=== PATIENT | male | born 1945 | race Caucasian/White ===

== ENCOUNTER 2016-10-07 14:34 | Inpatient (IN) | payer OTHER, MEDICARE ==
[~2016-10-07] VITALS: Ht 167.6 cm; Wt 82.0 kg
[~2016-10-07 14:34] MED LIST: ASPI81 PO; BP MED; DIABETES MEDS; [UNRECOGNIZED DRUG - OTHER]; cholesterol med
[2016-10-07 14:36] VITALS: BP 139/75; PULSE 120; RESP 20; TEMP 99.8; O2SAT 97
[2016-10-07] MEDS ORDERED: SODIUM CHLOR 0.9% 1000 ML INJ 1,000 ML IV ONE ×3 (14:39)
[2016-10-07] MEDS ORDERED: ACETAMINOPHEN 325 MG TAB PO ONE (14:45)
--- NOTE | 2016-10-07 14:50 | PD ---
HPI . Fever Chief Complaint: Fever Time Seen by Provider: 14:39 Travel History International Travel<30 days: No Contact w/Intl Traveler<30days: No Traveled to known affect area: No History of Present Illness HPI This patient was brought to us by [facility] for fever. His story is that he was not seen by neighbors for several days. They called the police to do a well-being check. The police were able to gain entry into the residence and found the patient in his bed decreased level of consciousness. The patient himself was not able to give much history. He states that he "doesn't feel good. He states he has not felt well for a month. And on review of systems, he complained of frequent urination. Further history is unobtainable from the patient. He does not currently have any family here with him. [facility] Past Medical History Medical History: Unable to Obtain Diabetes: Yes Diminished Hearing: Yes GERD: Yes Hypertension: Yes Myocardial Infarction: Yes Tetanus Vaccination: Unknown Past Surgical History Surgical History: Unable to Obtain Other Surgery: Yes (inguinal hernia repair) Social History Alcohol Use: No Tobacco Use: No Substance Use: No Allergies-Medications (Allergen,Severity, Reaction): Coded Allergies: No Known Allergies (Verified , 10/07/16) Reported Meds & Prescriptions Reported Meds & Active Scripts Active Active Prescriptions or Reported Medications Unobtainable Review of Systems ROS Limitations: Poor Historian General / Constitutional: No: Fever, Chills Respiratory: No: Cough, Shortness of Breath Gastrointestinal: No: Nausea, Vomiting, Diarrhea Genitourinary: Positive: Frequency Physical Exam Narrative GENERAL: This is a chronically ill-appearing man who does not appear to be in any acute distress. SKIN: Warm and dry. HEAD: Atraumatic. Normocephalic. EYES: Pupils equal and round. Extraocular movements are intact. ENT: No nasal bleeding or discharge. Mucous membranes pink and moist. NECK: Trachea midline. Neck is supple. No cervical lymphadenopathy. CARDIOVASCULAR: Sinus tachycardia with a rate of around 120-130. Heart sounds are normal. RESPIRATORY: No accessory muscle use. Lungs are clear anteriorly. GASTROINTESTINAL: Abdomen soft, non-tender, nondistended. MUSCULOSKELETAL: No obvious deformities. No edema. NEUROLOGICAL: Awake and alert. No obvious cranial nerve deficits. Motor grossly within normal limits. Normal speech. Patient is disoriented to his current circumstances. He is able to tell me his name. PSYCHIATRIC: Unable to assess. Data Data Last Documented VS Vital Signs Date Time Temp Pulse Resp B/P Pulse Ox O2 Delivery O2 Flow Rate FiO2 10/07/16 15:41 86 17 142/75 96 Nasal Cannula 4 10/07/16 14:36 99.8 Orders Complete Blood Count With Diff (10/07/16 14:39) Comprehensive Metabolic Panel (10/07/16 14:39) Lactic Acid Sepsis Protocol (10/07/16 14:39) Urinalysis - C+S If Indicated (10/07/16 14:39) Blood Culture (10/07/16 14:39) Chest, Single Ap (10/07/16 14:39) Ecg Monitoring (10/07/16 14:39) Iv Access Insert/Monitor (10/07/16 14:39) Cath For Specimen (10/07/16 14:39) Oximetry (10/07/16 14:39) Oxygen Administration (10/07/16 14:39) Acetaminophen (Tylenol) (10/07/16 14:45) Sodium Chlor 0.9% 1000 Ml Inj (Ns 1000 M (10/07/16 14:39) Sodium Chlor 0.9% 1000 Ml Inj (Ns 1000 M (10/07/16 14:39) Sodium Chlor 0.9% 1000 Ml Inj (Ns 1000 M (10/07/16 14:39) Electrocardiogram (10/07/16 14:31) Urine Culture (10/07/16 14:40) Ceftriaxone Inj (Rocephin Inj) (10/07/16 15:30) Potassium Chloride (Kcl) (10/07/16 15:45) Labs Laboratory Tests Test 10/07/16 14:40 White Blood Count 16.2 TH/MM3 Red Blood Count 3.28 MIL/MM3 Hemoglobin 7.8 GM/DL Hematocrit 23.8 % Mean Corpuscular Volume 72.8 FL Mean Corpuscular Hemoglobin 23.7 PG Mean Corpuscular Hemoglobin 32.6 % Concent Red Cell Distribution Width 15.8 % Platelet Count 248 TH/MM3 Mean Platelet Volume 8.1 FL Neutrophils (%) (Auto) 95.0 % Lymphocytes (%) (Auto) 2.7 % Monocytes (%) (Auto) 0.7 % Eosinophils (%) (Auto) 0.0 % Basophils (%) (Auto) 1.6 % Neutrophils # (Auto) 15.4 TH/MM3 Lymphocytes # (Auto) 0.4 TH/MM3 Monocytes # (Auto) 0.1 TH/MM3 Eosinophils # (Auto) 0.0 TH/MM3 Basophils # (Auto) 0.3 TH/MM3 CBC Comment AUTO DIFF Differential Comment AUTO DIFF CONFIRMED Urine Collection Type CATH Urine Color NESTOR Urine Turbidity CLEAR Urine pH 5.5 Urine Specific [place] 1.020 Urine Protein NEG mg/dL Urine Glucose (UA) 1000 OR GREATER mg/dL Urine Ketones NEG mg/dL Urine Occult Blood MOD Urine Nitrite POS Urine Bilirubin NEG Urine Leukocyte Esterase NEG Urine RBC 0-3 /hpf Urine WBC 9-14 /hpf Urine WBC Clumps MOD Urine Bacteria MANY /hpf Microscopic Urinalysis Comment CULTURE INDICATED Sodium Level 149 MEQ/L Potassium Level 2.1 MEQ/L Chloride Level 121 MEQ/L Carbon Dioxide Level 14.6 MEQ/L Anion Gap 13 MEQ/L Blood Urea Nitrogen 27 MG/DL Creatinine 2.00 MG/DL Estimat Glomerular Filtration 33 ML/MIN Rate Random Glucose 119 MG/DL Lactic Acid Level 2.1 mmol/L Calcium Level LESS THAN 5.0 MG/DL Protein Corrected Calcium 6.6 MG/DL Total Bilirubin 0.4 MG/DL Aspartate Amino Transf 8 U/L (AST/SGOT) Alanine Aminotransferase 11 U/L (ALT/SGPT) Alkaline Phosphatase 65 U/L Total Protein 3.4 GM/DL Albumin 1.6 GM/DL [facility] Medical Decision Making Medical Screen Exam Complete: Yes Emergency Medical Condition: Yes Interpretation(s) EKG shows a sinus tachycardia with a rate of 113. No ST segment elevation or depression. Differential Diagnosis Differential diagnosis of fever includes but is not limited to viral illness, strep throat, otitis media, pneumonia, sepsis, UTI Narrative Course The patient was brought to us via [facility] chief complaint of fever. They got an axillary temp of 102.9. The etiology of the fever is as yet unknown. Septic workup was in process. CBC & BMP Diagram 10/07/16 14:40 His renal function studies have worsened. His H&H is also lower than usual. He has leukocytosis. He has hypokalemia. Furthermore, he is hypocalcemic. UA>>mod blood, pos nitrite, 9-14 WBC, mod WBC clumps, many bact. Sepsis Criteria SIRS Criteria (2 or more): Temp > 100.9 or < 96.8, Heart rate over 90, WBC > 88235, < 4000 or > 10% bands Sepsis Criteria (SIRS+source): Infect source susp/known Criteria Outcome: Meets SIRS criteria, Meets sepsis criteria Diagnosis Primary Impression: ARF (acute renal failure) Qualified Code: N17.9 - Acute renal failure, unspecified acute renal failure type Additional Impressions: Anemia Qualified Code: D64.9 - Anemia, unspecified type UTI (urinary tract infection) Qualified Code: N30.00 - Acute cystitis without hematuria Hypokalemia Hypocalcemia Admitting Information Admitting Physician Requests: Admit Scripts Unable to Obtain Active Prescriptions or Reported Meds Condition: Stable Irina Hooper MD Oct 07, 2016 14:50
[2016-10-07 15:03] VITALS: O2SAT 69; O2SAT 96
[2016-10-07 15:07] LABS: KETONE, URINE NEG (NEG); PH, URINE 5.5 (5.0-8.5)
[2016-10-07 15:08] LABS: AUTOMATED NEUTROPHIL # 15.4 TH/MM3 (1.8-7.7); BASOPHIL # 0.3 TH/MM3 (0-0.2); BASOPHIL % 1.6 % (0.0-2.0); BLOOD, URINE MOD (NEG); GLUCOSE,URINE 1000 OR GREATER mg/dL (NEG); HEMATOCRIT 23.8 % (39.0-51.0); LYMPH % 2.7 % (9.0-44.0); LYMPHOCYTE # 0.4 TH/MM3 (1.0-4.8); MEAN CELL VOLUME 72.8 FL (80.0-100.0); MEAN CORPUSCULAR HEMOGLOBIN 23.7 PG (27.0-34.0); MEAN CORPUSCULAR HGB CONC 32.6 % (32.0-36.0); MONO % 0.7 % (0.0-8.0); NITRITE,URINE POS (NEG); PLATELET COUNT 248 TH/MM3 (150-450); RED BLOOD COUNT 3.28 MIL/MM3 (4.50-5.90); RED CELL DISTRIBUTION WIDTH 15.8 % (11.6-17.2); WHITE BLOOD COUNT 16.2 TH/MM3 (4.0-11.0)
[2016-10-07 15:09] LABS: METHOD OF COLLECTION CATH; URINE COLOR AMBER (YELLW/STRAW)
[2016-10-07 15:10] LABS: HEMO FLAGS AUTO DIFF
[2016-10-07 15:12] LABS: BACTERIA, URINE MANY /hpf; COMMENT (UR) CULTURE INDICATED; CULTURE IF INDICATED CULTURE INDICATED; RBC, URINE 0-3 /hpf (0-3)
[2016-10-07 15:25] LABS: ALKALINE PHOSPHATASE 65 U/L (45-117); ALT (GPT) 11 U/L (12-78); ANION GAP 13 MEQ/L (5-15); AST (GOT) 8 U/L (15-37); BICARBONATE 14.6 MEQ/L (21.0-32.0); BLOOD UREA NITROGEN 27 MG/DL (7-18); CHLORIDE 121 MEQ/L (98-107); GLOMERULAR FILTRATION RATE 33 ML/MIN (>89); SODIUM (NA) 149 MEQ/L (136-145); TOTAL BILIRUBIN ADULT 0.4 MG/DL (0.2-1.0)
[2016-10-07 15:27] LABS: POTASSIUM 2.1 MEQ/L (3.5-5.1)
[2016-10-07] MEDS ORDERED: cefTRIAXone INJ 1,000 MG in SODIUM CHLORIDE 0.9% INJ 100 ML IV ONE (15:30)
[2016-10-07 15:35] LABS: CALCIUM-PROTEIN CORRECTED 6.6 MG/DL (8.5-10.1)
[2016-10-07 15:39] LABS: SCAN/DIFF AUTO DIFF CONFIRMED
[2016-10-07 15:41] VITALS: BP 142/75; PULSE 86; RESP 17; O2SAT 96
[2016-10-07] MEDS ORDERED: POTASSIUM CHLORIDE 20 MEQ CONTROLLED RELEASE TAB PO ONE (15:45)
--- NOTE | 2016-10-07 15:52 | RADRPT ---
EXAM DATE/TIME: 10/07/2016 14:56 [facility] COMPARISON: CHEST SINGLE AP, May 14, 2011, 18:35. INDICATIONS : Fever MEDICAL HISTORY : None. SURGICAL HISTORY : None. ENCOUNTER: Initial ACUITY: 1 day PAIN SCORE: 0/10 LOCATION: Bilateral chest FINDINGS: The patient is mildly rotated towards the right. The heart size is enlarged. The lungs are grossly cl ear. There some prominence of the superior mediastinum especially on the right. This may be secondary to the rotation. CONCLUSION: No acute abnormality seen. Bruno Pedraza MD on October 07, 2016 at 15:48 Board Certified Radiologist. This report was verified electronically.
[2016-10-07] MEDS ORDERED: GLIP10TA6 PO (15:54)
[2016-10-07] MEDS ORDERED: AMLO5TAB2 PO (15:54)
[2016-10-07] MEDS ORDERED: PANT20TA2 PO (15:54)
[2016-10-07] MEDS ORDERED: CITA20TA4 PO (15:54)
[2016-10-07] MEDS ORDERED: TRAZ100T6 PO (15:54)
[2016-10-07] MEDS ORDERED: MELO-1 PO (15:54)
[2016-10-07] MEDS ORDERED: SITA1TAB2 PO (15:54)
[2016-10-07] MEDS ORDERED: ATOR20TA15 PO (15:54)
[2016-10-07] MEDS ORDERED: HYDR25TA5 PO (15:54)
[2016-10-07] MEDS: SODIUM CHLOR 0.45% 1000 ML INJ 1,000 ML IV SCH (16:06)
[2016-10-07] MEDS ORDERED: BISACODYL 10 MG SUPP RECTAL PRN (16:15)
[2016-10-07] MEDS ORDERED: NALOXONE HCL 0.4 MG/ML AMP IV PRN (16:15)
[2016-10-07] MEDS ORDERED: MAGNESIUM HYDROXIDE SUSP 30 ML CUP PO PRN (16:15)
[2016-10-07] MEDS ORDERED: ONDANSETRON HCL 4 MG/2 ML VIAL IVP PRN (16:15)
[2016-10-07] MEDS ORDERED: ACETAMINOPHEN 325 MG TAB PO PRN (16:15)
[2016-10-07] MEDS ORDERED: SODIUM CHLORIDE 0.9% FLUSH 10 ML FLUSH IV FLUSH PRN (16:15)
[2016-10-07] MEDS ORDERED: Vancomycin Consult Pharmacy 1 EA OTHER SCH (16:30)
[2016-10-07] MEDS ORDERED: DEXTROSE 50% IN WATER 50 ML VIAL(D50) IV PRN (16:45)
[2016-10-07] MEDS ORDERED: GLUCAGON 1 MG/ML VIAL OTHER PRN (16:45)
[2016-10-07 16:59] LABS: LACTIC ACID GHOST NOT REPORTABLE
[2016-10-07 17:00] LABS: ALKALINE PHOSPHATASE 108 U/L (45-117); ALT (GPT) 24 U/L (12-78); ANION GAP 12 MEQ/L (5-15); AST (GOT) 25 U/L (15-37); BICARBONATE 25.2 MEQ/L (21.0-32.0); BLOOD UREA NITROGEN 38 MG/DL (7-18); CHLORIDE 100 MEQ/L (98-107); GLOMERULAR FILTRATION RATE 19 ML/MIN (>89); POTASSIUM 3.5 MEQ/L (3.5-5.1); SODIUM (NA) 137 MEQ/L (136-145); TOTAL BILIRUBIN ADULT 0.6 MG/DL (0.2-1.0)
[2016-10-07] MEDS ORDERED: cefTRIAXone INJ 1,000 MG in SODIUM CHLORIDE 0.9% INJ 100 ML IV SCH (17:00)
[2016-10-07 17:01] LABS: CREATINE KINASE 54 U/L (39-308)
[2016-10-07 17:43] VITALS: O2SAT 96
[2016-10-07] MEDS: POTASSIUM CHLOR 20 MEQ PREMIX 100 ML IV SCH ×2 (18:02→23:18)
[2016-10-07] MEDS: CALCIUM CARBONATE 1.25 GM (CA 500 MG) TAB PO SCH (18:02)
[2016-10-07] MEDS: HEPARIN SODIUM - SQ 10,000 UNITS/ML VIAL SQ SCH (18:03)
--- NOTE | 2016-10-07 19:41 | PD ---
Data Data Last Documented VS Vital Signs Date Time Temp Pulse Resp B/P Pulse Ox O2 Delivery O2 Flow Rate FiO2 10/07/16 15:41 86 17 142/75 96 Nasal Cannula 4 10/07/16 14:36 99.8 Orders Complete Blood Count With Diff (10/07/16 14:39) Comprehensive Metabolic Panel (10/07/16 14:39) Lactic Acid Sepsis Protocol (10/07/16 14:39) Urinalysis - C+S If Indicated (10/07/16 14:39) Blood Culture (10/07/16 14:39) Chest, Single Ap (10/07/16 14:39) Ecg Monitoring (10/07/16 14:39) Iv Access Insert/Monitor (10/07/16 14:39) Cath For Specimen (10/07/16 14:39) Oximetry (10/07/16 14:39) Oxygen Administration (10/07/16 14:39) Acetaminophen (Tylenol) (10/07/16 14:45) Sodium Chlor 0.9% 1000 Ml Inj (Ns 1000 M (10/07/16 14:39) Sodium Chlor 0.9% 1000 Ml Inj (Ns 1000 M (10/07/16 14:39) Sodium Chlor 0.9% 1000 Ml Inj (Ns 1000 M (10/07/16 14:39) Electrocardiogram (10/07/16 14:31) Urine Culture (10/07/16 14:40) Ceftriaxone Inj (Rocephin Inj) (10/07/16 15:30) Potassium Chloride (Kcl) (10/07/16 15:45) Admit Order (Ed Use Only) (10/07/16 15:56) Labs Laboratory Tests Test 10/07/16 14:40 White Blood Count 16.2 TH/MM3 Red Blood Count 3.28 MIL/MM3 Hemoglobin 7.8 GM/DL Hematocrit 23.8 % Mean Corpuscular Volume 72.8 FL Mean Corpuscular Hemoglobin 23.7 PG Mean Corpuscular Hemoglobin 32.6 % Concent Red Cell Distribution Width 15.8 % Platelet Count 248 TH/MM3 Mean Platelet Volume 8.1 FL Neutrophils (%) (Auto) 95.0 % Lymphocytes (%) (Auto) 2.7 % Monocytes (%) (Auto) 0.7 % Eosinophils (%) (Auto) 0.0 % Basophils (%) (Auto) 1.6 % Neutrophils # (Auto) 15.4 TH/MM3 Lymphocytes # (Auto) 0.4 TH/MM3 Monocytes # (Auto) 0.1 TH/MM3 Eosinophils # (Auto) 0.0 TH/MM3 Basophils # (Auto) 0.3 TH/MM3 CBC Comment AUTO DIFF Differential Comment AUTO DIFF CONFIRMED Urine Collection Type CATH Urine Color NESTOR Urine Turbidity CLEAR Urine pH 5.5 Urine Specific [place] 1.020 Urine Protein NEG mg/dL Urine Glucose (UA) 1000 OR GREATER mg/dL Urine Ketones NEG mg/dL Urine Occult Blood MOD Urine Nitrite POS Urine Bilirubin NEG Urine Leukocyte Esterase NEG Urine RBC 0-3 /hpf Urine WBC 9-14 /hpf Urine WBC Clumps MOD Urine Bacteria MANY /hpf Microscopic Urinalysis Comment CULTURE INDICATED Sodium Level 149 MEQ/L Potassium Level 2.1 MEQ/L Chloride Level 121 MEQ/L Carbon Dioxide Level 14.6 MEQ/L Anion Gap 13 MEQ/L Blood Urea Nitrogen 27 MG/DL Creatinine 2.00 MG/DL Estimat Glomerular Filtration 33 ML/MIN Rate Random Glucose 119 MG/DL Lactic Acid Level 2.1 mmol/L Calcium Level LESS THAN 5.0 MG/DL Protein Corrected Calcium 6.6 MG/DL Total Bilirubin 0.4 MG/DL Aspartate Amino Transf 8 U/L (AST/SGOT) Alanine Aminotransferase 11 U/L (ALT/SGPT) Alkaline Phosphatase 65 U/L Total Protein 3.4 GM/DL Albumin 1.6 GM/DL [facility] Supervised Visit with MONICA: No Narrative Course I took over care of this patient from Dr. Hooper. The patient was found lethargic in his house in bed. He has evidence of urosepsis and has an indwelling Lo catheter. He also has renal insufficiency which appears to be new. Initially his electrolytes all seemed abnormal. In reviewing the picture and it appears that he had saline contamination to his first set a labs. I repeated his labs and they're more normal. I did contact Dr. Harris regarding the new blood work. Pt. will be admitted for antibiotics and rehydration. Diagnosis Primary Impression: ARF (acute renal failure) Qualified Code: N17.9 - Acute renal failure, unspecified acute renal failure type Additional Impressions: Anemia Qualified Code: D64.9 - Anemia, unspecified type UTI (urinary tract infection) Qualified Code: N30.00 - Acute cystitis without hematuria Hypokalemia Hypocalcemia Condition: Stable Chiquita Solomon MD Oct 07, 2016 19:40
[2016-10-07 20:00] VITALS: BP 108/67; PULSE 101; RESP 22; TEMP 98.8; O2SAT 96
[2016-10-07] MEDS: INSULIN NovoLIN REGULAR SUPPLEMENTAL SCALE SQ SCH (21:00)
[2016-10-07] MEDS ORDERED: VANCOMYCIN INJ 1,200 MG in SODIUM CHLOR 0.9% 250 ML INJ 250 ML IV ONE (21:00)
[2016-10-07 21:04] VITALS: O2SAT 94
[2016-10-07] MEDS: ATORVASTATIN 20 MG TAB PO SCH (21:51)
[2016-10-07] MEDS: traZODone HCL 100 MG TAB PO SCH (21:51)
[2016-10-07] MEDS: SENNOSIDES 8.6 MG TAB PO SCH (21:51)
[2016-10-08] VITALS (7 sets, daily range): BP systolic 114–136; BP diastolic 71–84; PULSE 67–81; RESP 16–19; TEMP 96.7–97.8; O2SAT 92–95
[2016-10-08] MEDS: POTASSIUM CHLOR 20 MEQ PREMIX 100 ML IV SCH (01:39)
[2016-10-08] MEDS: HEPARIN SODIUM - SQ 10,000 UNITS/ML VIAL SQ SCH ×2 (03:44→17:06)
[2016-10-08 05:39] LABS: HEMATOCRIT 26.2 % (39.0-51.0); MEAN CELL VOLUME 74.4 FL (80.0-100.0); MEAN CORPUSCULAR HEMOGLOBIN 23.8 PG (27.0-34.0); MEAN CORPUSCULAR HGB CONC 31.9 % (32.0-36.0); PLATELET COUNT 258 TH/MM3 (150-450); RED BLOOD COUNT 3.52 MIL/MM3 (4.50-5.90); WHITE BLOOD COUNT 32.3 TH/MM3 (4.0-11.0)
[2016-10-08 05:47] LABS: REVIEW FLAG FINAL
[2016-10-08] MEDS: INSULIN NovoLIN REGULAR SUPPLEMENTAL SCALE SQ SCH ×4 (06:11→21:00)
[2016-10-08] MEDS: SODIUM CHLOR 0.45% 1000 ML INJ 1,000 ML IV SCH ×2 (06:12→09:21)
[2016-10-08 06:16] LABS: ALKALINE PHOSPHATASE 93 U/L (45-117); ALT (GPT) 29 U/L (12-78); ANION GAP 8 MEQ/L (5-15); AST (GOT) 19 U/L (15-37); BICARBONATE 26.2 MEQ/L (21.0-32.0); BLOOD UREA NITROGEN 31 MG/DL (7-18); CHLORIDE 107 MEQ/L (98-107); GLOMERULAR FILTRATION RATE 37 ML/MIN (>89); POTASSIUM 4.4 MEQ/L (3.5-5.1); SODIUM (NA) 141 MEQ/L (136-145); TOTAL BILIRUBIN ADULT 0.4 MG/DL (0.2-1.0)
[2016-10-08] MEDS ORDERED: glipiZIDE 10 MG TAB PO SCH (07:00)
--- NOTE | 2016-10-08 08:35 | HHI.HP ---
[facility] Unknown Admission Diagnosis sepsis Diagnoses: (1) Severe sepsis Diagnosis: Principal (2) Encephalopathy Diagnosis: Principal (3) Lactic acidosis Diagnosis: Principal (4) Leukocytosis Diagnosis: Principal (5) Acute renal failure Diagnosis: Principal (6) UTI (urinary tract infection) Diagnosis: Principal (7) Hypokalemia Diagnosis: Principal (8) Hypocalcemia Diagnosis: Principal (9) Microcytic anemia Diagnosis: Principal (10) Protein-calorie malnutrition, moderate Diagnosis: Principal (11) Hypertension Diagnosis: Secondary (12) Hyperlipidemia Diagnosis: Secondary (13) Diabetes Diagnosis: Secondary Travel History International Travel<30 Days: No Contact w/Intl Traveler <30 Da: No Traveled to Known Affected Are: No Sepsis Criteria SIRS Criteria (2 or more): Heart rate over 90, WBC > 12827, < 4000 or > 10% bands Sepsis Criteria (SIRS+source): Infect source susp/known Severe Sepsis (+one): Organ Dysfunction, Lactate >2, Acute Oliguria/Renal Failure Criteria Outcome: Meets severe sepsis criteria History of Present Illness Written by Russell Azar, acting as scribe for Dr. Millan on 10/08/16 at 09: 14. 71-year-old male with known history of hypertension, hyperlipidemia, diabetes who was brought to the hospital for evaluation by [facility]. The patient himself cannot give much information regarding why he is here the hospital. He just states that he is messed up. ER documentation doesn't give much other information other than the police were called to do a well-child check. The police obtain entry is homebound and have decreased level consciousness and the patient was brought to the hospital for evaluation. Time of evaluating the patient he is alert and orientated 4, however he cannot give any information regarding his symptoms or if he is been ill recently. Patient had workup done emergency department found to have multiple abnormalities to include severe sepsis, renal failure, lactic acidosis, leukocytosis, urinary tract infection and the patient was recommended admission for further evaluation management. Most all information was taken from medical records and nursing staff. Review of Systems ROS Limitations: Poor Historian (unable to obtain review of systems) Except as stated in HPI: all other systems reviewed are Neg Past Family Social History Past Medical History Hypertension Hyperlipidemia Diabetes History of urinary tract infection Past Surgical History Bilateral hernia repair Cholecystectomy Reported Medications Reported Meds & Active Scripts Active Reported Hydrochlorothiazide 25 Mg Tab 25 Mg PO DAILY Amlodipine (Amlodipine Besylate) 5 Mg Tab 5 Mg PO DAILY Trazodone (Trazodone HCl) 100 Mg Tablet 100 Mg PO HS Januvia (Sitagliptin Phosphate) 100 Mg Tab 100 Mg PO DAILY Citalopram (Citalopram Hydrobromide) 20 Mg Tab 20 Mg PO DAILY Glipizide 10 Mg Tab 10 Mg PO BIDAC Take 30 minutes before a meal Atorvastatin (Atorvastatin Calcium) 20 Mg Tab 20 Mg PO HS Pantoprazole (Pantoprazole Sodium) 20 Mg Tab 20 Mg PO DAILY Meloxicam 15 Mg Tab 15 Mg PO DAILY Allergies: Coded Allergies: No Known Allergies (Verified , 10/07/16) Family History Reviewed with patient and he indicates that both parents are from old age, denies any medical problems include heart disease, diabetes, lung disease, cancer, seizures, stroke Social History Patient denies any tobacco, alcohol or illicit drugs Physical Exam Vital Signs Vital Signs Date Time Temp Pulse Resp B/P Pulse Ox O2 Delivery O2 Flow Rate FiO2 10/08/16 08:00 96.8 67 18 114/75 10/08/16 05:19 10/08/16 00:00 97.0 81 19 125/84 92 10/07/16 21:04 94 Nasal Cannula 2.00 10/07/16 20:00 98.8 101 22 108/67 96 10/07/16 17:43 96 Nasal Cannula 2.00 10/07/16 15:41 86 17 142/75 96 Nasal Cannula 4 10/07/16 15:05 96 Nasal Cannula 4 10/07/16 15:03 96 Nasal Cannula 4 10/07/16 15:03 96 Nasal Cannula 4 10/07/16 14:36 99.8 120 20 139/75 97 Nasal Cannula 4 Physical Exam GENERAL: Well-developed, well-nourished, in no acute distress. alert and orientated HEENT: Head is normocephalic without any lesions or masses noted. Facial features are symmetric. Eyes: Pupils equal round reactive to light. Extraocular muscles are intact. Conjunctivae were clear. Oropharyngeal: Pharynx without any erythema edema. Tongue is midline without deviation. Buccal mucosa is moist without any masses or lesions NECK: Supple without any masses. Trachea midline no deviation. No JVD, no bruits are appreciated CARDIAC: Regular rhythm, regular rate. S1/S2 are heard. No murmurs gallops or rubs. LUNGS: Clear to auscultation bilaterally. No wheeze, rhonchi or rales. No use of accessory muscles on inspiration or expiration. ABDOMEN: Soft, nontender. Nondistended. Bowel sounds heard in all 4 quadrants. No organomegaly or masses. Negative rebound, negative guarding EXTREMITIES: No edema, pulses are equal bilaterally. No cyanosis or clubbing NEUROLOGY: Mood and affect appear appropriate. Cranial nerves II through XII grossly intact. Muscle strength 5/5 in upper and lower extremities bilaterally. Deep tendon reflexes are 2+ in upper and lower extremities bilaterally. Laboratory Laboratory Tests Test 10/07/16 10/07/16 10/07/16 10/08/16 14:40 16:00 18:15 05:25 White Blood Count 16.2 32.3 Red Blood Count 3.28 3.52 Hemoglobin 7.8 8.4 Hematocrit 23.8 26.2 Mean Corpuscular Volume 72.8 74.4 Mean Corpuscular Hemoglobin 23.7 23.8 Mean Corpuscular Hemoglobin 32.6 31.9 Concent Red Cell Distribution Width 15.8 16.0 Platelet Count 248 258 Mean Platelet Volume 8.1 7.7 Neutrophils (%) (Auto) 95.0 Lymphocytes (%) (Auto) 2.7 Monocytes (%) (Auto) 0.7 Eosinophils (%) (Auto) 0.0 Basophils (%) (Auto) 1.6 Neutrophils # (Auto) 15.4 Lymphocytes # (Auto) 0.4 Monocytes # (Auto) 0.1 Eosinophils # (Auto) 0.0 Basophils # (Auto) 0.3 CBC Comment AUTO DIFF Differential Comment AUTO DIFF CONFIRMED Urine Collection Type CATH Urine Color NESTOR Urine Turbidity CLEAR Urine pH 5.5 Urine Specific [place] 1.020 Urine Protein NEG Urine Glucose (UA) 1000 OR GREATER Urine Ketones NEG Urine Occult Blood MOD Urine Nitrite POS Urine Bilirubin NEG Urine Leukocyte Esterase NEG Urine RBC 0-3 Urine WBC 9-14 Urine WBC Clumps MOD Urine Bacteria MANY Microscopic Urinalysis Comment CULTURE INDICATED Sodium Level 149 137 141 Potassium Level 2.1 3.5 4.4 Chloride Level 121 100 107 Carbon Dioxide Level 14.6 25.2 26.2 Anion Gap 13 12 8 Blood Urea Nitrogen 27 38 31 Creatinine 2.00 3.30 1.80 Estimat Glomerular Filtration 33 19 37 Rate Random Glucose 119 161 113 Lactic Acid Level 2.1 1.9 Calcium Level LESS THAN 5.0 7.7 8.1 Protein Corrected Calcium 6.6 Total Bilirubin 0.4 0.6 0.4 Aspartate Amino Transf 8 25 19 (AST/SGOT) Alanine Aminotransferase 11 24 29 (ALT/SGPT) Alkaline Phosphatase 65 108 93 Total Protein 3.4 6.5 5.9 Albumin 1.6 3.0 2.6 Total Creatine Kinase 54 Date/Time Procedure Status Source Growth 10/07/16 14:45 Aerobic Blood Culture Received Blood Peripheral Pending 10/07/16 14:45 Anaerobic Blood Culture Received Blood Peripheral Pending 10/07/16 14:40 Urine Culture Received Urine Catheterized Urine Pending Result Diagram: 10/08/1652410/08/16524 Imaging Last Impressions Chest X-Ray 10/07/16 1439 Signed Impressions: Service Date/Time: Friday, October 07, 2016 14:56 - CONCLUSION: No acute abnormality seen. Bruno Pedraza MD Septic Shock Reassessment Heart: Regular rate and rhythm Lungs: Clear Skin: Warm, Moist Peripheral Pulses: Bounding Right Radial Bounding Left Radial Capillary Refill: Brisk, <2 seconds Assessment and Plan Problem List: (1) Severe sepsis ICD Code: A41.9 Status: Acute Plan: Patient presented with decreased level consciousness, leukocytosis, lactic acidosis, urinary tract infection, tachycardia, Patient started on empirical antibiotics include Rocephin, vancomycin Continue follow blood cultures, urine culture Lactic acid level has returned to normal (2) Encephalopathy ICD Code: G93.40 Status: Acute Plan: Patient was found to have decreased level consciousness at home as well as unable to give any information to emergency room physician as well as myself about his current condition. Could be possible toxic or metabolic encephalopathy Patient is orientated [address] scan of the brain Obtain further laboratory studies to include B12, folate, ammonia level, drug screen, RPR (3) Leukocytosis ICD Code: D72.829 Status: Acute Plan: Patient is with sepsis time, leukocytosis with left shift Monitor CBC (4) UTI (urinary tract infection) ICD Code: N39.0 Status: Acute Plan: Patient indicates he gets recurrent urinary tract infection approximately 2-3 times yearly Empirical antibiotics include vancomycin and Rocephin Follow urine culture for appropriate antibiotics (5) Acute renal failure ICD Code: N17.9 Status: Acute Plan: This appears to be severely acute renal failure superimposed on chronic kidney disease stage II, unknown etiology could be secondary to dehydration, infection, hypoperfusion Continue IV fluids Monitor renal function avoid nephrotoxins (6) Hypocalcemia ICD Code: E83.51 Status: Acute Plan: This has improved with normal saline Calcium carbonate 500 mg daily Monitor calcium level (7) Hypokalemia ICD Code: E87.6 Status: Acute Plan: Improved with replacement in the emergency department Monitor potassium level replete as needed (8) Microcytic anemia ICD Code: D50.9 Status: Acute Plan: Appears to be new since 2011 Obtain iron studies, ferritin level (9) Hypertension ICD Code: I10 Status: Chronic Plan: Blood pressure stable this time Home medications have been continued to include amlodipine Will hold HCTZ at this time due to acute renal failure (10) Hyperlipidemia ICD Code: E78.5 Status: Chronic Plan: Statin has been continued (11) Diabetes ICD Code: E11.9 Status: Chronic Plan: Patient with type 2 diabetes on oral hypoglycemic agent Will discontinue oral hypoglycemic agents at this time Accu-Cheks with sliding scale insulin Assessment and Plan DVT prevention Subcutaneous heparin This note was transcribed by home Azar. I, Dr. Yeison Millan personally performed the history, physical exam, and medical decision making; and confirmed the accuracy of the information in the transcribed note. Authenticated by Dr. Yeison Millan on 10/08/16 at 09:14. Code Status full code Discussed Condition With patient Physician Certification 2 Midnight Certification Type: Admission for Inpatient Services Order for Inpatient Services The services are ordered in accordance with Medicare regulations or non- Medicare payer requirements, as applicable. In the case of services not specified as inpatient-only, they are appropriately provided as inpatient services in accordance with the 2-midnight benchmark. Estimated LOS (days): 3 days is the estimated time the patient will need to remain in the hospital, assuming treatment plan goals are met and no additional complications. Post-Hospital Plan: Not yet determined Problem Qualifiers (1) Leukocytosis: Qualified Code: D72.829 - Leukocytosis, unspecified type (2) Acute renal failure: Qualified Code: N17.9 - Acute renal failure, unspecified acute renal failure type (3) UTI (urinary tract infection): Qualified Code: N30.00 - Acute cystitis without hematuria (4) Hypertension: Qualified Code: I15.9 - Secondary hypertension (5) Hyperlipidemia: Qualified Code: E78.5 - Hyperlipidemia, unspecified hyperlipidemia type (6) Diabetes: Qualified Code: E11.8 - Type 2 diabetes mellitus with complication, without long-term current use of insulin Russell Azar Oct 08, 2016 08:35 Yeison Millan MD Oct 08, 2016 08:37
[2016-10-08] MEDS ORDERED: HYDROCHLOROTHIAZIDE 25 MG TAB PO SCH (09:00)
[2016-10-08] MEDS: PANTOPRAZOLE SOD 20 MG DELAYED RELEASE TAB PO SCH (09:18)
[2016-10-08] MEDS: MELOXICAM 15 MG TAB PO SCH (09:18)
[2016-10-08] MEDS: amLODIPine BESYLATE 5 MG TAB PO SCH (09:18)
[2016-10-08] MEDS: CITALOPRAM HYDROBROMIDE 20 MG TAB PO SCH (09:19)
[2016-10-08] MEDS: CALCIUM CARBONATE 1.25 GM (CA 500 MG) TAB PO SCH (09:19)
[2016-10-08] MEDS: SENNOSIDES 8.6 MG TAB PO SCH ×2 (09:20→20:50)
--- NOTE | 2016-10-08 10:19 | RADRPT ---
EXAM DATE/TIME: 10/08/2016 09:55 [facility] COMPARISON: No previous studies available for comparison. INDICATIONS : Encephalopathy RADIATION DOSE: 63.47 CTDIvol (mGy) MEDICAL HISTORY : Hypertension. Cardiovascular disease Gastroesophageal reflux disease.Diabetes. SURGICAL HISTORY : Hernia repair. ENCOUNTER: Initial ACUITY: 1 day PAIN SCALE: 0/10 LOCATION: cranial TECHNIQUE: Multiple contiguous axial images were obtained of the head. Using automated exposure control and adj ustment of the mA and/or kV according to patient size, radiation dose was kept as low as reasonably a chievable to obtain optimal diagnostic quality images. DICOM format image data is available electro nically for review and comparison. FINDINGS: CEREBRUM: The ventricles are normal for age. No evidence of midline shift, mass lesion, hemorrhage or acute in farction. No extra-axial fluid collections are seen. POSTERIOR FOSSA: The cerebellum and brainstem are intact. The 4th ventricle is midline. The cerebellopontine angle i s unremarkable. EXTRACRANIAL: The visualized portion of the orbits is intact. SKULL: The calvaria is intact. No evidence of skull fracture. CONCLUSION: No acute intracranial findings Bruno Petersen MD on October 08, 2016 at 10:15 Board Certified Radiologist. This report was verified electronically.
[2016-10-08 11:17] LABS: MAGNESIUM 2.2 MG/DL (1.5-2.5)
[2016-10-08 12:35] LABS: TRANSFERRIN IRON PROFILE 196 MG/DL (200-360)
[2016-10-08 13:00] LABS: FERRITIN 98 NG/ML (26-388)
[2016-10-08 14:46] LABS: RAPID PLASMA REAGIN SCREEN NON-REACTIVE (NON-REACTVE)
--- NOTE | 2016-10-08 15:18 | PD.CONS ---
History of Present Illness Service Infectious disease Consult Requested By Dr Millan Reason for Consult Evaluate patient with UTI, and (+) Primary Care Physician Unknown Diagnoses: History of Present Illness Patient seen and examined. Records reviewed. Patient is a 71-year-old male admitted to the hospital after he was found at home with decreased level of consciousness. According to the patient he has not been feeling well probably for the last 2-3 days. He just didn't have any energy, and has poor appetite. His been urinating very frequently and was getting up at night. According to the patient he was in the process of moving to a different apartment but he was quite weak and has not been able to do that. According to the record, his neighbors called the police because they have not seen the patient during the weekend. The police obtain entry and found the patient in his home with decreased level of consciousness. Patient stated that he vomited one time over the weekend. He has some occasional back pain which has not really been giving him a lot of problem. He has been having problem with polyuria, and to area over the last 6 months. He has been told in the past that he has an enlarged prostate, but they couldn't really give me any details as to whether he was put on any medication for this, or whether he was referred to a urologist for his current problem. There is been no complaint of respiratory symptoms. There's been no complaint of abdominal pain, or any diarrhea. Since admission he has not been febrile. His mental status has improved. He had an elevated creatinine, and Lo was inserted in the ED and initial volume obtain was 1.4 L. His urinalysis showed pyuria. Urine culture is negative so far but 2 blood cultures done in the ED is now reported as growing gram- positive cocci in chains. His chest x-rays normal. CT of the head is unremarkable. His initial WBC was 16,000, and it's up to 32,000. Liver function tests are normal. Infectious disease consultation has been requested to evaluate the patient with UTI, and bacteremia. Review of Systems Constitutional: COMPLAINS OF: Dizziness, Change in appetite, DENIES: Fever, Chills Eyes: DENIES: Eye pain Ears, nose, mouth, throat: COMPLAINS OF: Vertigo, DENIES: Nasal discharge, Oral lesions, Throat pain, Ear Pain, Sinus Pain Respiratory: DENIES: Cough, Shortness of breath Cardiovascular: DENIES: Chest pain, Palpitations Gastrointestinal: COMPLAINS OF: Anorexia, DENIES: Abdominal pain, Diarrhea, Nausea, Vomiting, Difficulty Swallowing Genitourinary: COMPLAINS OF: Urinary frequency, Urgency, Dysuria, DENIES: Hematuria, Penile Discharge Musculoskeletal: COMPLAINS OF: Muscle aches, Back pain Integumentary: DENIES: Rash Neurologic: COMPLAINS OF: Paresthesias, DENIES: Headache Psychiatric: COMPLAINS OF: Confusion Past Family Social History Allergies: Coded Allergies: No Known Allergies (Verified , 10/07/16) Past Medical History Hypertension Hyperlipidemia Diabetes History of urinary tract infection Enlarged prostate 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 Past Surgical History Bilateral hernia repair x 2 Cholecystectomy Active Ordered Medications Tylenol Norvasc Lipitor Dulcolax Oscal Rocephin Vancomycin Celexa heparin Insulin Magnesium Mobic Zofran Protonix Senokot Desyrel Family History Unremarkable Social History Lives alone Denies smoking Denies ETOH abuse Denies illicit drugs Physical Exam Vital Signs Vital Signs Date Time Temp Pulse Resp B/P Pulse Ox O2 Delivery O2 Flow Rate FiO2 10/08/16 12:00 97.8 71 18 119/72 95 10/08/16 09:12 92 21 10/08/16 08:00 96.8 67 18 114/75 10/08/16 05:19 10/08/16 00:00 97.0 81 19 125/84 92 10/07/16 21:04 94 Nasal Cannula 2.00 10/07/16 20:00 98.8 101 22 108/67 96 10/07/16 17:43 96 Nasal Cannula 2.00 10/07/16 15:41 86 17 142/75 96 Nasal Cannula 4 10/07/16 15:05 96 Nasal Cannula 4 10/07/16 15:03 96 Nasal Cannula 4 10/07/16 15:03 96 Nasal Cannula 4 Physical Exam GENERAL: Patient is a well-nourished, well-developed CM, awake and alert, not in respiratory distress.He is oriented to time, place and person SKIN: Warm and dry. No generalized rash, no ecchymoses and no evidence of embolic lesions. HEAD: Atraumatic. Normocephalic. No temporal wasting, or tenderness. EYES: [place] conjunctiva. No petechia or hemorrhage. Pupils equal, round and reactive to light. Extraocular movements full and intact. No scleral icterus. No injection or drainage. EARS, NOSE AND THROAT: Nose without bleeding or purulent nasal discharge. No sinus tenderness. Mucous membranes pink and moist. No oral lesions noted. No exudate. No oral thrush. NECK: Trachea midline. Supple and not tender, no meningeal signs CARDIOVASCULAR: Regular rate and rhythm. No murmurs, rubs or gallops heard RESPIRATORY: Clear to auscultation. Breath sounds equal bilaterally. No rales , wheezing or rhonchi ABDOMEN: Soft, non-tender, nondistended. Bowel sounds present and normoactive. No guarding. No rebound. No organomegaly. EXTREMITIES: No clubbing, cyanosis, or edema. No joint effusion, has good ROM. No calf tenderness. Well perfused and warm. NEUROLOGICAL: Awake and alert. Cranial nerves grossly intact. Motor grossly within normal limits. PSYCHIATRIC: Normal affect, calm and cooperative. LINE: No evidence of infection : Lo in place, light yellow urine with some sediment Laboratory Laboratory Tests Test 10/07/16 10/07/16 10/08/16 10/08/16 16:00 18:15 05:25 10:35 Sodium Level 137 141 Potassium Level 3.5 4.4 Chloride Level 100 107 Carbon Dioxide Level 25.2 26.2 Anion Gap 12 8 Blood Urea Nitrogen 38 31 Creatinine 3.30 1.80 Estimat Glomerular Filtration 19 37 Rate Random Glucose 161 113 Calcium Level 7.7 8.1 Total Bilirubin 0.6 0.4 Aspartate Amino Transf 25 19 (AST/SGOT) Alanine Aminotransferase 24 29 (ALT/SGPT) Alkaline Phosphatase 108 93 Total Creatine Kinase 54 Total Protein 6.5 5.9 Albumin 3.0 2.6 Lactic Acid Level 1.9 White Blood Count 32.3 Red Blood Count 3.52 Hemoglobin 8.4 Hematocrit 26.2 Mean Corpuscular Volume 74.4 Mean Corpuscular Hemoglobin 23.8 Mean Corpuscular Hemoglobin 31.9 Concent Red Cell Distribution Width 16.0 Platelet Count 258 Mean Platelet Volume 7.7 Magnesium Level 2.2 Iron Level 9 Total Iron Binding Capacity 274 Percent Iron Saturation 3.3 Ferritin 98 Ammonia 12 Vitamin B12 Level 594 Folate 18.1 Thyroid Stimulating Hormone 1.260 3rd Gen Rapid Plasma Reagin NON-REACTIVE Date/Time Procedure Status Source Growth 10/08/16 12:30 Aerobic Blood Culture Received Blood Peripheral Pending 10/08/16 12:30 Anaerobic Blood Culture Received Blood Peripheral Pending 10/07/16 14:45 Aerobic Blood Culture - Preliminary Resulted Blood Peripheral Gram Positive Cocci 10/07/16 14:45 Anaerobic Blood Culture - Preliminary Resulted Gram Positive Cocci 10/07/16 14:40 Urine Culture - Preliminary Resulted Urine Catheterized Urine NO GROWTH IN 24 HOURS. Result Diagram: 10/08/16 0525 10/08/16 0525 Imaging RADIOLOGY STUDIES/FILMS REVIEWED Head CT 10/08/16 0000 Signed Impressions: Service Date/Time: Saturday, October 08, 2016 09:55 - CONCLUSION: No acute intracranial findings Bruno Petersen MD Chest X-Ray 10/07/16 1439 Signed Impressions: Service Date/Time: Friday, October 07, 2016 14:56 - CONCLUSION: No acute abnormality seen. Bruno Pedraza MD Assessment and Plan Assessment and Plan IMPRESSION Sepsis with GPC in chains, has symptoms and (+) UA - had urinary retention on admission, initial volume obtained 1.4L Acute renal failure, ?obstructive, and possibly sepsis adding to it Leukocytosis Known BPH Recent cholecystectomy RECOMMENDATION CT A/P Echo Repeat BC to document clearing Continue Rocephin Continue Vanco - pharmacy doing dosing; will check level in AM Follow C/S Monitor progress Further recommendation on course of Rx to follow once work-up is completed and C /S finalized Thank you for this consultation Discussed Condition With Explained plan to the patient Michelle Hernandez MD Oct 08, 2016 15:18
--- NOTE | 2016-10-08 16:20 | RADRPT ---
EXAM DATE/TIME: 10/08/2016 15:37 [facility] COMPARISON: No previous studies available for comparison. INDICATIONS : Sepsis, UTI ORAL CONTRAST: No oral contrast ingested. RADIATION DOSE: 14.19 CTDIvol (mGy) MEDICAL HISTORY : Myocardial infarction. Diabetes mellitus type 2. Gastroesophageal reflux disease. SURGICAL HISTORY : Cholecystectomy. Abdominal aortic aneurysm repair.Inguinal hernia repair. ENCOUNTER: Initial ACUITY: 2 days PAIN SCALE: Non-responsive LOCATION: abdomen TECHNIQUE: Volumetric scanning of the abdomen and pelvis was performed. Using automated exposure control and ad justment of the mA and/or kV according to patient size, radiation dose was kept as low as reasonably achievable to obtain optimal diagnostic quality images. DICOM format image data is available electro nically for review and comparison. FINDINGS: The lung base is are clear. Moderate coronary calcifications are noted. There is no significant pericardial effusion. Large heart hernia is evident. There is no intrahepatic biliary duct dilatation. Focal low-density mass measuring 1.5 cm is present in the left lobe of the liver. The pancreas is atrophic. The adrenals are unremarkable. Low-density cystic masses are present in t he right kidney the largest measuring 6 cm. Peripelvic cysts are seen on the left. There is no evid ence for obstruction. There is no retroperitoneal adenopathy. In the pelvis scattered diverticuli are evident. The bladder is decompressed via Lo. No inguinal hernia is present on the right containing only fat. Prostatic calcifications are evident. Review of bone windows reveals degenerative changes in the lumbar spine. CONCLUSION: I do not see as source of patient's sepsis. Lack of intravenous contrast makes exclusion of pyelo ne phritis difficult. Rush Culp MD FACR on October 08, 2016 at 16:15 Board Certified Radiologist. This report was verified electronically.
[2016-10-08] MEDS: cefTRIAXone INJ 2,000 MG in SODIUM CHLORIDE 0.9% INJ 100 ML IV SCH (17:00)
[2016-10-08 17:04] LABS: AMPHETAMINE, URINE NEG (NEG); BARBITURATES, URINE NEG (NEG); COCAINE, URINE NEG (NEG)
[2016-10-08] MEDS: ATORVASTATIN 20 MG TAB PO SCH (20:50)
[2016-10-08] MEDS: traZODone HCL 100 MG TAB PO SCH (20:50)
[2016-10-08] MEDS ORDERED: VANCOMYCIN INJ 1,100 MG in SODIUM CHLOR 0.9% 250 ML INJ 250 ML IV SCH (22:00)
[2016-10-09] VITALS: BP 151/96; PULSE 72; RESP 16; TEMP 98.2; O2SAT 96
[2016-10-09] MEDS: HEPARIN SODIUM - SQ 10,000 UNITS/ML VIAL SQ SCH ×2 (05:30→17:02)
[2016-10-09] MEDS ORDERED: PHARMACY ORDERED LAB ONE (06:00)
[2016-10-09 06:49] LABS: AUTOMATED NEUTROPHIL # 12.4 TH/MM3 (1.8-7.7); BASOPHIL # 0.1 TH/MM3 (0-0.2); BASOPHIL % 0.4 % (0.0-2.0); EOSINOPHIL # 0.6 TH/MM3 (0-0.4); EOSINOPHIL % 3.6 % (0.0-4.0); HEMATOCRIT 29.9 % (39.0-51.0); LYMPH % 12.4 % (9.0-44.0); LYMPHOCYTE # 1.9 TH/MM3 (1.0-4.8); MEAN CELL VOLUME 73.8 FL (80.0-100.0); MEAN CORPUSCULAR HEMOGLOBIN 23.5 PG (27.0-34.0); MEAN CORPUSCULAR HGB CONC 31.8 % (32.0-36.0); MONO % 3.9 % (0.0-8.0); NEUT % 79.7 % (16.0-70.0); PLATELET COUNT 244 TH/MM3 (150-450); RED BLOOD COUNT 4.06 MIL/MM3 (4.50-5.90); RED CELL DISTRIBUTION WIDTH 16.2 % (11.6-17.2); WHITE BLOOD COUNT 15.6 TH/MM3 (4.0-11.0)
[2016-10-09 06:55] LABS: POTASSIUM 4.4 MEQ/L (3.5-5.1)
[2016-10-09] MEDS: INSULIN NovoLIN REGULAR SUPPLEMENTAL SCALE SQ SCH ×4 (07:00→21:00)
[2016-10-09 07:01] LABS: HEMO FLAGS AUTO DIFF
[2016-10-09 07:06] LABS: BICARBONATE 26.6 MEQ/L (21.0-32.0); MAGNESIUM 2.1 MG/DL (1.5-2.5)
[2016-10-09 07:26] LABS: OVALOCYTES 1+ (NORMAL); PLATELET ESTIMATE SMEAR NORMAL (NORMAL); PLATELET MORPHOLOGY NORMAL (NORMAL); SCAN/DIFF AUTO DIFF CONFIRMED
[2016-10-09 08:00] VITALS: BP 146/89; PULSE 77; RESP 20; TEMP 97.7; O2SAT 95
--- NOTE | 2016-10-09 08:38 | EKG ---
Date Performed: 10/07/2016 Time Performed: 14:31:49 PTAGE: 71 years EKG: SINUS TACHYCARDIA BORDERLINE RIGHT AXIS DEVIATION POSSIBLE INFERIOR MYOCARDIAL INFARCTION A BNORMAL RHYTHM ECG INTERPRETATION BASED ON A DEFAULT AGE OF 39 YEARS PREVIOUS TRACING : 05/14/2011 20.55 DOCTOR: Stephania Flores Interpretating Date/Time 10/09/2016 08:35:18
[2016-10-09] MEDS: SENNOSIDES 8.6 MG TAB PO SCH ×2 (09:00→20:36)
[2016-10-09] MEDS: CITALOPRAM HYDROBROMIDE 20 MG TAB PO SCH (09:02)
[2016-10-09] MEDS: CALCIUM CARBONATE 1.25 GM (CA 500 MG) TAB PO SCH (09:03)
[2016-10-09] MEDS: PANTOPRAZOLE SOD 20 MG DELAYED RELEASE TAB PO SCH (09:03)
[2016-10-09] MEDS: amLODIPine BESYLATE 5 MG TAB PO SCH (09:03)
[2016-10-09] MEDS: MELOXICAM 15 MG TAB PO SCH (09:03)
[2016-10-09] MEDS ORDERED: RESP: ALBUTEROL 2.5 MG/IPRATROPIUM 0.5 MG NEB (PRN) NEB (09:15)
--- NOTE | 2016-10-09 09:15 | HHI.PR ---
Subjective Remarks Follow-up sepsis with GPC/bacteremia/UTI/encephalopathy 10/09/16-patient seen and examined, alert and oriented 3, currently afebrile and denies any chest pain or shortness of breath. Vitals stable Objective Vitals Vital Signs Date Time Temp Pulse Resp B/P Pulse Ox O2 Delivery O2 Flow Rate FiO2 10/09/16 08:00 97.7 77 20 146/89 95 10/09/16 00:00 98.2 72 16 151/96 96 10/08/16 20:30 95 21 10/08/16 20:00 96.7 81 16 136/79 95 10/08/16 17:22 97.5 72 19 115/71 95 10/08/16 12:00 97.8 71 18 119/72 95 10/08/16 09:12 92 21 I/O 10/08/16 10/08/16 10/08/16 10/09/16 10/09/16 10/09/16 06:59 14:59 22:59 06:59 14:59 22:59 Intake Total 1200 ml 1520 ml 1590 ml Output Total 1500 ml 1800 ml Balance 1200 ml 20 ml -210 ml Intake Oral 720 ml 500 ml IV Total 1200 ml 800 ml 1090 ml Output Urine Total 1500 ml 1800 ml # Voids 1 # Bowel Movements 1 2 Result Diagram: 10/09/16 0600 10/09/16 0600 Imaging Last Impressions Head CT 10/08/16 0000 Signed Impressions: Service Date/Time: Saturday, October 08, 2016 09:55 - CONCLUSION: No acute intracranial findings Bruno Petersen MD Abdomen/Pelvis CT 10/08/16 0000 Signed Impressions: Service Date/Time: Saturday, October 08, 2016 15:37 - CONCLUSION: I do not see as source of patient's sepsis. Lack of intravenous contrast makes exclusion of pyelo nephritis difficult. Rush Culp MD FACR Chest X-Ray 10/07/16 1439 Signed Impressions: Service Date/Time: Friday, October 07, 2016 14:56 - CONCLUSION: No acute abnormality seen. Bruno Pedraza MD Objective Remarks GENERAL: NAD SKIN: Warm and dry. HEAD: Normocephalic. EYES: No scleral icterus. No injection or drainage. NECK: Supple, trachea midline. No JVD or lymphadenopathy. CARDIOVASCULAR: Regular rate and rhythm without murmurs, gallops, or rubs. RESPIRATORY: Breath sounds equal bilaterally. No accessory muscle use. GASTROINTESTINAL: Abdomen soft, non-tender, nondistended. MUSCULOSKELETAL: No cyanosis, or edema. BACK: Nontender without obvious deformity. No CVA tenderness. A/P Problem List: (1) Bacteremia due to Gram-positive bacteria ICD Code: R78.81 Status: Acute Plan: Currently on Rocephin and vancomycin Repeat blood culture negative to date Appreciate input from infectious disease specialist (2) Severe sepsis ICD Code: A41.9 Status: Acute Plan: Patient presented with decreased level consciousness, leukocytosis, lactic acidosis, urinary tract infection, tachycardia, Continue with Rocephin, vancomycin pending further recommendation from infectious disease specialist (3) Encephalopathy ICD Code: G93.40 Status: Acute Plan: Resolved (4) Leukocytosis ICD Code: D72.829 Status: Acute Plan: Improving, continue to monitor CBC (5) UTI (urinary tract infection) ICD Code: N39.0 Status: Acute Plan: Currently on Rocephin and vancomycin However urine culture no growth [address] abdomen/pelvics noted and reviewed by me without any source of current patient sepsis (6) Acute renal failure ICD Code: N17.9 Status: Acute Plan: This appears to be severely acute renal failure superimposed on chronic kidney disease stage II, unknown etiology could be secondary to dehydration, infection, hypoperfusion Resolved with IV fluid hydration Continue to monitor BUN/creatinine (7) Hypocalcemia ICD Code: E83.51 Status: Acute Plan: This has improved with normal saline Calcium carbonate 500 mg daily Monitor calcium level (8) Hypokalemia ICD Code: E87.6 Status: Acute Plan: Resolved post treatment (9) Microcytic anemia ICD Code: D50.9 Status: Acute Plan: Appears to be new since 2012 Iron studies without any evidence of iron deficiency anemia (10) Hypertension ICD Code: I10 Status: Chronic Plan: Blood pressure stable this time Home medications have been continued to include amlodipine Resume HCTZ accordingly (11) Hyperlipidemia ICD Code: E78.5 Status: Chronic (12) Diabetes ICD Code: E11.9 Status: Chronic Plan: Patient with type 2 diabetes on oral hypoglycemic agent Continue to hold oral hypoglycemic agents at this time 48 hours total from admission Accu-Cheks with sliding scale insulin Problem Qualifiers (1) Leukocytosis: Qualified Code: D72.829 - Leukocytosis, unspecified type (2) UTI (urinary tract infection): Qualified Code: N30.00 - Acute cystitis without hematuria (3) Acute renal failure: Qualified Code: N17.9 - Acute renal failure, unspecified acute renal failure type (4) Hypertension: Qualified Code: I15.9 - Secondary hypertension (5) Hyperlipidemia: Qualified Code: E78.5 - Hyperlipidemia, unspecified hyperlipidemia type (6) Diabetes: Qualified Code: E11.8 - Type 2 diabetes mellitus with complication, without long-term current use of insulin Yeison Millan MD Oct 09, 2016 09:15
[2016-10-09 12:00] VITALS: BP 139/82; PULSE 75; RESP 18; TEMP 97.9; O2SAT 96
[2016-10-09 16:00] VITALS: BP 148/88; PULSE 76; RESP 18; TEMP 97.9; O2SAT 97
[2016-10-09 16:22] VITALS: O2SAT 97
[2016-10-09] MEDS: SODIUM CHLOR 0.45% 1000 ML INJ 1,000 ML IV SCH (17:01)
[2016-10-09] MEDS: cefTRIAXone INJ 2,000 MG in SODIUM CHLORIDE 0.9% INJ 100 ML IV SCH (17:03)
[2016-10-09 20:00] VITALS: BP 157/94; PULSE 77; RESP 18; TEMP 97.2; O2SAT 93
[2016-10-09] MEDS: traZODone HCL 100 MG TAB PO SCH (20:36)
[2016-10-09] MEDS: ATORVASTATIN 20 MG TAB PO SCH (20:36)
[2016-10-09] MEDS ORDERED: GABAPENTIN 100 MG CAP PO ONE (22:00)
[2016-10-10] VITALS: BP 156/81; PULSE 78; RESP 18; TEMP 97.4; O2SAT 94
[2016-10-10] MEDS: HEPARIN SODIUM - SQ 10,000 UNITS/ML VIAL SQ SCH ×2 (05:12→16:46)
[2016-10-10] MEDS: INSULIN NovoLIN REGULAR SUPPLEMENTAL SCALE SQ SCH (06:06)
[2016-10-10 06:43] LABS: AUTOMATED NEUTROPHIL # 5.7 TH/MM3 (1.8-7.7); BASOPHIL % 0.3 % (0.0-2.0); EOSINOPHIL # 0.3 TH/MM3 (0-0.4); EOSINOPHIL % 3.3 % (0.0-4.0); HEMATOCRIT 30.5 % (39.0-51.0); LYMPHOCYTE # 1.7 TH/MM3 (1.0-4.8); MEAN CELL VOLUME 72.7 FL (80.0-100.0); MEAN CORPUSCULAR HGB CONC 31.6 % (32.0-36.0); MONO % 5.6 % (0.0-8.0); NEUT % 69.8 % (16.0-70.0); PLATELET COUNT 279 TH/MM3 (150-450); RED CELL DISTRIBUTION WIDTH 15.7 % (11.6-17.2); WHITE BLOOD COUNT 8.2 TH/MM3 (4.0-11.0)
[2016-10-10 06:50] LABS: HEMO FLAGS AUTO DIFF
[2016-10-10 06:54] LABS: POTASSIUM 4.2 MEQ/L (3.5-5.1)
[2016-10-10 06:56] LABS: BICARBONATE 26.7 MEQ/L (21.0-32.0)
[2016-10-10 07:25] LABS: KERATOCYTES OCC (NORMAL); OVALOCYTES 2+ (NORMAL); SCAN/DIFF AUTO DIFF CONFIRMED
[2016-10-10 08:00] VITALS: BP 125/89; PULSE 89; RESP 17; TEMP 98; O2SAT 95
--- NOTE | 2016-10-10 08:06 | ECHRPT ---
Indication: Evaluate for endocarditis CONCLUSIONS Normal left ventricular size and wall thickness. The left ventricular systolic function is normal wi th an estimated ejection fraction of 60%. Regional wall motion abnormalities cannot be excluded. Trace mitral valve regurgitation. BP: 151 / 96 HR: 96 Rhythm: Sinus MEASUREMENTS (Male / Female) Normal Values Technical Quality:Technically difficult study 2D ECHO LV Diastolic Diameter PLAX 4.6 cm 4.2 - 5.9 / 3.9 - 5.3 cm LV Systolic Diameter PLAX 3.9 cm IVS Diastolic Thickness 1.0 cm 0.6 - 1.0 / 0.6 - 0.9 cm LVPW Diastolic Thickness 1.0 cm 0.6 - 1.0 / 0.6 - 0.9 cm LV Relative Wall Thickness 0.4 LVOT Diameter 1.8 cm M-MODE Aortic Root Diameter MM 3.0 cm LA Systolic Diameter MM 3.8 cm LA Ao Ratio MM 1.3 AV Cusp Separation MM 2.1 cm DOPPLER AV Peak Velocity 110.0 cm/s AV Peak Gradient 4.8 mmHg LVOT Peak Velocity 111.0 cm/s LVOT Peak Gradient 4.9 mmHg AV Area Cont Eq pk 2.6 cm MR Peak Velocity 308.0 cm/s MR Peak Gradient 37.9 mmHg Mitral E Point Velocity 94.3 cm/s Mitral A Point Velocity 122.0 cm/s Mitral E to A Ratio 0.8 PV Peak Velocity 114.0 cm/s PV Peak Gradient 5.2 mmHg FINDINGS LEFT VENTRICLE Normal left ventricular size and wall thickness. The left ventricular systolic function is normal wi th an estimated ejection fraction of 60%. Regional wall motion abnormalities cannot be excluded. RIGHT VENTRICLE Normal right ventricular size and systolic function. LEFT ATRIUM The left atrial size is normal. RIGHT ATRIUM The right atrial size is normal. ATRIAL SEPTUM Normal atrial septal thickness without atrial level shunting by limited color doppler interrogation. AORTA The aortic root and proximal ascending aorta are normal in size on limited imaging. MITRAL VALVE Trace mitral valve regurgitation. AORTIC VALVE Trileaflet aortic valve. No aortic valve stenosis or regurgitation. TRICUSPID VALVE Structurally normal tricuspid valve. No tricuspid valve stenosis or regurgitation. PULMONARY VALVE The pulmonary valve is not well visualized. VESSELS The inferior vena cava is normal in size. PERICARDIUM No pericardial effusion. Cody Haider MD (Electronically Signed) Final Date:10 October 2016 08:04
--- NOTE | 2016-10-10 08:31 | HHI.IDPN ---
Subjective Subjective Remarks Very sleepy. Difficult to arouse Feels ok.' Per pt no pain Antibiotics Vancomycin and Ceftriaxone Lines Peripheral IV line Allergies: Coded Allergies: No Known Allergies (Verified , 10/07/16) Review of Systems Constitutional Constitutional Remarks No more fever chills Objective . Vital Signs Date Time Temp Pulse Resp B/P Pulse Ox O2 Delivery O2 Flow Rate FiO2 10/10/16 00:00 97.4 78 18 156/81 94 10/09/16 20:00 97.2 77 18 157/94 93 10/09/16 16:22 97 21 10/09/16 16:00 97.9 76 18 148/88 97 10/09/16 12:00 97.9 75 18 139/82 96 10/09/16 10/09/16 10/10/16 15:00 23:00 07:00 Intake Total 300 ml 1680 ml 1808 ml Output Total 1700 ml Balance 300 ml -20 ml 1808 ml Intake Oral 300 ml 780 ml IV Total 900 ml 1808 ml Output Urine Total 1700 ml # Bowel Movements 0 . Laboratory Tests Test 10/09/16 10/10/16 06:00 06:15 White Blood Count 15.6 TH/MM3 8.2 TH/MM3 Red Blood Count 4.06 MIL/MM3 4.20 MIL/MM3 Hemoglobin 9.5 GM/DL 9.6 GM/DL Hematocrit 29.9 % 30.5 % Mean Corpuscular Volume 73.8 FL 72.7 FL Mean Corpuscular Hemoglobin 23.5 PG 23.0 PG Mean Corpuscular Hemoglobin 31.8 % 31.6 % Concent Red Cell Distribution Width 16.2 % 15.7 % Platelet Count 244 TH/MM3 279 TH/MM3 Mean Platelet Volume 8.6 FL 7.9 FL Neutrophils (%) (Auto) 79.7 % 69.8 % Lymphocytes (%) (Auto) 12.4 % 21.0 % Monocytes (%) (Auto) 3.9 % 5.6 % Eosinophils (%) (Auto) 3.6 % 3.3 % Basophils (%) (Auto) 0.4 % 0.3 % Neutrophils # (Auto) 12.4 TH/MM3 5.7 TH/MM3 Lymphocytes # (Auto) 1.9 TH/MM3 1.7 TH/MM3 Monocytes # (Auto) 0.6 TH/MM3 0.5 TH/MM3 Eosinophils # (Auto) 0.6 TH/MM3 0.3 TH/MM3 Basophils # (Auto) 0.1 TH/MM3 0.0 TH/MM3 CBC Comment AUTO DIFF AUTO DIFF Differential Comment AUTO DIFF AUTO DIFF CONFIRMED CONFIRMED Platelet Estimate NORMAL Platelet Morphology Comment NORMAL Ovalocytes 1+ 2+ Keratocytes OCC Laboratory Tests Test 10/08/16 10/09/16 10/10/16 10:35 06:00 06:15 Magnesium Level 2.2 MG/DL 2.1 MG/DL Iron Level 9 MCG/DL Total Iron Binding Capacity 274 MCG/DL Percent Iron Saturation 3.3 % Ferritin 98 NG/ML Ammonia 12 MCMOL/L Vitamin B12 Level 594 PG/ML Folate 18.1 NG/ML Thyroid Stimulating Hormone 1.260 uIU/ML 3rd Gen Sodium Level 142 MEQ/L 141 MEQ/L Potassium Level 4.4 MEQ/L 4.2 MEQ/L Chloride Level 105 MEQ/L 105 MEQ/L Carbon Dioxide Level 26.6 MEQ/L 26.7 MEQ/L Anion Gap 10 MEQ/L 9 MEQ/L Blood Urea Nitrogen 21 MG/DL 14 MG/DL Creatinine 1.10 MG/DL 0.98 MG/DL Estimat Glomerular Filtration 66 ML/MIN 75 ML/MIN Rate Random Glucose 132 MG/DL 140 MG/DL Calcium Level 8.6 MG/DL 8.7 MG/DL Microbiology Date/Time Procedure Status Source Growth 10/07/16 14:40 Aerobic Blood Culture - Preliminary Resulted Blood Peripheral Enterococcus Faecalis 10/07/16 14:40 Anaerobic Blood Culture - Preliminary Resulted Group D Enterococcus 10/07/16 14:40 Urine Culture - Final Complete Urine Catheterized Urine NO GROWTH IN 48 HOURS. 10/07/16 14:45 Aerobic Blood Culture - Preliminary Resulted Blood Peripheral Group D Enterococcus 10/07/16 14:45 Anaerobic Blood Culture - Preliminary Resulted Group D Enterococcus 10/08/16 12:15 Aerobic Blood Culture - Preliminary Resulted Blood Peripheral NO GROWTH IN 1 DAY 10/08/16 12:15 Anaerobic Blood Culture - Preliminary Resulted Blood Peripheral NO GROWTH IN 1 DAY 10/08/16 12:30 Aerobic Blood Culture - Preliminary Resulted Blood Peripheral NO GROWTH IN 1 DAY 10/08/16 12:30 Anaerobic Blood Culture - Preliminary Resulted Blood Peripheral NO GROWTH IN 1 DAY 10/09/16 06:00 Aerobic Blood Culture Received Blood Peripheral Pending 10/09/16 06:00 Anaerobic Blood Culture Received Blood Peripheral Pending Physical Exam Patient sleepy No thrush No lymphadenopathy Chest: Clear Heart: S1 S2 normal Abdomen: Soft bowel sounds No edema Assessment & Plan Diagnosis: (1) Enterococcal septicemia Plan: 1. Continue IV Vancomycin- pharmacy to dose 2. Stop Ceftriaxone 3. Start Ampicillin 2 g IV q4hrs 4. Follow repeat blood cultures 5. Check Echocardiogram (2) UTI (urinary tract infection) (3) Encephalopathy Problem Qualifiers (1) UTI (urinary tract infection): Qualified Code: N30.00 - Acute cystitis without hematuria Divine Martinez MD Oct 10, 2016 08:31
--- NOTE | 2016-10-10 08:40 | HHI.PR ---
Subjective Remarks Follow-up for bacteremia. Patient is currently doing well. Ambulating in the room. Denies any chest pain, shortness of breath, fever or chills. Objective Vitals Vital Signs Date Time Temp Pulse Resp B/P Pulse Ox O2 Delivery O2 Flow Rate FiO2 10/10/16 08:00 98.0 89 17 125/89 95 10/10/16 00:00 97.4 78 18 156/81 94 10/09/16 20:00 97.2 77 18 157/94 93 10/09/16 16:22 97 21 10/09/16 16:00 97.9 76 18 148/88 97 10/09/16 12:00 97.9 75 18 139/82 96 I/O 10/09/16 10/09/16 10/09/16 10/10/16 10/10/16 10/10/16 07:00 15:00 23:00 07:00 15:00 23:00 Intake Total 1590 ml 300 ml 1680 ml 1808 ml Output Total 1800 ml 1700 ml Balance -210 ml 300 ml -20 ml 1808 ml Intake Oral 500 ml 300 ml 780 ml IV Total 1090 ml 900 ml 1808 ml Output Urine Total 1800 ml 1700 ml # Bowel Movements 2 0 Result Diagram: 10/10/16 0615 10/10/16 0615 Imaging Last Impressions Head CT 10/08/16 0000 Signed Impressions: Service Date/Time: Saturday, October 08, 2016 09:55 - CONCLUSION: No acute intracranial findings Bruno Petersen MD Abdomen/Pelvis CT 10/08/16 0000 Signed Impressions: Service Date/Time: Saturday, October 08, 2016 15:37 - CONCLUSION: I do not see as source of patient's sepsis. Lack of intravenous contrast makes exclusion of pyelo nephritis difficult. Rush Culp MD FACR Chest X-Ray 10/07/16 1439 Signed Impressions: Service Date/Time: Friday, October 07, 2016 14:56 - CONCLUSION: No acute abnormality seen. Bruno Pedraza MD Objective Remarks GENERAL: Alert, oriented 3, NAD. SKIN: Warm and dry. HEAD: Normocephalic. EYES: No scleral icterus. No injection or drainage. NECK: Supple, trachea midline. No JVD or lymphadenopathy. CARDIOVASCULAR: Regular rate and rhythm without murmurs, gallops, or rubs. RESPIRATORY: Breath sounds equal bilaterally. No accessory muscle use. GASTROINTESTINAL: Abdomen soft, non-tender, nondistended. MUSCULOSKELETAL: No cyanosis, or edema. BACK: Nontender without obvious deformity. No CVA tenderness. Procedures Echocardiogram 10/09/2016 Normal left ventricular size and wall thickness. The left ventricular systolic function is normal with an estimated ejection fraction of 60%. Regional wall motion abnormalities cannot be excluded. Trace mitral valve regurgitation. A/P Problem List: (1) Bacteremia due to Gram-positive bacteria ICD Code: R78.81 Status: Acute (2) Severe sepsis ICD Code: A41.9 Status: Acute (3) Acute renal failure ICD Code: N17.9 Status: Acute (4) Hypocalcemia ICD Code: E83.51 Status: Acute (5) Hypokalemia ICD Code: E87.6 Status: Acute (6) Microcytic anemia ICD Code: D50.9 Status: Acute (7) Hypertension ICD Code: I10 Status: Chronic (8) Hyperlipidemia ICD Code: E78.5 Status: Chronic (9) Diabetes ICD Code: E11.9 Status: Chronic Assessment and Plan Mr. Zhang is a 71-year-old male with known history of hypertension, hyperlipidemia, diabetes who was brought to the hospital for evaluation by [facility]. He was found to have decreased level of consciousness. ED work up indicated severe sepsis, acute kidney injury, lactic acidosis, possible UTI. Blood culture grew GPC. - Enterococcus Faecalis bacteremia - Echo does not show any evidence of vegetation - Continue Amoxicillin and Vancomycin per ID. Ceftriaxone discontinued. - Acute kidney injury - resolved. Creatinine 1.80 --> 0.98. - Iron deficiency anemia - Will start patient on Ferrous sulfate. Iron saturation 3.3 %. - Diabetes mellitus - patient takes Januvia and Glipizide at home. - Will start patient on Levemir 5 units QHS and continue Sliding scale insulin. - Hypertension - Continue Amlodipine 5mg Qday - Hyperlipidemia - continue Atorvastatin 20mg QHS. Full code. Heparin SQ. Problem Qualifiers (1) Acute renal failure: Qualified Code: N17.9 - Acute renal failure, unspecified acute renal failure type (2) Hypertension: Qualified Code: I15.9 - Secondary hypertension (3) Hyperlipidemia: Qualified Code: E78.5 - Hyperlipidemia, unspecified hyperlipidemia type (4) Diabetes: Qualified Code: E11.8 - Type 2 diabetes mellitus with complication, without long-term current use of insulin Afsaneh Ren DO Oct 10, 2016 8:40 am
[2016-10-10] MEDS: AMPICILLIN INJ 2,000 MG in SODIUM CHLORIDE 0.9% INJ 100 ML IV SCH ×4 (08:43→21:05)
[2016-10-10] MEDS: MELOXICAM 15 MG TAB PO SCH (08:43)
[2016-10-10] MEDS: SENNOSIDES 8.6 MG TAB PO SCH ×2 (08:44→21:00)
[2016-10-10] MEDS: amLODIPine BESYLATE 5 MG TAB PO SCH (08:44)
[2016-10-10] MEDS: PANTOPRAZOLE SOD 20 MG DELAYED RELEASE TAB PO SCH (08:44)
[2016-10-10] MEDS: CITALOPRAM HYDROBROMIDE 20 MG TAB PO SCH (08:44)
[2016-10-10] MEDS: CALCIUM CARBONATE 1.25 GM (CA 500 MG) TAB PO SCH (08:44)
[2016-10-10] MEDS: VANCOMYCIN INJ 1,500 MG in SODIUM CHLORID 0.9% 500 ML INJ 500 ML IV SCH (09:38)
[2016-10-10 12:00] VITALS: BP 131/85; PULSE 85; RESP 18; TEMP 97.9; O2SAT 96
[2016-10-10] MEDS: INSULIN ASPART SUPPLEMENTAL SCALE SQ SCH ×3 (12:30→21:00)
[2016-10-10 16:00] VITALS: BP 128/87; PULSE 78; RESP 18; TEMP 98.1; O2SAT 97
[2016-10-10] MEDS ORDERED: GABAPENTIN 100 MG CAP PO ONE (18:15)
[2016-10-10 20:00] VITALS: BP 142/65; PULSE 77; RESP 18; TEMP 97.3; O2SAT 96
[2016-10-10] MEDS ORDERED: INSULIN DETEMIR 100 UNITS/ML VIAL SQ SCH (21:00)
[2016-10-10] MEDS: SODIUM CHLOR 0.45% 1000 ML INJ 1,000 ML IV SCH (21:07)
[2016-10-10] MEDS: traZODone HCL 100 MG TAB PO SCH (21:08)
[2016-10-10] MEDS: ATORVASTATIN 20 MG TAB PO SCH (21:08)
[2016-10-11] VITALS: BP 150/94; PULSE 65; RESP 18; TEMP 97.4; O2SAT 95
[2016-10-11] MEDS: AMPICILLIN INJ 2,000 MG in SODIUM CHLORIDE 0.9% INJ 100 ML IV SCH ×6 (00:36→16:00)
[2016-10-11] MEDS: VANCOMYCIN INJ 1,500 MG in SODIUM CHLORID 0.9% 500 ML INJ 500 ML IV SCH (03:40)
[2016-10-11] MEDS ORDERED: VANCOMYCIN TROUGH ONE (03:45)
[2016-10-11] MEDS: HEPARIN SODIUM - SQ 10,000 UNITS/ML VIAL SQ SCH ×2 (06:19→17:00)
[2016-10-11] MEDS: INSULIN ASPART SUPPLEMENTAL SCALE SQ SCH ×3 (06:23→16:00)
[2016-10-11 08:00] VITALS: BP 141/77; PULSE 62; RESP 18; TEMP 98; O2SAT 94
[2016-10-11] MEDS ORDERED: FERROUS SULFATE 325 MG (65 MG ELEMENTAL IRON) TAB PO SCH (09:00)
[2016-10-11] MEDS: GABAPENTIN 100 MG CAP PO SCH ×2 (09:41→12:53)
[2016-10-11] MEDS: CITALOPRAM HYDROBROMIDE 20 MG TAB PO SCH (09:41)
[2016-10-11] MEDS: CALCIUM CARBONATE 1.25 GM (CA 500 MG) TAB PO SCH (09:41)
[2016-10-11] MEDS: MELOXICAM 15 MG TAB PO SCH (09:41)
[2016-10-11] MEDS: amLODIPine BESYLATE 5 MG TAB PO SCH ×2 (09:41→10:11)
[2016-10-11] MEDS: SENNOSIDES 8.6 MG TAB PO SCH (09:41)
[2016-10-11] MEDS: PANTOPRAZOLE SOD 20 MG DELAYED RELEASE TAB PO SCH (09:41)
[2016-10-11 10:00] VITALS: BP 130/64; PULSE 89
[2016-10-11] MEDS ORDERED: TAMSULOSIN HCL 0.4 MG CAP PO ONE (10:00)
[2016-10-11] MEDS ORDERED: AUGM875T3 PO (10:26)
[2016-10-11] MEDS ORDERED: CIPR500T2 PO (10:26)
[2016-10-11] MEDS ORDERED: TAMS5CAP PO (10:26)
[2016-10-11] MEDS ORDERED: FERR325T20 PO (10:26)
--- NOTE | 2016-10-11 10:27 | HHI.DS ---
Discharge Summary Admission Date Oct 09, 2016 at 09:04 Discharge Date: Oct 11, 2016 Admitting Diagnosis sepsis (1) Bacteremia due to Gram-positive bacteria ICD Code: R78.81 (2) Severe sepsis ICD Code: A41.9 (3) Acute renal failure ICD Code: N17.9 (4) Hypocalcemia ICD Code: E83.51 (5) Hypokalemia ICD Code: E87.6 (6) Microcytic anemia ICD Code: D50.9 (7) Hypertension ICD Code: I10 (8) Hyperlipidemia ICD Code: E78.5 (9) Diabetes ICD Code: E11.9 Procedures Echocardiogram 10/09/2016 Normal left ventricular size and wall thickness. The left ventricular systolic function is normal with an estimated ejection fraction of 60%. Regional wall motion abnormalities cannot be excluded. Trace mitral valve regurgitation. Brief History - From Admission Written by Russell Azar, acting as scribe for Dr. Millan on 10/08/16 at 09: 14. 71-year-old male with known history of hypertension, hyperlipidemia, diabetes who was brought to the hospital for evaluation by [facility]. The patient himself cannot give much information regarding why he is here the hospital. He just states that he is messed up. ER documentation doesn't give much other information other than the police were called to do a well-child check. The police obtain entry is homebound and have decreased level consciousness and the patient was brought to the hospital for evaluation. Time of evaluating the patient he is alert and orientated 4, however he cannot give any information regarding his symptoms or if he is been ill recently. Patient had workup done emergency department found to have multiple abnormalities to include severe sepsis, renal failure, lactic acidosis, leukocytosis, urinary tract infection and the patient was recommended admission for further evaluation management. Most all information was taken from medical records and nursing staff. CBC/BMP: 10/10/16 0615 10/11/16 0553 Significant Findings Laboratory Tests Test 10/08/16 10/09/16 10/10/16 10/11/16 10:35 06:00 06:15 05:25 Iron Level 9 MCG/DL (65-175) Percent Iron Saturation 3.3 % (20-50) Folate 18.1 NG/ML (3.1-17.5) White Blood Count 15.6 TH/MM3 (4.0-11.0) Red Blood Count 4.06 MIL/MM3 4.20 MIL/MM3 (4.50-5.90) (4.50-5.90) Hemoglobin 9.5 GM/DL 9.6 GM/DL (13.0-17.0) (13.0-17.0) Hematocrit 29.9 % 30.5 % (39.0-51.0) (39.0-51.0) Mean Corpuscular Volume 73.8 FL 72.7 FL (80.0-100.0) (80.0-100.0) Mean Corpuscular Hemoglobin 23.5 PG 23.0 PG (27.0-34.0) (27.0-34.0) Mean Corpuscular Hemoglobin 31.8 % 31.6 % Concent (32.0-36.0) (32.0-36.0) Neutrophils (%) (Auto) 79.7 % (16.0-70.0) Neutrophils # (Auto) 12.4 TH/MM3 (1.8-7.7) Eosinophils # (Auto) 0.6 TH/MM3 (0-0.4) Ovalocytes 1+ (NORMAL) 2+ (NORMAL) Blood Urea Nitrogen 21 MG/DL (7-18) Estimat Glomerular Filtration 66 ML/MIN (>89) 75 ML/MIN (>89) 77 ML/MIN (>89) Rate Random Glucose 132 MG/DL 140 MG/DL (74-106) (74-106) Imaging Last Impressions Head CT 10/08/16 0000 Signed Impressions: Service Date/Time: Saturday, October 08, 2016 09:55 - CONCLUSION: No acute intracranial findings Bruno Petersen MD Abdomen/Pelvis CT 10/08/16 0000 Signed Impressions: Service Date/Time: Saturday, October 08, 2016 15:37 - CONCLUSION: I do not see as source of patient's sepsis. Lack of intravenous contrast makes exclusion of pyelo nephritis difficult. Rush Culp MD FACR Chest X-Ray 10/07/16 6608 Signed Impressions: Service Date/Time: Friday, October 07, 2016 14:56 - CONCLUSION: No acute abnormality seen. Bruno Pedraza MD PE at Discharge GENERAL: Alert, oriented 3, NAD. SKIN: Warm and dry. HEAD: Normocephalic. EYES: No scleral icterus. No injection or drainage. NECK: Supple, trachea midline. No JVD or lymphadenopathy. CARDIOVASCULAR: Regular rate and rhythm without murmurs, gallops, or rubs. RESPIRATORY: Breath sounds equal bilaterally. No accessory muscle use. GASTROINTESTINAL: Abdomen soft, non-tender, nondistended. MUSCULOSKELETAL: No cyanosis, or edema. BACK: Nontender without obvious deformity. No CVA tenderness. Pt update on day of discharge Patient is doing well. No acute concerns. Hospital Course Mr. Zhang is a 71-year-old male with known history of hypertension, hyperlipidemia, diabetes who was brought to the hospital for evaluation by [facility]. He was found to have decreased level of consciousness. ED work up indicated severe sepsis, acute kidney injury, lactic acidosis, possible UTI. Blood culture grew GPC. - Enterococcus Faecalis bacteremia - Echo does not show any evidence of vegetation - Continued Amoxicillin and Vancomycin per ID. Ceftriaxone discontinued. - After discussing with ID and reviewing culture results, we discharged patient on Augmentin and Cipro. - Acute kidney injury - resolved. Creatinine 1.80 --> 0.98. - Iron deficiency anemia - Continue Ferrous sulfate. Iron saturation 3.3 %. - Diabetes mellitus - patient takes Januvia and Glipizide at home. - Received Levemir 5 units QHS and continue Sliding scale insulin. - Hypertension - Continue Amlodipine 5mg Qday - Hyperlipidemia - continue Atorvastatin 20mg QHS. Pt Condition on Discharge: Stable Discharge Disposition: Disch w/ Home Health Serv Discharge Time: > 30 minutes Discharge Instructions DIET: Follow Instructions for: Heart Healthy Diet Activities you can perform: Regular-No Restrictions Follow up Referrals: PCP Follow-up - 1 Week SNF/[facility] with [facility] - 1 Week New Medications: Amoxicillin-Clavulanate (Augmentin) 875-125 Mg Tab 1 TAB PO BID Infection #28 Ref 0 TAB Ciprofloxacin (Ciprofloxacin) 500 Mg Tab 500 MG PO BID Infection #28 Ref 0 TAB Tamsulosin (Flomax) 0.4 Mg Cap 0.4 MG PO HS Manage Prostate Problems #30 Ref 0 CAP Ferrous Sulfate (Ferosul) 325 Mg Tablet 325 MG PO DAILY take with orange juice if possible iron deficiency #30 BOTTLE Continued Medications: Amlodipine (Amlodipine) 5 Mg Tab 5 MG PO DAILY Blood Pressure Management #30 Ref 0 TAB Atorvastatin (Atorvastatin) 20 Mg Tab 20 MG PO HS Cholesterol Management #30 Ref 0 TAB Citalopram (Citalopram) 20 Mg Tab 20 MG PO DAILY Control Depression #30 Ref 0 TAB Glipizide (Glipizide) 10 Mg Tab 10 MG PO BIDAC Take 30 minutes before a meal Blood Sugar Management #60 Ref 0 TAB Hydrochlorothiazide (Hydrochlorothiazide) 25 Mg Tab 25 MG PO DAILY #30 Ref 0 TAB Meloxicam (Meloxicam) 15 Mg Tab 15 MG PO DAILY Arthritis Pain #30 Ref 0 TAB Pantoprazole (Pantoprazole) 20 Mg Tab 20 MG PO DAILY Reflux #30 Ref 0 TAB Sitagliptin (Januvia) 100 Mg Tab 100 MG PO DAILY Blood Sugar Management #30 Ref 0 TAB Trazodone (Trazodone) 100 Mg Tablet 100 MG PO HS Control Depression #30 Ref 0 TAB Afsaneh Ren DO Oct 11, 2016 10:27 am
--- NOTE | 2016-10-11 11:29 | HHI.FF ---
Face to Face Verification Diagnosis: (1) Severe sepsis (2) Bacteremia due to Gram-positive bacteria (3) Diabetes Physical Therapy Order: Evaluate and Treat, Improve ambulation, Strength and gait training I have seen patient Juan Daniel Zhang on 10/11/16. My clinical findings support the need for the requested home health care services because: Deconditioned w/ increased weakness Med compliance is questionable Limited ability to care for self Need for psychosocial assistance High risk of falls Infection w/ risk of complications I certify that my clinical findings support that this patient is homebound because: Impaired cognitive ability/safety Unsteady gait/balance Unsafe to leave home unassisted Unable to use public transportation Afsaneh Ren DO Oct 11, 2016 11:29 am
[2016-10-11 11:30] LABS: BLOOD, URINE NEG (NEG); GLUCOSE,URINE NEG (NEG); KETONE, URINE NEG (NEG); NITRITE,URINE NEG (NEG); PH, URINE 5.5 (5.0-8.5)
[2016-10-11 11:37] LABS: BACTERIA, URINE MOD /hpf; METHOD OF COLLECTION CLEAN CATCH; RBC, URINE 0-3 /hpf (0-3); SQUAMOUS EPITHELIAL CELL URINE > 8 /hpf (0-5); URINE COLOR YELLOW (YELLW/STRAW); WBC, URINE 0-2 /hpf (0-5)
[2016-10-11 11:38] LABS: COMMENT (UR) CULTURE INDICATED; CULTURE IF INDICATED CULTURE INDICATED
[2016-10-11 12:00] VITALS: BP 141/83; PULSE 79; RESP 18; TEMP 97.6; O2SAT 98
--- NOTE | 2016-10-11 13:23 | HHI.FF ---
Face to Face Verification Diagnosis: (1) Diabetes (2) Bacteremia due to Gram-positive bacteria (3) Enterococcal septicemia Physical Therapy Order: Evaluate and Treat, Improve ambulation, Strength and gait training Home Health Nursing Order: Medical education Signs/symptoms of disease process Diabetic education Medication education-adverse effect Wound care and dressing changes Nursing assessment with vital signs I have seen patient Juan Daniel Zhang on 10/11/16. My clinical findings support the need for the requested home health care services because: Ltd mobility - disease progression Deconditioned w/ increased weakness Limited ability to care for self Need for psychosocial assistance Impaired cognition/judgement High risk of falls Infection w/ risk of complications I certify that my clinical findings support that this patient is homebound because: Impaired cognitive ability/safety Unsteady gait/balance Unsafe to leave home unassisted Need for psychosocial assistance Unable to use public transportation Afsaneh Ren DO Oct 11, 2016 1:23 pm
[2016-10-11 16:00] VITALS: BP 158/80; PULSE 87; RESP 18; TEMP 98.4; O2SAT 96
[2016-10-11] MEDS ORDERED: PHARMACY ORDERED LAB ONE (20:45)
== END 2016-10-11 17:28 | disposition home health service (06) | DRG 871 ==
LOC: PHED 14:34 → PHEDA 15:57 → INTOOBSV 15:57 → PH3B 17:12 → OBSVTOIN 10-09 09:04
PROVIDERS: ADMIT Hospitalist; ATTEND Hospitalist
DX: A41.81 Sepsis due to Enterococcus (principal); R65.21 Severe sepsis with septic shock; G93.40 Encephalopathy, unspecified; N17.9 Acute kidney failure, unspecified; E87.2 Acidosis; N39.0 Urinary tract infection, site not specified; E44.0 Moderate protein-calorie malnutrition; E83.51 Hypocalcemia; E87.6 Hypokalemia; D50.9 Iron deficiency anemia, unspecified; E78.5 Hyperlipidemia, unspecified; Z68.29 Body mass index [BMI] 29.0-29.9, adult; Z87.440 Personal history of urinary (tract) infections; I12.9 Hypertensive chronic kidney disease with stage 1 through stage 4 chronic kidney disease, or unspecified chronic kidney disease; N18.2 Chronic kidney disease, stage 2 (mild); E11.40 Type 2 diabetes mellitus with diabetic neuropathy, unspecified; Z79.84 Long term (current) use of oral hypoglycemic drugs; H91.90 Unspecified hearing loss, unspecified ear; K21.9 Gastro-esophageal reflux disease without esophagitis; N40.0 Benign prostatic hyperplasia without lower urinary tract symptoms; R33.9 Retention of urine, unspecified
CPT/HCPCS: 70450; 71010; 74176; 80048; 80053; 80202; 80307; 81001; 82140; 82550; 82565; 82607; 82728; 82746; 82948; 83540; 83550; 83605; 83735; 84443; 85025; 85027; 86592; 87040; 87077; 87086; 87149; 87186; 87205; 93005; 93306; 94664; 96374; G8987-GP; G8988-GP; J0290; J0696; J1644; J1815; J3370; J3480; J7030; J7040; J7050; P9612

== ENCOUNTER 2017-03-06 18:33 | Emergency (ER) | payer MEDICARE, OTHER ==
[~2017-03-06] VITALS: Ht 167.6 cm; Wt 79.3 kg
[~2017-03-06 18:33] MED LIST changes: +AMLO5TAB2 PO; -ASPI81 PO; +ATOR20TA15 PO; +AUGM875T3 PO; -BP MED; +CIPR500T2 PO; +CITA20TA4 PO; -DIABETES MEDS; +FERR325T20 PO; +GLIP10TA6 PO; +HYDR25TA5 PO; +MELO15TA20 PO; +PANT20TA2 PO; +SITA1TAB2 PO; +TAMS5CAP PO; +TRAZ100T10 PO; -[UNRECOGNIZED DRUG - OTHER]; -cholesterol med
[2017-03-06 18:37] VITALS: BP 124/61; PULSE 92; RESP 16; TEMP 99.9; O2SAT 95
--- NOTE | 2017-03-06 19:02 | PD ---
HPI Chief Complaint: Abnormal Results Time Seen by Provider: 18:46 Travel History International Travel<30 days: No Contact w/Intl Traveler<30days: No Traveled to known affect area: No History of Present Illness HPI This patient had a lab draw done 2 days ago that showed a hemoglobin of 6.6 so he was sent here on advice of his doctor's office. Patient has some fatigability but no other real symptoms. On review of systems he does admit to melanotic the last 3-4 months. He has occasional heartburn. He was taking a daily aspirin that he stopped when the lab results came back. He denies alcohol abuse or blood thinner. No red rectal bleeding. No history of GI bleeding. Symptoms severity is mild. Duration 3 months. No alleviating factors. No exacerbating factors. PFSH Past Medical History Diabetes: Yes Diminished Hearing: Yes GERD: Yes Hypertension: Yes Neurologic: Yes (unable to acess, pt "doesnt know") Myocardial Infarction: Yes Past Surgical History Other Surgery: Yes (inguinal hernia repair) Social History Alcohol Use: No Tobacco Use: No Substance Use: No Allergies-Medications (Allergen,Severity, Reaction): Coded Allergies: No Known Allergies (Verified Adverse Reaction, Unknown, 03/06/17) Reported Meds & Prescriptions Reported Meds & Active Scripts Active Ciprofloxacin (Ciprofloxacin HCl) 500 Mg Tab 500 Mg PO BID Augmentin (Amoxicillin-Clavulanate) 875-125 Mg Tab 1 Tab PO BID Flomax (Tamsulosin HCl) 0.4 Mg Cap 0.4 Mg PO HS Ferosul (Ferrous Sulfate) 325 Mg Tablet 325 Mg PO DAILY take with orange juice if possible Reported Hydrochlorothiazide 25 Mg Tab 25 Mg PO DAILY Amlodipine (Amlodipine Besylate) 5 Mg Tab 5 Mg PO DAILY Trazodone (Trazodone HCl) 100 Mg Tablet 100 Mg PO HS Januvia (Sitagliptin Phosphate) 100 Mg Tab 100 Mg PO DAILY Citalopram (Citalopram Hydrobromide) 20 Mg Tab 20 Mg PO DAILY Glipizide 10 Mg Tab 10 Mg PO BIDAC Take 30 minutes before a meal Atorvastatin (Atorvastatin Calcium) 20 Mg Tab 20 Mg PO HS Pantoprazole (Pantoprazole Sodium) 20 Mg Tab 20 Mg PO DAILY Meloxicam 15 Mg Tab 15 Mg PO DAILY Review of Systems General / Constitutional: No: Fever Eyes: No: Visual changes HENT: No: Headaches Cardiovascular: No: Chest Pain or Discomfort Respiratory: No: Shortness of Breath Gastrointestinal: No: Abdominal Pain Genitourinary: No: Dysuria Musculoskeletal: No: Pain Skin: No Rash Neurologic: No: Weakness Psychiatric: No: Depression Endocrine: No: Polydipsia Hematologic/Lymphatic: No: Easy Bruising Physical Exam Narrative GENERAL: Well-nourished, well-developed patient in no apparent distress. SKIN: Focused skin assessment reveals no rash and nodules. Skin is Warm and dry. HEAD: Atraumatic. Normocephalic. EYES: Pupils equal and round. No scleral icterus. No injection or drainage. ENT: No nasal bleeding or discharge. Mucous membranes pink and moist. NECK: Trachea midline. No JVD. CARDIOVASCULAR: Regular rate and rhythm. No murmur appreciated. RESPIRATORY: No accessory muscle use. Clear to auscultation. Breath sounds equal bilaterally. GASTROINTESTINAL: Abdomen soft, non-tender, nondistended. Hepatic and splenic margins not palpable. MUSCULOSKELETAL: No obvious deformities. No clubbing. No cyanosis. No edema. NEUROLOGICAL: Awake and alert. No obvious cranial nerve deficits. Motor grossly within normal limits. Normal speech. PSYCHIATRIC: Appropriate mood and affect; insight and judgment seems a bit weak . Data Data Last Documented VS Vital Signs Date Time Temp Pulse Resp B/P (MAP) Pulse Ox O2 Delivery O2 Flow Rate FiO2 03/06/17 18:37 99.9 92 16 124/61 (82) 95 MDM Medical Decision Making Medical Screen Exam Complete: Yes Emergency Medical Condition: Yes Medical Record Reviewed: Yes Differential Diagnosis Upper GI bleed, symptomatic anemia, melena, GERD, gastric cancer Narrative Course I have reviewed the patient's electronic medical record. Reviewed his lab studies from 2 days ago. His last hemoglobin here was from the summer and it was 9.6 I recommended lab studies now and would confirm suspicion of GI bleed with rectal exam and Hemoccult. Would admit to get blood transfusion and GI consultation for upper endoscopy. Would like to rule out things like gastric cancer. Explain all this to the patient at length. Patient does not want to stay. He thought he was just going to get a blood transfusion and go home. He says he needs to get to the car show because that's his major hobby. He is going to sign out AGAINST MEDICAL ADVICE. I asked him to return if he worsens or changes his mind Is capable of making such a decision but it is a poor 1 Diagnosis Primary Impression: Symptomatic anemia Additional Impression: Melena Med/Other Pt SpecificInfo: Other Disposition: 07 AGAINST MEDICAL ADVICE Russell Mac MD Mar 06, 2017 19:02
== END 2017-03-06 19:23 | disposition left against medical advice (07) ==
LOC: PHED 18:33
DX: D64.9 Anemia, unspecified (principal); K92.1 Melena; I10 Essential (primary) hypertension; E11.9 Type 2 diabetes mellitus without complications; I25.2 Old myocardial infarction; Z79.899 Other long term (current) drug therapy
CPT/HCPCS: 99281

== ENCOUNTER 2017-03-10 00:58 | Inpatient (IN) | payer OTHER, MEDICAID, MEDICARE ==
[2017-03-10] VITALS (8 sets, daily range): BP systolic 117–179; BP diastolic 56–82; PULSE 67–88; RESP 16–20; TEMP 97.5–98.4; O2SAT 94–98
[~2017-03-10] VITALS: Ht 167.6 cm; Wt 80.1 kg
[2017-03-10] MEDS ORDERED: SODIUM CHLORIDE 0.9% FLUSH 10 ML FLUSH IVF PRN (01:30)
[2017-03-10] MEDS ORDERED: PANTOPRAZOLE SODIUM 40 MG VIAL IVP ONE (01:30)
[2017-03-10 01:54] LABS: AUTOMATED NEUTROPHIL # 4.2 TH/MM3 (1.8-7.7); BASOPHIL % 0.7 % (0.0-2.0); EOSINOPHIL # 0.3 TH/MM3 (0-0.4); EOSINOPHIL % 4.3 % (0.0-4.0); LYMPH % 30.7 % (9.0-44.0); LYMPHOCYTE # 2.1 TH/MM3 (1.0-4.8); MEAN CELL VOLUME 61.2 FL (80.0-100.0); MEAN CORPUSCULAR HEMOGLOBIN 18.2 PG (27.0-34.0); MONO % 5.8 % (0.0-8.0); NEUT % 58.5 % (16.0-70.0); PLATELET COUNT 351 TH/MM3 (150-450); RED BLOOD COUNT 3.61 MIL/MM3 (4.50-5.90); RED CELL DISTRIBUTION WIDTH 19.1 % (11.6-17.2)
[2017-03-10 01:57] LABS: HEMO FLAGS AUTO DIFF; MEAN CORPUSCULAR HGB CONC 29.8 % (32.0-36.0)
--- NOTE | 2017-03-10 01:58 | PD ---
HPI Chief Complaint: Abnormal Results Time Seen by Provider: 01:19 Travel History International Travel<30 days: No Contact w/Intl Traveler<30days: No Traveled to known affect area: No History of Present Illness HPI 71-year-old male presents to the emergency department for evaluation of low blood count. Patient was seen in the emergency department 03/06/17 at the recommendation of his primary care provider after blood work done as an outpatient 03/05/17 identified a low hemoglobin of 6.6. Patient has had fatigue and dyspnea on exertion. Patient denies dizziness, near syncope, syncope, chest pain, abdominal pain, vomiting, diarrhea, black tarry stools, red blood per rectum, easy bruising, weight loss, alcohol use, NSAID use, or aspirin use. The patient rates his pain 0/10 in intensity. No colonoscopy or endoscopy. PFSH Past Medical History Narrative Medical Diabetes GERD sepsis diminished hearing hypertension [place] inguinal herniorrhaphy no tobacco use no alcohol use; nursing notes reviewed Diabetes: Yes Patient Takes Glucophage: Yes Diminished Hearing: Yes GERD: Yes Hypertension: Yes Neurologic: Yes (unable to acess, pt "doesnt know") Myocardial Infarction: Yes Tetanus Vaccination: Unknown Influenza Vaccination: No Past Surgical History Other Surgery: Yes (inguinal hernia repair) Social History Alcohol Use: No Tobacco Use: No Substance Use: No Allergies-Medications (Allergen,Severity, Reaction): Coded Allergies: No Known Allergies (Verified Adverse Reaction, Unknown, 03/10/17) Reported Meds & Prescriptions Reported Meds & Active Scripts Active Flomax (Tamsulosin HCl) 0.4 Mg Cap 0.4 Mg PO HS Ferosul (Ferrous Sulfate) 325 Mg Tablet 325 Mg PO DAILY take with orange juice if possible Reported Hydrochlorothiazide 25 Mg Tab 25 Mg PO DAILY Amlodipine (Amlodipine Besylate) 5 Mg Tab 5 Mg PO DAILY Trazodone (Trazodone HCl) 100 Mg Tablet 100 Mg PO HS Januvia (Sitagliptin Phosphate) 100 Mg Tab 100 Mg PO DAILY Citalopram (Citalopram Hydrobromide) 20 Mg Tab 20 Mg PO DAILY Glipizide 10 Mg Tab 10 Mg PO BIDAC Take 30 minutes before a meal Atorvastatin (Atorvastatin Calcium) 20 Mg Tab 20 Mg PO HS Pantoprazole (Pantoprazole Sodium) 20 Mg Tab 20 Mg PO DAILY Meloxicam 15 Mg Tab 15 Mg PO DAILY Review of Systems Except as stated in HPI: all other systems reviewed are Neg General / Constitutional: No: Fever, Chills, Weight Loss Eyes: No: Visual changes HENT: Positive: Lightheadedness, No: Headaches, Nosebleed Cardiovascular: Positive: Diaphoresis, No: Chest Pain or Discomfort, Syncope Respiratory: Positive: Shortness of Breath, No: Orthopnea, Hemoptysis, Pleuritic Pain Gastrointestinal: No: Nausea, Vomiting, Diarrhea, Abdominal Pain, Hematemesis, Hematochezia Genitourinary: No: Dysuria, Decreased Urinary Output Musculoskeletal: No: Myalgias, Arthralgias Skin: No Rash Neurologic: Positive: Dizziness, No: Weakness, Syncope, Focal Abnormalities, Coordination Problem Psychiatric: No: Anxiety Endocrine: No: Heat Intolerance Hematologic/Lymphatic: No: Easy Bruising Physical Exam Narrative GENERAL: Well-developed well-nourished male in no acute distress no respiratory distress resting supine SKIN: Warm and dry. HEAD: Normocephalic. EYES: No scleral icterus. No injection or drainage. NECK: Supple, trachea midline. No JVD or lymphadenopathy. CARDIOVASCULAR: Regular rate and rhythm without murmurs, gallops, or rubs. RESPIRATORY: Breath sounds equal bilaterally. No accessory muscle use. GASTROINTESTINAL: Abdomen soft, non-tender, nondistended. Rectal exam: Normal sphincter tone normal prostate to palpation stool in the rectal vault is brown; Hemoccult negative. MUSCULOSKELETAL: No cyanosis, or edema. BACK: Nontender without obvious deformity. No CVA tenderness. Data Data Last Documented VS Vital Signs Date Time Temp Pulse Resp B/P (MAP) Pulse Ox O2 Delivery O2 Flow Rate FiO2 03/10/17 01:25 96 Room Air 03/10/17 01:25 90 80 03/10/17 01:02 98.4 18 Orders Orders Complete Blood Count With Diff (03/10/17 01:19) Comprehensive Metabolic Panel (03/10/17 01:19) Lipase (03/10/17:19) Ammonia (03/10/17:19) Prothrombin Time / Inr (Pt) (03/10/17:19) Act Partial Throm Time (Ptt) (03/10/17:19) Type And Screen (03/10/17:19) Ecg Monitoring (03/10/17:19) Iv Access Insert/Monitor (03/10/17 01:19) Orthostatic Vital Signs (03/10/17 01:19) Oximetry (03/10/17 01:19) Pantoprazole Inj (Protonix Inj) (03/10/17 01:30) Sodium Chloride 0.9% Flush (Ns Flush) (03/10/17 01:30) Red Blood Cells (Rbc) (03/10/17 01:59) Blood Product Administration (03/10/17 01:59) Sodium Chlor 0.9% 250 Ml Inj (Ns 250 Ml (03/10/17 02:00) Admit Order (Ed Use Only) (03/10/17 ) Patent Clerk / Telemetry [id number] (03/10/17 02:19) Activity Oob With Assistance (03/10/17 02:19) Notify Dr: Other (03/10/17 02:19) Labs Laboratory Tests Test 03/10/17 01:45 White Blood Count 7.0 TH/MM3 Red Blood Count 3.61 MIL/MM3 Hemoglobin 6.6 GM/DL Hematocrit 22.0 % Mean Corpuscular Volume 61.2 FL Mean Corpuscular Hemoglobin 18.2 PG Mean Corpuscular Hemoglobin Concent 29.8 % Red Cell Distribution Width 19.1 % Platelet Count 351 TH/MM3 Mean Platelet Volume 7.5 FL Neutrophils (%) (Auto) 58.5 % Lymphocytes (%) (Auto) 30.7 % Monocytes (%) (Auto) 5.8 % Eosinophils (%) (Auto) 4.3 % Basophils (%) (Auto) 0.7 % Neutrophils # (Auto) 4.2 TH/MM3 Lymphocytes # (Auto) 2.1 TH/MM3 Monocytes # (Auto) 0.4 TH/MM3 Eosinophils # (Auto) 0.3 TH/MM3 Basophils # (Auto) 0.0 TH/MM3 CBC Comment AUTO DIFF Differential Comment AUTO DIFF CONFIRMED Platelet Estimate NORMAL Platelet Morphology Comment NORMAL Ovalocytes 2+ Keratocytes OCC Prothrombin Time 11.0 SEC Prothromb Time International Ratio 1.0 RATIO Activated Partial Thromboplast Time 22.9 SEC Blood Urea Nitrogen 20 MG/DL Creatinine 1.20 MG/DL Random Glucose 271 MG/DL Total Protein 6.9 GM/DL Albumin 3.6 GM/DL Calcium Level 8.5 MG/DL Alkaline Phosphatase 57 U/L Aspartate Amino Transf (AST/SGOT) 9 U/L Alanine Aminotransferase (ALT/SGPT) 18 U/L Total Bilirubin 0.2 MG/DL Sodium Level 137 MEQ/L Potassium Level 3.9 MEQ/L Chloride Level 102 MEQ/L Carbon Dioxide Level 27.6 MEQ/L Anion Gap 7 MEQ/L Estimat Glomerular Filtration Rate 60 ML/MIN Ammonia 28 MCMOL/L Lipase 74 U/L MDM Medical Decision Making Medical Screen Exam Complete: Yes Emergency Medical Condition: Yes Medical Record Reviewed: Yes Interpretation(s) @ 1:15 AM hgb: 6.6 CBC & BMP Diagram 03/10/17 01:45 Total Protein 6.9, Albumin 3.6, Calcium Level 8.5, Alkaline Phosphatase 57, Aspartate Amino Transf (AST/SGOT) 9 L, Alanine Aminotransferase (ALT/SGPT) 18, Total Bilirubin 0.2 Vital Signs Date Time Temp Pulse Resp B/P (MAP) Pulse Ox O2 Delivery O2 Flow Rate FiO2 03/10/17 01:25 96 Room Air 03/10/17 01:25 90 136/69 (91) 80 134/67 (89) 03/10/17 01:02 98.4 88 18 139/69 (92) 96 Differential Diagnosis Anemia, GI bleed, gastric cancer, diverticulosis, aplastic anemia, renal failure Narrative Course IV access obtained specimens collected and sent for resulting orthostatic measurements with minimal change supine to standing At 2:10 AM hemoglobin is 6.6 this is unchanged from 03/05/17 rectal exam is negative. 2 units packed cells ordered we'll transfuse times one. Last hemoglobin for comparison was during hospitalization for severe sepsis at that time hemoglobin was 7.8-9.6, prior to that blood work was in normal range in 2011. Patient is supposed to take iron supplementation but may not be compliant. Patient discussed with [facility] for OBS admit and transfusion. HemaPrompt Point of Care Internal Pos. & Neg. Controls: Passed Fecal Specimen Occult Blood: Negative Physician Communication Physician Communication discussed with Dr Jin Diagnosis Primary Impression: Symptomatic anemia Additional Impression: Diabetes Admitting Information Admitting Physician Requests: Observation Debbie Petersen MD Mar 10, 2017 01:58
[2017-03-10 02:00] LABS: CHLORIDE 102 MEQ/L (98-107); POTASSIUM 3.9 MEQ/L (3.5-5.1); SODIUM (NA) 137 MEQ/L (136-145)
[2017-03-10] MEDS ORDERED: SODIUM CHLOR 0.9% 250 ML INJ 250 ML IV ONE (02:00)
[2017-03-10 02:04] LABS: ANION GAP 7 MEQ/L (5-15); APTT (PATIENT) 22.9 SEC (24.3-30.1); BICARBONATE 27.6 MEQ/L (21.0-32.0); BLOOD UREA NITROGEN 20 MG/DL (7-18)
[2017-03-10 02:07] LABS: ALT (GPT) 18 U/L (12-78); AST (GOT) 9 U/L (15-37); GLOMERULAR FILTRATION RATE 60 ML/MIN (>89); OVALOCYTES 2+ (NORMAL)
[2017-03-10 02:08] LABS: KERATOCYTES OCC (NORMAL); PLATELET ESTIMATE SMEAR NORMAL (NORMAL); PLATELET MORPHOLOGY NORMAL (NORMAL); SCAN/DIFF AUTO DIFF CONFIRMED
[2017-03-10 02:09] LABS: TOTAL BILIRUBIN ADULT 0.2 MG/DL (0.2-1.0)
[2017-03-10 02:10] LABS: ALKALINE PHOSPHATASE 57 U/L (45-117)
[2017-03-10] MEDS ORDERED: DEXTROSE 50% IN WATER 50 ML VIAL(D50) IV PUSH PRN ×2 (02:30→07:45)
[2017-03-10] MEDS ORDERED: ACETAMINOPHEN 325 MG TAB PO PRN (02:30)
[2017-03-10] MEDS ORDERED: SENNOSIDES 8.6 MG TAB PO PRN (02:30)
[2017-03-10] MEDS ORDERED: SODIUM CHLORIDE 0.9% FLUSH 10 ML FLUSH IV FLUSH PRN (02:30)
[2017-03-10] MEDS ORDERED: ACETAMINOPHEN/HYDROcodone 325 MG/5 MG TAB PO PRN (02:30)
[2017-03-10] MEDS ORDERED: ONDANSETRON HCL 4 MG/2 ML VIAL IVP PRN (02:30)
[2017-03-10] MEDS ORDERED: MAGNESIUM HYDROXIDE SUSP 30 ML CUP PO PRN (02:30)
[2017-03-10] MEDS ORDERED: BISACODYL 10 MG SUPP RECTAL PRN (02:30)
[2017-03-10] MEDS ORDERED: ACETAMINOPHEN/HYDROcodone 325 MG/10 MG TAB PO PRN (02:30)
[2017-03-10] MEDS ORDERED: LACTULOSE SYRUP 20 GM/30 ML CUP PO PRN (02:30)
[2017-03-10] MEDS ORDERED: GLUCAGON 1 MG/ML VIAL OTHER PRN ×2 (02:30→07:45)
[2017-03-10] MEDS ORDERED: INSULIN ASPART SUPPLEMENTAL SCALE SQ SCH ×2 (08:00)
[2017-03-10] MEDS ORDERED: SODIUM CHLORIDE 0.9% FLUSH 10 ML FLUSH IV FLUSH SCH (09:00)
[2017-03-10] MEDS ORDERED: amLODIPine BESYLATE 5 MG TAB PO SCH (09:00)
[2017-03-10] MEDS ORDERED: DOCUSATE SODIUM 50 MG/SENNA 8.6 MG TAB PO SCH (09:00)
[2017-03-10] MEDS ORDERED: FERROUS SULFATE 325 MG (65 MG ELEMENTAL IRON) TAB PO SCH (09:00)
[2017-03-10] MEDS ORDERED: CITALOPRAM HYDROBROMIDE 20 MG TAB PO SCH (09:00)
[2017-03-10] MEDS ORDERED: PANTOPRAZOLE SOD 20 MG DELAYED RELEASE TAB PO SCH (09:00)
--- NOTE | 2017-03-10 09:11 | HHI.HP ---
[facility] Maykel Lockwood M.D. Admission Diagnosis symptomatic anemia Diagnoses: (1) Symptomatic anemia Diagnosis: Principal Chief Complaint: Fatigue Travel History International Travel<30 Days: No Contact w/Intl Traveler <30 Da: No Traveled to Known Affected Are: No History of Present Illness Written by Russell Azar, acting as scribe for Dr. Millan on 03/10/17 at 09 :11. 71 year-old male with known history of hypertension, hyperlipidemia, diabetes, chronic iron deficient anemia who presented to hospital because of increased fatigue. Patient did have outside laboratory studies done by his primary medical doctor and was found to have worsened hemoglobin and was sent to the emergency department for evaluation. Patient went to emergency department on March 06, 2017 and it was recommended by the ER physician that time that the patient be admitted for transfusion. However, the patient left AGAINST MEDICAL ADVICE at that time. The patient has had worsening fatigue where he is having difficulty in exerting himself for any period of time because he gets very weak. He denies any paresthesia, unilateral weakness, shortness of breath, dyspnea, melena, hematochezia, nausea, vomiting, hematemesis. The patient came back to the emergency department for a second evaluation and it was recommended that he be observed in the hospital and received transfusion. Patient was willing at this time. Patient underwent transfusion and does feel much better. Patient is very eager to go home. Review of Systems Constitutional: COMPLAINS OF: Fatigue Except as stated in HPI: all other systems reviewed are Neg Past Family Social History Past Medical History Hypertension Hyperlipidemia Diabetes History of urinary tract infection Chronic iron deficient anemia History of Enterococcus faecalis bacteremia Past Surgical History Bilateral hernia repair Cholecystectomy Reported Medications Reported Meds & Active Scripts Active Flomax (Tamsulosin HCl) 0.4 Mg Cap 0.4 Mg PO HS Ferosul (Ferrous Sulfate) 325 Mg Tablet 325 Mg PO DAILY take with orange juice if possible Reported Hydrochlorothiazide 25 Mg Tab 25 Mg PO DAILY Amlodipine (Amlodipine Besylate) 5 Mg Tab 5 Mg PO DAILY Trazodone (Trazodone HCl) 100 Mg Tablet 100 Mg PO HS Januvia (Sitagliptin Phosphate) 100 Mg Tab 100 Mg PO DAILY Citalopram (Citalopram Hydrobromide) 20 Mg Tab 20 Mg PO DAILY Glipizide 10 Mg Tab 10 Mg PO BIDAC Take 30 minutes before a meal Atorvastatin (Atorvastatin Calcium) 20 Mg Tab 20 Mg PO HS Pantoprazole (Pantoprazole Sodium) 20 Mg Tab 20 Mg PO DAILY Meloxicam 15 Mg Tab 15 Mg PO DAILY Allergies: Coded Allergies: No Known Allergies (Verified Adverse Reaction, Unknown, 03/10/17) Family History Reviewed with patient and he indicates that both parents are from old age, denies any medical problems include heart disease, diabetes, lung disease, cancer, seizures, stroke Social History Patient denies any tobacco, alcohol or illicit drugs Physical Exam Vital Signs Vital Signs Date Time Temp Pulse Resp B/P (MAP) Pulse Ox O2 Delivery O2 Flow Rate FiO2 03/10/17 08:00 98.0 80 20 179/82 (114) 94 03/10/17 04:58 97.9 70 20 117/56 98 03/10/17 04:26 97.5 67 18 147/75 97 03/10/17 03:38 74 03/10/17 03:30 98.1 67 16 147/75 (99) 97 03/10/17 03:10 88 18 134/66 (88) 96 03/10/17 01:25 96 Room Air 03/10/17 01:25 90 136/69 (91) 80 134/67 (89) 03/10/17 01:02 98.4 88 18 139/69 (92) 96 Physical Exam GENERAL: Well-developed, well-nourished, in no acute distress. alert and orientated HEENT: Head is normocephalic without any lesions or masses noted. Facial features are symmetric. Eyes: Pupils equal round reactive to light. Extraocular muscles are intact. Conjunctivae were clear. Oropharyngeal: Pharynx without any erythema edema. Tongue is midline without deviation. Buccal mucosa is moist without any masses or lesions NECK: Supple without any masses. Trachea midline no deviation. No JVD, no bruits are appreciated CARDIAC: Regular rhythm, regular rate. S1/S2 are heard. No murmurs gallops or rubs. LUNGS: Clear to auscultation bilaterally. No wheeze, rhonchi or rales. No use of accessory muscles on inspiration or expiration. ABDOMEN: Soft, nontender. Nondistended. Bowel sounds heard in all 4 quadrants. No organomegaly or masses. Negative rebound, negative guarding EXTREMITIES: No edema, pulses are equal bilaterally. No cyanosis or clubbing NEUROLOGY: Mood and affect appear appropriate. Cranial nerves II through XII grossly intact. Muscle strength 5/5 in upper and lower extremities bilaterally. Deep tendon reflexes are 2+ in upper and lower extremities bilaterally. Laboratory Laboratory Tests Test 03/10/17 01:45 White Blood Count 7.0 Red Blood Count 3.61 Hemoglobin 6.6 Hematocrit 22.0 Mean Corpuscular Volume 61.2 Mean Corpuscular Hemoglobin 18.2 Mean Corpuscular Hemoglobin Concent 29.8 Red Cell Distribution Width 19.1 Platelet Count 351 Mean Platelet Volume 7.5 Neutrophils (%) (Auto) 58.5 Lymphocytes (%) (Auto) 30.7 Monocytes (%) (Auto) 5.8 Eosinophils (%) (Auto) 4.3 Basophils (%) (Auto) 0.7 Neutrophils # (Auto) 4.2 Lymphocytes # (Auto) 2.1 Monocytes # (Auto) 0.4 Eosinophils # (Auto) 0.3 Basophils # (Auto) 0.0 CBC Comment AUTO DIFF Differential Comment AUTO DIFF CONFIRMED Platelet Estimate NORMAL Platelet Morphology Comment NORMAL Ovalocytes 2+ Keratocytes OCC Prothrombin Time 11.0 Prothromb Time International Ratio 1.0 Activated Partial Thromboplast Time 22.9 Blood Urea Nitrogen 20 Creatinine 1.20 Random Glucose 271 Total Protein 6.9 Albumin 3.6 Calcium Level 8.5 Alkaline Phosphatase 57 Aspartate Amino Transf (AST/SGOT) 9 Alanine Aminotransferase (ALT/SGPT) 18 Total Bilirubin 0.2 Sodium Level 137 Potassium Level 3.9 Chloride Level 102 Carbon Dioxide Level 27.6 Anion Gap 7 Estimat Glomerular Filtration Rate 60 Ammonia 28 Lipase 74 Result Diagram: 03/10/1714403/10/17144 Caprini VTE Risk Assessment Caprini VTE Risk Assessment: Mod/High Risk (score >= 2) Caprini Risk Assessment Model Point Value = 1 Point Value = 2 Point Value = 3 Point Value = 5 Age 41-60 Minor surgery BMI > 25 kg/m2 Swollen legs Varicose veins or History of unexplained or recurrent spontaneous Oral contraceptives or hormone replacement Sepsis (< 1 month) Serious lung disease, including pneumonia (< 1 month) Abnormal pulmonary function Acute myocardial infarction Congestive heart failure (< 1 month) History of inflammatory bowel disease Medical patient at bed rest Age 61-74 Arthroscopic surgery Major open surgery (> 45 min) Laparoscopic surgery (> 45 min) Malignancy Confined to bed (> 72 hours) Immobilizing plaster cast Central venous access Age >= 75 History of VTE Family history of VTE Factor V Leiden Prothrombin [id number] Lupus anticoagulant Anticardiolipin antibodies Elevated serum homocysteine Heparin-induced thrombocytopenia Other congenital or acquired thrombophilia Stroke (< 1 month) Elective arthroplasty Hip, pelvis, or leg fracture Acute spinal cord injury (< 1 month) Prophylaxis Regimen Total Risk Factor Score Risk Level Prophylaxis Regimen 0-1 Low Early ambulation 2 Moderate Order ONE of the following: *Sequential Compression Device (SCD) *Heparin 5000 units SQ BID 3-4 Higher Order ONE of the following medications: *Heparin 5000 units SQ TID *Enoxaparin/Lovenox 40 mg SQ daily (WT < 150 kg, CrCl > 30 mL/min) *Enoxaparin/Lovenox 30 mg SQ daily (WT < 150 kg, CrCl > 10-29 mL/min) *Enoxaparin/Lovenox 30 mg SQ BID (WT < 150 kg, CrCl > 30 mL/min) AND/OR *Sequential Compression Device (SCD) 5 or more Highest Order ONE of the following medications: *Heparin 5000 units SQ TID (Preferred with Epidurals) *Enoxaparin/Lovenox 40 mg SQ daily (WT < 150 kg, CrCl > 30 mL/min) *Enoxaparin/Lovenox 30 mg SQ daily (WT < 150 kg, CrCl > 10-29 mL/min) *Enoxaparin/Lovenox 30 mg SQ BID (WT < 150 kg, CrCl > 30 mL/min) AND *Sequential Compression Device (SCD) Assessment and Plan Problem List: (1) Symptomatic anemia ICD Code: D64.9 - Anemia, unspecified Status: Acute Assessment and Plan Symptomatic chronic iron deficient anemia It is questionable if the patient is compliant with his medications Rectal exam occult blood was negative Status post transfusion of 2 units packed red blood cells Follow-up H&H, if stable plan discharge home with outpatient follow-up Hypertension, hyperlipidemia continue home medications Diabetes Home medications continued Accu-Cheks with sliding scale insulin DVT prevention sequential compression devices, Discharge disposition Discharge home in stable condition after transfusion Activity: Ad fatimah. Diet: Healthy heart/diabetic diet Medications per medication reconciliation Follow-up with primary medical doctor in one week This note was transcribed by home Azar. I, Dr. Yeison Millan personally performed the history, physical exam, and medical decision making; and confirmed the accuracy of the information in the transcribed note. Authenticated by Dr. Yeison Millan on 03/10/17 at 09:11. Code Status Full code Discussed Condition With Patient Russell Azar Mar 10, 2017 09:11 Yeison Millan MD Mar 10, 2017 09:11
--- NOTE | 2017-03-10 09:30 | HHI.DCPOC ---
Discharge Care Plan Diagnosis: (1) Symptomatic anemia Goals to Promote Your Health * To prevent worsening of your condition and complications * To maintain your health at the optimal level Directions to Meet Your Goals Take your medications as prescribed Follow your dietary instruction Follow activity as directed Keep your appointments as scheduled Take your immunizations and boosters as scheduled If your symptoms worsen call your PCP, if no PCP go to Urgent Care Center or Emergency Room Smoking is Dangerous to Your Health. Avoid second hand smoke Call the 24-hour hour crisis hotline for domestic abuse at Russell Azar Mar 10, 2017 09:30
[2017-03-10 10:43] LABS: HEMATOCRIT 26.2 % (39.0-51.0); REVIEW FLAG FINAL
[2017-03-10] MEDS ORDERED: glipiZIDE 10 MG TAB PO SCH (16:00)
[2017-03-10] MEDS ORDERED: traZODone HCL 100 MG TAB PO SCH (21:00)
[2017-03-10] MEDS ORDERED: ATORVASTATIN 20 MG TAB PO SCH (21:00)
[2017-03-10] MEDS ORDERED: TAMSULOSIN HCL 0.4 MG CAP PO SCH (21:00)
== END 2017-03-10 10:58 | disposition home or self-care (01) | DRG 812 ==
LOC: PHED 00:58 → PHEDA 02:22 → OBSVTOIN 02:28 → PH3B 03:11
PROVIDERS: ADMIT Hospitalist; ATTEND Hospitalist
PROC: 30233N1 Transfusion of Nonautologous Red Blood Cells into Peripheral Vein, Percutaneous Approach (ICD-10-PCS; principal; 2017-03-10)
DX: D50.9 Iron deficiency anemia, unspecified (principal); E11.9 Type 2 diabetes mellitus without complications; Z79.84 Long term (current) use of oral hypoglycemic drugs; I10 Essential (primary) hypertension; E78.5 Hyperlipidemia, unspecified; K21.9 Gastro-esophageal reflux disease without esophagitis; H91.90 Unspecified hearing loss, unspecified ear; I25.2 Old myocardial infarction
CPT/HCPCS: 36430; 80053; 82140; 82948; 83690; 85014; 85018; 85025; 85610; 85730; 86850; 86900; 86901; 86920; 96374; C9113; J7050; P9016

== ENCOUNTER 2017-04-29 10:52 | Inpatient (IN) | payer OTHER, MEDICARE ==
[~2017-04-29 10:52] MED LIST changes: -AUGM875T3 PO; -CIPR500T2 PO
[2017-04-29 11:18] VITALS: BP 138/79; PULSE 75; RESP 18; TEMP 97.8; O2SAT 96
[2017-04-29] MEDS ORDERED: SODIUM CHLOR 0.9% 1000 ML INJ 1,000 ML IV SCH (11:33)
[2017-04-29 11:40] VITALS: RESP 18; O2SAT 96
[2017-04-29] MEDS ORDERED: SODIUM CHLORIDE 0.9% FLUSH 10 ML FLUSH IV FLUSH PRN ×2 (11:45→13:30)
--- NOTE | 2017-04-29 11:53 | RADRPT ---
EXAM DATE/TIME: 04/29/2017 11:40 [facility] COMPARISON: CHEST SINGLE AP, October 07, 2016, 14:56. INDICATIONS : Syncope. MEDICAL HISTORY : None. SURGICAL HISTORY : None. ENCOUNTER: Initial ACUITY: 1 day PAIN SCORE: 0/10 LOCATION: Bilateral chest FINDINGS: The heart is normal in size. There moderate chronic appearing interstitial changes within the pulmona ry parenchyma. No focal or segmental pneumonias and 5. No pneumothorax is present. CONCLUSION: 1. Chronic appearing interstitial changes. No acute abnormality. Schuyler Culp MD on April 29, 2017 at 11:49 Board Certified Radiologist. This report was verified electronically.
[2017-04-29 12:04] LABS: AUTOMATED NEUTROPHIL # 4.8 TH/MM3 (1.8-7.7); BASOPHIL % 0.4 % (0.0-2.0); HEMATOCRIT 32.1 % (39.0-51.0); LYMPH % 12.4 % (9.0-44.0); LYMPHOCYTE # 0.7 TH/MM3 (1.0-4.8); MEAN CELL VOLUME 74.4 FL (80.0-100.0); MEAN CORPUSCULAR HEMOGLOBIN 23.2 PG (27.0-34.0); MEAN CORPUSCULAR HGB CONC 31.1 % (32.0-36.0); MEAN PLATELET VOLUME 8.4 FL (7.0-11.0); MONO % 6.2 % (0.0-8.0); MONOCYTE # 0.4 TH/MM3 (0-0.9); PLATELET COUNT 247 TH/MM3 (150-450); RED BLOOD COUNT 4.31 MIL/MM3 (4.50-5.90); RED CELL DISTRIBUTION WIDTH 28.5 % (11.6-17.2); WHITE BLOOD COUNT 5.9 TH/MM3 (4.0-11.0)
[2017-04-29 12:12] LABS: CHLORIDE 96 MEQ/L (98-107); SODIUM (NA) 134 MEQ/L (136-145)
[2017-04-29 12:15] LABS: CALCIUM 8.6 MG/DL (8.5-10.1)
[2017-04-29 12:16] LABS: ALBUMIN 3.6 GM/DL (3.4-5.0); BICARBONATE 27.3 MEQ/L (21.0-32.0); BLOOD UREA NITROGEN 18 MG/DL (7-18); GLUCOSE,RANDOM 155 MG/DL (74-106)
[2017-04-29 12:18] LABS: INTERNATIONAL NORMALIZED RATIO 1.2 RATIO; PROTHROMBIN TIME - PATIENT 11.7 SEC (9.8-11.6)
[2017-04-29 12:19] LABS: ALT (GPT) 25 U/L (12-78); AST (GOT) 58 U/L (15-37); GLOMERULAR FILTRATION RATE 60 ML/MIN (>89)
[2017-04-29 12:21] LABS: TOTAL BILIRUBIN ADULT 0.6 MG/DL (0.2-1.0); TOTAL PROTEIN 7.1 GM/DL (6.4-8.2)
[2017-04-29 12:22] LABS: ALKALINE PHOSPHATASE 62 U/L (45-117)
[2017-04-29 12:24] LABS: OVALOCYTES 2+ (NORMAL); TEARDROP RBCS 1+ (NORMAL); TROPONIN I LESS THAN 0.02 NG/ML (0.02-0.05)
--- NOTE | 2017-04-29 12:29 | RADRPT ---
EXAM DATE/TIME: 04/29/2017 12:09 [facility] COMPARISON: CT BRAIN W/O CONTRAST, October 08, 2016, 9:55. INDICATIONS : Fall. Altered mental status. Found on shower floor, where he stated he had been for three days. RADIATION DOSE: 57.67 CTDIvol (mGy) MEDICAL HISTORY : Hypertension. Renal insufficiency. SURGICAL HISTORY : None. ENCOUNTER: Initial ACUITY: 3 days PAIN SCALE: 0/10 LOCATION: cranial TECHNIQUE: Multiple contiguous axial images were obtained of the head. Using automated exposure control and adj ustment of the mA and/or kV according to patient size, radiation dose was kept as low as reasonably a chievable to obtain optimal diagnostic quality images. DICOM format image data is available electro nically for review and comparison. FINDINGS: CEREBRUM: The ventricles are normal for age. No evidence of midline shift, mass lesion, hemorrhage or acute in farction. No extra-axial fluid collections are seen. POSTERIOR FOSSA: The cerebellum and brainstem are intact. The 4th ventricle is midline. The cerebellopontine angle i s unremarkable. EXTRACRANIAL: The visualized portion of the orbits is intact. SKULL: The calvaria is intact. No evidence of skull fracture. CONCLUSION: Negative trauma CT Justin Mckenzie MD on April 29, 2017 at 12:27 Board Certified Radiologist. This report was verified electronically.
--- NOTE | 2017-04-29 12:46 | PD ---
HPI Chief Complaint: Altered Mental Status Time Seen by Provider: 11:15 Travel History International Travel<30 days: No Contact w/Intl Traveler<30days: No Traveled to known affect area: No History of Present Illness HPI Patient is a 71-year-old male, brought in by EMS after he was found in his shower. He says that he fell 2 or 3 days ago and has been feeling so weak that he was unable to get up. He denies any pains at this time. He denies headache , denies chest pain, denies shortness of breath. He denies nausea or vomiting. He denies fever or chills. He says he has had some cold symptoms, but seems to be improving. His only complaint is weakness. He does not know why he feels weak. Nothing seems to make his symptoms better. He does not seem concerned that he was unable to get off the floor for 2 or 3 days. PFSH Past Medical History Arthritis: Yes Heart Rhythm Problems: No Cancer: No Cardiovascular Problems: Yes (HTN) High Cholesterol: No Chest Pain: No Congestive Heart Failure: No Cerebrovascular Accident: No Diabetes: Yes Patient Takes Glucophage: No Diminished Hearing: Yes Endocrine: Yes Gastrointestinal Disorders: Yes GERD: Yes Genitourinary: Yes Hiatal Hernia: No Hypertension: Yes Immune Disorder: No Kidney Stones: No Musculoskeletal: Yes (unable to acess, pt "doesnt know") Neurologic: Yes (unable to acess, pt "doesnt know") Psychiatric: No Reproductive: No Respiratory: No Migraines: No Myocardial Infarction: Yes Renal Failure: Yes (renal insuffisiency) Seizures: No Thyroid Disease: No Ulcer: No Tetanus Vaccination: > 5 Years Influenza Vaccination: No Past Surgical History Abdominal Surgery: Yes (gallblader) Cardiac Surgery: No Cholecystectomy: Yes Ear Surgery: No Endocrine Surgery: No Eye Surgery: No Genitourinary Surgery: No Gynecologic Surgery: No Oral Surgery: No Thoracic Surgery: No Other Surgery: Yes (inguinal hernia repair) Social History Alcohol Use: No Tobacco Use: No Substance Use: No Allergies-Medications (Allergen,Severity, Reaction): Coded Allergies: No Known Allergies (Verified Adverse Reaction, Unknown, 04/29/17) Reported Meds & Prescriptions Reported Meds & Active Scripts Active Flomax (Tamsulosin HCl) 0.4 Mg Cap 0.4 Mg PO HS Ferosul (Ferrous Sulfate) 325 Mg Tablet 325 Mg PO DAILY take with orange juice if possible Reported Hydrochlorothiazide 25 Mg Tab 25 Mg PO DAILY Amlodipine (Amlodipine Besylate) 5 Mg Tab 5 Mg PO DAILY Trazodone (Trazodone HCl) 100 Mg Tablet 100 Mg PO HS Januvia (Sitagliptin Phosphate) 100 Mg Tab 100 Mg PO DAILY Citalopram (Citalopram Hydrobromide) 20 Mg Tab 20 Mg PO DAILY Glipizide 10 Mg Tab 10 Mg PO BIDAC Take 30 minutes before a meal Atorvastatin (Atorvastatin Calcium) 20 Mg Tab 20 Mg PO HS Pantoprazole (Pantoprazole Sodium) 20 Mg Tab 20 Mg PO DAILY Meloxicam 15 Mg Tab 15 Mg PO DAILY Review of Systems Except as stated in HPI: all other systems reviewed are Neg General / Constitutional: No: Fever, Chills Eyes: No: Blurred Vision HENT: No: Headaches, Lightheadedness Cardiovascular: No: Chest Pain or Discomfort Respiratory: No: Shortness of Breath Gastrointestinal: No: Nausea, Vomiting, Abdominal Pain Genitourinary: No: Flank Pain Musculoskeletal: No: Myalgias, Weakness Skin: No Rash, No Change in Pigmentation Neurologic: Positive: Weakness, No: Dizziness, Syncope Physical Exam Narrative GENERAL: Awake and alert, in no acute distress. SKIN: Focused skin assessment warm/dry. No wounds or signs of infection. HEAD: Atraumatic. Normocephalic. EYES: Pupils equal and round. No scleral icterus. ENT: Mucous membranes pink and moist. NECK: Trachea midline. No JVD. CARDIOVASCULAR: Regular rate and rhythm. No murmur appreciated. RESPIRATORY: No accessory muscle use. Clear to auscultation. Breath sounds equal bilaterally. GASTROINTESTINAL: Abdomen soft, non-tender, nondistended. MUSCULOSKELETAL: No obvious deformities. No clubbing. No cyanosis. No edema. NEUROLOGICAL: Awake and alert. No obvious cranial nerve deficits. Motor grossly within normal limits. Normal speech. PSYCHIATRIC: Appropriate mood and affect; insight and judgment normal. Data Data Last Documented VS Vital Signs Date Time Temp Pulse Resp B/P (MAP) Pulse Ox O2 Delivery O2 Flow Rate FiO2 04/29/17 11:40 18 96 Room Air 04/29/17 11:18 97.8 75 138/79 (98) Orders Orders Electrocardiogram (04/29/17 11:33) Complete Blood Count With Diff (04/29/17 11:33) Comprehensive Metabolic Panel (04/29/17 11:33) Creatine Kinase (Cpk) (04/29/17 11:33) Prothrombin Time / Inr (Pt) (04/29/17 11:33) Act Partial Throm Time (Ptt) (04/29/17 11:33) Troponin I (04/29/17 11:33) Urinalysis - C+S If Indicated (04/29/17 11:33) Lactic Acid Sepsis Protocol (04/29/17 11:33) Chest, Single Ap (04/29/17 11:33) Ct Brain W/O Iv Contrast(Rout) (04/29/17 11:33) Blood Glucose (04/29/17 11:33) Ecg Monitoring (04/29/17 11:33) Iv Access Insert/Monitor (04/29/17 11:33) Oximetry (04/29/17 11:33) Sodium Chloride 0.9% Flush (Ns Flush) (04/29/17 11:45) Sodium Chlor 0.9% 1000 Ml Inj (Ns 1000 M (04/29/17 11:33) CKMB (04/29/17 11:55) CKMB% (04/29/17 11:55) Sodium Chlor 0.9% 1000 Ml Inj (Ns 1000 M (04/29/17 13:00) Labs Laboratory Tests Test 04/29/17 11:55 White Blood Count 5.9 TH/MM3 Red Blood Count 4.31 MIL/MM3 Hemoglobin 10.0 GM/DL Hematocrit 32.1 % Mean Corpuscular Volume 74.4 FL Mean Corpuscular Hemoglobin 23.2 PG Mean Corpuscular Hemoglobin Concent 31.1 % Red Cell Distribution Width 28.5 % Platelet Count 247 TH/MM3 Mean Platelet Volume 8.4 FL Neutrophils (%) (Auto) 81.0 % Lymphocytes (%) (Auto) 12.4 % Monocytes (%) (Auto) 6.2 % Eosinophils (%) (Auto) 0.0 % Basophils (%) (Auto) 0.4 % Neutrophils # (Auto) 4.8 TH/MM3 Lymphocytes # (Auto) 0.7 TH/MM3 Monocytes # (Auto) 0.4 TH/MM3 Eosinophils # (Auto) 0.0 TH/MM3 Basophils # (Auto) 0.0 TH/MM3 CBC Comment AUTO DIFF Differential Comment AUTO DIFF CONFIRMED Platelet Estimate NORMAL Platelet Morphology Comment NORMAL Tear Drop Cells 1+ Ovalocytes 2+ Prothrombin Time 11.7 SEC Prothromb Time International Ratio 1.2 RATIO Activated Partial Thromboplast Time 24.7 SEC Blood Urea Nitrogen 18 MG/DL Creatinine 1.20 MG/DL Random Glucose 155 MG/DL Total Protein 7.1 GM/DL Albumin 3.6 GM/DL Calcium Level 8.6 MG/DL Alkaline Phosphatase 62 U/L Aspartate Amino Transf (AST/SGOT) 58 U/L Alanine Aminotransferase (ALT/SGPT) 25 U/L Total Bilirubin 0.6 MG/DL Sodium Level 134 MEQ/L Potassium Level 3.6 MEQ/L Chloride Level 96 MEQ/L Carbon Dioxide Level 27.3 MEQ/L Anion Gap 11 MEQ/L Estimat Glomerular Filtration Rate 60 ML/MIN Lactic Acid Level 1.8 mmol/L Total Creatine Kinase 1889 U/L Creatine Kinase MB 14.5 NG/ML Creatine Kinase MB % 0.8 % Troponin I LESS THAN 0.02 NG/ML MDM Medical Decision Making Medical Screen Exam Complete: Yes Emergency Medical Condition: Yes Medical Record Reviewed: Yes Interpretation(s) ECG shows normal sinus rhythm at 80, no ST elevation or depression Differential Diagnosis Rhabdomyolysis versus infection versus anemia versus electrolyte abnormality versus dehydration Narrative Course Patient is a 71-year-old male who comes in after he was found on the ground. He says he has been weak and was unable to get himself up for about 2 or 3 days. Exam shows no acute abnormalities. He is moving all his extremities. IV established, labs sent. Labs concerning for an elevated CK to 1889. CT head performed shows no acute abnormalities. Chest x-ray shows no acute abnormalities. Patient given IV fluids. He'll be admitted for rhabdomyolysis and weakness. Last [address] 04/29/17 1133 Signed Impressions: Service Date/Time: Saturday, April 29, 2017 12:09 - CONCLUSION: Negative trauma CT Justin Mckenzie MD Chest X-Ray 04/29/17 1133 Signed Impressions: Service Date/Time: Saturday, April 29, 2017 11:40 - CONCLUSION: 1. Chronic appearing interstitial changes. No acute abnormality. Schuyler Culp MD Diagnosis Primary Impression: Rhabdomyolysis Qualified Codes: M62.82 - Rhabdomyolysis Additional Impression: Weakness Admitting Information Admitting Physician Requests: Admit Georgette Mckee MD Apr 29, 2017 12:46
[2017-04-29] MEDS ORDERED: SODIUM CHLOR 0.9% 1000 ML INJ 1,000 ML IV ONE (13:00)
[2017-04-29] MEDS ORDERED: GLUCAGON 1 MG/ML VIAL OTHER PRN (13:30)
[2017-04-29] MEDS ORDERED: DEXTROSE 50% IN WATER 50 ML VIAL(D50) IV PUSH PRN (13:30)
[2017-04-29] MEDS ORDERED: NALOXONE HCL 0.4 MG/ML AMP IV PUSH PRN (13:30)
[2017-04-29] MEDS ORDERED: ACETAMINOPHEN 325 MG TAB PO PRN (13:30)
[2017-04-29 13:39] VITALS: BP 152/79; PULSE 76; RESP 18; O2SAT 95
[2017-04-29 14:53] VITALS: BP 154/58
[2017-04-29] MEDS: LACTATED RINGER'S 1000 ML INJ 1,000 ML IV SCH (15:00)
--- NOTE | 2017-04-29 15:30 | HHI.HP ---
[facility] Service [facility] Primary Care Physician Maykel Lockwood M.D. Admission Diagnosis Rhabdomyolysis, weakness Diagnoses: (1) Rhabdomyolysis Diagnosis: Principal Travel History International Travel<30 Days: No Contact w/Intl Traveler <30 Da: No Traveled to Known Affected Are: No History of Present Illness Written by Georgette Mcbride, acting as scribe for Dr. Dalton on 04/29/17 at 15:10. This is a 71-year-old male patient with a known medical history of hypertension , diabetes, GERD who presented to the ED after being found down in the shower for three days and was found by the senior maintenance mechanic in his apartment. Patient states he did not lose consciousness or hit his head, he just said he was feeling weak and unable to get up. He denies any history of any seizures or traumas in the past. Denies any his injury. Denies any pain. He does live alone and at baseline able to perform all ADLs independently. Denies any recent fevers, chill, cough, shortness of breath, abdominal pain, nausea, vomiting, diarrhea, dysuria or rash, eye problems. PCP is Dr. Lockwood. Review of Systems Constitutional: DENIES: Fever, Chills Eyes: DENIES: Blurred vision Ears, nose, mouth, throat: DENIES: Vertigo Respiratory: DENIES: Apneas, Cough, Wheezing, Shortness of breath Cardiovascular: DENIES: Chest pain, Syncope Gastrointestinal: DENIES: Abdominal pain, Bloody stools, Constipation, Diarrhea , Nausea, Vomiting Musculoskeletal: COMPLAINS OF: Muscle aches Except as stated in HPI: all other systems reviewed are Neg Past Family Social History Past Medical History Arthritis Hypertension Diabetes Severely hard of hearing GERD Renal insufficiency Past Surgical History Cholecystectomy Inguinal hernia repair Reported Medications Active Flomax (Tamsulosin HCl) 0.4 Mg Cap 0.4 Mg PO HS Ferosul (Ferrous Sulfate) 325 Mg Tablet 325 Mg PO DAILY take with orange juice if possible Reported Hydrochlorothiazide 25 Mg Tab 25 Mg PO DAILY Amlodipine (Amlodipine Besylate) 5 Mg Tab 5 Mg PO DAILY Trazodone (Trazodone HCl) 100 Mg Tablet 100 Mg PO HS Januvia (Sitagliptin Phosphate) 100 Mg Tab 100 Mg PO DAILY Citalopram (Citalopram Hydrobromide) 20 Mg Tab 20 Mg PO DAILY Glipizide 10 Mg Tab 10 Mg PO BIDAC Take 30 minutes before a meal Atorvastatin (Atorvastatin Calcium) 20 Mg Tab 20 Mg PO HS Pantoprazole (Pantoprazole Sodium) 20 Mg Tab 20 Mg PO DAILY Meloxicam 15 Mg Tab 15 Mg PO DAILY Allergies: Coded Allergies: No Known Allergies (Verified Adverse Reaction, Unknown, 04/29/17) Active Ordered Medications Current Medications Medications (Trade) Dose Ordered Sig/Tracy Route Start Time Stop Time Status Last Admin Lactated Ringer's 1,000 ml @ 100 mls/hr Q10H IV 04/29/17 13:25 04/29/17 15:00 (NS Flush) 2 ml UNSCH PRN IV FLUSH 04/29/17 13:30 (NS Flush) 2 ml BID IV FLUSH 04/29/17 21:00 (Tylenol) 650 mg Q4H PRN PO 04/29/17 13:30 (Narcan Inj) 0.4 mg UNSCH PRN IV PUSH 04/29/17 13:30 (D50w (Vial) Inj) 50 ml UNSCH PRN IV PUSH 04/29/17 13:30 (Glucagon Inj) 1 mg UNSCH PRN OTHER 04/29/17 13:30 (NovoLOG SUPPLEMENTAL SCALE) 1 ACHS SLIDING SCALE SQ 04/29/17 17:00 Family History Paternal medical history significant for diabetes. Maternal medical history significant for [place] x 2 and CVA x2. Social History Denies any alcohol or tobacco or illicit drug use. Physical Exam Vital Signs Vital Signs Date Time Temp Pulse Resp B/P (MAP) Pulse Ox O2 Delivery O2 Flow Rate FiO2 04/29/17 14:53 78 18 154/58 (90) 100 04/29/17 13:39 76 18 152/79 (103) 95 Room Air 04/29/17 11:40 18 96 Room Air 04/29/17 11:33 96 Room Air 04/29/17 11:18 97.8 75 18 138/79 (98) 96 Physical Exam GENERAL: This is a well-nourished, well-developed patient, in no apparent distress. SKIN: No rashes, ecchymoses or lesions. Cool and dry. HEAD: Atraumatic. Normocephalic. No temporal or scalp tenderness. EYES: Pupils equal round and reactive. Extraocular motions intact. No scleral icterus. No injection or drainage. ENT: Nose without bleeding, purulent drainage or septal hematoma. Throat without erythema, tonsillar hypertrophy or exudate. Uvula midline. Airway patent. NECK: Trachea midline. No JVD or lymphadenopathy. Supple, nontender, no meningeal signs. CARDIOVASCULAR: Regular rate and rhythm without murmurs, gallops, or rubs. RESPIRATORY: Clear to auscultation. Breath sounds equal bilaterally. No wheezes , rales, or rhonchi. GASTROINTESTINAL: Abdomen soft, non-tender, nondistended. No hepato-splenomegaly , or palpable masses. No guarding. MUSCULOSKELETAL: Extremities without clubbing, cyanosis, or edema. No joint tenderness, effusion, or edema noted. No calf tenderness. Negative Homans sign bilaterally. NEUROLOGICAL: Awake and alert. Cranial nerves II through XII intact. Motor and sensory grossly within normal limits. Five out of 5 muscle strength in all muscle groups. Normal speech. Laboratory Laboratory Tests Test 04/29/17 11:55 White Blood Count 5.9 Red Blood Count 4.31 Hemoglobin 10.0 Hematocrit 32.1 Mean Corpuscular Volume 74.4 Mean Corpuscular Hemoglobin 23.2 Mean Corpuscular Hemoglobin Concent 31.1 Red Cell Distribution Width 28.5 Platelet Count 247 Mean Platelet Volume 8.4 Neutrophils (%) (Auto) 81.0 Lymphocytes (%) (Auto) 12.4 Monocytes (%) (Auto) 6.2 Eosinophils (%) (Auto) 0.0 Basophils (%) (Auto) 0.4 Neutrophils # (Auto) 4.8 Lymphocytes # (Auto) 0.7 Monocytes # (Auto) 0.4 Eosinophils # (Auto) 0.0 Basophils # (Auto) 0.0 CBC Comment AUTO DIFF Differential Comment AUTO DIFF CONFIRMED Platelet Estimate NORMAL Platelet Morphology Comment NORMAL Tear Drop Cells 1+ Ovalocytes 2+ Prothrombin Time 11.7 Prothromb Time International Ratio 1.2 Activated Partial Thromboplast Time 24.7 Blood Urea Nitrogen 18 Creatinine 1.20 Random Glucose 155 Total Protein 7.1 Albumin 3.6 Calcium Level 8.6 Alkaline Phosphatase 62 Aspartate Amino Transf (AST/SGOT) 58 Alanine Aminotransferase (ALT/SGPT) 25 Total Bilirubin 0.6 Sodium Level 134 Potassium Level 3.6 Chloride Level 96 Carbon Dioxide Level 27.3 Anion Gap 11 Estimat Glomerular Filtration Rate 60 Lactic Acid Level 1.8 Total Creatine Kinase 1889 Creatine Kinase MB 14.5 Creatine Kinase MB % 0.8 Troponin I LESS THAN 0.02 Result Diagram: 04/29/17 1155 04/29/17 1155 Imaging Last Impressions Head CT 04/29/17 1133 Signed Impressions: Service Date/Time: Saturday, April 29, 2017 12:09 - CONCLUSION: Negative trauma CT Justin Mckenzie MD Chest X-Ray 04/29/17 1133 Signed Impressions: Service Date/Time: Saturday, April 29, 2017 11:40 - CONCLUSION: 1. Chronic appearing interstitial changes. No acute abnormality. Schuyler Culp MD Septic Shock Reassessment Septic shock perfusion: reassessment completed Caprini VTE Risk Assessment Caprini VTE Risk Assessment: Mod/High Risk (score >= 2) Caprini Risk Assessment Model Point Value = 1 Point Value = 2 Point Value = 3 Point Value = 5 Age 41-60 Minor surgery BMI > 25 kg/m2 Swollen legs Varicose veins or History of unexplained or recurrent spontaneous Oral contraceptives or hormone replacement Sepsis (< 1 month) Serious lung disease, including pneumonia (< 1 month) Abnormal pulmonary function Acute myocardial infarction Congestive heart failure (< 1 month) History of inflammatory bowel disease Medical patient at bed rest Age 61-74 Arthroscopic surgery Major open surgery (> 45 min) Laparoscopic surgery (> 45 min) Malignancy Confined to bed (> 72 hours) Immobilizing plaster cast Central venous access Age >= 75 History of VTE Family history of VTE Factor V Leiden Prothrombin [id number] Lupus anticoagulant Anticardiolipin antibodies Elevated serum homocysteine Heparin-induced thrombocytopenia Other congenital or acquired thrombophilia Stroke (< 1 month) Elective arthroplasty Hip, pelvis, or leg fracture Acute spinal cord injury (< 1 month) Prophylaxis Regimen Total Risk Factor Score Risk Level Prophylaxis Regimen 0-1 Low Early ambulation 2 Moderate Order ONE of the following: *Sequential Compression Device (SCD) *Heparin 5000 units SQ BID 3-4 Higher Order ONE of the following medications: *Heparin 5000 units SQ TID *Enoxaparin/Lovenox 40 mg SQ daily (WT < 150 kg, CrCl > 30 mL/min) *Enoxaparin/Lovenox 30 mg SQ daily (WT < 150 kg, CrCl > 10-29 mL/min) *Enoxaparin/Lovenox 30 mg SQ BID (WT < 150 kg, CrCl > 30 mL/min) AND/OR *Sequential Compression Device (SCD) 5 or more Highest Order ONE of the following medications: *Heparin 5000 units SQ TID (Preferred with Epidurals) *Enoxaparin/Lovenox 40 mg SQ daily (WT < 150 kg, CrCl > 30 mL/min) *Enoxaparin/Lovenox 30 mg SQ daily (WT < 150 kg, CrCl > 10-29 mL/min) *Enoxaparin/Lovenox 30 mg SQ BID (WT < 150 kg, CrCl > 30 mL/min) AND *Sequential Compression Device (SCD) Assessment and Plan Problem List: (1) Rhabdomyolysis ICD Code: M62.82 - Rhabdomyolysis Status: Acute Plan: Status post being found in shower [address] reviewed negative. Chest x-ray reviewed showing chronic. Interstitial changes no acute abnormality. EKG reviewed NSR, controlled HR, no ST changes. Continue cardiac telemetry, monitor for any arrhythmias. CPK 1889. CK-MB 14.5, recheck in a.m. Status post 2 L IV fluid in NAD. Continue IV hydration. Supplemental O2 as needed. PT and OT to evaluate and treat, appreciate further improvement recommendations. Obtain UA, follow. Lactic acid pending. Supportive care (2) Hypertension ICD Code: I10 - Essential (primary) hypertension Status: Chronic Plan: Continue home medications. Monitor BP trends, controlled at this time. (3) Hyperlipidemia ICD Code: E78.5 - Hyperlipidemia, unspecified Status: Chronic Plan: Continue home statin. (4) Diabetes ICD Code: E11.9 - Type 2 diabetes mellitus without complications Status: Chronic Plan: Accu checks ACHS, sliding scale, color as needed. Monitor blood sugar. GI prophylaxis: Protonix. DVT prophylaxis: SCDs. Physician Certification 2 Midnight Certification Type: Admission for Inpatient Services Order for Inpatient Services The services are ordered in accordance with Medicare regulations or non- Medicare payer requirements, as applicable. In the case of services not specified as inpatient-only, they are appropriately provided as inpatient services in accordance with the 2-midnight benchmark. Estimated LOS (days): 3 3 days is the estimated time the patient will need to remain in the hospital, assuming treatment plan goals are met and no additional complications. Post-Hospital Plan: Not yet determined Medical Decision Making Impression and Plan This note was transcribed by home [[email or web address]]. I, Dr. Naya Dalton personally performed the history, physical exam, and medical decision making; and confirmed the accuracy of the information in the transcribed note. i did perform a h and p with exam at the time of this note but the note is only mark dnow Authenticated by Dr. Naya Dalton on 04/29/17 at 16:55. Problem Qualifiers (1) Rhabdomyolysis: Qualified Codes: M62.82 - Rhabdomyolysis Georgette Mcbride Apr 29, 2017 15:30 Naya Dalton MD Apr 29, 2017 16:58
[2017-04-29 16:23] VITALS: BP 161/90; PULSE 70; RESP 20; TEMP 96; O2SAT 94
[2017-04-29] MEDS: INSULIN ASPART SUPPLEMENTAL SCALE SQ SCH ×2 (17:00→20:28)
[2017-04-29 20:00] VITALS: BP 161/94; PULSE 75; RESP 20; TEMP 98.2; O2SAT 95
[2017-04-29] MEDS: TAMSULOSIN HCL 0.4 MG CAP PO SCH (20:27)
[2017-04-29] MEDS: traZODone HCL 100 MG TAB PO SCH (20:27)
[2017-04-29] MEDS: SODIUM CHLORIDE 0.9% FLUSH 10 ML FLUSH IV FLUSH SCH (20:28)
[2017-04-29] MEDS ORDERED: ATORVASTATIN 20 MG TAB PO SCH (21:00)
[2017-04-29 21:25] LABS: BILIRUBIN, URINE NEG (NEG); BLOOD, URINE LARGE (NEG); GLUCOSE,URINE NEG (NEG); KETONE, URINE NEG (NEG); NITRITE,URINE NEG (NEG); PH, URINE 5.5 (5.0-8.5); URINE LEUKOCYTE ESTERASE NEG (NEG)
[2017-04-29 21:30] LABS: HYALINE CAST, URINE 0-2 /lpf (RARE); RBC, URINE 0-3 /hpf (0-3); SQUAMOUS EPITHELIAL CELL URINE 0-5 /hpf (0-5); URINE COLOR YELLOW (YELLW/STRAW); WHITE BLOOD CELL CLUMPS FEW
[2017-04-29 21:31] LABS: AMORPHOUS SEDIMENT, URINE FEW
[2017-04-30] VITALS: BP 154/84; PULSE 72; RESP 20; TEMP 97.3; O2SAT 98
[2017-04-30] MEDS: LACTATED RINGER'S 1000 ML INJ 1,000 ML IV SCH ×3 (00:24→19:39)
[2017-04-30 06:28] LABS: AUTOMATED NEUTROPHIL # 4.1 TH/MM3 (1.8-7.7); BASOPHIL % 0.3 % (0.0-2.0); EOSINOPHIL % 0.6 % (0.0-4.0); HEMATOCRIT 30.9 % (39.0-51.0); HEMOGLOBIN 9.6 GM/DL (13.0-17.0); LYMPH % 21.6 % (9.0-44.0); LYMPHOCYTE # 1.3 TH/MM3 (1.0-4.8); MEAN CELL VOLUME 74.9 FL (80.0-100.0); MEAN CORPUSCULAR HEMOGLOBIN 23.2 PG (27.0-34.0); MEAN PLATELET VOLUME 9.6 FL (7.0-11.0); MONO % 8.9 % (0.0-8.0); MONOCYTE # 0.5 TH/MM3 (0-0.9); NEUT % 68.6 % (16.0-70.0); PLATELET COUNT 213 TH/MM3 (150-450); RED BLOOD COUNT 4.13 MIL/MM3 (4.50-5.90); RED CELL DISTRIBUTION WIDTH 28.1 % (11.6-17.2); WHITE BLOOD COUNT 5.9 TH/MM3 (4.0-11.0)
[2017-04-30 06:42] LABS: CALCIUM 8.1 MG/DL (8.5-10.1)
[2017-04-30 06:43] LABS: BICARBONATE 27.2 MEQ/L (21.0-32.0)
[2017-04-30 06:46] LABS: CREATININE 0.88 MG/DL (0.60-1.30)
[2017-04-30 08:00] VITALS: BP 153/86; PULSE 61; RESP 18; TEMP 98; O2SAT 95
[2017-04-30] MEDS: INSULIN ASPART SUPPLEMENTAL SCALE SQ SCH ×4 (08:47→21:18)
[2017-04-30] MEDS: PANTOPRAZOLE SOD 20 MG DELAYED RELEASE TAB PO SCH (08:48)
[2017-04-30] MEDS: CITALOPRAM HYDROBROMIDE 20 MG TAB PO SCH (08:48)
[2017-04-30] MEDS: FERROUS SULFATE 325 MG (65 MG ELEMENTAL IRON) TAB PO SCH (08:48)
[2017-04-30] MEDS: SODIUM CHLORIDE 0.9% FLUSH 10 ML FLUSH IV FLUSH SCH ×2 (08:48→21:00)
[2017-04-30] MEDS ORDERED: HYDROCHLOROTHIAZIDE 25 MG TAB PO SCH (09:00)
[2017-04-30] MEDS ORDERED: amLODIPine BESYLATE 5 MG TAB PO SCH (09:00)
[2017-04-30] MEDS: MELOXICAM 15 MG TAB PO SCH (09:01)
[2017-04-30] MEDS ORDERED: PNEUMOCOCCAL POLYVALENT INJ 25 MCG/0.5 ML SYR IM ONE (10:00)
[2017-04-30] MEDS ORDERED: INFLUENZA VIRUS VACCINE (QUADRIVALENT) 0.5 ML SYR IM ONE (10:00)
[2017-04-30 12:00] VITALS: BP 159/93; PULSE 69; RESP 18; TEMP 98; O2SAT 95
--- NOTE | 2017-04-30 12:56 | HHI.PR ---
Subjective Remarks Recent seen today in follow-up for weakness and acute rhabdomyolysis CPK is elevated today. Patient week and may require rehabilitation placement He feels better today Objective Vitals Vital Signs Date Time Temp Pulse Resp B/P (MAP) Pulse Ox O2 Delivery O2 Flow Rate FiO2 04/30/17 12:00 98.0 69 18 159/93 (115) 95 04/30/17 08:00 98.0 61 18 153/86 (108) 95 04/30/17 00:00 97.3 72 20 154/84 (107) 98 04/29/17 20:00 98.2 75 20 161/94 (116) 95 04/29/17 16:23 96.0 70 20 161/90 (113) 94 04/29/17 14:53 78 18 154/58 (90) 100 04/29/17 13:39 76 18 152/79 (103) 95 Room Air I/O 04/29/17 04/29/17 04/29/17 04/30/17 04/30/17 04/30/17 07:00 15:00 23:00 07:00 15:00 23:00 Intake Total 2000 ml 92 ml 240 ml Output Total 100 ml Balance 2000 ml -8 ml 240 ml Intake Oral 90 ml 240 ml IV Total 2000 ml 2 ml Output Urine Total 100 ml # Voids 2 1 Result Diagram: 04/30/1728 04/30/17 05 Imaging Last Impressions Head CT 04/29/17 113 Signed Impressions: Service Date/Time: Saturday, April 29, 2017 12:09 - CONCLUSION: Negative trauma CT Justin Mckenzie MD Chest X-Ray 04/29/171132 Signed Impressions: Service Date/Time: Saturday, April 29, 2017 11:40 - CONCLUSION: 1. Chronic appearing interstitial changes. No acute abnormality. Schuyler Culp MD Objective Remarks GENERAL: This is a well-nourished, well-developed patient, in no apparent distress. CARDIOVASCULAR: Regular rate and rhythm without murmurs, gallops, or rubs. RESPIRATORY: Clear to auscultation. Breath sounds equal bilaterally. No wheezes , rales, or rhonchi. GASTROINTESTINAL: Abdomen soft, non-tender, nondistended. Normal active bowel sounds MUSCULOSKELETAL: Extremities without clubbing, cyanosis, or edema. NEURO: Very hard of hearing Alert & Oriented x4 to person, place, time, situation. Moves all ext x4 but is very weak A/P Problem List: (1) Rhabdomyolysis ICD Code: M62.82 - Rhabdomyolysis Status: Acute Plan: CPK is rising today We'll follow trending continue IV hydration and follow renal function (2) Hypertension ICD Code: I10 - Essential (primary) hypertension Status: Chronic Plan: Will increase amlodipine and DC hydrochlorothiazide due to dehydration We'll add medications as appropriate (3) Hyperlipidemia ICD Code: E78.5 - Hyperlipidemia, unspecified Status: Chronic Plan: Hold statin secondary to rhabdo (4) Diabetes ICD Code: E11.9 - Type 2 diabetes mellitus without complications Status: Chronic Plan: Accu checks ACHS, sliding scale, color as needed. Monitor blood sugar. Assessment and Plan GI prophylaxis: Protonix. DVT prophylaxis: SCDs. Discharge Planning snf eval Problem Qualifiers (1) Rhabdomyolysis: Qualified Codes: M62.82 - Rhabdomyolysis Naya Dalton MD Apr 30, 2017 12:56
[2017-04-30] MEDS ORDERED: amLODIPine BESYLATE 5 MG TAB PO ONE (13:00)
--- NOTE | 2017-04-30 15:59 | EKG ---
Date Performed: 04/29/2017 Time Performed: 11:53:04 PTAGE: 71 years EKG: Sinus rhythm POSSIBLE LEFT ATRIAL ENLARGEMENT POSSIBLE INFERIOR MYOCARDIAL INFARCTION Since previous tracing, no significant change noted BORDERLINE ECG PREVIOUS TRACING : 10/07/2016 14.31 DOCTOR: Mary Espinoza Interpretating Date/Time 04/30/2017 15:58:23
[2017-04-30 16:00] VITALS: BP 169/89; PULSE 63; RESP 20; TEMP 99.5; O2SAT 93
[2017-04-30 20:00] VITALS: BP 118/77; PULSE 63; RESP 18; TEMP 98.4; O2SAT 91
[2017-04-30] MEDS: traZODone HCL 100 MG TAB PO SCH (21:17)
[2017-04-30] MEDS: TAMSULOSIN HCL 0.4 MG CAP PO SCH (21:18)
[2017-05-01] VITALS: BP 148/80; PULSE 60; RESP 18; TEMP 97.8; O2SAT 92
[2017-05-01] MEDS: LACTATED RINGER'S 1000 ML INJ 1,000 ML IV SCH (05:08)
[2017-05-01 06:20] LABS: AUTOMATED NEUTROPHIL # 3.6 TH/MM3 (1.8-7.7); BASOPHIL % 0.5 % (0.0-2.0); EOSINOPHIL # 0.1 TH/MM3 (0-0.4); EOSINOPHIL % 2.5 % (0.0-4.0); HEMATOCRIT 31.2 % (39.0-51.0); HEMOGLOBIN 9.7 GM/DL (13.0-17.0); LYMPH % 24.2 % (9.0-44.0); LYMPHOCYTE # 1.4 TH/MM3 (1.0-4.8); MEAN CELL VOLUME 76.2 FL (80.0-100.0); MEAN CORPUSCULAR HEMOGLOBIN 23.8 PG (27.0-34.0); MEAN CORPUSCULAR HGB CONC 31.2 % (32.0-36.0); MONO % 8.5 % (0.0-8.0); MONOCYTE # 0.5 TH/MM3 (0-0.9); NEUT % 64.3 % (16.0-70.0); PLATELET COUNT 204 TH/MM3 (150-450); RED BLOOD COUNT 4.09 MIL/MM3 (4.50-5.90); WHITE BLOOD COUNT 5.6 TH/MM3 (4.0-11.0)
[2017-05-01 06:33] LABS: BICARBONATE 31.6 MEQ/L (21.0-32.0); CALCIUM 8.4 MG/DL (8.5-10.1)
[2017-05-01 06:37] LABS: CREATININE 0.96 MG/DL (0.60-1.30)
[2017-05-01 07:44] LABS: KERATOCYTES OCC (NORMAL); OVALOCYTES 1+ (NORMAL); TEARDROP RBCS 1+ (NORMAL)
[2017-05-01 08:00] VITALS: BP 152/86; PULSE 67; RESP 18; TEMP 98.4; O2SAT 95
[2017-05-01] MEDS: INSULIN ASPART SUPPLEMENTAL SCALE SQ SCH ×4 (08:50→21:08)
[2017-05-01] MEDS: CITALOPRAM HYDROBROMIDE 20 MG TAB PO SCH (09:08)
[2017-05-01] MEDS: MELOXICAM 15 MG TAB PO SCH (09:08)
[2017-05-01] MEDS: FERROUS SULFATE 325 MG (65 MG ELEMENTAL IRON) TAB PO SCH (09:08)
[2017-05-01] MEDS: SODIUM CHLORIDE 0.9% FLUSH 10 ML FLUSH IV FLUSH SCH ×2 (09:09→20:59)
[2017-05-01] MEDS: PANTOPRAZOLE SOD 20 MG DELAYED RELEASE TAB PO SCH (09:18)
--- NOTE | 2017-05-01 10:11 | HHI.PR ---
Subjective Remarks Seen today in follow up, discussed with PTCESARIO on my exam patient is Off balance and weak, unable to ambulate independently Will need SNF rhabdo improved Objective Vitals Vital Signs Date Time Temp Pulse Resp B/P (MAP) Pulse Ox O2 Delivery O2 Flow Rate FiO2 05/01/17 00:00 97.8 60 18 148/80 (102) 92 04/30/17 20:00 98.4 63 18 118/77 (91) 91 04/30/17 16:00 99.5 63 20 169/89 (115) 93 04/30/17 12:00 98.0 69 18 159/93 (115) 95 I/O 04/30/17 04/30/17 04/30/17 05/01/17 05/01/17 05/01/17 07:00 15:00 23:00 07:00 15:00 23:00 Intake Total 480 ml 1140 ml Balance 480 ml 1140 ml Intake Oral 480 ml 240 ml IV Total 900 ml # Voids 1 2 Result Diagram: 05/01/17 0520 05/01/17 0520 Objective Remarks GENERAL: This is a well-nourished, well-developed patient, in no apparent distress. CARDIOVASCULAR: Regular rate and rhythm without murmurs, gallops, or rubs. RESPIRATORY: Clear to auscultation. Breath sounds equal bilaterally. No wheezes , rales, or rhonchi. GASTROINTESTINAL: Abdomen soft, non-tender, nondistended. Normal active bowel sounds MUSCULOSKELETAL: Extremities without clubbing, cyanosis, or edema. NEURO: Very hard of hearing Alert & Oriented x4 to person, place, time, situation. Moves all ext x4 but is very weak A/P Problem List: (1) Rhabdomyolysis ICD Code: M62.82 - Rhabdomyolysis Status: Acute Plan: CPK is improved today We'll follow trending continue IV hydration and follow renal function (2) Hypertension ICD Code: I10 - Essential (primary) hypertension Status: Chronic Plan: Will continue amlodipine and DC hydrochlorothiazide due to dehydration We'll add medications as appropriate (3) Hyperlipidemia ICD Code: E78.5 - Hyperlipidemia, unspecified Status: Chronic Plan: resume statin (4) Diabetes ICD Code: E11.9 - Type 2 diabetes mellitus without complications Status: Chronic Plan: Accu checks ACHS, sliding scale, adjust as needed. Monitor blood sugar. Assessment and Plan GI prophylaxis: Protonix. DVT prophylaxis: SCDs. Discharge Planning snf eval pending human authorization Problem Qualifiers (1) Rhabdomyolysis: Qualified Codes: M62.82 - Rhabdomyolysis Naya Dalton MD May 01, 2017 10:11
[2017-05-01 12:00] VITALS: BP 142/82; PULSE 69; RESP 18; TEMP 97; O2SAT 98
[2017-05-01 16:00] VITALS: BP 138/82; PULSE 70; RESP 18; TEMP 97; O2SAT 98
[2017-05-01 20:00] VITALS: BP 167/95; PULSE 77; RESP 17; TEMP 98.9; O2SAT 93
[2017-05-01] MEDS: TAMSULOSIN HCL 0.4 MG CAP PO SCH (21:00)
[2017-05-01] MEDS: traZODone HCL 100 MG TAB PO SCH (21:00)
[2017-05-02] VITALS: BP 151/89; PULSE 79; RESP 18; TEMP 98.5; O2SAT 95
[2017-05-02 08:00] VITALS: BP_SYST 157; BP_SYST 158; BP_DIAS 79; BP_DIAS 89; PULSE 70; RESP 20; TEMP 97.1; O2SAT 98
[2017-05-02] MEDS: INSULIN ASPART SUPPLEMENTAL SCALE SQ SCH ×2 (08:00→12:00)
[2017-05-02] MEDS ORDERED: ATORVASTATIN 20 MG TAB PO SCH (09:00)
[2017-05-02] MEDS: MELOXICAM 15 MG TAB PO SCH (10:17)
[2017-05-02] MEDS: FERROUS SULFATE 325 MG (65 MG ELEMENTAL IRON) TAB PO SCH (10:17)
[2017-05-02] MEDS: PANTOPRAZOLE SOD 20 MG DELAYED RELEASE TAB PO SCH (10:17)
[2017-05-02] MEDS: CITALOPRAM HYDROBROMIDE 20 MG TAB PO SCH (10:18)
[2017-05-02] MEDS: SODIUM CHLORIDE 0.9% FLUSH 10 ML FLUSH IV FLUSH SCH (10:18)
[2017-05-02 12:00] VITALS: BP 147/83; PULSE 69; RESP 20; TEMP 97.7; O2SAT 95
--- NOTE | 2017-05-02 12:01 | RADRPT ---
EXAM DATE/TIME: 05/02/2017 11:36 [facility] COMPARISON: CHEST SINGLE AP, April 29, 2017, 11:40. INDICATIONS : Cough and short of breath. MEDICAL HISTORY : Hypertension. Renal insufficiency. SURGICAL HISTORY : None. ENCOUNTER: Subsequent ACUITY: 3 days PAIN SCORE: 0/10 LOCATION: Bilateral chest FINDINGS: A single view of the chest demonstrates the lungs to be symmetrically aerated without evidence of mas s, infiltrate or effusion. The cardiomediastinal contours are unremarkable. Osseous structures are intact. CONCLUSION: Normal examination. Pramod Frazier MD on May 02, 2017 at 11:59 Board Certified Radiologist. This report was verified electronically.
--- NOTE | 2017-05-02 12:54 | HHI.DCPOC ---
Discharge Care Plan Diagnosis: (1) Rhabdomyolysis (2) Weakness (3) Diabetes Goals to Promote Your Health * To prevent worsening of your condition and complications * To maintain your health at the optimal level Directions to Meet Your Goals Take your medications as prescribed Follow your dietary instruction Follow activity as directed Keep your appointments as scheduled Take your immunizations and boosters as scheduled If your symptoms worsen call your PCP, if no PCP go to Urgent Care Center or Emergency Room Smoking is Dangerous to Your Health. Avoid second hand smoke Call the 24-hour hour crisis hotline for domestic abuse at Naya Dalton MD May 02, 2017 12:54
--- NOTE | 2017-05-02 12:57 | HHI.DS ---
Discharge Summary Admission Date Apr 29, 2017 at 13:26 Discharge Date: May 02, 2017 Admitting Diagnosis Rhabdomyolysis, weakness (1) Rhabdomyolysis ICD Code: M62.82 - Rhabdomyolysis Status: Acute (2) Hypertension ICD Code: I10 - Essential (primary) hypertension Status: Chronic (3) Hyperlipidemia ICD Code: E78.5 - Hyperlipidemia, unspecified Status: Chronic (4) Diabetes ICD Code: E11.9 - Type 2 diabetes mellitus without complications Status: Chronic Procedures none Brief History - From Admission Written by Georgette Mcbride, acting as scribe for Dr. Dalton on 04/29/17 at 15:10. This is a 71-year-old male patient with a known medical history of hypertension , diabetes, GERD who presented to the ED after being found down in the shower for three days and was found by the maintenance scheduler in his apartment. Patient states he did not lose consciousness or hit his head, he just said he was feeling weak and unable to get up. He denies any history of any seizures or traumas in the past. Denies any his injury. Denies any pain. He does live alone and at baseline able to perform all ADLs independently. Denies any recent fevers, chill, cough, shortness of breath, abdominal pain, nausea, vomiting, diarrhea, dysuria or rash, eye problems. PCP is Dr. Lockwood. CBC/BMP: 05/01/17 0520 05/01/17 0520 Significant Findings Laboratory Tests Test 04/29/17 19:50 04/30/17 05:28 05/01/17 05:20 Urine Protein 30 mg/dL (NEG-TRACE) Urine Occult Blood LARGE (NEG) Urine WBC 9-14 /hpf (0-5) Urine WBC Clumps FEW (NONE) Red Blood Count 4.13 MIL/MM3 (4.50-5.90) 4.09 MIL/MM3 (4.50-5.90) Hemoglobin 9.6 GM/DL (13.0-17.0) 9.7 GM/DL (13.0-17.0) Hematocrit 30.9 % (39.0-51.0) 31.2 % (39.0-51.0) Mean Corpuscular Volume 74.9 FL (80.0-100.0) 76.2 FL (80.0-100.0) Mean Corpuscular Hemoglobin 23.2 PG (27.0-34.0) 23.8 PG (27.0-34.0) Mean Corpuscular Hemoglobin Concent 31.0 % (32.0-36.0) 31.2 % (32.0-36.0) Red Cell Distribution Width 28.1 % (11.6-17.2) 28.0 % (11.6-17.2) Monocytes (%) (Auto) 8.9 % (0.0-8.0) 8.5 % (0.0-8.0) Random Glucose 110 MG/DL (74-106) 143 MG/DL (74-106) Calcium Level 8.1 MG/DL (8.5-10.1) 8.4 MG/DL (8.5-10.1) Estimat Glomerular Filtration Rate 85 ML/MIN (>89) 77 ML/MIN (>89) Total Creatine Kinase 1945 U/L (39-308) 851 U/L (39-308) Creatine Kinase MB 13.6 NG/ML (0.5-3.6) Tear Drop Cells 1+ (NORMAL) Ovalocytes 1+ (NORMAL) Potassium Level 3.3 MEQ/L (3.5-5.1) Imaging Last Impressions Chest X-Ray 05/02/17 0000 Signed Impressions: Service Date/Time: April 11:36 - CONCLUSION: Normal examination. Pramod Frazier MD Head CT 04/29/17 1133 Signed Impressions: Service Date/Time: Saturday, April 29, 2017 12:09 - CONCLUSION: Negative trauma CT Justin Mckenzie MD PE at Discharge GENERAL: This is a well-nourished, well-developed patient, in no apparent distress. CARDIOVASCULAR: Regular rate and rhythm without murmurs, gallops, or rubs. RESPIRATORY: Clear to auscultation. Breath sounds equal bilaterally. No wheezes , rales, or rhonchi. GASTROINTESTINAL: Abdomen soft, non-tender, nondistended. Normal active bowel sounds MUSCULOSKELETAL: Extremities without clubbing, cyanosis, or edema. NEURO: Very hard of hearing Alert & Oriented x4 to person, place, time, situation. Moves all ext x4 but is very weak Pt update on day of discharge patient seen today in follow-up for weakness. He is coughing a bit more repeat x-ray today unremarkable. Patient status post placement potassium without difficulty. Discharge plans discussed with him and he is agreeable Hospital Course This patient is a 71-year-old gentleman who lives alone and had some difficulty cannulating. Initially fell at home and was unable to give himself up. Patient did come to the hospital with rapid CA lysis and required IV hydration. Patient did not have any signs of infection. No new complaints were made. His blood pressure and diabetes were well controlled Pt Condition on Discharge: Good Discharge Disposition: Discharge to SNF Discharge Time: <= 30 minutes Discharge Instructions DIET: Follow Instructions for: As Tolerated, No Restrictions Activities you can perform: Regular-No Restrictions Follow up Referrals: PCP Follow-up - 1 Week Continued Medications: Amlodipine (Amlodipine) 5 Mg Tab 5 MG PO DAILY for Blood Pressure Management, #30 TAB 0 Refills Atorvastatin (Atorvastatin) 20 Mg Tab 20 MG PO HS for Cholesterol Management, #30 TAB 0 Refills Citalopram (Citalopram) 20 Mg Tab 20 MG PO DAILY for Control Depression, #30 TAB 0 Refills Ferrous Sulfate (Ferosul) 325 Mg Tablet 325 MG PO DAILY for iron deficiency , #30 BOTTLE take with orange juice if possible Glipizide (Glipizide) 10 Mg Tab 10 MG PO BIDAC for Blood Sugar Management, #60 TAB 0 Refills Take 30 minutes before a meal Hydrochlorothiazide (Hydrochlorothiazide) 25 Mg Tab 25 MG PO DAILY, #30 TAB 0 Refills Meloxicam (Meloxicam) 15 Mg Tab 15 MG PO DAILY for Arthritis Pain, #30 TAB 0 Refills Pantoprazole (Pantoprazole) 20 Mg Tab 20 MG PO DAILY for Reflux, #30 TAB 0 Refills Sitagliptin (Januvia) 100 Mg Tab 100 MG PO DAILY for Blood Sugar Management, #30 TAB 0 Refills Tamsulosin (Flomax) 0.4 Mg Cap 0.4 MG PO HS for Manage Prostate Problems, #30 CAP 0 Refills Trazodone (Trazodone) 100 Mg Tablet 100 MG PO HS for Control Depression, #30 TAB 0 Refills Naya Dalton MD May 02, 2017 12:57
== END 2017-05-02 16:25 | DRG 558 ==
LOC: PHED 10:52 → PHEDA 13:26 → PH3B 15:50
PROVIDERS: ADMIT Hospitalist; ATTEND Hospitalist
DX: M62.82 Rhabdomyolysis (principal); E11.9 Type 2 diabetes mellitus without complications; E86.0 Dehydration; I10 Essential (primary) hypertension; K21.9 Gastro-esophageal reflux disease without esophagitis; M19.90 Unspecified osteoarthritis, unspecified site; H91.90 Unspecified hearing loss, unspecified ear; E78.5 Hyperlipidemia, unspecified; R53.1 Weakness; W18.2XXA Fall in (into) shower or empty bathtub, initial encounter; Y93.E1 Activity, personal bathing and showering; Z79.84 Long term (current) use of oral hypoglycemic drugs; Y92.012 Bathroom of single-family (private) house as the place of occurrence of the external cause; I25.2 Old myocardial infarction
CPT/HCPCS: 70450; 71045; 80048; 80053; 81001; 82550; 82552; 82948; 83605; 84484; 85025; 85610; 85730; 86403; 87077; 87086; 87186; 93005; 96360; J1815; J7030; J7120

== ENCOUNTER 2017-06-16 20:57 | Observation (INO) | payer OTHER, MEDICAID ==
[~2017-06-16] VITALS: Ht 177.8 cm; Wt 80.0 kg
[2017-06-16] MEDS ORDERED: SODIUM CHLOR 0.9% 1000 ML INJ 1,000 ML IV SCH (21:23)
[2017-06-16 21:26] VITALS: BP 173/85; PULSE 82; RESP 16; TEMP 98.7; O2SAT 96
[2017-06-16] MEDS ORDERED: SODIUM CHLORIDE 0.9% FLUSH 10 ML FLUSH IV FLUSH PRN (21:30)
[2017-06-16] MEDS ORDERED: FAMOTIDINE 20 MG/2 ML VIAL IV PUSH ONE (21:30)
--- NOTE | 2017-06-16 21:30 | PD ---
HPI Chief Complaint: Abdominal pain Time Seen by Provider: 21:17 Travel History International Travel<30 days: No Contact w/Intl Traveler<30days: No Traveled to known affect area: No History of Present Illness HPI 72-year-old male complains of abdominal pain. Patient able to tell me how long the abdominal pain has been there. Patient states the pain and cramping pain localized the right upper quadrant of the abdomen. Patient denies any pain radiation. Patient denies any nausea vomiting diarrhea. Patient denies any dysuria frequency. Patient denies any fever chills. Patient has history hypertension, diabetes, hyperlipidemia. Patient resides at local long term. PFSH Past Medical History Arthritis: Yes Anxiety: No Depression: No Heart Rhythm Problems: No Cancer: No Cardiovascular Problems: Yes High Cholesterol: No Chemotherapy: No Chest Pain: No Congestive Heart Failure: No Cerebrovascular Accident: No Diabetes: Yes Diminished Hearing: Yes Endocrine: Yes Gastrointestinal Disorders: Yes GERD: Yes Genitourinary: No Hiatal Hernia: No Hypertension: Yes Immune Disorder: No Kidney Stones: No Musculoskeletal: Yes Neurologic: Yes Psychiatric: No Reproductive: No Respiratory: No Migraines: No Myocardial Infarction: Yes Radiation Therapy: No Renal Failure: Yes (renal insuffisiency) Seizures: No Thyroid Disease: No Ulcer: No Past Surgical History Abdominal Surgery: Yes (sabrina) Cardiac Surgery: No Cholecystectomy: Yes Ear Surgery: No Endocrine Surgery: No Eye Surgery: No Genitourinary Surgery: No Gynecologic Surgery: No Oral Surgery: No Thoracic Surgery: No Other Surgery: Yes (inguinal hernia repair) Social History Alcohol Use: No Tobacco Use: No Substance Use: No Allergies-Medications (Allergen,Severity, Reaction): Coded Allergies: No Known Allergies (Verified Adverse Reaction, Unknown, 06/16/17) Reported Meds & Prescriptions Reported Meds & Active Scripts Active Flomax (Tamsulosin HCl) 0.4 Mg Cap 0.4 Mg PO HS Ferosul (Ferrous Sulfate) 325 Mg Tablet 325 Mg PO DAILY take with orange juice if possible Reported Meclizine (Meclizine HCl) 25 Mg Tab 25 Mg PO TID PRN Aspirin 81 Mg Chew 81 Mg CHEW DAILY Metformin (Metformin HCl) 850 Mg Tab 850 Mg PO BIDPC Gabapentin 600 Mg Tab 600 Mg PO TID Hydrochlorothiazide 25 Mg Tab 25 Mg PO DAILY Amlodipine (Amlodipine Besylate) 5 Mg Tab 5 Mg PO DAILY Trazodone (Trazodone HCl) 100 Mg Tablet 100 Mg PO HS Januvia (Sitagliptin Phosphate) 100 Mg Tab 100 Mg PO DAILY Citalopram (Citalopram Hydrobromide) 20 Mg Tab 20 Mg PO DAILY Glipizide 10 Mg Tab 10 Mg PO BIDAC Take 30 minutes before a meal Atorvastatin (Atorvastatin Calcium) 20 Mg Tab 20 Mg PO HS Pantoprazole (Pantoprazole Sodium) 20 Mg Tab 20 Mg PO DAILY Meloxicam 15 Mg Tab 15 Mg PO DAILY Review of Systems General / Constitutional: No: Fever Eyes: No: Visual changes HENT: No: Headaches Cardiovascular: No: Chest Pain or Discomfort Respiratory: No: Shortness of Breath Gastrointestinal: Positive: Abdominal Pain Genitourinary: No: Dysuria Musculoskeletal: No: Pain Skin: No Rash Neurologic: No: Weakness Psychiatric: No: Depression Endocrine: No: Polydipsia Hematologic/Lymphatic: No: Easy Bruising Physical Exam Narrative GENERAL: Well-nourished, well-developed patient. SKIN: Focused skin assessment warm/dry. HEAD: Normocephalic. EYES: No scleral icterus. No injection or drainage. NECK: Supple, trachea midline. No JVD or lymphadenopathy. CARDIOVASCULAR: Regular rate and rhythm without murmurs, gallops, or rubs. RESPIRATORY: Breath sounds equal bilaterally. No accessory muscle use. GASTROINTESTINAL: Abdomen soft, nondistended. Patient has mild to moderate tenderness on palpation right upper quadrant of the abdomen. No rebound tenderness. No mass. MUSCULOSKELETAL: No cyanosis, or edema. BACK: Nontender without obvious deformity. No CVA tenderness. Neurologic exam: Patient is awake and alert oriented to place and person. Patient moves all extremity well. No obvious focal neurological deficit. Data Data Last Documented VS Vital Signs Date Time Temp Pulse Resp B/P (MAP) Pulse Ox O2 Delivery O2 Flow Rate FiO2 06/17/17 00:30 81 16 152/81 (104) 97 Room Air 06/16/17 21:26 98.7 Orders Orders Complete Blood Count With Diff (06/16/17 21:23) Comprehensive Metabolic Panel (06/16/17 21:23) Lipase (06/16/17 21:23) Prothrombin Time / Inr (Pt) (06/16/17 21:23) Act Partial Throm Time (Ptt) (06/16/17 21:23) Urinalysis - C+S If Indicated (06/16/17 21:23) Ct Abd/Pel W Iv Contrast(Rout) (06/16/17 21:23) Iv Access Insert/Monitor (06/16/17 21:23) Ecg Monitoring (06/16/17 21:23) Oximetry (06/16/17 21:23) Sodium Chlor 0.9% 1000 Ml Inj (Ns 1000 M (06/16/17 21:23) Sodium Chloride 0.9% Flush (Ns Flush) (06/16/17 21:30) Famotidine Inj (Pepcid Inj) (06/16/17 21:30) Iohexol 350 Inj (Omnipaque 350 Inj) (06/17/17 00:25) Labs Laboratory Tests Test 06/16/17 21:35 White Blood Count 11.5 TH/MM3 Red Blood Count 5.09 MIL/MM3 Hemoglobin 13.7 GM/DL Hematocrit 41.0 % Mean Corpuscular Volume 80.6 FL Mean Corpuscular Hemoglobin 27.0 PG Mean Corpuscular Hemoglobin Concent 33.5 % Red Cell Distribution Width 17.1 % Platelet Count 261 TH/MM3 Mean Platelet Volume 8.7 FL Neutrophils (%) (Auto) 76.1 % Lymphocytes (%) (Auto) 15.5 % Monocytes (%) (Auto) 7.6 % Eosinophils (%) (Auto) 0.5 % Basophils (%) (Auto) 0.3 % Neutrophils # (Auto) 8.8 TH/MM3 Lymphocytes # (Auto) 1.8 TH/MM3 Monocytes # (Auto) 0.9 TH/MM3 Eosinophils # (Auto) 0.1 TH/MM3 Basophils # (Auto) 0.0 TH/MM3 CBC Comment AUTO DIFF Differential Comment AUTO DIFF CONFIRMED Platelet Estimate NORMAL Platelet Morphology Comment NORMAL Ovalocytes 1+ Prothrombin Time 10.8 SEC Prothromb Time International Ratio 1.1 RATIO Activated Partial Thromboplast Time 21.8 SEC Blood Urea Nitrogen 22 MG/DL Creatinine 1.18 MG/DL Random Glucose 181 MG/DL Total Protein 7.5 GM/DL Albumin 4.1 GM/DL Calcium Level 8.8 MG/DL Alkaline Phosphatase 81 U/L Aspartate Amino Transf (AST/SGOT) 63 U/L Alanine Aminotransferase (ALT/SGPT) 33 U/L Total Bilirubin 0.6 MG/DL Sodium Level 139 MEQ/L Potassium Level 3.9 MEQ/L Chloride Level 101 MEQ/L Carbon Dioxide Level 28.1 MEQ/L Anion Gap 10 MEQ/L Estimat Glomerular Filtration Rate 61 ML/MIN Lipase 55 U/L MDM Medical Decision Making Medical Screen Exam Complete: Yes Emergency Medical Condition: Yes Interpretation(s) Last Impressions Abdomen/Pelvis CT 06/16/172122 Signed Impressions: Service Date/Time: Saturday, June 17, 2017 00:22 - CONCLUSION: 1. No acute finding is identified to explain the right upper quadrant pain. 2. There are multiple low-density lesions in the right kidney measuring up to 6.2 cm. These do not meet criteria for simple cysts on this examination but prior noncontrast CT favored simple cysts. Therefore, suggest elective followup with ultrasound or renal protocol MRI to evaluate for any concerning renal lesion. 3. Nonacute findings include coronary artery calcification, moderate size hiatal hernia, pericardial cyst, and trace right pleural fluid. Bruno Alaniz MD 1:23 AM. CBC WBC 11.5. 76 neutrophil. CMP with BUN of 22. GFR 61. Random glucose 181. AST 63. Differential Diagnosis Differential diagnosis including acute cholecystitis, pyelonephritis, nephrolithiasis, colitis, gastritis, pancreatitis. Narrative Course 72-year-old male with right upper quadrant abdominal pain. Diagnosis Primary Impression: Abdominal pain Qualified Codes: R10.11 - Right upper quadrant pain Patient Instructions: General Instructions Additional Instructions: Bentyl as needed for pain. Follow-up with personal physician. Return if persistent problem or worse. Med/Other Pt SpecificInfo: Prescription(s) given Scripts Dicyclomine (Bentyl) 10 Mg Cap 10 MG PO TID Y for Bowel Management, #15 CAP 0 Refills Prov: Amrik Winters MD 06/17/17 Disposition: 01 DISCHARGE HOME Condition: Stable Amrik Winters MD Jun 16, 2017 21:30
[2017-06-16 21:57] LABS: AUTOMATED NEUTROPHIL # 8.8 TH/MM3 (1.8-7.7); BASOPHIL % 0.3 % (0.0-2.0); EOSINOPHIL # 0.1 TH/MM3 (0-0.4); EOSINOPHIL % 0.5 % (0.0-4.0); HEMOGLOBIN 13.7 GM/DL (13.0-17.0); LYMPH % 15.5 % (9.0-44.0); LYMPHOCYTE # 1.8 TH/MM3 (1.0-4.8); MEAN CELL VOLUME 80.6 FL (80.0-100.0); MEAN CORPUSCULAR HGB CONC 33.5 % (32.0-36.0); MEAN PLATELET VOLUME 8.7 FL (7.0-11.0); MONO % 7.6 % (0.0-8.0); MONOCYTE # 0.9 TH/MM3 (0-0.9); NEUT % 76.1 % (16.0-70.0); PLATELET COUNT 261 TH/MM3 (150-450); RED BLOOD COUNT 5.09 MIL/MM3 (4.50-5.90); RED CELL DISTRIBUTION WIDTH 17.1 % (11.6-17.2); WHITE BLOOD COUNT 11.5 TH/MM3 (4.0-11.0)
[2017-06-16 22:10] LABS: INTERNATIONAL NORMALIZED RATIO 1.1 RATIO; PROTHROMBIN TIME - PATIENT 10.8 SEC (9.8-11.6)
[2017-06-16 22:14] LABS: ALBUMIN 4.1 GM/DL (3.4-5.0); AST (GOT) 63 U/L (15-37); BICARBONATE 28.1 MEQ/L (21.0-32.0); BLOOD UREA NITROGEN 22 MG/DL (7-18); CALCIUM 8.8 MG/DL (8.5-10.1); CHLORIDE 101 MEQ/L (98-107); CREATININE 1.18 MG/DL (0.60-1.30); GLOMERULAR FILTRATION RATE 61 ML/MIN (>89); GLUCOSE,RANDOM 181 MG/DL (74-106); SODIUM (NA) 139 MEQ/L (136-145)
[2017-06-16 22:17] LABS: OVALOCYTES 1+ (NORMAL)
[2017-06-16 22:23] LABS: ALKALINE PHOSPHATASE 81 U/L (45-117); ALT (GPT) 33 U/L (12-78); TOTAL BILIRUBIN ADULT 0.6 MG/DL (0.2-1.0); TOTAL PROTEIN 7.5 GM/DL (6.4-8.2)
[2017-06-17] VITALS (7 sets, daily range): BP systolic 142–186; BP diastolic 81–106; PULSE 67–92; RESP 16–21; TEMP 98.1–98.8; O2SAT 93–100
[2017-06-17] MEDS ORDERED: IOHEXOL 350 MG/ML 10 ML VIAL (for RAD DIAG) IVCONTRAST ONE (00:25)
--- NOTE | 2017-06-17 00:41 | RADRPT ---
EXAM DATE/TIME: 06/17/2017 00:22 [facility] COMPARISON: CT ABDOMEN & PELVIS W/O CONTRAST, October 08, 2016, 15:37. INDICATIONS : Right upper quadrant pain. IV CONTRAST: 96 cc Omnipaque 350 (iohexol) IV ORAL CONTRAST: No oral contrast ingested. RADIATION DOSE: 15.53 CTDIvol (mGy) MEDICAL HISTORY : Hypertension. Myocardial infarction. Renal insufficiency.Diabetes, GERD SURGICAL HISTORY : Cholecystectomy. Inguinal hernia repair. ENCOUNTER: Initial ACUITY: 1 day PAIN SCALE: 6/10 LOCATION: abdomen TECHNIQUE: Volumetric scanning of the abdomen and pelvis was performed. Using automated exposure control and ad justment of the mA and/or kV according to patient size, radiation dose was kept as low as reasonably achievable to obtain optimal diagnostic quality images. DICOM format image data is available electro nically for review and comparison. FINDINGS: LOWER LUNGS: There is respiratory motion artifact with atelectasis. A pericardial cyst is present on the right tere suring 3.9 x 2.4 cm. There is coronary artery calcification. Trace right pleural fluid is present. LIVER: There is a cyst in the left lobe measuring 1.9 cm. Patient is post cholecystectomy clips in the gallb ladder fossa. There is no dilation of the biliary tree. SPLEEN: Normal size without lesion. PANCREAS: No acute abnormality. KIDNEYS: There is no hydronephrosis or stone. There are multiple low density lesions on the right kidney, chrissy uring up to 6.2 cm. Several of these are hyperdense and appear complex. ADRENAL GLANDS: Within normal limits. VASCULAR: No aneurysm is present. There is mild atherosclerotic disease. BOWEL/MESENTERY: There is a moderate size hiatal hernia. Small bowel demonstrates no acute finding. Terminal ileum is normal. There is sigmoid diverticulosis. Large amount of stool is present within the rectum. There is no free air or free fluid. ABDOMINAL WALL: Within normal limits. RETROPERITONEUM: There is no lymphadenopathy. BLADDER: No wall thickening or mass. REPRODUCTIVE: Prostate gland is enlarged and contains calcification. INGUINAL: There is no lymphadenopathy or hernia. MUSCULOSKELETAL: There are degenerative changes of the lumbar spine. CONCLUSION: 1. No acute finding is identified to explain the right upper quadrant pain. 2. There are multiple low-density lesions in the right kidney measuring up to 6.2 cm. These do not me et criteria for simple cysts on this examination but prior noncontrast CT favored simple cysts. There fore, suggest elective followup with ultrasound or renal protocol MRI to evaluate for any concerning renal lesion. 3. Nonacute findings include coronary artery calcification, moderate size hiatal hernia, pericardial cyst, and trace right pleural fluid. Bruno Alaniz MD on June 17, 2017 at 0:31 Board Certified Radiologist. This report was verified electronically.
[2017-06-17] MEDS ORDERED: ASPI-516 PO (01:04)
[2017-06-17] MEDS ORDERED: METF850T PO (01:04)
[2017-06-17] MEDS ORDERED: MECL-62 PO (01:04)
[2017-06-17] MEDS ORDERED: GABA600T PO (01:04)
[2017-06-17] MEDS ORDERED: DICY10 PO (01:27)
--- NOTE | 2017-06-17 09:22 | RADRPT ---
EXAM DATE/TIME: 06/17/2017 09:02 [facility] COMPARISON: CT BRAIN W/O CONTRAST, April 29, 2017, 12:09. INDICATIONS : Altered mental status RADIATION DOSE: 56.35 CTDIvol (mGy) MEDICAL HISTORY : Cardiovascular disease. Hypertension. Diabetes, Renal failure SURGICAL HISTORY : None. ENCOUNTER: Initial ACUITY: 1 day PAIN SCALE: 0/10 LOCATION: Bilateral cranial TECHNIQUE: Multiple contiguous axial images were obtained of the head. Using automated exposure control and adj ustment of the mA and/or kV according to patient size, radiation dose was kept as low as reasonably a chievable to obtain optimal diagnostic quality images. DICOM format image data is available electro nically for review and comparison. FINDINGS: CEREBRUM: The ventricles are normal for age. No evidence of midline shift, mass lesion, hemorrhage or acute in farction. No extra-axial fluid collections are seen. POSTERIOR FOSSA: The cerebellum and brainstem are intact. The 4th ventricle is midline. The cerebellopontine angle i s unremarkable. EXTRACRANIAL: The visualized portion of the orbits is intact. SKULL: The calvaria is intact. No evidence of skull fracture. CONCLUSION: Negative for acute process. Rush Culp MD FACR on June 17, 2017 at 9:19 Board Certified Radiologist. This report was verified electronically.
[2017-06-17 09:36] LABS: BACTERIA, URINE MOD /hpf; BILIRUBIN, URINE NEG (NEG); BLOOD, URINE MOD (NEG); GLUCOSE,URINE 70 mg/dL (NEG); KETONE, URINE 10 mg/dL (NEG); MUCUS URINE FEW /lpf (OCC); NITRITE,URINE POS (NEG); URINE COLOR YELLOW (YELLW/STRAW); URINE LEUKOCYTE ESTERASE NEG (NEG)
--- NOTE | 2017-06-17 09:52 | PD ---
Physical Exam Date Seen by Provider: Jun 17, 2017 Time Seen by Provider: 09:00 Narrative Patient was initially seen by Dr. Amrik Winters and slated for discharge. This is 72-year-old gentleman who presented with abdominal pain. The patient had a nonspecific CT scan that showed no obvious findings. Electrolytes and white count was within normal limits. His blood sugar was 190. The patient reportedly has a normal mental status however he was A&O 1 here. The patient does appear to be confused and the urinalysis was sent off as well as a head CT ordered. Head CT shows no evidence of acute process. Urinalysis shows evidence of a UTI. Given the fact that the patient is still altered, he will be admitted to the hospital for IV fluids. Data Data Last Documented VS Vital Signs Date Time Temp Pulse Resp B/P (MAP) Pulse Ox O2 Delivery O2 Flow Rate FiO2 06/17/17 08:59 67 18 147/98 (114) 96 Room Air 06/16/17 21:26 98.7 Orders Orders Complete Blood Count With Diff (06/16/17 21:23) Comprehensive Metabolic Panel (06/16/17 21:23) Lipase (06/16/17 21:23) Prothrombin Time / Inr (Pt) (06/16/17 21:23) Act Partial Throm Time (Ptt) (06/16/17 21:23) Urinalysis - C+S If Indicated (06/16/17 21:23) Ct Abd/Pel W Iv Contrast(Rout) (06/16/17 21:23) Iv Access Insert/Monitor (06/16/17 21:23) Ecg Monitoring (06/16/17 21:23) Oximetry (06/16/17 21:23) Sodium Chlor 0.9% 1000 Ml Inj (Ns 1000 M (06/16/17 21:23) Sodium Chloride 0.9% Flush (Ns Flush) (06/16/17 21:30) Famotidine Inj (Pepcid Inj) (06/16/17 21:30) Iohexol 350 Inj (Omnipaque 350 Inj) (06/17/17 00:25) Ed Discharge Order (06/17/17 01:27) Ct Brain W/O Iv Contrast(Rout) (06/17/17 08:49) Urine Culture (06/17/17 08:40) Blood Culture (06/17/17 09:49) Ceftriaxone Inj (Rocephin Inj) (06/17/17 10:00) Amlodipine (Norvasc) (06/17/17 11:00) Aspirin Chew (Aspirin Chew) (06/18/17 09:00) Atorvastatin (Lipitor) (06/17/17 21:00) Ferrous Sulfate (Ferrous Sulfate) (06/18/17 09:00) Hydrochlorothiazide (Hydrodiuril) (06/17/17 11:00) Tamsulosin (Flomax) (06/17/17 21:00) Place In Observation (06/17/17 ) Code Status (06/17/17 10:02) Vital Signs (Adult) Q4H (06/17/17 10:02) Activity Oob Ad Mia (06/17/17 10:02) Diet 1800 Ada Cons Carb (06/17/17 Lunch) Sodium Chloride 0.9% Flush (Ns Flush) (06/17/17 10:15) Sodium Chloride 0.9% Flush (Ns Flush) (06/17/17 21:00) Acetaminophen (Tylenol) (06/17/17 10:15) Ondansetron Inj (Zofran Inj) (06/17/17 10:15) Comprehensive Metabolic Panel (06/18/17 06:00) Complete Blood Count With Diff (06/18/17 06:00) Pt Request For Service (06/17/17 10:02) Case Management Consult (06/17/17 10:02) Scd Bilateral/Knee High TIMOTHY.BID (06/17/17 10:02) Acetaminophen (Tylenol) (06/17/17 10:15) Naloxone Inj (Narcan Inj) (06/17/17 10:15) Magnesium Hydroxide Liq (Milk Of Magnesi (06/17/17 10:15) Bedside Glucose TIMOTHY.CSUGAR (06/17/17 10:02) Blood Glucose Goal (Criteria) (06/17/17 10:02) Hypoglycemia 70 Mg/Dl Or < (06/17/17 10:02) Notify Dr: Other (06/17/17 10:02) Dextrose 50% In Devi (Vial) Inj (D50w (Vi (06/17/17 10:15) Glucagon Inj (Glucagon Inj) (06/17/17 10:15) Insulin Aspart Supplemtl Scale (Novolog (06/17/17 12:00) Ammonia (06/17/17 10:02) Admit Order (Ed Use Only) (06/17/17 10:40) Labs Laboratory Tests Test 06/16/17 21:35 06/17/17 08:40 White Blood Count 11.5 TH/MM3 Red Blood Count 5.09 MIL/MM3 Hemoglobin 13.7 GM/DL Hematocrit 41.0 % Mean Corpuscular Volume 80.6 FL Mean Corpuscular Hemoglobin 27.0 PG Mean Corpuscular Hemoglobin Concent 33.5 % Red Cell Distribution Width 17.1 % Platelet Count 261 TH/MM3 Mean Platelet Volume 8.7 FL Neutrophils (%) (Auto) 76.1 % Lymphocytes (%) (Auto) 15.5 % Monocytes (%) (Auto) 7.6 % Eosinophils (%) (Auto) 0.5 % Basophils (%) (Auto) 0.3 % Neutrophils # (Auto) 8.8 TH/MM3 Lymphocytes # (Auto) 1.8 TH/MM3 Monocytes # (Auto) 0.9 TH/MM3 Eosinophils # (Auto) 0.1 TH/MM3 Basophils # (Auto) 0.0 TH/MM3 CBC Comment AUTO DIFF Differential Comment AUTO DIFF CONFIRMED Platelet Estimate NORMAL Platelet Morphology Comment NORMAL Ovalocytes 1+ Prothrombin Time 10.8 SEC Prothromb Time International Ratio 1.1 RATIO Activated Partial Thromboplast Time 21.8 SEC Blood Urea Nitrogen 22 MG/DL Creatinine 1.18 MG/DL Random Glucose 181 MG/DL Total Protein 7.5 GM/DL Albumin 4.1 GM/DL Calcium Level 8.8 MG/DL Alkaline Phosphatase 81 U/L Aspartate Amino Transf (AST/SGOT) 63 U/L Alanine Aminotransferase (ALT/SGPT) 33 U/L Total Bilirubin 0.6 MG/DL Sodium Level 139 MEQ/L Potassium Level 3.9 MEQ/L Chloride Level 101 MEQ/L Carbon Dioxide Level 28.1 MEQ/L Anion Gap 10 MEQ/L Estimat Glomerular Filtration Rate 61 ML/MIN Lipase 55 U/L Urine Color YELLOW Urine Turbidity CLEAR Urine pH 6.0 Urine Specific [place] 1.035 Urine Protein 30 mg/dL Urine Glucose (UA) 70 mg/dL Urine Ketones 10 mg/dL Urine Occult Blood MOD Urine Nitrite POS Urine Bilirubin NEG Urine Urobilinogen LESS THAN 2.0 MG/DL Urine Leukocyte Esterase NEG Urine RBC LESS THAN 1 /hpf Urine WBC 1 /hpf Urine Bacteria MOD /hpf Urine Mucus FEW /lpf Microscopic Urinalysis Comment CULTURE INDICATED MDM Medical Record Reviewed: Yes Supervised Visit with MONICA: No Narrative Course 72-year-old male presented with abdominal pain. The patient is in a independent living facility. The patient's friend called the nurse and stated that he talk to him a couple days ago and he seemed a little confused and not acting himself. The patient is alert and oriented only to 1. He does appear to be confused. Urinalysis shows evidence of UTI. Cultures have been sent off and is been started on Rocephin 1 g IV 1 dose. There is a call out to the [facility] hospitalist for admission. Diagnosis Primary Impression: Abdominal pain Qualified Codes: R10.11 - Right upper quadrant pain Additional Impressions: Altered sensorium Cystitis Hyperglycemia Admitting Information Admitting Physician Requests: Observation Patient Instructions: General Instructions Departure Forms: Tests/Procedures Additional Instruction: Bentyl as needed for pain. Follow-up with personal physician. Return if persistent problem or worse. Scripts Dicyclomine (Bentyl) 10 Mg Cap 10 MG PO TID Y for Bowel Management, #15 CAP 0 Refills Prov: Amrik Winters MD 06/17/17 Condition: Serious Claudy Wong MD Jun 17, 2017 09:52
[2017-06-17] MEDS ORDERED: cefTRIAXone INJ 1,000 MG in SODIUM CHLORIDE 0.9% INJ 100 ML IV ONE (10:00)
[2017-06-17] MEDS ORDERED: GLUCAGON 1 MG/ML VIAL OTHER PRN (10:15)
[2017-06-17] MEDS ORDERED: ACETAMINOPHEN 325 MG TAB PO PRN ×2 (10:15)
[2017-06-17] MEDS ORDERED: SODIUM CHLORIDE 0.9% FLUSH 10 ML FLUSH IV FLUSH PRN (10:15)
[2017-06-17] MEDS ORDERED: MAGNESIUM HYDROXIDE SUSP 30 ML CUP PO PRN (10:15)
[2017-06-17] MEDS ORDERED: NALOXONE HCL 0.4 MG/ML AMP IV PUSH PRN (10:15)
[2017-06-17] MEDS ORDERED: ONDANSETRON HCL 4 MG/2 ML VIAL IVP PRN (10:15)
[2017-06-17] MEDS ORDERED: DEXTROSE 50% IN WATER 50 ML VIAL(D50) IV PUSH PRN (10:15)
[2017-06-17] MEDS: amLODIPine BESYLATE 5 MG TAB PO SCH (11:09)
[2017-06-17] MEDS: HYDROCHLOROTHIAZIDE 25 MG TAB PO SCH (11:10)
--- NOTE | 2017-06-17 11:42 | HHI.HP ---
HPI Service [facility] Primary Care Physician Unknown Admission Diagnosis altered sensorium, uti, abdominal pain, Diagnoses: (1) Acute metabolic encephalopathy (2) UTI (urinary tract infection) (3) Abdominal pain Chief Complaint: Abdominal pain, altered mental status change Travel History International Travel<30 Days: No Contact w/Intl Traveler <30 Da: No Traveled to Known Affected Are: No History of Present Illness 72-year-old male patient with a known medical history of hypertension, diabetes , GERD who presented to the ED initially for evaluation of abdominal pain and had a nonspecific abdominal CT. However as the patient was getting ready for discharge, he was noted to be confused although he was alert and oriented 1. Head CT was ordered and nonspecific however UA was abnormal for which patient was given Rocephin IV 1. During my exam, patient remained confused even though he was oriented to self. Denies any chest pain or shortness of breath. Review of Systems ROS Limitations: Altered Mental Status Except as stated in HPI: all other systems reviewed are Neg Past Family Social History Past Medical History Arthritis Hypertension Diabetes Severely hard of hearing GERD Renal insufficiency Past Surgical History Cholecystectomy Inguinal hernia repair Reported Medications Flomax (Tamsulosin HCl) 0.4 Mg Cap 0.4 Mg PO HS Ferosul (Ferrous Sulfate) 325 Mg Tablet 325 Mg PO DAILY take with orange juice if possible Reported Meclizine (Meclizine HCl) 25 Mg Tab 25 Mg PO TID PRN Aspirin 81 Mg Chew 81 Mg CHEW DAILY Metformin (Metformin HCl) 850 Mg Tab 850 Mg PO BIDPC Gabapentin 600 Mg Tab 600 Mg PO TID Hydrochlorothiazide 25 Mg Tab 25 Mg PO DAILY Amlodipine (Amlodipine Besylate) 5 Mg Tab 5 Mg PO DAILY Trazodone (Trazodone HCl) 100 Mg Tablet 100 Mg PO HS Januvia (Sitagliptin Phosphate) 100 Mg Tab 100 Mg PO DAILY Citalopram (Citalopram Hydrobromide) 20 Mg Tab 20 Mg PO DAILY Glipizide 10 Mg Tab 10 Mg PO BIDAC Take 30 minutes before a meal Atorvastatin (Atorvastatin Calcium) 20 Mg Tab 20 Mg PO HS Pantoprazole (Pantoprazole Sodium) 20 Mg Tab 20 Mg PO DAILY Meloxicam 15 Mg Tab 15 Mg PO DAILY Allergies: Coded Allergies: No Known Allergies (Verified Adverse Reaction, Unknown, 06/16/17) Family History Paternal medical history significant for diabetes. Maternal medical history significant for DC x 2 and CVA x2. Social History Denies any alcohol or tobacco or illicit drug use. Physical Exam Vital Signs Vital Signs Date Time Temp Pulse Resp B/P (MAP) Pulse Ox O2 Delivery O2 Flow Rate FiO2 06/17/17 08:59 67 18 147/98 (114) 96 Room Air 06/17/17 07:20 67 17 170/82 (111) 96 Room Air 06/17/17 00:30 81 16 152/81 (104) 97 Room Air 06/16/17 21:26 98.7 82 16 173/85 (114) 96 Physical Exam GENERAL: This is a well-nourished, well-developed patient, in no apparent distress. SKIN: No rashes, ecchymoses or lesions. Cool and dry. HEAD: Atraumatic. Normocephalic. No temporal or scalp tenderness. EYES: Pupils equal round and reactive. Extraocular motions intact. No scleral icterus. No injection or drainage. ENT: Nose without bleeding, purulent drainage or septal hematoma. Throat without erythema, tonsillar hypertrophy or exudate. Uvula midline. Airway patent. NECK: Trachea midline. No JVD or lymphadenopathy. Supple, nontender, no meningeal signs. CARDIOVASCULAR: Regular rate and rhythm without murmurs, gallops, or rubs. RESPIRATORY: Clear to auscultation. Breath sounds equal bilaterally. No wheezes , rales, or rhonchi. GASTROINTESTINAL: Abdomen soft, non-tender, nondistended. No hepato-splenomegaly , or palpable masses. No guarding. MUSCULOSKELETAL: Extremities without clubbing, cyanosis, or edema. No joint tenderness, effusion, or edema noted. No calf tenderness. Negative Homans sign bilaterally. NEUROLOGICAL: Awake and alert. Cranial nerves II through XII intact. Motor and sensory grossly within normal limits. Five out of 5 muscle strength in all muscle groups. Normal speech. Laboratory Laboratory Tests Test 06/16/17 21:35 06/17/17 08:40 White Blood Count 11.5 Red Blood Count 5.09 Hemoglobin 13.7 Hematocrit 41.0 Mean Corpuscular Volume 80.6 Mean Corpuscular Hemoglobin 27.0 Mean Corpuscular Hemoglobin Concent 33.5 Red Cell Distribution Width 17.1 Platelet Count 261 Mean Platelet Volume 8.7 Neutrophils (%) (Auto) 76.1 Lymphocytes (%) (Auto) 15.5 Monocytes (%) (Auto) 7.6 Eosinophils (%) (Auto) 0.5 Basophils (%) (Auto) 0.3 Neutrophils # (Auto) 8.8 Lymphocytes # (Auto) 1.8 Monocytes # (Auto) 0.9 Eosinophils # (Auto) 0.1 Basophils # (Auto) 0.0 CBC Comment AUTO DIFF Differential Comment AUTO DIFF CONFIRMED Platelet Estimate NORMAL Platelet Morphology Comment NORMAL Ovalocytes 1+ Prothrombin Time 10.8 Prothromb Time International Ratio 1.1 Activated Partial Thromboplast Time 21.8 Blood Urea Nitrogen 22 Creatinine 1.18 Random Glucose 181 Total Protein 7.5 Albumin 4.1 Calcium Level 8.8 Alkaline Phosphatase 81 Aspartate Amino Transf (AST/SGOT) 63 Alanine Aminotransferase (ALT/SGPT) 33 Total Bilirubin 0.6 Sodium Level 139 Potassium Level 3.9 Chloride Level 101 Carbon Dioxide Level 28.1 Anion Gap 10 Estimat Glomerular Filtration Rate 61 Lipase 55 Urine Color YELLOW Urine Turbidity CLEAR Urine pH 6.0 Urine Specific [place] 1.035 Urine Protein 30 Urine Glucose (UA) 70 Urine Ketones 10 Urine Occult Blood MOD Urine Nitrite POS Urine Bilirubin NEG Urine Urobilinogen LESS THAN 2.0 Urine Leukocyte Esterase NEG Urine RBC LESS THAN 1 Urine WBC 1 Urine Bacteria MOD Urine Mucus FEW Microscopic Urinalysis Comment CULTURE INDICATED Date/Time Source Procedure Growth Status 06/17/17 10:00 Blood Peripheral Aerobic Blood Culture Pending Received 06/17/17 10:00 Blood Peripheral Anaerobic Blood Culture Pending Received 06/17/17 08:40 Urine Random Urine Urine Culture Pending Received Result Diagram: 06/16/[id number] Imaging Last Impressions Head CT 06/17/17 0849 Signed Impressions: Service Date/Time: Saturday, June 17, 2017 09:02 - CONCLUSION: Negative for acute process. Rush Culp MD FACR Abdomen/Pelvis CT 06/16/172122 Signed Impressions: Service Date/Time: Saturday, June 17, 2017 00:22 - CONCLUSION: 1. No acute finding is identified to explain the right upper quadrant pain. 2. There are multiple low-density lesions in the right kidney measuring up to 6.2 cm. These do not meet criteria for simple cysts on this examination but prior noncontrast CT favored simple cysts. Therefore, suggest elective followup with ultrasound or renal protocol MRI to evaluate for any concerning renal lesion. 3. Nonacute findings include coronary artery calcification, moderate size hiatal hernia, pericardial cyst, and trace right pleural fluid. Bruno Alaniz MD Septic Shock Reassessment Septic shock perfusion: reassessment completed Caprini VTE Risk Assessment Caprini VTE Risk Assessment: Mod/High Risk (score >= 2) Caprini Risk Assessment Model Point Value = 1 Point Value = 2 Point Value = 3 Point Value = 5 Age 41-60 Minor surgery BMI > 25 kg/m2 Swollen legs Varicose veins or History of unexplained or recurrent spontaneous Oral contraceptives or hormone replacement Sepsis (< 1 month) Serious lung disease, including pneumonia (< 1 month) Abnormal pulmonary function Acute myocardial infarction Congestive heart failure (< 1 month) History of inflammatory bowel disease Medical patient at bed rest Age 61-74 Arthroscopic surgery Major open surgery (> 45 min) Laparoscopic surgery (> 45 min) Malignancy Confined to bed (> 72 hours) Immobilizing plaster cast Central venous access Age >= 75 History of VTE Family history of VTE Factor V Leiden Prothrombin [id number] Lupus anticoagulant Anticardiolipin antibodies Elevated serum homocysteine Heparin-induced thrombocytopenia Other congenital or acquired thrombophilia Stroke (< 1 month) Elective arthroplasty Hip, pelvis, or leg fracture Acute spinal cord injury (< 1 month) Prophylaxis Regimen Total Risk Factor Score Risk Level Prophylaxis Regimen 0-1 Low Early ambulation 2 Moderate Order ONE of the following: *Sequential Compression Device (SCD) *Heparin 5000 units SQ BID 3-4 Higher Order ONE of the following medications: *Heparin 5000 units SQ TID *Enoxaparin/Lovenox 40 mg SQ daily (WT < 150 kg, CrCl > 30 mL/min) *Enoxaparin/Lovenox 30 mg SQ daily (WT < 150 kg, CrCl > 10-29 mL/min) *Enoxaparin/Lovenox 30 mg SQ BID (WT < 150 kg, CrCl > 30 mL/min) AND/OR *Sequential Compression Device (SCD) 5 or more Highest Order ONE of the following medications: *Heparin 5000 units SQ TID (Preferred with Epidurals) *Enoxaparin/Lovenox 40 mg SQ daily (WT < 150 kg, CrCl > 30 mL/min) *Enoxaparin/Lovenox 30 mg SQ daily (WT < 150 kg, CrCl > 10-29 mL/min) *Enoxaparin/Lovenox 30 mg SQ BID (WT < 150 kg, CrCl > 30 mL/min) AND *Sequential Compression Device (SCD) Assessment and Plan Problem List: (1) Acute metabolic encephalopathy ICD Code: G93.41 - Metabolic encephalopathy (2) UTI (urinary tract infection) ICD Code: N39.0 - Urinary tract infection, site not specified Status: Acute Assessment and Plan 71-year-old man with Acute metabolic encephalopathy Likely secondary to UTI Head CT noted and review by me without any intracranial abnormality Abnormal UA, check ammonia level UTI Status post Rocephin IV 1, and continue with antibiotics pending urine culture Abdominal pain Abdominal CT noted and reviewed by me with nonspecific findings Diabetes type 2 Hold all oral hypoglycemic agents, start insulin sliding scale Other chronic medical conditions Resume patient medications DVT prophylaxis: Bilateral SCDs Code Status Full code Discussed Condition With Patient, ED physician Problem Qualifiers (1) Abdominal pain: Qualified Codes: R10.11 - Right upper quadrant pain Yeison Millan MD Jun 17, 2017 11:42
[2017-06-17] MEDS: INSULIN ASPART SUPPLEMENTAL SCALE SQ SCH ×3 (14:14→21:39)
[2017-06-17] MEDS: SODIUM CHLORIDE 0.9% FLUSH 10 ML FLUSH IV FLUSH SCH (21:38)
[2017-06-17] MEDS: TAMSULOSIN HCL 0.4 MG CAP PO SCH (21:38)
[2017-06-17] MEDS: ATORVASTATIN 20 MG TAB PO SCH (21:38)
[2017-06-18] VITALS (7 sets, daily range): BP systolic 135–182; BP diastolic 84–94; PULSE 81–101; RESP 16–20; TEMP 97.3–98.8; O2SAT 92–96
[2017-06-18 04:16] LABS: AUTOMATED NEUTROPHIL # 6.8 TH/MM3 (1.8-7.7); BASOPHIL # 0.1 TH/MM3 (0-0.2); BASOPHIL % 0.7 % (0.0-2.0); EOSINOPHIL # 0.3 TH/MM3 (0-0.4); EOSINOPHIL % 2.5 % (0.0-4.0); HEMATOCRIT 39.1 % (39.0-51.0); HEMOGLOBIN 13.1 GM/DL (13.0-17.0); LYMPH % 24.3 % (9.0-44.0); LYMPHOCYTE # 2.6 TH/MM3 (1.0-4.8); MEAN CELL VOLUME 80.7 FL (80.0-100.0); MEAN CORPUSCULAR HGB CONC 33.5 % (32.0-36.0); MEAN PLATELET VOLUME 8.6 FL (7.0-11.0); MONO % 8.1 % (0.0-8.0); MONOCYTE # 0.8 TH/MM3 (0-0.9); NEUT % 64.4 % (16.0-70.0); PLATELET COUNT 259 TH/MM3 (150-450); RED BLOOD COUNT 4.84 MIL/MM3 (4.50-5.90); RED CELL DISTRIBUTION WIDTH 17.1 % (11.6-17.2); WHITE BLOOD COUNT 10.5 TH/MM3 (4.0-11.0)
[2017-06-18 04:38] LABS: ALBUMIN 3.4 GM/DL (3.4-5.0); ALKALINE PHOSPHATASE 74 U/L (45-117); ALT (GPT) 31 U/L (12-78); AST (GOT) 62 U/L (15-37); BICARBONATE 29.8 MEQ/L (21.0-32.0); BLOOD UREA NITROGEN 19 MG/DL (7-18); CALCIUM 8.8 MG/DL (8.5-10.1); CHLORIDE 97 MEQ/L (98-107); CREATININE 1.04 MG/DL (0.60-1.30); GLOMERULAR FILTRATION RATE 70 ML/MIN (>89); GLUCOSE,RANDOM 178 MG/DL (74-106); SODIUM (NA) 134 MEQ/L (136-145); TOTAL BILIRUBIN ADULT 0.5 MG/DL (0.2-1.0)
[2017-06-18 06:58] LABS: OVALOCYTES 1+ (NORMAL)
[2017-06-18] MEDS ORDERED: POTASSIUM CHLORIDE 20 MEQ CONTROLLED RELEASE TAB PO ONE (08:00)
[2017-06-18] MEDS: ASPIRIN 81 MG CHEW TAB CHEW SCH (09:58)
[2017-06-18] MEDS: amLODIPine BESYLATE 5 MG TAB PO SCH (09:58)
[2017-06-18] MEDS: HYDROCHLOROTHIAZIDE 25 MG TAB PO SCH (09:58)
[2017-06-18] MEDS: FERROUS SULFATE 325 MG (65 MG ELEMENTAL IRON) TAB PO SCH (09:58)
[2017-06-18] MEDS: SODIUM CHLORIDE 0.9% FLUSH 10 ML FLUSH IV FLUSH SCH ×2 (09:58→21:21)
[2017-06-18] MEDS: INSULIN ASPART SUPPLEMENTAL SCALE SQ SCH ×4 (09:59→21:26)
[2017-06-18] MEDS ORDERED: cefTRIAXone INJ 1,000 MG in SODIUM CHLORIDE 0.9% INJ 100 ML IV SCH (11:00)
--- NOTE | 2017-06-18 13:48 | HHI.PR ---
Subjective Remarks Follow-up encephalopathy and UTI. He is a alert and oriented 2. States he is good denies headache, dizziness, abdominal pain and UTI symptoms. States he does not have immediate family and lives alone. Gave permission to talk to his neighbor discussed with nursing Objective Vitals Vital Signs Date Time Temp Pulse Resp B/P (MAP) Pulse Ox O2 Delivery O2 Flow Rate FiO2 06/18/17 12:36 182/94 (123) 06/18/17 12:23 98.7 85 20 96 06/18/17 08:10 Room Air 06/18/17 08:04 98.8 82 19 168/93 (118) 94 06/18/17 03:38 97.9 81 18 175/84 (114) 92 06/17/17 19:38 98.8 92 18 176/86 (116) 93 06/17/17 19:00 96 Nasal Cannula 2.00 06/17/17 16:32 98.8 89 18 173/86 (115) 94 I/O 06/17/17 06/17/17 06/17/17 06/18/17 06/18/17 06/18/17 07:00 15:00 23:00 07:00 15:00 23:00 Intake Total 100 ml 120 ml Balance 100 ml 120 ml Intake Oral 120 ml IV Total 100 ml # Voids 2 1 4 # Bowel Movements 2 1 2 Result Diagram: 06/18/17 0400 06/18/17 0400 Imaging Last Impressions Head CT 06/17/17 0849 Signed Impressions: Service Date/Time: Saturday, June 17, 2017 09:02 - CONCLUSION: Negative for acute process. Rush Culp MD FACR Abdomen/Pelvis CT 06/16/172122 Signed Impressions: Service Date/Time: Saturday, June 17, 2017 00:22 - CONCLUSION: 1. No acute finding is identified to explain the right upper quadrant pain. 2. There are multiple low-density lesions in the right kidney measuring up to 6.2 cm. These do not meet criteria for simple cysts on this examination but prior noncontrast CT favored simple cysts. Therefore, suggest elective followup with ultrasound or renal protocol MRI to evaluate for any concerning renal lesion. 3. Nonacute findings include coronary artery calcification, moderate size hiatal hernia, pericardial cyst, and trace right pleural fluid. Bruno Alaniz MD Objective Remarks GENERAL: This is a well-nourished, well-developed patient, in no apparent distress. SKIN: No rashes, ecchymoses or lesions. Cool and dry. CARDIOVASCULAR: Regular rate and rhythm without murmurs, gallops, or rubs. RESPIRATORY: Clear to auscultation. Breath sounds equal bilaterally. No wheezes , rales, or rhonchi. GASTROINTESTINAL: Abdomen soft, non-tender, nondistended. No guarding. MUSCULOSKELETAL: Extremities without clubbing, cyanosis, or edema. No joint tenderness, effusion, or edema noted. No calf tenderness. Negative Homans sign bilaterally. NEUROLOGICAL: Awake and alert. Cranial nerves II through XII intact. Motor and sensory grossly within normal limits. Five out of 5 muscle strength in all muscle groups. Normal speech. Two-point restraints left wrist and the right ankle. Discussed with nursing, in the process of removing restraints Procedures none A/P Problem List: (1) Acute metabolic encephalopathy ICD Code: G93.41 - Metabolic encephalopathy (2) UTI (urinary tract infection) ICD Code: N39.0 - Urinary tract infection, site not specified Status: Acute (3) Abdominal pain ICD Code: R10.9 - Unspecified abdominal pain Status: Acute Assessment and Plan 71-year-old man with Acute metabolic encephalopathy. Likely secondary to UTI. Based on previous hematology consultation, patient has had episodes of confusion. Will contact next of kin or neighbor to confirm baseline mental status Sepsis with UTI. Continue IV Rocephin and monitor cultures Diabetes type 2. Uncontrolled restart hypoglycemic agents except metformin continue sliding-scale Medical conditions of hypertension and GERD. BP uncontrolled increase Norvasc. DVT prophylaxis: Bilateral SCDs and early ambulation PT has recommended rehab. [facility] accepted patient Discharge Planning Discharge to rehab tomorrow needs to be off restraints for 24 hour Problem Qualifiers (1) Abdominal pain: Qualified Codes: R10.11 - Right upper quadrant pain Narciso Hilliard MD Jun 18, 2017 13:48
[2017-06-18] MEDS ORDERED: AMLO10TA2 PO (16:21)
--- NOTE | 2017-06-18 16:22 | HHI.DCPOC ---
Discharge Care Plan Diagnosis: (1) UTI (urinary tract infection) (2) Acute metabolic encephalopathy (3) Hypertension (4) Hyperlipidemia (5) Diabetes Goals to Promote Your Health * To prevent worsening of your condition and complications * To maintain your health at the optimal level Directions to Meet Your Goals Take your medications as prescribed Follow your dietary instruction Follow activity as directed Keep your appointments as scheduled Take your immunizations and boosters as scheduled If your symptoms worsen call your PCP, if no PCP go to Urgent Care Center or Emergency Room Smoking is Dangerous to Your Health. Avoid second hand smoke Call the 24-hour hour crisis hotline for domestic abuse at Kenya Kunz PA-C Jun 18, 2017 16:22
[2017-06-18] MEDS: glipiZIDE 10 MG TAB PO SCH (18:15)
[2017-06-18] MEDS: ATORVASTATIN 20 MG TAB PO SCH (21:21)
[2017-06-18] MEDS: TAMSULOSIN HCL 0.4 MG CAP PO SCH (21:21)
[2017-06-19 04:12] VITALS: BP 142/90; PULSE 108; RESP 16; TEMP 98; O2SAT 94
[2017-06-19 06:19] LABS: BICARBONATE 27.5 MEQ/L (21.0-32.0); CALCIUM 8.9 MG/DL (8.5-10.1); CREATININE 1.02 MG/DL (0.60-1.30); MAGNESIUM 1.9 MG/DL (1.5-2.5)
[2017-06-19] MEDS: glipiZIDE 10 MG TAB PO SCH (07:00)
[2017-06-19 08:08] VITALS: BP 139/95; PULSE 106; RESP 18; TEMP 97.3; O2SAT 91
[2017-06-19] MEDS ORDERED: POTASSIUM CHLORIDE 10 MEQ CONTROLLED RELEASE TAB PO ONE (08:15)
--- NOTE | 2017-06-19 08:23 | HHI.PR ---
Subjective Remarks Follow-up encephalopathy and UTI. Patient is awake and oriented. Answering questions appropriately and following commands. Agrees with rehabilitation. Discussed with nursing Objective Vitals Vital Signs Date Time Temp Pulse Resp B/P (MAP) Pulse Ox O2 Delivery O2 Flow Rate FiO2 06/19/17 08:08 97.3 106 18 139/95 (110) 91 06/19/17 04:12 98.0 108 16 142/90 (107) 94 06/18/17 23:26 98.0 101 16 138/90 (106) 93 06/18/17 20:45 Room Air 06/18/17 19:12 97.5 94 16 145/90 (108) 92 06/18/17 16:19 97.3 95 16 135/84 (101) 94 06/18/17 15:00 94 Room Air 06/18/17 12:36 182/94 (123) 06/18/17 12:23 98.7 85 20 96 I/O 06/18/17 06/18/17 06/18/17 06/19/17 06/19/17 06/19/17 07:00 15:00 23:00 07:00 15:00 23:00 Intake Total 120 ml Output Total 500 ml Balance 120 ml -500 ml Intake Oral 120 ml Output Urine Total 500 ml # Voids 4 # Bowel Movements 2 1 Result Diagram: 06/18/17 0400 06/19/17 0541 Imaging Last Impressions Head CT 06/17/17 0849 Signed Impressions: Service Date/Time: Saturday, June 17, 2017 09:02 - CONCLUSION: Negative for acute process. Rush Culp MD FACR Abdomen/Pelvis CT 06/16/172122 Signed Impressions: Service Date/Time: Saturday, June 17, 2017 00:22 - CONCLUSION: 1. No acute finding is identified to explain the right upper quadrant pain. 2. There are multiple low-density lesions in the right kidney measuring up to 6.2 cm. These do not meet criteria for simple cysts on this examination but prior noncontrast CT favored simple cysts. Therefore, suggest elective followup with ultrasound or renal protocol MRI to evaluate for any concerning renal lesion. 3. Nonacute findings include coronary artery calcification, moderate size hiatal hernia, pericardial cyst, and trace right pleural fluid. Bruno Alaniz MD Objective Remarks GENERAL: This is a well-nourished, well-developed patient, in no apparent distress. SKIN: No rashes, ecchymoses or lesions. Cool and dry. CARDIOVASCULAR: Regular rate and rhythm without murmurs, gallops, or rubs. RESPIRATORY: Clear to auscultation. Breath sounds equal bilaterally. No wheezes , rales, or rhonchi. GASTROINTESTINAL: Abdomen soft, non-tender, nondistended. No guarding. MUSCULOSKELETAL: Extremities without clubbing, cyanosis, or edema. No joint tenderness, effusion, or edema noted. No calf tenderness. Negative Homans sign bilaterally. NEUROLOGICAL: Awake and alert. Cranial nerves II through XII intact. Motor and sensory grossly within normal limits. Five out of 5 muscle strength in all muscle groups. Normal speech. Procedures none A/P Problem List: (1) Acute metabolic encephalopathy ICD Code: G93.41 - Metabolic encephalopathy (2) UTI (urinary tract infection) ICD Code: N39.0 - Urinary tract infection, site not specified Status: Acute (3) Abdominal pain ICD Code: R10.9 - Unspecified abdominal pain Status: Acute Assessment and Plan 71-year-old man with Acute metabolic encephalopathy. Likely secondary to UTI. Based on previous hematology consultation, patient has had episodes of confusion. Next of kin or neighbor has not returned call to confirm baseline mental status. At this time , improve mental status Sepsis with UTI. Cx staph epidermidis resistant to Rocephin which will be discontinued start ciprofloxacin for 1 week Diabetes type 2. Uncontrolled restarted hypoglycemic agents except metformin continue sliding-scale. Improving Medical conditions of hypertension and GERD. BP uncontrolled increased Norvasc. DVT prophylaxis: Bilateral SCDs and early ambulation PT has recommended rehab. [facility] patient Discharge Planning Discharge patient to home Condition on discharge: Improved Regular Diet as tolerated Ad Mia activity Rx written: Norvasc and Cipro Follow-up with primary care physician Problem Qualifiers (1) Abdominal pain: Qualified Codes: R10.11 - Right upper quadrant pain Narciso Hilliard MD Jun 19, 2017 08:23
[2017-06-19] MEDS ORDERED: amLODIPine BESYLATE 5 MG TAB PO SCH (09:00)
[2017-06-19] MEDS ORDERED: CIPR250T52 PO (09:19)
[2017-06-19] MEDS: ASPIRIN 81 MG CHEW TAB CHEW SCH (10:00)
[2017-06-19] MEDS: FERROUS SULFATE 325 MG (65 MG ELEMENTAL IRON) TAB PO SCH (10:00)
[2017-06-19] MEDS: HYDROCHLOROTHIAZIDE 25 MG TAB PO SCH (10:00)
[2017-06-19] MEDS: INSULIN ASPART SUPPLEMENTAL SCALE SQ SCH ×2 (10:05→14:18)
[2017-06-19] MEDS: SODIUM CHLORIDE 0.9% FLUSH 10 ML FLUSH IV FLUSH SCH (10:06)
[2017-06-19] MEDS ORDERED: CIPROFLOXACIN 400 MG PREMIX 200 ML IV ONE (11:00)
[2017-06-19 13:04] VITALS: BP 133/79; PULSE 99; RESP 18; TEMP 98.4; O2SAT 95
== END 2017-06-19 16:54 | disposition home or self-care (01) ==
LOC: NEPE 20:57 → NEDA 06-17 10:42 → NEPFCDU 06-17 11:51
PROVIDERS: ADMIT Internal Medicine; ATTEND Internal Medicine
DX: G93.41 Metabolic encephalopathy (principal); A41.9 Sepsis, unspecified organism; N30.90 Cystitis, unspecified without hematuria; R10.11 Right upper quadrant pain; E11.65 Type 2 diabetes mellitus with hyperglycemia; I10 Essential (primary) hypertension; K21.9 Gastro-esophageal reflux disease without esophagitis; I25.10 Atherosclerotic heart disease of native coronary artery without angina pectoris; I25.2 Old myocardial infarction; E78.5 Hyperlipidemia, unspecified; K44.9 Diaphragmatic hernia without obstruction or gangrene; H91.90 Unspecified hearing loss, unspecified ear; M19.90 Unspecified osteoarthritis, unspecified site; Z79.899 Other long term (current) drug therapy; Z79.82 Long term (current) use of aspirin; Z16.19 Resistance to other specified beta lactam antibiotics; Z78.1 Physical restraint status
CPT/HCPCS: 70450; 74177; 80048; 80053; 81001; 82140; 82948; 83690; 83735; 85025; 85610; 85730; 86403; 87040; 87077; 87086; 87186; 96125; 96365; 96366; 96372; 96375; 97162; 99285; G0378; G8987; G8988; G9168; G9169; J0696; J0744; J1815; J7030; Q9967

== ENCOUNTER 2017-06-24 13:46 | Observation (INO) | payer OTHER, MEDICAID ==
[~2017-06-24] VITALS: Ht 167.6 cm; Wt 73.8 kg
[~2017-06-24 13:46] MED LIST changes: +AMLO10TA2 PO; -AMLO5TAB2 PO; +ASPI-516 PO; +CIPR250T52 PO; +GABA600T PO; +MECL-62 PO; -MELO15TA20 PO; +METF850T PO
[2017-06-24 14:50] VITALS: BP 216/98; PULSE 89; RESP 16; O2SAT 96
--- NOTE | 2017-06-24 14:55 | PD ---
HPI Chief Complaint: AMS Time Seen by Provider: 14:39 Travel History International Travel<30 days: No Contact w/Intl Traveler<30days: No History of Present Illness HPI 72-year-old male presents emergency department via [facility] from his assisted living facility with altered mental status for 2 days. History is limited as I do not have the report from [facility] and patient is a poor historian. Patient does not know why he is here at the hospital today and believes that he is at a hospital at [place]. Patient is unable to tell me any history at this point. PFSH Past Medical History Arthritis: Yes Anxiety: No Depression: No Heart Rhythm Problems: No Cancer: No Cardiovascular Problems: Yes High Cholesterol: No Chemotherapy: No Chest Pain: No Congestive Heart Failure: No Cerebrovascular Accident: No Diabetes: Yes Diminished Hearing: Yes Endocrine: Yes Gastrointestinal Disorders: Yes GERD: Yes Genitourinary: No Hiatal Hernia: No Hypertension: Yes Immune Disorder: No Implanted Vascular Access Dvce: Yes Kidney Stones: No Musculoskeletal: Yes Neurologic: Yes Psychiatric: No Reproductive: No Respiratory: No Immunizations Current: Yes Migraines: No Myocardial Infarction: Yes Radiation Therapy: No Renal Failure: Yes (renal insuffisiency) Seizures: No Thyroid Disease: No Ulcer: No Past Surgical History Abdominal Surgery: Yes (sabrina) Cardiac Surgery: No Cholecystectomy: Yes Ear Surgery: No Endocrine Surgery: No Eye Surgery: No Genitourinary Surgery: No Gynecologic Surgery: No Oral Surgery: No Thoracic Surgery: No Other Surgery: Yes (inguinal hernia repair) Social History Alcohol Use: No Tobacco Use: No Substance Use: No Allergies-Medications (Allergen,Severity, Reaction): Coded Allergies: No Known Allergies (Unverified , 06/24/17) Reported Meds & Prescriptions Reported Meds & Active Scripts Active Cipro (Ciprofloxacin HCl) 250 Mg Tab 250 Mg PO BID 7 Days Amlodipine (Amlodipine Besylate) 10 Mg Tab 10 Mg PO DAILY Flomax (Tamsulosin HCl) 0.4 Mg Cap 0.4 Mg PO HS Ferosul (Ferrous Sulfate) 325 Mg Tablet 325 Mg PO DAILY take with orange juice if possible Reported Meclizine (Meclizine HCl) 25 Mg Tab 25 Mg PO TID PRN Aspirin 81 Mg Chew 81 Mg PO DAILY Metformin (Metformin HCl) 850 Mg Tab 850 Mg PO BIDPC Gabapentin 600 Mg Tab 600 Mg PO TID Hydrochlorothiazide 25 Mg Tab 25 Mg PO DAILY Trazodone (Trazodone HCl) 100 Mg Tablet 100 Mg PO HS Januvia (Sitagliptin Phosphate) 100 Mg Tab 100 Mg PO DAILY Citalopram (Citalopram Hydrobromide) 20 Mg Tab 20 Mg PO DAILY Glipizide 10 Mg Tab 10 Mg PO BIDAC Take 30 minutes before a meal Atorvastatin (Atorvastatin Calcium) 20 Mg Tab 20 Mg PO HS Pantoprazole (Pantoprazole Sodium) 20 Mg Tab 20 Mg PO DAILY Review of Systems Except as stated in HPI: all other systems reviewed are Neg Physical Exam Narrative GENERAL: Well-developed, well-nourished, covered in feces and urine, alert to self, knows he is in a hospital, does not know why he is here. SKIN: Focused skin assessment warm/dry. No rashes or skin breakdown noted HEAD: Atraumatic. Normocephalic. EYES: Pupils equal and round. No scleral icterus. No injection or drainage. ENT: No nasal bleeding or discharge. Mucous membranes pink and moist. NECK: Trachea midline. No JVD. No lymphadenopathy CARDIOVASCULAR: Regular rate and rhythm. No murmur appreciated. RESPIRATORY: No accessory muscle use. Clear to auscultation. Breath sounds equal bilaterally. GASTROINTESTINAL: Abdomen soft, non-tender, nondistended. MUSCULOSKELETAL: No obvious deformities. No clubbing. No cyanosis. No edema. NEUROLOGICAL: Awake and lethargic vs. obtunded. No obvious cranial nerve deficits. Motor grossly within normal limits. speech non slurred. no pronator drift. PSYCHIATRIC: Appropriate mood and affect; insight and judgment normal. Data Data Last Documented VS Vital Signs Date Time Temp Pulse Resp B/P (MAP) Pulse Ox O2 Delivery O2 Flow Rate FiO2 06/24/17 15:30 16 96 Room Air 06/24/17 15:15 82 224/86 (132) Orders Orders Electrocardiogram (06/24/17 14:39) Ammonia (06/24/17 14:39) Complete Blood Count With Diff (06/24/17 14:39) Comprehensive Metabolic Panel (06/24/17 14:39) Creatine Kinase (Cpk) (06/24/17 14:39) Prothrombin Time / Inr (Pt) (06/24/17 14:39) Act Partial Throm Time (Ptt) (06/24/17 14:39) Troponin I (06/24/17 14:39) Thyroid Stimulating Hormone (06/24/17 14:39) Urinalysis - C+S If Indicated (06/24/17 14:39) Lactic Acid Sepsis Protocol (06/24/17 14:39) Blood Culture (06/24/17 14:39) Chest, Single Ap (06/24/17 14:39) Ct Brain W/O Iv Contrast(Rout) (06/24/17 14:39) Blood Glucose (06/24/17 14:39) Drug Screen, Random Urine (06/24/17 14:39) Sepsis Workup Initiated (06/24/17 ) Sodium Chlorid 0.9% 500 Ml Inj (Ns 500 M (06/24/17 15:30) Shoulder, Limited(2vws) (06/24/17 ) Hip, Uni(Ap&Lat) W Ap Pelvis (06/24/17 ) Iv Access Insert/Monitor (06/24/17 15:37) Cath For Specimen (06/24/17 16:22) Hydralazine Inj (Apresoline Inj) (06/24/17 17:45) Diet Heart Healthy (06/24/17 Dinner) Admit Order (Ed Use Only) (06/24/17 18:21) Labs Laboratory Tests Test 06/24/17 14:50 06/24/17 16:15 White Blood Count 8.9 TH/MM3 Red Blood Count 4.91 MIL/MM3 Hemoglobin 13.4 GM/DL Hematocrit 39.5 % Mean Corpuscular Volume 80.4 FL Mean Corpuscular Hemoglobin 27.2 PG Mean Corpuscular Hemoglobin Concent 33.9 % Red Cell Distribution Width 15.8 % Platelet Count 328 TH/MM3 Mean Platelet Volume 8.5 FL Neutrophils (%) (Auto) 68.8 % Lymphocytes (%) (Auto) 22.7 % Monocytes (%) (Auto) 6.1 % Eosinophils (%) (Auto) 1.8 % Basophils (%) (Auto) 0.6 % Neutrophils # (Auto) 6.1 TH/MM3 Lymphocytes # (Auto) 2.0 TH/MM3 Monocytes # (Auto) 0.5 TH/MM3 Eosinophils # (Auto) 0.2 TH/MM3 Basophils # (Auto) 0.1 TH/MM3 CBC Comment AUTO DIFF Differential Comment AUTO DIFF CONFIRMED Toxic Granulation 1+ Platelet Estimate NORMAL Platelet Morphology Comment NORMAL Ovalocytes 1+ Prothrombin Time 10.6 SEC Prothromb Time International Ratio 1.0 RATIO Activated Partial Thromboplast Time 23.8 SEC Blood Urea Nitrogen 15 MG/DL Creatinine 1.02 MG/DL Random Glucose 158 MG/DL Total Protein 7.0 GM/DL Albumin 3.4 GM/DL Calcium Level 9.4 MG/DL Alkaline Phosphatase 91 U/L Aspartate Amino Transf (AST/SGOT) 21 U/L Alanine Aminotransferase (ALT/SGPT) 30 U/L Total Bilirubin 0.5 MG/DL Sodium Level 135 MEQ/L Potassium Level 4.6 MEQ/L Chloride Level 100 MEQ/L Carbon Dioxide Level 24.4 MEQ/L Anion Gap 11 MEQ/L Estimat Glomerular Filtration Rate 72 ML/MIN Lactic Acid Level 1.6 mmol/L Ammonia 18 MCMOL/L Total Creatine Kinase 222 U/L Troponin I LESS THAN 0.02 NG/ML Thyroid Stimulating Hormone 3rd Gen 3.460 uIU/ML Urine Color YELLOW Urine Turbidity CLEAR Urine pH 6.0 Urine Specific [place] 1.020 Urine Protein TRACE mg/dL Urine Glucose (UA) NEG mg/dL Urine Ketones 10 mg/dL Urine Occult Blood NEG Urine Nitrite NEG Urine Bilirubin NEG Urine Urobilinogen LESS THAN 2.0 MG/DL Urine Leukocyte Esterase NEG Urine WBC 1 /hpf Urine Hyaline Casts 4 /lpf Urine Mucus FEW /lpf Microscopic Urinalysis Comment CATH-CULT NOT IND MDM Medical Decision Making Medical Screen Exam Complete: Yes Emergency Medical Condition: Yes Differential Diagnosis Urosepsis, CVA, altered mental status, dementia, delirium Narrative Course 72-year-old male with a history of diabetes, HLD, HTN presents to the emergency department from his independent living facility, [facility], after a well check today. According to notes, pt's phone had multiple missed calls over the last few days and assumed that he has been down for at least 2 days. After speaking with the patient, it appears that patient does not know why he is in the hospital today. He has no complaints other than his shoulder and left hip. Denies alcohol, tobacco, or other drug use. Vital signs show BP at 216/98 initially, however, unsure of the properly fitted BP cuff at that time. Physical exam findings demonstrate a 72-year-old diaphoretic male in no acute distress. Pupils 2mm and equal, round. GCS 12. Patient covered with apparent feces and the smell of urine. Patient does not follow my commands readily but no obvious neuro deficits. [id number] blood sugar 187 upon arrival in the room. Labs and imaging studies ordered. Last Impressions Head CT 06/24/17 1439 Signed Impressions: Service Date/Time: Saturday, June 24, 2017 15:44 - CONCLUSION: No acute disease. Fercho Drake MD Chest X-Ray 06/24/17 1439 Signed Impressions: Service Date/Time: Saturday, June 24, 2017 14:54 - CONCLUSION: 1. No acute abnormality or significant interval change. Joey Bush MD Shoulder X-Ray 06/24/17 0000 Signed Impressions: Service Date/Time: Saturday, June 24, 2017 15:32 - CONCLUSION: No acute disease. Fercho Drake MD Hip and Pelvis X-Ray 06/24/17 0000 Signed Impressions: Service Date/Time: Saturday, June 24, 2017 15:16 - CONCLUSION: No acute disease. Fercho Drake MD CBC & BMP Diagram 06/24/17 14:50 Total Protein 7.0, Albumin 3.4, Calcium Level 9.4, Alkaline Phosphatase 91, Aspartate Amino Transf (AST/SGOT) 21, Alanine Aminotransferase (ALT/SGPT) 30, Total Bilirubin 0.5 Urinalysis noncontributory. SHERWIN Loredo and I attempted to walk patient but he was rather unsteady during transitions of sitting and standing. I was uncomfortable with walking him around the nurse station. Pt says he ambulated with a cane normally but I question this based off of findings today. SHERWIN Loredo called [facility] and spoke with a facility nurse. Says it patient actually lives in [employer] housing alone and they noticed that he has been falling more frequently is "not as sharp" as he has previously been. We consulted with case management and they recommended observation with evaluation for possible placement at a rehab facility tomorrow. I do not feel that patient would be safe being discharged home without assistance and observation. I spoke to Tamiko with case management and she stated that patient was admitted to [facility] June 18 but discharged June 19 because patient says he was going home and did not want to be in [facility]. Patient has a power of finance attorney however, they are not local. There are no local relatives either. She also spoke with [facility] and found that he actually slipped and fell in the shower today which is why he was brought to the ED. Original plan to admit for observation in hopes of obtaining placement tomorrow. Pt will be admitted to obs for AMS, shoulder contusion, hip contusion Diagnosis Primary Impression: Shoulder contusion Qualified Codes: S40.012A - Contusion of left shoulder, initial encounter Additional Impressions: Contusion, hip Qualified Codes: S70.02XA - Contusion of left hip, initial encounter Altered mental status Qualified Codes: R41.82 - Altered mental status, unspecified Admitting Information Admitting Physician Requests: Observation Condition: Stable Sherri Mirza Jun 24, 2017 14:55
[2017-06-24 15:15] VITALS: BP 224/86; PULSE 82; RESP 16; O2SAT 95
[2017-06-24] MEDS ORDERED: SODIUM CHLORID 0.9% 500 ML INJ 500 ML IV ONE (15:30)
--- NOTE | 2017-06-24 15:37 | RADRPT ---
EXAM DATE/TIME: 06/24/2017 14:54 [facility] COMPARISON: CHEST SINGLE AP, May 02, 2017, 11:36. INDICATIONS : Syncope. MEDICAL HISTORY : Renal insufficiency. Hypertension SURGICAL HISTORY : None. ENCOUNTER: Initial ACUITY: 1 day PAIN SCORE: Non-responsive. LOCATION: Bilateral chest FINDINGS: No new focal pleural or parenchymal opacities. Cardiomediastinal contours are stable. Remainder of th e exam is unchanged. CONCLUSION: 1. No acute abnormality or significant interval change. Joey Bush MD on June 24, 2017 at 15:35 Board Certified Radiologist. This report was verified electronically.
[2017-06-24 15:45] LABS: AUTOMATED NEUTROPHIL # 6.1 TH/MM3 (1.8-7.7); BASOPHIL # 0.1 TH/MM3 (0-0.2); BASOPHIL % 0.6 % (0.0-2.0); EOSINOPHIL # 0.2 TH/MM3 (0-0.4); EOSINOPHIL % 1.8 % (0.0-4.0); HEMATOCRIT 39.5 % (39.0-51.0); HEMOGLOBIN 13.4 GM/DL (13.0-17.0); LYMPH % 22.7 % (9.0-44.0); MEAN CELL VOLUME 80.4 FL (80.0-100.0); MEAN CORPUSCULAR HEMOGLOBIN 27.2 PG (27.0-34.0); MEAN CORPUSCULAR HGB CONC 33.9 % (32.0-36.0); MEAN PLATELET VOLUME 8.5 FL (7.0-11.0); MONO % 6.1 % (0.0-8.0); MONOCYTE # 0.5 TH/MM3 (0-0.9); NEUT % 68.8 % (16.0-70.0); PLATELET COUNT 328 TH/MM3 (150-450); RED BLOOD COUNT 4.91 MIL/MM3 (4.50-5.90); RED CELL DISTRIBUTION WIDTH 15.8 % (11.6-17.2); WHITE BLOOD COUNT 8.9 TH/MM3 (4.0-11.0)
[2017-06-24 15:54] LABS: PROTHROMBIN TIME - PATIENT 10.6 SEC (9.8-11.6)
--- NOTE | 2017-06-24 16:04 | RADRPT ---
EXAM DATE/TIME: 06/24/2017 15:44 [facility] COMPARISON: CT BRAIN W/O CONTRAST, June 17, 2017, 9:02. INDICATIONS : Altered mental status, RADIATION DOSE: 56.35 CTDIvol (mGy) MEDICAL HISTORY : Cardiovascular disease. Hypertension. renal failure, diabetes SURGICAL HISTORY : Cholecystectomy. Inguinal hernia repair. ENCOUNTER: Initial ACUITY: 2 days PAIN SCALE: 0/10 LOCATION: cranial TECHNIQUE: Multiple contiguous axial images were obtained of the head. Using automated exposure control and adj ustment of the mA and/or kV according to patient size, radiation dose was kept as low as reasonably a chievable to obtain optimal diagnostic quality images. DICOM format image data is available electro nically for review and comparison. FINDINGS: There is atrophy and mild periventricular white matter disease without evidence for acute infarct, he morrhage or mass. No fractures. CONCLUSION: No acute disease. Fercho Drake MD on June 24, 2017 at 16:02 Board Certified Radiologist. This report was verified electronically.
[2017-06-24 16:08] LABS: ALT (GPT) 30 U/L (12-78)
--- NOTE | 2017-06-24 16:09 | RADRPT ---
EXAM DATE/TIME: 06/24/2017 15:32 [facility] COMPARISON: No previous studies available for comparison. INDICATIONS : Left shoulder pain from unknown injury, altered mental status. MEDICAL HISTORY : None. SURGICAL HISTORY : None. ENCOUNTER: Initial ACUITY: 1 day PAIN SCORE: Non-responsive. LOCATION: Left shoulder. FINDINGS: Two view examination of the left shoulder demonstrates no evidence of fracture or dislocation. The g lenohumeral and acromioclavicular joints are maintained. Bony mineralization is normal. CONCLUSION: No acute disease. Fercho Drake MD on June 24, 2017 at 16:07 Board Certified Radiologist. This report was verified electronically.
--- NOTE | 2017-06-24 16:09 | RADRPT ---
EXAM DATE/TIME: 06/24/2017 15:16 [facility] COMPARISON: No previous studies available for comparison. INDICATIONS : Left hip pain from unknown injury, altered mental status. MEDICAL HISTORY : None. SURGICAL HISTORY : None. ENCOUNTER: Initial ACUITY: 1 day PAIN SCORE: Non-responsive. LOCATION: Left hip. FINDINGS: Examination of the left hip was performed with AP Pelvis. The primary and secondary trabecular patte rn of the femoral neck is intact. The hip joint is of normal width without significant sclerosis or bony hypertrophy. The acetabulum is grossly intact. CONCLUSION: No acute disease. Fercho Drake MD on June 24, 2017 at 16:07 Board Certified Radiologist. This report was verified electronically.
[2017-06-24 16:17] LABS: ALKALINE PHOSPHATASE 91 U/L (45-117); TOTAL BILIRUBIN ADULT 0.5 MG/DL (0.2-1.0); TROPONIN I LESS THAN 0.02 NG/ML (0.02-0.05)
[2017-06-24 16:18] LABS: ALBUMIN 3.4 GM/DL (3.4-5.0); AST (GOT) 21 U/L (15-37); BICARBONATE 24.4 MEQ/L (21.0-32.0); BLOOD UREA NITROGEN 15 MG/DL (7-18); CALCIUM 9.4 MG/DL (8.5-10.1); CHLORIDE 100 MEQ/L (98-107); CREATININE 1.02 MG/DL (0.60-1.30); GLOMERULAR FILTRATION RATE 72 ML/MIN (>89); GLUCOSE,RANDOM 158 MG/DL (74-106); SODIUM (NA) 135 MEQ/L (136-145)
[2017-06-24 17:15] LABS: BILIRUBIN, URINE NEG (NEG); BLOOD, URINE NEG (NEG); GLUCOSE,URINE NEG (NEG); HYALINE CAST, URINE 4 /lpf (RARE); KETONE, URINE 10 mg/dL (NEG); MUCUS URINE FEW /lpf (OCC); NITRITE,URINE NEG (NEG); URINE COLOR YELLOW (YELLW/STRAW); URINE LEUKOCYTE ESTERASE NEG (NEG)
[2017-06-24] MEDS ORDERED: hydrALAZINE HCL 20 MG/ML VIAL IV PUSH ONE (17:45)
[2017-06-24 18:43] VITALS: BP 166/83; PULSE 92; RESP 16; O2SAT 96
[2017-06-24 19:11] LABS: OVALOCYTES 1+ (NORMAL)
[2017-06-24 19:13] LABS: TOXIC GRANULATION 1+ (NORMAL)
[2017-06-24] MEDS ORDERED: NALOXONE HCL 0.4 MG/ML AMP IV PUSH PRN (20:00)
[2017-06-24] MEDS ORDERED: SODIUM CHLORIDE 0.9% FLUSH 10 ML FLUSH IV FLUSH PRN (20:00)
[2017-06-24 20:04] VITALS: BP 133/67; PULSE 113; RESP 16; O2SAT 97
[2017-06-24] MEDS: SODIUM CHLORIDE 0.9% FLUSH 10 ML FLUSH IV FLUSH SCH (21:34)
--- NOTE | 2017-06-24 23:54 | HHI.HP ---
[facility] Primary Care Physician Maykel Lockwood M.D. Admission Diagnosis AMS, generalized weakness Diagnoses: Travel History International Travel<30 Days: No Contact w/Intl Traveler <30 Da: No History of Present Illness History from patient, ER communication, interview of medical records. Patient is extremely hard of hearing. He states that he lives by himself. He was discharged from our hospital on June 19, 2017. Medical records reviewed. Per ER notes, patient was initially discharged to [facility] and he actually left the nursing facility within 1 day because he wanted to live by himself. Today though, patient states he is not sure why the EMS was called. However he reports that he has been falling down a lot. He reports that just the other night, he was in the shower for 12 hours because he just was not able to get up. When asked why he was falling, he states he is not sure. He just does not have strength. Apart from these falls, patient denies any other symptoms. He states he is too proud to use a walker. He reports that he is not getting he uses a walker even if we prescribe him one. Reports he usually goes out for meals by himself once a day. For the rest of the meals, he would need cold food or snacks at home. He is independent of daily activities according to him. Per ER notes, patient's neighbors/staff at independent living facility at [facility] called EMS after a well check. They noted patient has missed phone calls over the past few days and assumed that he may have been down for at least 2 days. Patient was also covered with feces and smell of urine upon arrival to ER. Neighbors are also noted the patient is not as sharp as his baseline is and has been falling a lot. Review of Systems Except as stated in HPI: all other systems reviewed are Neg Past Family Social History Past Medical History htn dm hard of hearing Past Surgical History hernia sx cholecystectomy Allergies: Coded Allergies: No Known Allergies (Unverified , 06/24/17) Family History father -dm Social History never smoked never drank etoh heavily no drugs lives by himself Physical Exam Vital Signs Vital Signs Date Time Temp Pulse Resp B/P (MAP) Pulse Ox O2 Delivery O2 Flow Rate FiO2 06/24/17 20:04 113 16 133/67 (89) 97 06/24/17 18:43 92 16 166/83 (110) 96 06/24/17 15:30 16 96 Room Air 06/24/17 15:15 82 16 224/86 (132) 95 Room Air 06/24/17 14:50 89 16 216/98 (137) 96 Room Air Physical Exam GENERAL: This is a well-nourished, well-developed patient, in no apparent distress. SKIN: Dry scaly skin HEAD: Atraumatic. Normocephalic. No temporal or scalp tenderness. EYES: No scleral icterus. No injection or drainage. ENT: Nose without bleeding, purulent drainage or septal hematoma. Airway patent. NECK: Trachea midline. No JVD Supple, nontender, no meningeal signs. CARDIOVASCULAR: Regular rate and rhythm without murmurs, gallops, or rubs. RESPIRATORY: Clear to auscultation. Breath sounds equal bilaterally. No wheezes , rales, or rhonchi. GASTROINTESTINAL: Abdomen soft, non-tender, nondistended.No guarding. MUSCULOSKELETAL: Extremities without clubbing, cyanosis, or edema. No calf tenderness. NEUROLOGICAL: Awake and alert.. Motor and sensory grossly within normal limits. Normal speech. Laboratory Laboratory Tests Test 06/24/17 14:50 06/24/17 16:15 White Blood Count 8.9 Red Blood Count 4.91 Hemoglobin 13.4 Hematocrit 39.5 Mean Corpuscular Volume 80.4 Mean Corpuscular Hemoglobin 27.2 Mean Corpuscular Hemoglobin Concent 33.9 Red Cell Distribution Width 15.8 Platelet Count 328 Mean Platelet Volume 8.5 Neutrophils (%) (Auto) 68.8 Lymphocytes (%) (Auto) 22.7 Monocytes (%) (Auto) 6.1 Eosinophils (%) (Auto) 1.8 Basophils (%) (Auto) 0.6 Neutrophils # (Auto) 6.1 Lymphocytes # (Auto) 2.0 Monocytes # (Auto) 0.5 Eosinophils # (Auto) 0.2 Basophils # (Auto) 0.1 CBC Comment AUTO DIFF Differential Comment AUTO DIFF CONFIRMED Toxic Granulation 1+ Platelet Estimate NORMAL Platelet Morphology Comment NORMAL Ovalocytes 1+ Prothrombin Time 10.6 Prothromb Time International Ratio 1.0 Activated Partial Thromboplast Time 23.8 Blood Urea Nitrogen 15 Creatinine 1.02 Random Glucose 158 Total Protein 7.0 Albumin 3.4 Calcium Level 9.4 Alkaline Phosphatase 91 Aspartate Amino Transf (AST/SGOT) 21 Alanine Aminotransferase (ALT/SGPT) 30 Total Bilirubin 0.5 Sodium Level 135 Potassium Level 4.6 Chloride Level 100 Carbon Dioxide Level 24.4 Anion Gap 11 Estimat Glomerular Filtration Rate 72 Lactic Acid Level 1.6 Ammonia 18 Total Creatine Kinase 222 Troponin I LESS THAN 0.02 Thyroid Stimulating Hormone 3rd Gen 3.460 Urine Color YELLOW Urine Turbidity CLEAR Urine pH 6.0 Urine Specific [place] 1.020 Urine Protein TRACE Urine Glucose (UA) NEG Urine Ketones 10 Urine Occult Blood NEG Urine Nitrite NEG Urine Bilirubin NEG Urine Urobilinogen LESS THAN 2.0 Urine Leukocyte Esterase NEG Urine WBC 1 Urine Hyaline Casts 4 Urine Mucus FEW Microscopic Urinalysis Comment CATH-CULT NOT IND Urine Opiates Screen NEG Urine Barbiturates Screen NEG Urine Amphetamines Screen NEG Urine Benzodiazepines Screen NEG Urine Cocaine Screen NEG Urine Cannabinoids Screen NEG Date/Time Source Procedure Growth Status 06/24/17 15:00 Blood Peripheral Aerobic Blood Culture Pending Received 06/24/17 15:00 Blood Peripheral Anaerobic Blood Culture Pending Received Result Diagram: 06/24/17 1450 06/24/17 1450 Imaging Last [address] 06/24/17 1439 Signed Impressions: Service Date/Time: Saturday, June 24, 2017 15:44 - CONCLUSION: No acute disease. Fercho Drake MD Chest X-Ray 06/24/17 1439 Signed Impressions: Service Date/Time: Saturday, June 24, 2017 14:54 - CONCLUSION: 1. No acute abnormality or significant interval change. Joey Bush MD Shoulder X-Ray 06/24/17 0000 Signed Impressions: Service Date/Time: Saturday, June 24, 2017 15:32 - CONCLUSION: No acute disease. Fercho Drake MD Hip and Pelvis X-Ray 06/24/17 0000 Signed Impressions: Service Date/Time: Saturday, June 24, 2017 15:16 - CONCLUSION: No acute disease. Fercho Drake MD Caprini VTE Risk Assessment Vick VTE Risk Assessment: Mod/High Risk (score >= 2) Caprini Risk Assessment Model Point Value = 1 Point Value = 2 Point Value = 3 Point Value = 5 Age 41-60 Minor surgery BMI > 25 kg/m2 Swollen legs Varicose veins or History of unexplained or recurrent spontaneous Oral contraceptives or hormone replacement Sepsis (< 1 month) Serious lung disease, including pneumonia (< 1 month) Abnormal pulmonary function Acute myocardial infarction Congestive heart failure (< 1 month) History of inflammatory bowel disease Medical patient at bed rest Age 61-74 Arthroscopic surgery Major open surgery (> 45 min) Laparoscopic surgery (> 45 min) Malignancy Confined to bed (> 72 hours) Immobilizing plaster cast Central venous access Age >= 75 History of VTE Family history of VTE Factor V Leiden Prothrombin [id number] Lupus anticoagulant Anticardiolipin antibodies Elevated serum homocysteine Heparin-induced thrombocytopenia Other congenital or acquired thrombophilia Stroke (< 1 month) Elective arthroplasty Hip, pelvis, or leg fracture Acute spinal cord injury (< 1 month) Prophylaxis Regimen Total Risk Factor Score Risk Level Prophylaxis Regimen 0-1 Low Early ambulation 2 Moderate Order ONE of the following: *Sequential Compression Device (SCD) *Heparin 5000 units SQ BID 3-4 Higher Order ONE of the following medications: *Heparin 5000 units SQ TID *Enoxaparin/Lovenox 40 mg SQ daily (WT < 150 kg, CrCl > 30 mL/min) *Enoxaparin/Lovenox 30 mg SQ daily (WT < 150 kg, CrCl > 10-29 mL/min) *Enoxaparin/Lovenox 30 mg SQ BID (WT < 150 kg, CrCl > 30 mL/min) AND/OR *Sequential Compression Device (SCD) 5 or more Highest Order ONE of the following medications: *Heparin 5000 units SQ TID (Preferred with Epidurals) *Enoxaparin/Lovenox 40 mg SQ daily (WT < 150 kg, CrCl > 30 mL/min) *Enoxaparin/Lovenox 30 mg SQ daily (WT < 150 kg, CrCl > 10-29 mL/min) *Enoxaparin/Lovenox 30 mg SQ BID (WT < 150 kg, CrCl > 30 mL/min) AND *Sequential Compression Device (SCD) Assessment and Plan Assessment and Plan Impression: Status post fall. History of multiple frequent falls. Recent UTI. Discharged on June 19, 2017 Hypertension Diabetes Hard of hearing Plan: Physical therapy consult. At this point, there is no evidence of acute hypoglycemia. However patient does take quite a bit of oral hypoglycemic medications. For now and I would continue this and watch for hypoglycemia episodes. Doubt that this is his cause of unsteady gait. Most recent echo in September 2016 reviewed. Carotid sono. Monitor fingersticks. We'll monitor for orthostatics. Monitor for hypoglycemic episodes. Rehabilitation evaluation. DVT prophylaxis with Lovenox. Discussed Condition With Patient, nursing staff Jess Garcia MD Jun 24, 2017 23:54
[2017-06-25] VITALS (7 sets, daily range): BP systolic 107–154; BP diastolic 58–88; PULSE 78–91; RESP 16–22; TEMP 97.3–99; O2SAT 92–96
[2017-06-25] MEDS ORDERED: GLUCAGON 1 MG/ML VIAL OTHER PRN (01:45)
[2017-06-25] MEDS ORDERED: DEXTROSE 50% IN WATER 50 ML VIAL(D50) IV PUSH PRN (01:45)
[2017-06-25] MEDS ORDERED: MECLIZINE HCL 25 MG TAB PO PRN (01:45)
[2017-06-25 06:22] LABS: AUTOMATED NEUTROPHIL # 3.4 TH/MM3 (1.8-7.7); BASOPHIL # 0.1 TH/MM3 (0-0.2); BASOPHIL % 0.8 % (0.0-2.0); EOSINOPHIL # 0.3 TH/MM3 (0-0.4); EOSINOPHIL % 4.2 % (0.0-4.0); HEMATOCRIT 37.4 % (39.0-51.0); HEMOGLOBIN 12.8 GM/DL (13.0-17.0); LYMPH % 38.9 % (9.0-44.0); LYMPHOCYTE # 2.7 TH/MM3 (1.0-4.8); MEAN CELL VOLUME 80.6 FL (80.0-100.0); MEAN CORPUSCULAR HEMOGLOBIN 27.5 PG (27.0-34.0); MEAN CORPUSCULAR HGB CONC 34.1 % (32.0-36.0); MEAN PLATELET VOLUME 8.2 FL (7.0-11.0); MONO % 7.4 % (0.0-8.0); MONOCYTE # 0.5 TH/MM3 (0-0.9); NEUT % 48.7 % (16.0-70.0); PLATELET COUNT 295 TH/MM3 (150-450); RED BLOOD COUNT 4.64 MIL/MM3 (4.50-5.90); RED CELL DISTRIBUTION WIDTH 16.3 % (11.6-17.2); WHITE BLOOD COUNT 6.9 TH/MM3 (4.0-11.0)
[2017-06-25] MEDS: glipiZIDE 10 MG TAB PO SCH ×2 (06:49→18:28)
[2017-06-25 07:03] LABS: BICARBONATE 23.3 MEQ/L (21.0-32.0); CALCIUM 9.2 MG/DL (8.5-10.1); CREATININE 0.92 MG/DL (0.60-1.30)
[2017-06-25] MEDS: ASPIRIN 81 MG CHEW TAB PO SCH (08:14)
[2017-06-25] MEDS: FERROUS SULFATE 325 MG (65 MG ELEMENTAL IRON) TAB PO SCH (08:14)
[2017-06-25] MEDS: PANTOPRAZOLE SOD 20 MG DELAYED RELEASE TAB PO SCH (08:14)
[2017-06-25] MEDS: GABAPENTIN 300 MG CAP PO SCH ×3 (08:14→18:28)
[2017-06-25] MEDS: HYDROCHLOROTHIAZIDE 25 MG TAB PO SCH (08:14)
[2017-06-25] MEDS: INSULIN ASPART SUPPLEMENTAL SCALE SQ SCH ×4 (08:16→23:22)
[2017-06-25 08:43] LABS: OVALOCYTES 1+ (NORMAL)
[2017-06-25] MEDS: metFORMIN HCL 850 MG TAB PO SCH ×2 (10:31→20:19)
[2017-06-25] MEDS: CITALOPRAM HYDROBROMIDE 20 MG TAB PO SCH (10:31)
--- NOTE | 2017-06-25 11:02 | RADRPT ---
EXAM DATE/TIME: 06/25/2017 09:32 [place] COMPARISON: None. EXTERNAL COMPARISON : [facility], <<US CAROTIDS>>, July 25, 2015[facility], US CAROTIDS, August 29, 2012. INDICATIONS : <<Unsteady gait. >> MEDICAL HISTORY : Myocardial infarction. Hypertension. <<Renal disease. Arthritis. Diabetes. >> SURGICAL HISTORY : Cholecystectomy. <<Cataract surgery. Inguinal hernia repair. >> ENCOUNTER: Subsequent ACUITY: 1 day PAIN SCORE: 0/10 LOCATION: Bilateral neck PEAK SYSTOLIC VELOCITIES (cm/sec): ICA/CCA RATIO: Right:<<1.2>> Left:<<1.1>> ICA: Right:<<90>> Left:<<92>> CCA: Right:<<78>> Left:<<86>> ECA: Right:<<61>> Left:<<55>> VERTEBRAL: Right:<<46>> antegrade Left:<<56>> antegrade Elevated flow velocities and ICA/CCA ratios have been found to correlate with increased degrees of vessel stenosis, calculated as percentage of diameter relative to a normal segment of distal ICA/CCA FINDINGS: RIGHT CAROTID: No significant stenosis is visualized. The waveforms are within normal limits.Normal examination for a patient of this age. LEFT CAROTID: No significant stenosis is visualized. The waveforms are within normal limits. VERTEBRAL ARTERIES: Antegrade flow is seen in both vertebral arteries. MISCELLANEOUS: None. CONCLUSION: Normal examination for a patient of this age. Sebastian Milian MD on June 25, 2017 at 10:59 Board Certified Radiologist. This report was verified electronically.
--- NOTE | 2017-06-25 12:21 | HHI.PR ---
Subjective Remarks The patient is in bed sleeping. Says he has no pain at this time. No nausea or vomiting no diarrhea or constipation. He is pleasantly confused. Objective Vitals Vital Signs Date Time Temp Pulse Resp B/P (MAP) Pulse Ox O2 Delivery O2 Flow Rate FiO2 06/25/17 08:00 98.5 83 20 137/74 (95) 95 06/25/17 04:00 98.0 78 20 154/88 (110) 95 06/25/17 00:00 98.6 82 22 152/71 (98) 95 06/24/17 20:04 113 16 133/67 (89) 97 06/24/17 18:43 92 16 166/83 (110) 96 06/24/17 15:30 16 96 Room Air 06/24/17 15:15 82 16 224/86 (132) 95 Room Air 06/24/17 14:50 89 16 216/98 (137) 96 Room Air I/O 06/24/17 06/24/17 06/24/17 06/25/17 06/25/17 06/25/17 07:00 15:00 23:00 07:00 15:00 23:00 Intake Total 500 ml 120 ml Output Total 800 ml Balance 500 ml -680 ml Intake Oral 120 ml IV Total 500 ml Output Urine Total 800 ml # Voids 1 # Bowel Movements 1 Result Diagram: 06/25/17 0521 06/25/17 0521 Imaging Last Impressions Carotid Artery Ultrasound 06/25/17 0000 Signed Impressions: Service Date/Time: Sunday, June 25, 2017 09:32 - CONCLUSION: Normal examination for a patient of this age. Sebastian Milian MD Head CT 06/24/17 1439 Signed Impressions: Service Date/Time: Saturday, June 24, 2017 15:44 - CONCLUSION: No acute disease. Fercho Drake MD Chest X-Ray 06/24/17 1439 Signed Impressions: Service Date/Time: Saturday, June 24, 2017 14:54 - CONCLUSION: 1. No acute abnormality or significant interval change. Joey Bush MD Shoulder X-Ray 06/24/17 0000 Signed Impressions: Service Date/Time: Saturday, June 24, 2017 15:32 - CONCLUSION: No acute disease. Fercho Drake MD Hip and Pelvis X-Ray 06/24/17 0000 Signed Impressions: Service Date/Time: Saturday, June 24, 2017 15:16 - CONCLUSION: No acute disease. Fercho Drake MD Objective Remarks GENERAL: This is a well-nourished, well-developed patient, in no apparent distress. SKIN: Dry scaly skin CARDIOVASCULAR: Regular rate and rhythm without murmurs, gallops, or rubs. RESPIRATORY: Clear to auscultation. Breath sounds equal bilaterally. No wheezes , rales, or rhonchi. GASTROINTESTINAL: Abdomen soft, non-tender, nondistended.No guarding. MUSCULOSKELETAL: Extremities without clubbing, cyanosis, or edema. No calf tenderness. NEUROLOGICAL: Awake and alert. Pleasantly confused. Motor and sensory grossly within normal limits. Normal speech. A/P Assessment and Plan Status post fall. History of multiple frequent falls. Recent UTI. Discharged on June 19, 2017 Hypertension Diabetes Hard of hearing Plan: Physical therapy consult. At this point, there is no evidence of acute hypoglycemia. However patient does take quite a bit of oral hypoglycemic medications. Watch for hypoglycemia episodes. Doubt that this is his cause of unsteady gait. Most recent echo in September 2016 reviewed. Carotid US normal Monitor fingersticks. We'll monitor for orthostatics. Monitor for hypoglycemic episodes. Rehabilitation evaluation. DVT prophylaxis with Lovenox. Discussed Condition With Patient, nurse Milly Davey MD Jun 25, 2017 12:21
--- NOTE | 2017-06-25 20:20 | EKG ---
Date Performed: 06/24/2017 Time Performed: 14:50:03 PTAGE: 72 years EKG: Sinus rhythm POSSIBLE LEFT ATRIAL ENLARGEMENT ABNORMAL ECG Since the PREVIOUS TRACING , no significant change noted DOCTOR: Indu Emmanuel Interpretating Date/Time 06/25/2017 20:18:08
[2017-06-25] MEDS: SODIUM CHLORIDE 0.9% FLUSH 10 ML FLUSH IV FLUSH SCH ×2 (21:00→23:12)
[2017-06-25] MEDS ORDERED: NON-FORMULARY DRUG (Trazodone 100 MG) PO SCH (21:00)
[2017-06-25] MEDS: traZODone HCL 100 MG TAB PO SCH (23:11)
[2017-06-25] MEDS: ATORVASTATIN 20 MG TAB PO SCH (23:11)
[2017-06-25] MEDS: TAMSULOSIN HCL 0.4 MG CAP PO SCH (23:11)
[2017-06-26] VITALS (8 sets, daily range): BP systolic 96–141; BP diastolic 56–76; PULSE 83–94; RESP 16–20; TEMP 97.6–98.7; O2SAT 94–96
[2017-06-26] MEDS ORDERED: PNEUMOCOCCAL POLYVALENT INJ 25 MCG/0.5 ML SYR IM ONE (10:00)
[2017-06-26] MEDS ORDERED: INFLUENZA VIRUS VACCINE (QUADRIVALENT) 0.5 ML SYR IM ONE (10:00)
[2017-06-26] MEDS: FERROUS SULFATE 325 MG (65 MG ELEMENTAL IRON) TAB PO SCH (10:07)
[2017-06-26] MEDS: metFORMIN HCL 850 MG TAB PO SCH ×2 (10:07→18:44)
[2017-06-26] MEDS: HYDROCHLOROTHIAZIDE 25 MG TAB PO SCH (10:08)
[2017-06-26] MEDS: PANTOPRAZOLE SOD 20 MG DELAYED RELEASE TAB PO SCH (10:08)
[2017-06-26] MEDS: ASPIRIN 81 MG CHEW TAB PO SCH (10:08)
[2017-06-26] MEDS: CITALOPRAM HYDROBROMIDE 20 MG TAB PO SCH (10:08)
[2017-06-26] MEDS: glipiZIDE 10 MG TAB PO SCH ×2 (10:08→17:34)
[2017-06-26] MEDS: INSULIN ASPART SUPPLEMENTAL SCALE SQ SCH ×4 (10:09→20:58)
[2017-06-26] MEDS: GABAPENTIN 300 MG CAP PO SCH ×3 (10:09→18:44)
--- NOTE | 2017-06-26 10:11 | HHI.PR ---
Subjective Remarks Pleasantly confused in bed appears sleepy. Denies having any pain at this time. Since he was not eating because he does not like the food. No nausea or vomiting or diarrhea or constipation Objective Vitals Vital Signs Date Time Temp Pulse Resp B/P (MAP) Pulse Ox O2 Delivery O2 Flow Rate FiO2 06/26/17 07:36 98.0 84 18 139/71 (93) 95 06/26/17 03:30 97.6 88 20 141/68 (92) 95 06/26/17 03:26 94 06/26/17 02:11 93 06/26/17 00:07 97.6 83 16 120/76 (91) 94 106/63 (77) 96/57 (70) 06/25/17 21:10 99.0 81 16 129/72 (91) 96 127/63 (84) 107/79 (88) 06/25/17 16:00 97.3 84 18 127/67 (87) 92 06/25/17 14:00 98.1 91 18 145/86 (105) 95 06/25/17 12:00 98.6 85 20 113/58 (76) 92 I/O 06/25/17 06/25/17 06/25/17 06/26/17 06/26/17 06/26/17 07:00 15:00 23:00 07:00 15:00 23:00 Intake Total 120 ml Output Total 800 ml Balance -680 ml Intake Oral 120 ml Output Urine Total 800 ml # Voids 1 # Bowel Movements 1 Result Diagram: 06/25/17 0521 06/25/17 0521 Imaging Last Impressions Carotid Artery Ultrasound 06/25/17 0000 Signed Impressions: Service Date/Time: Sunday, June 25, 2017 09:32 - CONCLUSION: Normal examination for a patient of this age. Sebastian Milian MD Head CT [id number] Signed Impressions: Service Date/Time: Saturday, June 24, 2017 15:44 - CONCLUSION: No acute disease. Fercho Drake MD Chest X-Ray [id number] Signed Impressions: Service Date/Time: Saturday, June 24, 2017 14:54 - CONCLUSION: 1. No acute abnormality or significant interval change. Joey Bush MD Shoulder X-Ray 06/24/17 0000 Signed Impressions: Service Date/Time: Saturday, June 24, 2017 15:32 - CONCLUSION: No acute disease. Fercho Drake MD Hip and Pelvis X-Ray 06/24/17 0000 Signed Impressions: Service Date/Time: Saturday, June 24, 2017 15:16 - CONCLUSION: No acute disease. Fercho Drake MD Objective Remarks GENERAL: This is a well-nourished, well-developed patient, in no apparent distress. SKIN: Dry scaly skin CARDIOVASCULAR: Regular rate and rhythm without murmurs, gallops, or rubs. RESPIRATORY: Clear to auscultation. Breath sounds equal bilaterally. No wheezes , rales, or rhonchi. GASTROINTESTINAL: Abdomen soft, non-tender, nondistended.No guarding. MUSCULOSKELETAL: Extremities without clubbing, cyanosis, or edema. No calf tenderness. NEUROLOGICAL: Awake and alert. Pleasantly confused. Motor and sensory grossly within normal limits. Normal speech. A/P Assessment and Plan Status post fall. History of multiple frequent falls. Recent UTI. Discharged on June 19, 2017 Hypertension Diabetes Hard of hearing Plan: Physical therapy consult. At this point, there is no evidence of acute hypoglycemia. However patient does take quite a bit of oral hypoglycemic medications. Watch for hypoglycemia episodes. Doubt that this is his cause of unsteady gait. Most recent echo in September 2016 reviewed. Carotid US normal Vitamin B12 seen to low normal side, start B12 supplement Monitor fingersticks. We'll monitor for orthostatics. Monitor for hypoglycemic episodes. Rehabilitation evaluation. Consult psychiatry for evaluation Add multivitamins patient with low appetite DVT prophylaxis with Lovenox. Discussed Condition With Patient, nurse Milly Davey MD Jun 26, 2017 10:11
--- NOTE | 2017-06-26 12:50 | PD.PSY.CON ---
Provisional Diagnosis Admission Date Jun 24, 2017 at 18:23 [place]. Dementia without behavioral disturbances History of Present Illness Service Psychiatry Consult Requested By ER Reason for Consult Decision making capacity Primary Care Physician Maykel Lockwood M.D. HPI The patient is 72-year-old man, domiciled in a residential facility, single, retired, he denies previous psychiatric history, no previous psychiatric hospitalizations, no previous suicide attempts, medical history hypertension, diabetes, who presents emergency department via [facility] from his assisted living facility with altered mental status for 2 days. History is limited as I do not have the report from [facility] and patient is a poor historian and very hard of hearing. Patient does not know why he is here at the hospital today and believes that he is at a hospital at [facility]. Patient is unable to tell me any history at this point. Status post fall.History of multiple frequent falls. Recent UTI. Discharged on June 19, 2017. Psychiatric evaluation the patient is calm, superficially cooperative, pleasantly confused, he knows that he is in a hospital, but he does not remember the reason is here. The patient is completely disoriented in time, unable to provide information about his medical conditions, unable to provide evening logical choice regarding his medical care at this moment. He denies suicidal or homicidal ideation, he denies visual and auditory hallucinations. Review of Systems Constitutional: DENIES: Diaphoretic episodes, Fatigue, Fever, Weight gain, Weight loss, Chills, Dizziness, Change in appetite, Night Sweats Endocrine: DENIES: Heat/cold intolerance, Polydipsia, Polyuria, Polyphagia Eyes: DENIES: Blurred vision, Diplopia, Eye inflammation, Eye pain, Vision loss , Photosensitivity, Double Vision Ears, nose, mouth, throat: DENIES: Tinnitus, Hearing loss, Vertigo, Nasal discharge, Oral lesions, Throat pain, Hoarseness, Ear Pain, Running Nose, Epistaxis, Sinus Pain, Toothache, Odynophagia Respiratory: DENIES: Apneas, Cough, Snoring, Wheezing, Hemoptysis, Sputum production, Shortness of breath Cardiovascular: DENIES: Chest pain, Palpitations, Syncope, Dyspnea on Exertion , PND, Lower Extremity Edema, Orthopnea, Claudication Gastrointestinal: DENIES: Abdominal pain, Black stools, Bloody stools, Constipation, Diarrhea, Nausea, Vomiting, Difficulty Swallowing, Anorexia Genitourinary: DENIES: Sexual dysfunction, Urinary frequency, Urinary incontinence, Urgency, Hematuria, Dysuria, Nocturia, Penile Discharge, Testicular Pain, Testicular Swelling Musculoskeletal: DENIES: Joint pain, Muscle aches, Stiffness, Joint Swelling, Back pain, Neck pain Integumentary: DENIES: Abnormal pigmentation, Nail changes, Pruritus, Rash Hematologic/lymphatic: DENIES: Bruising, Lymphadenopathy Immunologic/allergic: DENIES: Eczema, Urticaria Neurologic: DENIES: Abnormal gait, Headache, Localized weakness, Paresthesias, Seizures, Speech Problems, Tremor, Poor Balance Psychiatric: DENIES: Anxiety, Confusion, Mood changes, Depression, Hallucinations, Agitation, Suicidal Ideation, Homicidal Ideation, Delusions Past Family Social History Coded Allergies: No Known Allergies (Unverified , 06/24/17) Active Scripts Ciprofloxacin (Cipro) 250 Mg Tab, 250 MG PO BID for Infection for 7 Days, #14 TAB 0 Refills Prov:Kenya Kunz PA-C 06/19/17 Amlodipine (Amlodipine) 10 Mg Tab, 10 MG PO DAILY for Blood Pressure Management , #30 TAB 0 Refills Prov:Kenya Kunz PA-C 06/18/17 Tamsulosin (Flomax) 0.4 Mg Cap, 0.4 MG PO HS for Manage Prostate Problems, #30 CAP 0 Refills Prov:Afsaneh Ren DO 10/11/16 Ferrous Sulfate (Ferosul) 325 Mg Tablet, 325 MG PO DAILY for iron deficiency , # 30 BOTTLE take with orange juice if possible Prov:Afsaneh Ren DO 10/11/16 Reported Medications Meclizine (Meclizine) 25 Mg Tab, 25 MG PO TID Y for VERTIGO, TAB 0 Refills 06/17/17 Aspirin (Aspirin) 81 Mg Chew, 81 MG PO DAILY, TAB 0 Refills 06/17/17 Metformin (Metformin) 850 Mg Tab, 850 MG PO BIDPC for Blood Sugar Management, TAB 0 Refills 06/17/17 Gabapentin (Gabapentin) 600 Mg Tab, 600 MG PO TID, #90 TAB 0 Refills 06/17/17 Hydrochlorothiazide (Hydrochlorothiazide) 25 Mg Tab, 25 MG PO DAILY, #30 TAB 0 Refills 10/07/16 Trazodone (Trazodone) 100 Mg Tablet, 100 MG PO HS for Control Depression, #30 TAB 0 Refills 10/07/16 Sitagliptin (Januvia) 100 Mg Tab, 100 MG PO DAILY for Blood Sugar Management, # 30 TAB 0 Refills 10/07/16 Citalopram (Citalopram) 20 Mg Tab, 20 MG PO DAILY for Control Depression, #30 TAB 0 Refills 10/07/16 Glipizide (Glipizide) 10 Mg Tab, 10 MG PO BIDAC for Blood Sugar Management, #60 TAB 0 Refills Take 30 minutes before a meal 10/07/16 Atorvastatin (Atorvastatin) 20 Mg Tab, 20 MG PO HS for Cholesterol Management, # 30 TAB 0 Refills 10/07/16 Pantoprazole (Pantoprazole) 20 Mg Tab, 20 MG PO DAILY for Reflux, #30 TAB 0 Refills 10/07/16 Current Medications Medications (Trade) Dose Ordered Sig/Tracy Route Start Time Stop Time Status Last Admin (NS Flush) 2 ml UNSCH PRN IV FLUSH 06/24/17 20:00 (NS Flush) 2 ml BID IV FLUSH 06/24/17 21:00 06/25/17 23:12 (Narcan Inj) 0.4 mg UNSCH PRN IV PUSH 06/24/17 20:00 (Norvasc) 10 mg DAILY PO 06/25/17 09:00 06/26/17 10:08 (Aspirin Chew) 81 mg DAILY PO 06/25/17 09:00 06/26/17 10:08 (Lipitor) 20 mg HS PO 06/25/17 21:00 06/25/17 23:11 (CeleXA) 20 mg DAILY PO 06/25/17 09:00 06/26/17 10:08 (Ferrous Sulfate) 325 mg DAILY PO 06/25/17 09:00 06/26/17 10:07 (Neurontin) 600 mg TID PO 06/25/17 09:00 06/26/17 10:09 (Glucotrol) 10 mg BIDAC PO 06/25/17 07:00 06/26/17 10:08 (Hydrodiuril) 25 mg DAILY PO 06/25/17 09:00 06/26/17 10:08 (Antivert) 25 mg TID PRN PO 06/25/17 01:45 06/25/17 08:15 (Glucophage) 850 mg BIDPC PO 06/25/17 09:00 06/26/17 10:07 (Protonix) 20 mg DAILY PO 06/25/17 09:00 06/26/17 10:08 (Januvia) 100 mg DAILY PO 06/25/17 09:00 06/26/17 10:07 (Flomax) 0.4 mg HS PO 06/25/17 21:00 06/25/17 23:11 (D50w (Vial) Inj) 50 ml UNSCH PRN IV PUSH 06/25/17 01:45 (Glucagon Inj) 1 mg UNSCH PRN OTHER 06/25/17 01:45 (NovoLOG SUPPLEMENTAL SCALE) 1 ACHS SLIDING SCALE SQ 06/25/17 08:00 06/25/17 23:22 (Desyrel) 100 mg HS PO 06/25/17 21:30 06/25/17 23:11 Physical Exam Vital Signs Vital Signs Date Time Temp Pulse Resp B/P (MAP) Pulse Ox O2 Delivery O2 Flow Rate FiO2 06/26/17 07:36 98.0 84 18 139/71 (93) 95 06/24/17 15:30 Room Air Lab Results Date/Time Source Procedure Growth Status 06/24/17 15:00 Blood Peripheral Aerobic Blood Culture - Preliminary NO GROWTH IN 2 DAYS Resulted 06/24/17 15:00 Blood Peripheral Anaerobic Blood Culture - Preliminary NO GROWTH IN 2 DAYS Resulted Mental Status Examination Appearance: Appropriate Consciousness: Alert Orientation: Person Motor Activity: Normal gait Speech: Unremarkable Language: Adequate Fund of Knowledge: Adequate Attention and Concentration: Adequate Memory: Impaired Mood: Appropriate Affect: Appropriate Thought Process & Associations: Loose associations Thought Content: Appropriate Hallucination Type: None Delusion Type: None Suicidal Ideation: No Suicidal Plan: No Suicidal Intention: No Homicidal Ideation: No Homicidal Plan: No Homicidal Intention: No Insight: Fair Judgment: Impulsive Assessment & Plan Problem List: (1) Dementia without behavioral disturbance ICD Codes: F03.90 - Unspecified dementia without behavioral disturbance Assessment & Plan: At the moment of the psychiatric evaluation the patient does not present any neuropsychiatric symptoms require an immediate psychiatric intervention. Patient is disoriented in time and place, he shows impairment in immediate and recent recall, reality construction, abstract thinking and executive function which is most probably part of an ongoing dementia. The patient is unable to verbalize a reason for his hospitalization, he does not seem to be aware of his current medical situation, as a consequence the patient does not have decision-making capacity to participate in discharge planning at this moment. Assessment & Plan Estimated LOS: days Harlan Quiles MD Jun 26, 2017 12:50
--- NOTE | 2017-06-26 13:42 | HHI.DS ---
Discharge Summary Admission Date Jun 24, 2017 at 18:23 Discharge Date: Jul 03, 2017 Admitting Diagnosis AMS, generalized weakness (1) Dementia without behavioral disturbance ICD Code: F03.90 - Unspecified dementia without behavioral disturbance (2) Hypertension ICD Code: I10 - Essential (primary) hypertension Status: Chronic (3) Hyperlipidemia ICD Code: E78.5 - Hyperlipidemia, unspecified Status: Chronic (4) Diabetes ICD Code: E11.9 - Type 2 diabetes mellitus without complications Status: Chronic (5) Acute metabolic encephalopathy ICD Code: G93.41 - Metabolic encephalopathy (6) Slurred speech ICD Code: R47.81 - Slurred speech (7) Hyperglycemia ICD Code: R73.9 - Hyperglycemia, unspecified Status: Acute (8) Anemia ICD Code: D64.9 - Anemia, unspecified Status: Acute Procedures none Brief History - From Admission History from patient, ER communication, interview of medical records. Patient is extremely hard of hearing. He states that he lives by himself. He was discharged from our hospital on June 19, 2017. Medical records reviewed. Per ER notes, patient was initially discharged to [facility] and he actually left the nursing facility within 1 day because he wanted to live by himself. Today though, patient states he is not sure why the EMS was called. However he reports that he has been falling down a lot. He reports that just the other night, he was in the shower for 12 hours because he just was not able to get up. When asked why he was falling, he states he is not sure. He just does not have strength. Apart from these falls, patient denies any other symptoms. He states he is too proud to use a walker. He reports that he is not getting he uses a walker even if we prescribe him one. Reports he usually goes out for meals by himself once a day. For the rest of the meals, he would need cold food or snacks at home. He is independent of daily activities according to him. Per ER notes, patient's neighbors/staff at independent living facility at [facility] called EMS after a well check. They noted patient has missed phone calls over the past few days and assumed that he may have been down for at least 2 days. Patient was also covered with feces and smell of urine upon arrival to ER. Neighbors are also noted the patient is not as sharp as his baseline is and has been falling a lot. CBC/BMP: 06/25/17 0521 06/25/17 0521 Significant Findings Laboratory Tests Test 06/24/17 14:50 06/24/17 16:15 06/25/17 05:21 Toxic Granulation 1+ (NORMAL) Ovalocytes 1+ (NORMAL) 1+ (NORMAL) Activated Partial Thromboplast Time 23.8 SEC (24.3-30.1) Random Glucose 158 MG/DL (74-106) 157 MG/DL (74-106) Sodium Level 135 MEQ/L (136-145) 135 MEQ/L (136-145) Estimat Glomerular Filtration Rate 72 ML/MIN (>89) 81 ML/MIN (>89) Troponin I LESS THAN 0.02 NG/ML Urine Ketones 10 mg/dL (NEG) Urine Mucus FEW /lpf (OCC) Hemoglobin 12.8 GM/DL (13.0-17.0) Hematocrit 37.4 % (39.0-51.0) Eosinophils (%) (Auto) 4.2 % (0.0-4.0) Imaging Last Impressions Carotid Artery Ultrasound 06/25/17 0000 Signed Impressions: Service Date/Time: Sunday, June 25, 2017 09:32 - CONCLUSION: Normal examination for a patient of this age. Sebastian Milian MD Head CT 06/24/17 1439 Signed Impressions: Service Date/Time: Saturday, June 24, 2017 15:44 - CONCLUSION: No acute disease. Fercho Drake MD Chest X-Ray 06/24/17 1439 Signed Impressions: Service Date/Time: Saturday, June 24, 2017 14:54 - CONCLUSION: 1. No acute abnormality or significant interval change. Joey Bush MD Shoulder X-Ray 06/24/17 0000 Signed Impressions: Service Date/Time: Saturday, June 24, 2017 15:32 - CONCLUSION: No acute disease. Fercho Drake MD Hip and Pelvis X-Ray 06/24/17 0000 Signed Impressions: Service Date/Time: Saturday, June 24, 2017 15:16 - CONCLUSION: No acute disease. Fercho Drake MD PE at Discharge GENERAL: This is a well-nourished, well-developed patient, in no apparent distress. SKIN: Dry scaly skin CARDIOVASCULAR: Regular rate and rhythm without murmurs, gallops, or rubs. RESPIRATORY: Clear to auscultation. Breath sounds equal bilaterally. No wheezes , rales, or rhonchi. GASTROINTESTINAL: Abdomen soft, non-tender, nondistended.No guarding. MUSCULOSKELETAL: Extremities without clubbing, cyanosis, or edema. No calf tenderness. NEUROLOGICAL: Awake and alert. Pleasantly confused. Motor and sensory grossly within normal limits. Normal speech. Hospital Course Status post fall. History of multiple frequent falls. Recent UTI. Discharged on June 19, 2017 Hypertension Diabetes Hard of hearing Plan: Physical therapy consult. At this point, there is no evidence of acute hypoglycemia. However patient does take quite a bit of oral hypoglycemic medications. Watch for hypoglycemia episodes. Doubt that this is his cause of unsteady gait. Most recent echo in September 2016 reviewed. Carotid US normal Vitamin B12 seen to low normal side, start B12 supplement Monitor fingersticks. We'll monitor for orthostatics. Add multivitamins patient with low appetite Monitor for hypoglycemic episodes. Rehabilitation evaluation. Consult psychiatry patient without capacity and can't make decisions. PT recommends rehab DC to rehab to follow up as OP with PCP and consultants. Pt Condition on Discharge: Stable Discharge Disposition: Discharge to SNF Discharge Time: > 30 minutes Discharge Instructions DIET: Follow Instructions for: Heart Healthy Diet, Diabetic Diet Activities you can perform: Regular-No Restrictions Follow up Referrals: PCP Follow-up - 1 Week Continued Medications: Amlodipine (Amlodipine) 10 Mg Tab 10 MG PO DAILY for Blood Pressure Management, #30 TAB 0 Refills Aspirin (Aspirin) 81 Mg Chew 81 MG PO DAILY, TAB 0 Refills Atorvastatin (Atorvastatin) 20 Mg Tab 20 MG PO HS for Cholesterol Management, #30 TAB 0 Refills Citalopram (Citalopram) 20 Mg Tab 20 MG PO DAILY for Control Depression, #30 TAB 0 Refills Ferrous Sulfate (Ferosul) 325 Mg Tablet 325 MG PO DAILY for iron deficiency , #30 BOTTLE take with orange juice if possible Gabapentin (Gabapentin) 600 Mg Tab 600 MG PO TID, #90 TAB 0 Refills Glipizide (Glipizide) 10 Mg Tab 10 MG PO BIDAC for Blood Sugar Management, #60 TAB 0 Refills Take 30 minutes before a meal Hydrochlorothiazide (Hydrochlorothiazide) 25 Mg Tab 25 MG PO DAILY, #30 TAB 0 Refills Meclizine (Meclizine) 25 Mg Tab 25 MG PO TID PRN for VERTIGO, TAB 0 Refills Metformin (Metformin) 850 Mg Tab 850 MG PO BIDPC for Blood Sugar Management, TAB 0 Refills Pantoprazole (Pantoprazole) 20 Mg Tab 20 MG PO DAILY for Reflux, #30 TAB 0 Refills Sitagliptin (Januvia) 100 Mg Tab 100 MG PO DAILY for Blood Sugar Management, #30 TAB 0 Refills Tamsulosin (Flomax) 0.4 Mg Cap 0.4 MG PO HS for Manage Prostate Problems, #30 CAP 0 Refills Trazodone (Trazodone) 100 Mg Tablet 100 MG PO HS for Control Depression, #30 TAB 0 Refills Discontinued Medications: Ciprofloxacin (Cipro) 250 Mg Tab 250 MG PO BID for Infection for 7 Days, #14 TAB 0 Refills Milly Davey MD Jun 26, 2017 13:42
[2017-06-26] MEDS: CYANOCOBALAMIN 100 MCG TAB PO SCH (15:08)
[2017-06-26] MEDS: SODIUM CHLORIDE 0.9% FLUSH 10 ML FLUSH IV FLUSH SCH ×2 (18:44→20:57)
[2017-06-26] MEDS: ATORVASTATIN 20 MG TAB PO SCH (20:57)
[2017-06-26] MEDS: TAMSULOSIN HCL 0.4 MG CAP PO SCH (20:57)
[2017-06-26] MEDS: traZODone HCL 100 MG TAB PO SCH (20:57)
[2017-06-27] VITALS (8 sets, daily range): BP systolic 92–150; BP diastolic 57–77; PULSE 83–94; RESP 16–24; TEMP 97.6–98.7; O2SAT 93–98
--- NOTE | 2017-06-27 07:33 | HHI.PR ---
Subjective Remarks Pleasantly confused. Not eating well. Complaints of headaches No fever or chills No motor deficit or sensory deficit. Feels weak. Not able to ambulate much. Objective Vitals Vital Signs Date Time Temp Pulse Resp B/P (MAP) Pulse Ox O2 Delivery O2 Flow Rate FiO2 06/27/17 04:28 97.6 90 20 150/75 (100) 95 06/27/17 00:52 97.6 94 20 112/73 (86) 95 06/26/17 20:20 98.0 86 20 115/73 (87) 94 06/26/17 16:07 98.2 92 18 122/56 (78) 94 06/26/17 13:14 98.7 84 18 114/59 (77) 96 06/26/17 07:36 98.0 84 18 139/71 (93) 95 Result Diagram: 06/25/17 0521 06/25/17 0521 Imaging Last Impressions Carotid Artery Ultrasound 06/25/17 0000 Signed Impressions: Service Date/Time: Sunday, June 25, 2017 09:32 - CONCLUSION: Normal examination for a patient of this age. Sebastian Milian MD Head CT 06/24/17 1439 Signed Impressions: Service Date/Time: Saturday, June 24, 2017 15:44 - CONCLUSION: No acute disease. Fercho Drake MD Chest X-Ray 06/24/17 1439 Signed Impressions: Service Date/Time: Saturday, June 24, 2017 14:54 - CONCLUSION: 1. No acute abnormality or significant interval change. Joey Bush MD Shoulder X-Ray 06/24/17 0000 Signed Impressions: Service Date/Time: Saturday, June 24, 2017 15:32 - CONCLUSION: No acute disease. Fercho Drake MD Hip and Pelvis X-Ray 06/24/17 0000 Signed Impressions: Service Date/Time: Saturday, June 24, 2017 15:16 - CONCLUSION: No acute disease. Fercho Drake MD Objective Remarks GENERAL: This is a well-nourished, well-developed patient, in no apparent distress. SKIN: Dry scaly skin CARDIOVASCULAR: Regular rate and rhythm without murmurs, gallops, or rubs. RESPIRATORY: Clear to auscultation. Breath sounds equal bilaterally. No wheezes , rales, or rhonchi. GASTROINTESTINAL: Abdomen soft, non-tender, nondistended.No guarding. MUSCULOSKELETAL: Extremities without clubbing, cyanosis, or edema. No calf tenderness. NEUROLOGICAL: Awake and alert. Pleasantly confused. Motor and sensory grossly within normal limits. Normal speech. Procedures none A/P Assessment and Plan Status post fall. History of multiple frequent falls. Recent UTI. Discharged on June 19, 2017 Hypertension Diabetes Hard of hearing Plan: Physical therapy consult. At this point, there is no evidence of acute hypoglycemia. However patient does take quite a bit of oral hypoglycemic medications. Watch for hypoglycemia episodes. Doubt that this is his cause of unsteady gait. Most recent echo in September 2016 reviewed. Carotid US normal Vitamin B12 seen to low normal side, start B12 supplement Monitor fingersticks. We'll monitor for orthostatics. Monitor for hypoglycemic episodes. Rehabilitation evaluation. Consult psychiatry for evaluation, patient was seen by psychiatry he is not able to take decisions on his own. Add multivitamins patient with low appetite Add Tylenol as needed for headaches DVT prophylaxis with Lovenox. Discussed Condition With Patient, nurse PT recommends detention facility. Patient however with poor insight and judgment and not able to take decisions for himself. Case management consulted for discharge planning as needed. Discharged to detention facility when arrangements are done Difficult discharge Milly Davey MD Jun 27, 2017 07:32
[2017-06-27] MEDS: INSULIN ASPART SUPPLEMENTAL SCALE SQ SCH ×4 (07:51→21:01)
[2017-06-27] MEDS: glipiZIDE 10 MG TAB PO SCH ×2 (08:48→17:32)
[2017-06-27] MEDS: CYANOCOBALAMIN 100 MCG TAB PO SCH (08:48)
[2017-06-27] MEDS: CITALOPRAM HYDROBROMIDE 20 MG TAB PO SCH (08:49)
[2017-06-27] MEDS: GABAPENTIN 300 MG CAP PO SCH ×3 (08:49→17:33)
[2017-06-27] MEDS: HYDROCHLOROTHIAZIDE 25 MG TAB PO SCH (08:51)
[2017-06-27] MEDS: ASPIRIN 81 MG CHEW TAB PO SCH (08:51)
[2017-06-27] MEDS: FERROUS SULFATE 325 MG (65 MG ELEMENTAL IRON) TAB PO SCH (08:51)
[2017-06-27] MEDS: metFORMIN HCL 850 MG TAB PO SCH ×2 (08:51→17:33)
[2017-06-27] MEDS: PANTOPRAZOLE SOD 20 MG DELAYED RELEASE TAB PO SCH (08:51)
[2017-06-27] MEDS: SODIUM CHLORIDE 0.9% FLUSH 10 ML FLUSH IV FLUSH SCH ×2 (08:52→20:50)
[2017-06-27] MEDS ORDERED: ACETAMINOPHEN 325 MG TAB PO PRN (10:15)
[2017-06-27] MEDS: traZODone HCL 100 MG TAB PO SCH (20:50)
[2017-06-27] MEDS: TAMSULOSIN HCL 0.4 MG CAP PO SCH (20:50)
[2017-06-27] MEDS: ATORVASTATIN 20 MG TAB PO SCH (20:50)
[2017-06-28] VITALS (10 sets, daily range): BP systolic 105–151; BP diastolic 64–90; PULSE 73–90; RESP 16–20; TEMP 98–98.7; O2SAT 93–99
[2017-06-28] MEDS: INSULIN ASPART SUPPLEMENTAL SCALE SQ SCH ×4 (08:00→20:39)
[2017-06-28] MEDS: SODIUM CHLORIDE 0.9% FLUSH 10 ML FLUSH IV FLUSH SCH ×2 (08:24→20:39)
[2017-06-28] MEDS: CITALOPRAM HYDROBROMIDE 20 MG TAB PO SCH (08:25)
[2017-06-28] MEDS: CYANOCOBALAMIN 100 MCG TAB PO SCH (08:25)
[2017-06-28] MEDS: FERROUS SULFATE 325 MG (65 MG ELEMENTAL IRON) TAB PO SCH (08:25)
[2017-06-28] MEDS: metFORMIN HCL 850 MG TAB PO SCH ×2 (08:25→17:51)
[2017-06-28] MEDS: ASPIRIN 81 MG CHEW TAB PO SCH (08:25)
[2017-06-28] MEDS: HYDROCHLOROTHIAZIDE 25 MG TAB PO SCH (08:25)
[2017-06-28] MEDS: glipiZIDE 10 MG TAB PO SCH ×2 (08:25→16:50)
[2017-06-28] MEDS: PANTOPRAZOLE SOD 20 MG DELAYED RELEASE TAB PO SCH (08:25)
[2017-06-28] MEDS: GABAPENTIN 300 MG CAP PO SCH ×3 (08:25→17:51)
--- NOTE | 2017-06-28 13:31 | HHI.PR ---
Subjective Remarks Follow-up visit generalized weakness, status post fall. Patient seen and examined today laying in bed. Appears comfortable. Denies any complaints. As per nursing, continues to be generally weak with assistance in getting out of bed. Objective Vitals Vital Signs Date Time Temp Pulse Resp B/P (MAP) Pulse Ox O2 Delivery O2 Flow Rate FiO2 06/28/17 12:02 98.7 84 20 111/73 (86) 94 105/68 (80) 151/70 (97) 06/28/17 08:00 80 06/28/17 07:29 98.7 73 18 128/72 (90) 94 06/28/17 05:43 89 06/28/17 04:30 98.0 89 16 131/90 (104) 99 130/70 (90) 107/64 (78) 06/28/17 02:26 98.2 81 16 130/78 (95) 98 06/28/17 00:31 89 06/27/17 21:28 98.7 85 16 116/66 (83) 98 06/27/17 21:20 83 06/27/17 17:14 97.8 84 24 100/65 (77) 95 98/57 (71) 92/59 (70) I/O 06/27/17 06/27/17 06/27/17 06/28/17 06/28/17 06/28/17 07:00 15:00 23:00 07:00 15:00 23:00 Output Total 400 ml Balance -400 ml Output Urine Total 400 ml Result Diagram: 06/25/17 0521 06/25/17 0521 Imaging Last Impressions Carotid Artery Ultrasound 06/25/17 0000 Signed Impressions: Service Date/Time: Sunday, June 25, 2017 09:32 - CONCLUSION: Normal examination for a patient of this age. Sebastian Milian MD Head CT 06/24/17 143 Signed Impressions: Service Date/Time: Saturday, June 24, 2017 15:44 - CONCLUSION: No acute disease. Fercho Drake MD Chest X-Ray 06/24/17 143 Signed Impressions: Service Date/Time: Saturday, June 24, 2017 14:54 - CONCLUSION: 1. No acute abnormality or significant interval change. Joey Bush MD Shoulder X-Ray 06/24/17 0000 Signed Impressions: Service Date/Time: Saturday, June 24, 2017 15:32 - CONCLUSION: No acute disease. Fercho Drake MD Hip and Pelvis X-Ray 06/24/17 0000 Signed Impressions: Service Date/Time: Saturday, June 24, 2017 15:16 - CONCLUSION: No acute disease. Fercho Drake MD Objective Remarks GENERAL: This is a well-nourished, well-developed patient, in no apparent distress. SKIN: Warm and dry. HEENT: Normocephalic. Pupils equal round and reactive. Nose without bleeding. Airway patent. NECK: Trachea midline. CARDIOVASCULAR: Regular rate and rhythm without murmurs, gallops, or rubs. RESPIRATORY: Clear to auscultation. Breath sounds equal bilaterally. No wheezes , rales, or rhonchi. GASTROINTESTINAL: Abdomen soft, non-tender, nondistended. Bowel Sounds normoactive x4. MUSCULOSKELETAL: Extremities without clubbing, cyanosis, or edema. NEUROLOGICAL: Awake and alert. Oriented to person. Very hard of hearing. Normal speech. Procedures none A/P Problem List: (1) Dementia without behavioral disturbance ICD Code: F03.90 - Unspecified dementia without behavioral disturbance (2) Shoulder contusion ICD Code: S40.019A - Contusion of unspecified shoulder, initial encounter Status: Acute (3) Altered mental status ICD Code: R41.82 - Altered mental status, unspecified Status: Acute Assessment and Plan Patient is a 72-year-old male who came into the hospital status post fall, generalized weakness. Status post fall Generalized weakness -This is possibly due to recent urinary tract infection and patient was discharged 06/19/17 -Continue physical therapy treatment -Plan to discharge to rehab facility. Patient has been in [facility] and left AMA after 1 day. Psychiatry consult deemed patient incapacitated. HTN -Continue home medications amlodipine 10 mg daily, aspirin 81 daily, hydrochlorothiazide 25 mg daily -Monitor BP trend DM 2 -Continue metformin -Continue insulin sliding scale -Monitor Accu-Cheks BPH -Continue Flomax DVT prop Lovenox Discharge Planning Plan to discharge to [facility] when placement is ready Problem Qualifiers (1) Shoulder contusion: Qualified Codes: S40.012A - Contusion of left shoulder, initial encounter (2) Altered mental status: Qualified Codes: R41.82 - Altered mental status, unspecified Sofia Mckee Jun 28, 2017 13:31
[2017-06-28] MEDS: ENOXAPARIN SODIUM 40 MG/0.4 ML SYRINGE SQ SCH (16:50)
[2017-06-28] MEDS: ATORVASTATIN 20 MG TAB PO SCH (20:39)
[2017-06-28] MEDS: TAMSULOSIN HCL 0.4 MG CAP PO SCH (20:39)
[2017-06-28] MEDS: traZODone HCL 100 MG TAB PO SCH (20:39)
[2017-06-29] VITALS (7 sets, daily range): BP systolic 96–120; BP diastolic 60–83; PULSE 68–96; RESP 17–20; TEMP 97.9–98.5; O2SAT 94–98
[2017-06-29] MEDS: glipiZIDE 10 MG TAB PO SCH ×2 (05:56→18:04)
[2017-06-29] MEDS: INSULIN ASPART SUPPLEMENTAL SCALE SQ SCH ×4 (08:15→21:00)
[2017-06-29] MEDS: SODIUM CHLORIDE 0.9% FLUSH 10 ML FLUSH IV FLUSH SCH ×2 (09:09→21:14)
[2017-06-29] MEDS: ASPIRIN 81 MG CHEW TAB PO SCH (09:10)
[2017-06-29] MEDS: CYANOCOBALAMIN 100 MCG TAB PO SCH (09:10)
[2017-06-29] MEDS: FERROUS SULFATE 325 MG (65 MG ELEMENTAL IRON) TAB PO SCH (09:10)
[2017-06-29] MEDS: GABAPENTIN 300 MG CAP PO SCH ×3 (09:10→18:02)
[2017-06-29] MEDS: metFORMIN HCL 850 MG TAB PO SCH ×2 (09:10→18:02)
[2017-06-29] MEDS: CITALOPRAM HYDROBROMIDE 20 MG TAB PO SCH (09:10)
[2017-06-29] MEDS: PANTOPRAZOLE SOD 20 MG DELAYED RELEASE TAB PO SCH (09:10)
[2017-06-29] MEDS: HYDROCHLOROTHIAZIDE 25 MG TAB PO SCH (09:11)
--- NOTE | 2017-06-29 10:03 | HHI.PR ---
Subjective Remarks Follow-up visit generalized weakness, status post fall. Patient seen and examined today sitting in bed. States I am bothering him. States he still is weak. Denies chest pain, palpitations, headache. Denies any fevers, chills, nausea, vomiting, diarrhea. Reports constipation. Objective Vitals Vital Signs Date Time Temp Pulse Resp B/P (MAP) Pulse Ox O2 Delivery O2 Flow Rate FiO2 06/29/17 08:06 97.9 06/29/17 08:06 98.2 68 20 120/60 (80) 96 06/29/17 04:00 98.4 96 18 112/83 (93) 94 06/28/17 23:49 98.0 90 18 112/70 (84) 94 06/28/17 20:15 98.0 81 18 120/75 (90) 94 06/28/17 16:24 98.7 78 20 107/66 (80) 93 06/28/17 12:02 98.7 84 20 111/73 (86) 94 105/68 (80) 151/70 (97) I/O 06/28/17 06/28/17 06/28/17 06/29/17 06/29/17 06/29/17 06:59 14:59 22:59 06:59 14:59 22:59 Output Total 400 ml Balance -400 ml Output Urine Total 400 ml Result Diagram: 06/25/17 0521 06/25/17 0521 Imaging Last Impressions Carotid Artery Ultrasound 06/25/17 0000 Signed Impressions: Service Date/Time: Sunday, June 25, 2017 09:32 - CONCLUSION: Normal examination for a patient of this age. Sebastian Milian MD Head CT 06/24/17 1439 Signed Impressions: Service Date/Time: Saturday, June 24, 2017 15:44 - CONCLUSION: No acute disease. Fercho Drake MD Chest X-Ray 06/24/17 1439 Signed Impressions: Service Date/Time: Saturday, June 24, 2017 14:54 - CONCLUSION: 1. No acute abnormality or significant interval change. Joey Bush MD Shoulder X-Ray 06/24/17 0000 Signed Impressions: Service Date/Time: Saturday, June 24, 2017 15:32 - CONCLUSION: No acute disease. Fercho Drake MD Hip and Pelvis X-Ray 06/24/17 0000 Signed Impressions: Service Date/Time: Saturday, June 24, 2017 15:16 - CONCLUSION: No acute disease. Fercho Drake MD Objective Remarks GENERAL: This is a well-nourished, well-developed patient, in no apparent distress. SKIN: Warm and dry. HEENT: Normocephalic. Pupils equal round and reactive. Nose without bleeding. Airway patent. NECK: Trachea midline. CARDIOVASCULAR: Regular rate and rhythm without murmurs, gallops, or rubs. RESPIRATORY: Clear to auscultation. Breath sounds equal bilaterally. No wheezes , rales, or rhonchi. GASTROINTESTINAL: Abdomen soft, non-tender, nondistended. Bowel Sounds normoactive x4. MUSCULOSKELETAL: Extremities without clubbing, cyanosis, or edema. NEUROLOGICAL: Awake and alert. Oriented to person. Very hard of hearing. Normal speech. Procedures none A/P Problem List: (1) Dementia without behavioral disturbance ICD Code: F03.90 - Unspecified dementia without behavioral disturbance (2) Shoulder contusion ICD Code: S40.019A - Contusion of unspecified shoulder, initial encounter Status: Acute (3) Altered mental status ICD Code: R41.82 - Altered mental status, unspecified Status: Acute Assessment and Plan Patient is a 72-year-old male who came into the hospital status post fall, generalized weakness. Status post fall Generalized weakness -This is possibly due to recent urinary tract infection and patient was discharged 06/19/17 -Continue physical therapy treatment -Plan to discharge to rehab facility. Patient has been in [facility] and left AMA after 1 day. Psychiatry consult deemed patient incapacitated. -Physical therapy daily HTN -Continue home medications amlodipine 10 mg daily, aspirin 81 daily, hydrochlorothiazide 25 mg daily -Monitor BP trend DM 2 -Continue metformin -Continue insulin sliding scale -Monitor Accu-Cheks BPH -Continue Flomax DVT prop Lovenox Discharge Planning Plan to discharge to the [facility] when placement is ready Problem Qualifiers (1) Shoulder contusion: Qualified Codes: S40.012A - Contusion of left shoulder, initial encounter (2) Altered mental status: Qualified Codes: R41.82 - Altered mental status, unspecified Sofia Mckee Jun 29, 2017 10:03
[2017-06-29 10:46] LABS: HEMATOCRIT 34.9 % (39.0-51.0); HEMOGLOBIN 11.7 GM/DL (13.0-17.0); MEAN CORPUSCULAR HEMOGLOBIN 26.8 PG (27.0-34.0); MEAN CORPUSCULAR HGB CONC 33.5 % (32.0-36.0); MEAN PLATELET VOLUME 8.3 FL (7.0-11.0); PLATELET COUNT 290 TH/MM3 (150-450); RED BLOOD COUNT 4.37 MIL/MM3 (4.50-5.90); RED CELL DISTRIBUTION WIDTH 15.6 % (11.6-17.2); WHITE BLOOD COUNT 6.4 TH/MM3 (4.0-11.0)
[2017-06-29 11:19] LABS: BICARBONATE 31.1 MEQ/L (21.0-32.0); CALCIUM 8.6 MG/DL (8.5-10.1); CREATININE 1.14 MG/DL (0.60-1.30)
[2017-06-29] MEDS: ENOXAPARIN SODIUM 40 MG/0.4 ML SYRINGE SQ SCH (13:53)
[2017-06-29] MEDS: traZODone HCL 100 MG TAB PO SCH (21:14)
[2017-06-29] MEDS: ATORVASTATIN 20 MG TAB PO SCH (21:14)
[2017-06-29] MEDS: TAMSULOSIN HCL 0.4 MG CAP PO SCH (21:14)
[2017-06-30] VITALS (8 sets, daily range): BP systolic 110–128; BP diastolic 57–78; PULSE 71–85; RESP 16–18; TEMP 97.5–98.3; O2SAT 91–95
[2017-06-30] MEDS: glipiZIDE 10 MG TAB PO SCH ×2 (06:32→18:38)
[2017-06-30] MEDS: INSULIN ASPART SUPPLEMENTAL SCALE SQ SCH ×4 (08:57→20:45)
--- NOTE | 2017-06-30 09:23 | HHI.PR ---
Subjective Remarks Follow-up visit generalized weakness, status post fall. Patient seen and examined today sitting in bed. States he had a horrible day. Patient states " I have been here since 8:00 this morning and having had breakfast." Severely hard of hearing. Confused and forgetful. Denies pain and discomfort. Denies SOB/ dyspnea. Denies chest pain, palpitations, headaches, dizziness. Denies fevers, chills, n/v/d. Denies dysuria. Objective Vitals Vital Signs Date Time Temp Pulse Resp B/P (MAP) Pulse Ox O2 Delivery O2 Flow Rate FiO2 06/30/17 04:09 71 06/30/17 03:03 98.3 71 18 123/73 (90) 93 06/30/17 00:48 83 06/29/17 23:49 98.5 84 17 116/61 (79) 94 109/66 (80) 96/61 (73) 06/29/17 20:41 98.4 83 19 113/62 (79) 98 06/29/17 20:31 72 06/29/17 15:33 98.2 80 20 110/60 (77) 98 06/29/17 11:59 98.2 82 20 106/64 (78) 98 Result Diagram: 06/29/17 0938 06/29/17 0938 Imaging Last Impressions Carotid Artery Ultrasound 06/25/17 0000 Signed Impressions: Service Date/Time: Sunday, June 25, 2017 09:32 - CONCLUSION: Normal examination for a patient of this age. Sebastian Milian MD Head CT 06/24/17 1439 Signed Impressions: Service Date/Time: Saturday, June 24, 2017 15:44 - CONCLUSION: No acute disease. Fercho Drake MD Chest X-Ray 06/24/17 1439 Signed Impressions: Service Date/Time: Saturday, June 24, 2017 14:54 - CONCLUSION: 1. No acute abnormality or significant interval change. Joey Bush MD Shoulder X-Ray 06/24/17 0000 Signed Impressions: Service Date/Time: Saturday, June 24, 2017 15:32 - CONCLUSION: No acute disease. Fercho Drake MD Hip and Pelvis X-Ray 06/24/17 0000 Signed Impressions: Service Date/Time: Saturday, June 24, 2017 15:16 - CONCLUSION: No acute disease. Fercho Drake MD Objective Remarks GENERAL: This is a well-nourished, well-developed patient, in no apparent distress. SKIN: Warm and dry. HEENT: Normocephalic. Pupils equal round and reactive. Nose without bleeding. Airway patent. NECK: Trachea midline. CARDIOVASCULAR: Regular rate and rhythm without murmurs, gallops, or rubs. RESPIRATORY: Clear to auscultation. Breath sounds equal bilaterally. No wheezes , rales, or rhonchi. GASTROINTESTINAL: Abdomen soft, non-tender, nondistended. Bowel Sounds normoactive x4. MUSCULOSKELETAL: Extremities without clubbing, cyanosis, or edema. NEUROLOGICAL: Awake and alert. Oriented to person. Very hard of hearing. Moves all extremities weakly. normal speech. Procedures none A/P Problem List: (1) Dementia without behavioral disturbance ICD Code: F03.90 - Unspecified dementia without behavioral disturbance (2) Shoulder contusion ICD Code: S40.019A - Contusion of unspecified shoulder, initial encounter Status: Acute (3) Altered mental status ICD Code: R41.82 - Altered mental status, unspecified Status: Acute Assessment and Plan Patient is a 72-year-old male who came into the hospital status post fall, generalized weakness. Status post fall Generalized weakness -This is possibly due to recent urinary tract infection and patient was discharged 06/19/17 -Continue physical therapy treatment -Plan to discharge to rehab facility. Patient has been in [facility] and left AMA after 1 day. Psychiatry consult deemed patient incapacitated. -Physical therapy daily -Encourage out of bed to chair HTN -Continue home medications amlodipine 10 mg daily, aspirin 81 daily, hydrochlorothiazide 25 mg daily -Monitor BP trend DM 2 -Continue metformin -Continue insulin sliding scale -Monitor Accu-Cheks BPH -Continue Flomax DVT prop Lovenox Discharge Planning Plan to discharge to the [facility] when placement is ready Problem Qualifiers (1) Shoulder contusion: Qualified Codes: S40.012A - Contusion of left shoulder, initial encounter (2) Altered mental status: Qualified Codes: R41.82 - Altered mental status, unspecified Sofia Mckee Jun 30, 2017 09:22
[2017-06-30] MEDS: FERROUS SULFATE 325 MG (65 MG ELEMENTAL IRON) TAB PO SCH (10:15)
[2017-06-30] MEDS: metFORMIN HCL 850 MG TAB PO SCH ×2 (10:15→18:38)
[2017-06-30] MEDS: HYDROCHLOROTHIAZIDE 25 MG TAB PO SCH (10:16)
[2017-06-30] MEDS: CYANOCOBALAMIN 100 MCG TAB PO SCH (10:16)
[2017-06-30] MEDS: ASPIRIN 81 MG CHEW TAB PO SCH (10:16)
[2017-06-30] MEDS: CITALOPRAM HYDROBROMIDE 20 MG TAB PO SCH (10:16)
[2017-06-30] MEDS: PANTOPRAZOLE SOD 20 MG DELAYED RELEASE TAB PO SCH (10:17)
[2017-06-30] MEDS: GABAPENTIN 300 MG CAP PO SCH ×3 (10:17→18:38)
[2017-06-30] MEDS: SODIUM CHLORIDE 0.9% FLUSH 10 ML FLUSH IV FLUSH SCH ×2 (10:17→20:44)
[2017-06-30] MEDS: ENOXAPARIN SODIUM 40 MG/0.4 ML SYRINGE SQ SCH (14:03)
[2017-06-30] MEDS: TAMSULOSIN HCL 0.4 MG CAP PO SCH (20:44)
[2017-06-30] MEDS: traZODone HCL 100 MG TAB PO SCH (20:44)
[2017-06-30] MEDS: ATORVASTATIN 20 MG TAB PO SCH (20:44)
[2017-07-01 03:42] VITALS: BP 117/61; PULSE 76; RESP 18; TEMP 97.9; O2SAT 95
[2017-07-01 08:00] VITALS: PULSE 87
[2017-07-01] MEDS: INSULIN ASPART SUPPLEMENTAL SCALE SQ SCH ×4 (08:00→21:00)
[2017-07-01 09:18] VITALS: BP 150/80; PULSE 87; RESP 18; TEMP 98.4; O2SAT 97
--- NOTE | 2017-07-01 09:32 | HHI.PR ---
Subjective Remarks Follow-up visit generalized weakness, status post fall. Patient seen and examined today laying in bed. Staff at the, states that she found the patient found on the floor. Patient got irritated and states that " I did not fall, I bend over my knees so that I do not hit other parts of my body, I just got weak when I stood up." Patient states that bilateral knees have some discomfort but it is not really painful. States he is able to move it, "it is just sore." Denies SOB/ dyspnea. Denies chest pain, palpitations, headaches, dizziness. Denies fevers, chills, n/v/d. Denies dysuria. 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 Objective Vitals Vital Signs Date Time Temp Pulse Resp B/P (MAP) Pulse Ox O2 Delivery O2 Flow Rate FiO2 07/01/17 09:18 98.4 87 18 150/80 (103) 97 07/01/17 03:42 97.9 76 18 117/61 (79) 95 06/30/17 19:28 85 18 110/57 (74) 93 06/30/17 18:43 97.8 75 16 119/72 (88) 91 06/30/17 13:52 98.3 83 17 122/78 (93) 95 06/30/17 10:15 77 06/30/17 09:46 97.5 82 16 128/76 (93) 91 Result Diagram: 06/29/17 0938 06/29/17 0938 Imaging Last Impressions Carotid Artery Ultrasound 06/25/17 0000 Signed Impressions: Service Date/Time: Sunday, June 25, 2017 09:32 - CONCLUSION: Normal examination for a patient of this age. Sebastian Milian MD Head CT 06/24/17 1439 Signed Impressions: Service Date/Time: Saturday, June 24, 2017 15:44 - CONCLUSION: No acute disease. Fercho Drake MD Chest X-Ray 06/24/17 1439 Signed Impressions: Service Date/Time: Saturday, June 24, 2017 14:54 - CONCLUSION: 1. No acute abnormality or significant interval change. Joey Bush MD Shoulder X-Ray 3/12/18 0000 Signed Impressions: Service Date/Time: Saturday, June 24, 2017 15:32 - CONCLUSION: No acute disease. Fercho Drake MD Hip and Pelvis X-Ray 06/24/17 0000 Signed Impressions: Service Date/Time: Saturday, June 24, 2017 15:16 - CONCLUSION: No acute disease. Fercho Drake MD Objective Remarks GENERAL: This is a well-nourished, well-developed patient, in no apparent distress. SKIN: Warm and dry. HEENT: Normocephalic. Pupils equal round and reactive. Nose without bleeding. Airway patent. NECK: Trachea midline. CARDIOVASCULAR: Regular rate and rhythm without murmurs, gallops, or rubs. RESPIRATORY: Clear to auscultation. Breath sounds equal bilaterally. No wheezes , rales, or rhonchi. GASTROINTESTINAL: Abdomen soft, non-tender, nondistended. Bowel Sounds normoactive x4. MUSCULOSKELETAL: Extremities without clubbing, cyanosis, or edema. Bilateral knee erythema noted, R OM at baseline, no swelling noted. NEUROLOGICAL: Awake and alert. Oriented to person. Very hard of hearing. Moves all extremities weakly. normal speech. Procedures none A/P Problem List: (1) Dementia without behavioral disturbance ICD Code: F03.90 - Unspecified dementia without behavioral disturbance (2) Shoulder contusion ICD Code: S40.019A - Contusion of unspecified shoulder, initial encounter Status: Acute (3) Altered mental status ICD Code: R41.82 - Altered mental status, unspecified Status: Acute Assessment and Plan Patient is a 72-year-old male who came into the hospital status post fall, generalized weakness. Status post fall Generalized weakness -This is possibly due to recent urinary tract infection and patient was discharged 06/19/17 -Continue physical therapy treatment -Plan to discharge to rehab facility. Patient has been in [facility] and left AMA after 1 day. Psychiatry consult deemed patient incapacitated. -Physical therapy daily -Encourage out of bed to chair. Recliner to be placed in the room. HTN -Continue home medications amlodipine 10 mg daily, aspirin 81 daily, hydrochlorothiazide 25 mg daily -Monitor BP trend DM 2 -Continue metformin -Continue insulin sliding scale -Monitor Accu-Cheks BPH -Continue Flomax Status post fall -If continues to be in pain with soreness in bilateral knees may do imaging studies. Follow-up results. -Encouraged ask assistance when getting out of bed. DVT prop Lovenox Discharge Planning [facility] Problem Qualifiers (1) Shoulder contusion: Qualified Codes: S40.012A - Contusion of left shoulder, initial encounter (2) Altered mental status: Qualified Codes: R41.82 - Altered mental status, unspecified Sofia Mckee Jul 01, 2017 09:31
[2017-07-01] MEDS: FERROUS SULFATE 325 MG (65 MG ELEMENTAL IRON) TAB PO SCH (09:52)
[2017-07-01] MEDS: CITALOPRAM HYDROBROMIDE 20 MG TAB PO SCH (09:52)
[2017-07-01] MEDS: GABAPENTIN 300 MG CAP PO SCH ×3 (09:52→17:17)
[2017-07-01] MEDS: PANTOPRAZOLE SOD 20 MG DELAYED RELEASE TAB PO SCH (09:52)
[2017-07-01] MEDS: ASPIRIN 81 MG CHEW TAB PO SCH (09:52)
[2017-07-01] MEDS: HYDROCHLOROTHIAZIDE 25 MG TAB PO SCH (09:52)
[2017-07-01] MEDS: metFORMIN HCL 850 MG TAB PO SCH ×2 (09:53→17:17)
[2017-07-01] MEDS: CYANOCOBALAMIN 100 MCG TAB PO SCH (09:53)
[2017-07-01] MEDS: glipiZIDE 10 MG TAB PO SCH ×2 (09:54→17:17)
[2017-07-01] MEDS: SODIUM CHLORIDE 0.9% FLUSH 10 ML FLUSH IV FLUSH SCH ×2 (09:54→22:46)
[2017-07-01 11:54] VITALS: BP 109/69; PULSE 85; RESP 18; TEMP 97.6; O2SAT 95
[2017-07-01] MEDS: ENOXAPARIN SODIUM 40 MG/0.4 ML SYRINGE SQ SCH (14:09)
[2017-07-01 15:56] VITALS: BP 99/71; PULSE 89; RESP 18; TEMP 98.7; O2SAT 96
[2017-07-01] MEDS: TAMSULOSIN HCL 0.4 MG CAP PO SCH (22:46)
[2017-07-01] MEDS: ATORVASTATIN 20 MG TAB PO SCH (22:46)
[2017-07-01] MEDS: traZODone HCL 100 MG TAB PO SCH (22:46)
[2017-07-02] MEDS: glipiZIDE 10 MG TAB PO SCH ×2 (07:00→16:08)
[2017-07-02 07:19] VITALS: BP 126/69; PULSE 76; RESP 18; TEMP 97.6; O2SAT 95
--- NOTE | 2017-07-02 08:54 | HHI.PR ---
Subjective Remarks Follow up for generalized weakness, fall, placement pending. The patient is seen with speech therapist and EMPLOYEE [employer]NAGER at bedside. He is awake, alert, oriented to person, [facility], year 2018, but cannot recall the month or events leading up to this admission. He does not recall falling yesterday. Denies any knee pain as he reported yesterday. Denies any headache, lightheadedness, chest pain, shortness of breath, or abdominal complaints. No other acute issues reported. Objective Vitals Vital Signs Date Time Temp Pulse Resp B/P (MAP) Pulse Ox O2 Delivery O2 Flow Rate FiO2 07/02/17 07:19 97.6 76 18 126/69 (88) 95 07/01/17 15:56 98.7 89 18 99/71 (80) 96 07/01/17 11:54 97.6 85 18 109/69 (82) 95 07/01/17 09:18 98.4 87 18 150/80 (103) 97 Result Diagram: 06/29/17 0938 06/29/17 0938 Imaging Last Impressions Carotid Artery Ultrasound 06/25/17 0000 Signed Impressions: Service Date/Time: Sunday, June 25, 2017 09:32 - CONCLUSION: Normal examination for a patient of this age. Sebastian Milian MD Head CT 06/24/17 1439 Signed Impressions: Service Date/Time: Saturday, June 24, 2017 15:44 - CONCLUSION: No acute disease. Fercho Drake MD Chest X-Ray 06/24/17 1439 Signed Impressions: Service Date/Time: Saturday, June 24, 2017 14:54 - CONCLUSION: 1. No acute abnormality or significant interval change. Joey Bush MD Shoulder X-Ray 06/24/17 0000 Signed Impressions: Service Date/Time: Saturday, June 24, 2017 15:32 - CONCLUSION: No acute disease. Fercho Drake MD Hip and Pelvis X-Ray 06/24/17 0000 Signed Impressions: Service Date/Time: Saturday, June 24, 2017 15:16 - CONCLUSION: No acute disease. Fercho Drake MD Objective Remarks GENERAL: Well-nourished, well-developed pleasant elderly male patient in [facility]. SKIN: Warm and dry. No rash. HEENT: Normocephalic. Atraumatic.Pupils equal and round. Mucous membranes pink and moist. CARDIOVASCULAR: Regular rate and rhythm. No murmur appreciated. RESPIRATORY: No accessory muscle use. Clear to auscultation. Breath sounds equal bilaterally. GASTROINTESTINAL: Abdomen soft, non-tender, nondistended. Normoactive bowel sounds x4. MUSCULOSKELETAL: No obvious deformities. Extremities without clubbing, cyanosis , or edema. NEUROLOGICAL: Awake and alert. No obvious cranial nerve deficits. Motor grossly within normal limits. 5/5 muscle strength in bilateral upper and lower extremities. Normal speech. PSYCHIATRIC: Appropriate mood and affect; insight and judgment limited. Procedures none Medications and IVs Current Medications Medications (Trade) Dose Ordered Sig/Tracy Route Start Time Stop Time Status Last Admin (NS Flush) 2 ml UNSCH PRN IV FLUSH 06/24/17 20:00 (NS Flush) 2 ml BID IV FLUSH 06/24/17 21:00 07/01/17 22:46 (Narcan Inj) 0.4 mg UNSCH PRN IV PUSH 06/24/17 20:00 (Norvasc) 10 mg DAILY PO 06/25/17 09:00 07/01/17 09:52 (Aspirin Chew) 81 mg DAILY PO 06/25/17 09:00 07/01/17 09:52 (Lipitor) 20 mg HS PO 06/25/17 21:00 07/01/17 22:46 (CeleXA) 20 mg DAILY PO 06/25/17 09:00 07/01/17 09:52 (Ferrous Sulfate) 325 mg DAILY PO 06/25/17 09:00 07/01/17 09:52 (Neurontin) 600 mg TID PO 06/25/17 09:00 07/01/17 17:17 (Glucotrol) 10 mg BIDAC PO 06/25/17 07:00 07/02/17 07:00 (Hydrodiuril) 25 mg DAILY PO 06/25/17 09:00 07/01/17 09:52 (Antivert) 25 mg TID PRN PO 06/25/17 01:45 06/25/17 08:15 (Glucophage) 850 mg BIDPC PO 06/25/17 09:00 07/01/17 17:17 (Protonix) 20 mg DAILY PO 06/25/17 09:00 07/01/17 09:52 (Januvia) 100 mg DAILY PO 06/25/17 09:00 07/01/17 09:52 (Flomax) 0.4 mg HS PO 06/25/17 21:00 07/01/17 22:46 (D50w (Vial) Inj) 50 ml UNSCH PRN IV PUSH 06/25/17 01:45 (Glucagon Inj) 1 mg UNSCH PRN OTHER 06/25/17 01:45 (NovoLOG SUPPLEMENTAL SCALE) 1 ACHS SLIDING SCALE SQ 06/25/17 08:00 07/01/17 08:00 (Desyrel) 100 mg HS PO 06/25/17 21:30 07/01/17 22:46 (Vitamin B12) 100 mcg DAILY PO 06/26/17 13:45 07/01/17 09:53 (Tylenol) 650 mg Q4H PRN PO 06/27/17 10:15 06/29/17 09:10 (Lovenox Inj) 40 mg Q24H SQ 06/28/17 15:00 07/01/17 14:09 A/P Problem List: (1) Dementia without behavioral disturbance ICD Code: F03.90 - Unspecified dementia without behavioral disturbance (2) Shoulder contusion ICD Code: S40.019A - Contusion of unspecified shoulder, initial encounter Status: Acute (3) Altered mental status ICD Code: R41.82 - Altered mental status, unspecified Status: Acute Assessment and Plan 72-year-old male with history of HTN, DM, hard of hearing, presents to the hospital status post fall with generalized weakness. Generalized weakness s/p fall: possibly due to recent UTI and deconditioning, patient was recently discharged on 06/19/17 -Continue physical therapy daily -Encourage out of bed to chair. Recliner to be placed in the room. -Plan to discharge to rehab facility. Patient has been in [facility] and left [place] [facility] after 1 day. -Psychiatry consult deemed patient incapacitated. -ST consulted for cognitive eval HTN -Continue home medications amlodipine 10 mg daily, aspirin 81 daily, hydrochlorothiazide 25 mg daily -Monitor BP trend, adjust antihypertensives as needed DM 2 -Continue metformin -Continue insulin sliding scale -Monitor Accu-Cheks BPH -Continue Flomax Status post fall -If continues to be in pain with soreness in bilateral knees may do imaging studies. Follow-up results. -Encouraged to ask for assistance when getting out of bed. -No knee pain/ecchymosis/edema today DVT prophylaxis: Lovenox Discharge Planning Plan to discharge to [facility] when placement is arranged. Case management assisting with discharge planning. Problem Qualifiers (1) Shoulder contusion: Qualified Codes: S40.012A - Contusion of left shoulder, initial encounter (2) Altered mental status: Qualified Codes: R41.82 - Altered mental status, unspecified Kenya Kunz PA-C Jul 02, 2017 8:54 am
[2017-07-02] MEDS: SODIUM CHLORIDE 0.9% FLUSH 10 ML FLUSH IV FLUSH SCH ×3 (09:00→22:34)
[2017-07-02] MEDS: INSULIN ASPART SUPPLEMENTAL SCALE SQ SCH ×4 (09:21→21:00)
[2017-07-02] MEDS: ASPIRIN 81 MG CHEW TAB PO SCH (09:22)
[2017-07-02] MEDS: CYANOCOBALAMIN 100 MCG TAB PO SCH (09:22)
[2017-07-02] MEDS: GABAPENTIN 300 MG CAP PO SCH ×4 (09:22→18:30)
[2017-07-02] MEDS: CITALOPRAM HYDROBROMIDE 20 MG TAB PO SCH (09:22)
[2017-07-02] MEDS: HYDROCHLOROTHIAZIDE 25 MG TAB PO SCH (09:23)
[2017-07-02] MEDS: FERROUS SULFATE 325 MG (65 MG ELEMENTAL IRON) TAB PO SCH (09:23)
[2017-07-02] MEDS: PANTOPRAZOLE SOD 20 MG DELAYED RELEASE TAB PO SCH (09:23)
[2017-07-02] MEDS: metFORMIN HCL 850 MG TAB PO SCH ×2 (09:23→18:30)
[2017-07-02 11:01] VITALS: BP 113/59; PULSE 78; RESP 16; TEMP 98.4; O2SAT 95
[2017-07-02 14:46] VITALS: BP 116/69; PULSE 84; RESP 16; TEMP 97.7; O2SAT 95
[2017-07-02] MEDS: ENOXAPARIN SODIUM 40 MG/0.4 ML SYRINGE SQ SCH (16:08)
[2017-07-02] MEDS: TAMSULOSIN HCL 0.4 MG CAP PO SCH (22:34)
[2017-07-02] MEDS: ATORVASTATIN 20 MG TAB PO SCH (22:34)
[2017-07-02] MEDS: traZODone HCL 100 MG TAB PO SCH (22:34)
[2017-07-03] VITALS (7 sets, daily range): BP systolic 107–143; BP diastolic 68–77; PULSE 77–99; RESP 14–18; TEMP 97.4–98.2; O2SAT 93–98
[2017-07-03] MEDS: glipiZIDE 10 MG TAB PO SCH ×2 (07:07→16:50)
[2017-07-03] MEDS: INSULIN ASPART SUPPLEMENTAL SCALE SQ SCH ×4 (08:00→22:00)
--- NOTE | 2017-07-03 08:43 | HHI.PR ---
Subjective Remarks Follow up for generalized weakness, fall, placement pending. The patient complains of constipation today. He does not recall his last BM. He states his abdomen just feels "uncomfortable", but denies any specific pains. Denies any nausea/vomiting. He is tolerating oral intake. RN also does not have record of patient's last BM. The patient denies any dysuria. He has no other medical complaints at this time. Objective Vitals Vital Signs Date Time Temp Pulse Resp B/P (MAP) Pulse Ox O2 Delivery O2 Flow Rate FiO2 07/03/17 07:35 97.7 79 18 143/77 (99) 97 07/03/17 03:32 98.0 88 18 119/74 (89) 98 07/03/17 00:12 78 07/03/17 00:05 98.0 80 18 128/74 (92) 93 07/02/17 14:46 97.7 84 16 116/69 (85) 95 07/02/17 11:01 98.4 78 16 113/59 (77) 95 Result Diagram: 06/29/17 0938 06/29/17 0938 Imaging Last Impressions Carotid Artery Ultrasound 06/25/17 0000 Signed Impressions: Service Date/Time: Sunday, June 25, 2017 09:32 - CONCLUSION: Normal examination for a patient of this age. Sebastian Milian MD Head CT 06/24/17 1439 Signed Impressions: Service Date/Time: Saturday, June 24, 2017 15:44 - CONCLUSION: No acute disease. Fercho Drake MD Chest X-Ray 06/24/17 1439 Signed Impressions: Service Date/Time: Saturday, June 24, 2017 14:54 - CONCLUSION: 1. No acute abnormality or significant interval change. Joey Bush MD Shoulder X-Ray 06/24/17 0000 Signed Impressions: Service Date/Time: Saturday, June 24, 2017 15:32 - CONCLUSION: No acute disease. Fercho Drake MD Hip and Pelvis X-Ray 06/24/17 0000 Signed Impressions: Service Date/Time: Saturday, June 24, 2017 15:16 - CONCLUSION: No acute disease. Fercho Drake MD Objective Remarks GENERAL: Well-nourished, well-developed pleasant elderly male patient in NAD. SKIN: Warm and dry. No rash. HEENT: Normocephalic. Atraumatic.Pupils equal and round. Mucous membranes pink and moist. CARDIOVASCULAR: Regular rate and rhythm. No murmur appreciated. RESPIRATORY: No accessory muscle use. Clear to auscultation. Breath sounds equal bilaterally. GASTROINTESTINAL: Abdomen soft, non-tender, nondistended. Normoactive bowel sounds x4. MUSCULOSKELETAL: No obvious deformities. Extremities without clubbing, cyanosis , or edema. No CVA tenderness bilaterally. NEUROLOGICAL: Awake and alert. No obvious cranial nerve deficits. Motor grossly within normal limits. Moving all extremities spontaneously, 5/5 strength bilateral upper and lower extremities, however with gait instability. Normal speech. PSYCHIATRIC: Appropriate mood and affect; insight and judgment limited. Procedures none Medications and IVs Current Medications Medications (Trade) Dose Ordered Sig/Tracy Route Start Time Stop Time Status Last Admin (NS Flush) 2 ml UNSCH PRN IV FLUSH 06/24/17 20:00 (NS Flush) 2 ml BID IV FLUSH 06/24/17 21:00 07/02/17 22:34 (Narcan Inj) 0.4 mg UNSCH PRN IV PUSH 06/24/17 20:00 (Norvasc) 10 mg DAILY PO 06/25/17 09:00 07/02/17 09:22 (Aspirin Chew) 81 mg DAILY PO 06/25/17 09:00 07/02/17 09:22 (Lipitor) 20 mg HS PO 06/25/17 21:00 07/02/17 22:34 (CeleXA) 20 mg DAILY PO 06/25/17 09:00 07/02/17 09:22 (Ferrous Sulfate) 325 mg DAILY PO 06/25/17 09:00 07/02/17 09:23 (Neurontin) 600 mg TID PO 06/25/17 09:00 07/02/17 18:30 (Glucotrol) 10 mg BIDAC PO 06/25/17 07:00 07/03/17 07:07 (Hydrodiuril) 25 mg DAILY PO 06/25/17 09:00 07/02/17 09:23 (Antivert) 25 mg TID PRN PO 06/25/17 01:45 06/25/17 08:15 (Glucophage) 850 mg BIDPC PO 06/25/17 09:00 07/02/17 18:30 (Protonix) 20 mg DAILY PO 06/25/17 09:00 07/02/17 09:23 (Januvia) 100 mg DAILY PO 06/25/17 09:00 07/02/17 09:22 (Flomax) 0.4 mg HS PO 06/25/17 21:00 07/02/17 22:34 (D50w (Vial) Inj) 50 ml UNSCH PRN IV PUSH 06/25/17 01:45 (Glucagon Inj) 1 mg UNSCH PRN OTHER 06/25/17 01:45 (NovoLOG SUPPLEMENTAL SCALE) 1 ACHS SLIDING SCALE SQ 06/25/17 08:00 07/02/17 13:20 (Desyrel) 100 mg HS PO 06/25/17 21:30 07/02/17 22:34 (Vitamin B12) 100 mcg DAILY PO 06/26/17 13:45 07/02/17 09:22 (Tylenol) 650 mg Q4H PRN PO 06/27/17 10:15 06/29/17 09:10 (Lovenox Inj) 40 mg Q24H SQ 06/28/17 15:00 07/02/17 16:08 A/P Problem List: (1) Dementia without behavioral disturbance ICD Code: F03.90 - Unspecified dementia without behavioral disturbance (2) Hypertension ICD Code: I10 - Essential (primary) hypertension Status: Chronic (3) Hyperlipidemia ICD Code: E78.5 - Hyperlipidemia, unspecified Status: Chronic (4) Diabetes ICD Code: E11.9 - Type 2 diabetes mellitus without complications Status: Chronic (5) Acute metabolic encephalopathy ICD Code: G93.41 - Metabolic encephalopathy (6) Slurred speech ICD Code: R47.81 - Slurred speech (7) Hyperglycemia ICD Code: R73.9 - Hyperglycemia, unspecified Status: Acute (8) Anemia ICD Code: D64.9 - Anemia, unspecified Status: Acute Assessment and Plan 72-year-old male with history of HTN, DM, hard of hearing, presents to the hospital status post fall with generalized weakness. Generalized weakness s/p fall: possibly due to recent UTI and deconditioning, patient was recently discharged on 06/19/17 -Continue physical therapy daily -Encourage out of bed to chair. Recliner to be placed in the room. -Plan to discharge to rehab facility. Patient has been in [facility] and left AMA after 1 day. -Psychiatry consult deemed patient incapacitated. -ST consulted for cognitive eval, recommends supervision after discharge secondary to cognitive defects HTN -Continue home medications amlodipine 10 mg daily, aspirin 81 daily, hydrochlorothiazide 25 mg daily -Monitor BP trend, adjust antihypertensives as needed DM 2 -Continue metformin -Continue insulin sliding scale -Monitor Accu-Cheks BPH -Continue Flomax Status post fall -If continues to be in pain with soreness in bilateral knees may do imaging studies. Follow-up results. -Encouraged to ask for assistance when getting out of bed. -No knee pain/ecchymosis/edema Constipation: unknown patient's last BM, complaining of constipation today 07/03 -give cisco-colace 2tabs po bid and MOM x1 now -start Miralax daily, hold for loose stools -constipation protocol meds DVT prophylaxis: Lovenox Discharge Planning Plan to discharge to SNF when placement is arranged. Case management assisting with discharge planning. Kenya Kunz PA-C Jul 03, 2017 8:43 am
[2017-07-03] MEDS ORDERED: LACTULOSE SYRUP 20 GM/30 ML CUP PO PRN (08:45)
[2017-07-03] MEDS ORDERED: MAGNESIUM HYDROXIDE SUSP 30 ML CUP PO PRN (08:45)
[2017-07-03] MEDS: SODIUM CHLORIDE 0.9% FLUSH 10 ML FLUSH IV FLUSH SCH ×2 (09:00→22:01)
[2017-07-03] MEDS: ASPIRIN 81 MG CHEW TAB PO SCH (09:08)
[2017-07-03] MEDS: GABAPENTIN 300 MG CAP PO SCH ×3 (09:12→17:02)
[2017-07-03] MEDS: HYDROCHLOROTHIAZIDE 25 MG TAB PO SCH (09:12)
[2017-07-03] MEDS: metFORMIN HCL 850 MG TAB PO SCH ×2 (09:12→17:02)
[2017-07-03] MEDS: PANTOPRAZOLE SOD 20 MG DELAYED RELEASE TAB PO SCH (09:13)
[2017-07-03] MEDS: CYANOCOBALAMIN 100 MCG TAB PO SCH (09:13)
[2017-07-03] MEDS: CITALOPRAM HYDROBROMIDE 20 MG TAB PO SCH (09:13)
[2017-07-03] MEDS: DOCUSATE SODIUM 50 MG/SENNA 8.6 MG TAB PO SCH ×2 (09:13→22:02)
[2017-07-03] MEDS: FERROUS SULFATE 325 MG (65 MG ELEMENTAL IRON) TAB PO SCH (09:13)
[2017-07-03] MEDS ORDERED: MAGNESIUM HYDROXIDE SUSP 30 ML CUP PO ONE (09:45)
[2017-07-03] MEDS: ENOXAPARIN SODIUM 40 MG/0.4 ML SYRINGE SQ SCH (16:51)
[2017-07-03] MEDS: ATORVASTATIN 20 MG TAB PO SCH (22:01)
[2017-07-03] MEDS: traZODone HCL 100 MG TAB PO SCH (22:01)
[2017-07-03] MEDS: TAMSULOSIN HCL 0.4 MG CAP PO SCH (22:01)
[2017-07-04] VITALS: BP 125/87; PULSE 76; RESP 20; TEMP 96.7; O2SAT 95
[2017-07-04] MEDS: glipiZIDE 10 MG TAB PO SCH ×2 (05:57→15:31)
[2017-07-04 08:00] VITALS: BP 130/92; PULSE 77; PULSE 95; RESP 20; TEMP 97.4; O2SAT 94
[2017-07-04] MEDS: INSULIN ASPART SUPPLEMENTAL SCALE SQ SCH ×4 (08:00→21:00)
[2017-07-04] MEDS: DOCUSATE SODIUM 50 MG/SENNA 8.6 MG TAB PO SCH ×2 (09:28→22:09)
[2017-07-04] MEDS: PANTOPRAZOLE SOD 20 MG DELAYED RELEASE TAB PO SCH (09:28)
[2017-07-04] MEDS: GABAPENTIN 300 MG CAP PO SCH ×3 (09:28→17:20)
[2017-07-04] MEDS: POLYETHYLENE GLYCOL 17 GM PKG PO SCH (09:28)
[2017-07-04] MEDS: FERROUS SULFATE 325 MG (65 MG ELEMENTAL IRON) TAB PO SCH (09:29)
[2017-07-04] MEDS: HYDROCHLOROTHIAZIDE 25 MG TAB PO SCH (09:29)
[2017-07-04] MEDS: CITALOPRAM HYDROBROMIDE 20 MG TAB PO SCH (09:29)
[2017-07-04] MEDS: metFORMIN HCL 850 MG TAB PO SCH ×2 (09:29→17:20)
[2017-07-04] MEDS: CYANOCOBALAMIN 100 MCG TAB PO SCH (09:29)
[2017-07-04] MEDS: ASPIRIN 81 MG CHEW TAB PO SCH (09:29)
--- NOTE | 2017-07-04 09:44 | HHI.PR ---
Subjective Remarks In bed appears in nad. Says he thinks he si improving and he wants to go home. Patient is however at high risk of falls and with poor insight and judgement. No other complaints. Follows commands. No n/v/d/c. Objective Vitals Vital Signs Date Time Temp Pulse Resp B/P (MAP) Pulse Ox O2 Delivery O2 Flow Rate FiO2 07/04/17 08:00 97.4 77 20 130/92 (105) 94 07/04/17 00:00 96.7 76 20 125/87 (100) 95 07/03/17 16:00 98.2 99 16 107/76 (86) 96 07/03/17 12:00 97.4 77 14 108/68 (81) 96 07/03/17 10:43 82 I/O 07/03/17 07/03/17 07/03/17 07/04/17 07/04/17 07/04/17 07:00 15:00 23:00 07:00 15:00 23:00 Intake Total 120 ml 120 ml Output Total 300 ml Balance -180 ml 120 ml Intake Oral 120 ml 120 ml Output Urine Total 300 ml # Voids 2 Imaging Last Impressions Carotid Artery Ultrasound 06/25/17 0000 Signed Impressions: Service Date/Time: Sunday, June 25, 2017 09:32 - CONCLUSION: Normal examination for a patient of this age. Sebastian Milian MD Head CT 06/24/179 Signed Impressions: Service Date/Time: Saturday, June 24, 2017 15:44 - CONCLUSION: No acute disease. Fercho Drake MD Chest X-Ray 06/24/17 1439 Signed Impressions: Service Date/Time: Saturday, June 24, 2017 14:54 - CONCLUSION: 1. No acute abnormality or significant interval change. Joey Bush MD Shoulder X-Ray 06/24/17 0000 Signed Impressions: Service Date/Time: Saturday, June 24, 2017 15:32 - CONCLUSION: No acute disease. Fercho Drkae MD Hip and Pelvis X-Ray 06/24/17 0000 Signed Impressions: Service Date/Time: Saturday, June 24, 2017 15:16 - CONCLUSION: No acute disease. Fercho Drake MD Objective Remarks GENERAL: This is a well-nourished, well-developed patient, in no apparent distress. SKIN: Dry scaly skin CARDIOVASCULAR: Regular rate and rhythm without murmurs, gallops, or rubs. RESPIRATORY: Clear to auscultation. Breath sounds equal bilaterally. No wheezes , rales, or rhonchi. GASTROINTESTINAL: Abdomen soft, non-tender, nondistended.No guarding. MUSCULOSKELETAL: Extremities without clubbing, cyanosis, or edema. No calf tenderness. NEUROLOGICAL: Awake and alert. Pleasantly confused. Motor and sensory grossly within normal limits. Normal speech. Procedures none A/P Problem List: (1) Dementia without behavioral disturbance ICD Code: F03.90 - Unspecified dementia without behavioral disturbance (2) Hypertension ICD Code: I10 - Essential (primary) hypertension Status: Chronic (3) Hyperlipidemia ICD Code: E78.5 - Hyperlipidemia, unspecified Status: Chronic (4) Diabetes ICD Code: E11.9 - Type 2 diabetes mellitus without complications Status: Chronic (5) Acute metabolic encephalopathy ICD Code: G93.41 - Metabolic encephalopathy (6) Slurred speech ICD Code: R47.81 - Slurred speech (7) Hyperglycemia ICD Code: R73.9 - Hyperglycemia, unspecified Status: Acute (8) Anemia ICD Code: D64.9 - Anemia, unspecified Status: Acute Assessment and Plan Status post fall. History of multiple frequent falls. Recent UTI. Discharged on June 19, 2017 Hypertension Diabetes Hard of hearing Plan: Physical therapy consult. At this point, there is no evidence of acute hypoglycemia. However patient does take quite a bit of oral hypoglycemic medications. Watch for hypoglycemia episodes. Doubt that this is his cause of unsteady gait. Most recent echo in September 2016 reviewed. Carotid US normal Vitamin B12 seen to low normal side, start B12 supplement Monitor fingersticks. We'll monitor for orthostatics. Monitor for hypoglycemic episodes. Rehabilitation evaluation. Consult psychiatry for evaluation, patient was seen by psychiatry he is not able to take decisions on his own. Add multivitamins patient with low appetite Add Tylenol as needed for headaches DVT prophylaxis with Lovenox. Discussed Condition With Patient, nurse PT recommends penit[facility]iary facility. Patient however with poor insight and judgment and not able to take decisions for himself. Case management consulted for discharge planning as needed. Discharged to penitentiary facility when arrangements are done Difficult discharge Milly Davey MD Jul 04, 2017 09:44
[2017-07-04] MEDS: SODIUM CHLORIDE 0.9% FLUSH 10 ML FLUSH IV FLUSH SCH ×2 (11:33→20:17)
[2017-07-04 12:00] VITALS: BP 113/80; PULSE 85; RESP 15; TEMP 97.5; O2SAT 94
[2017-07-04] MEDS: ENOXAPARIN SODIUM 40 MG/0.4 ML SYRINGE SQ SCH (15:31)
[2017-07-04 17:15] VITALS: BP 116/73; PULSE 88
[2017-07-04 20:00] VITALS: BP 128/78; PULSE 80; RESP 19; TEMP 97.7; O2SAT 99
[2017-07-04] MEDS: TAMSULOSIN HCL 0.4 MG CAP PO SCH (22:09)
[2017-07-04] MEDS: ATORVASTATIN 20 MG TAB PO SCH (22:09)
[2017-07-04] MEDS: traZODone HCL 100 MG TAB PO SCH (22:09)
[2017-07-05] VITALS (7 sets, daily range): BP systolic 97–141; BP diastolic 76–89; PULSE 78–96; RESP 17–18; TEMP 97.4–98.1; O2SAT 92–99
[2017-07-05] MEDS: glipiZIDE 10 MG TAB PO SCH ×2 (05:07→08:39)
[2017-07-05] MEDS: CITALOPRAM HYDROBROMIDE 20 MG TAB PO SCH (08:39)
[2017-07-05] MEDS: SODIUM CHLORIDE 0.9% FLUSH 10 ML FLUSH IV FLUSH SCH ×2 (08:39→19:46)
[2017-07-05] MEDS: INSULIN ASPART SUPPLEMENTAL SCALE SQ SCH ×4 (08:39→20:44)
[2017-07-05] MEDS: DOCUSATE SODIUM 50 MG/SENNA 8.6 MG TAB PO SCH ×2 (08:40→20:45)
[2017-07-05] MEDS: CYANOCOBALAMIN 100 MCG TAB PO SCH (08:40)
[2017-07-05] MEDS: GABAPENTIN 300 MG CAP PO SCH ×3 (08:40→16:56)
[2017-07-05] MEDS: PANTOPRAZOLE SOD 20 MG DELAYED RELEASE TAB PO SCH (08:40)
[2017-07-05] MEDS: POLYETHYLENE GLYCOL 17 GM PKG PO SCH (08:40)
[2017-07-05] MEDS: HYDROCHLOROTHIAZIDE 25 MG TAB PO SCH (08:40)
[2017-07-05] MEDS: FERROUS SULFATE 325 MG (65 MG ELEMENTAL IRON) TAB PO SCH (08:40)
[2017-07-05] MEDS: ASPIRIN 81 MG CHEW TAB PO SCH (08:40)
[2017-07-05] MEDS: metFORMIN HCL 850 MG TAB PO SCH ×2 (08:43→16:56)
--- NOTE | 2017-07-05 11:19 | HHI.PR ---
Subjective Remarks In bed, very pleasant and conversant today. Had a bowel movement. No nausea or vomiting no diarrhea. No abdominal pain. No fever or chills. Improved with physical therapy. Objective Vitals Vital Signs Date Time Temp Pulse Resp B/P (MAP) Pulse Ox O2 Delivery O2 Flow Rate FiO2 07/05/17 08:00 97.4 88 18 122/85 (97) 94 07/05/17 04:00 98.1 82 17 122/76 (91) 99 07/05/17 00:00 97.7 78 18 130/89 (103) 98 07/04/17 20:00 97.7 80 19 128/78 (95) 99 07/04/17 17:15 88 116/73 (87) 07/04/17 12:00 97.5 85 15 113/80 (91) 94 I/O 07/04/17 07/04/17 07/04/17 07/05/17 07/05/17 07/05/17 06:59 14:59 22:59 06:59 14:59 22:59 Intake Total 120 ml 420 ml Output Total 300 ml 200 ml 100 ml Balance -180 ml 220 ml -100 ml Intake Oral 120 ml 420 ml Output Urine Total 300 ml 200 ml 100 ml # Voids 2 1 2 Imaging Last Impressions Carotid Artery Ultrasound 06/25/17 0000 Signed Impressions: Service Date/Time: Sunday, June 25, 2017 09:32 - CONCLUSION: Normal examination for a patient of this age. Sebastian Milian MD Head CT 06/24/17 1439 Signed Impressions: Service Date/Time: Saturday, June 24, 2017 15:44 - CONCLUSION: No acute disease. Fercho Drake MD Chest X-Ray 06/24/17 1439 Signed Impressions: Service Date/Time: Saturday, June 24, 2017 14:54 - CONCLUSION: 1. No acute abnormality or significant interval change. Joey Bush MD Shoulder X-Ray 06/24/17 0000 Signed Impressions: Service Date/Time: Saturday, June 24, 2017 15:32 - CONCLUSION: No acute disease. Fercho Drake MD Hip and Pelvis X-Ray 06/24/17 0000 Signed Impressions: Service Date/Time: Saturday, June 24, 2017 15:16 - CONCLUSION: No acute disease. Fercho Drake MD Objective Remarks GENERAL: This is a well-nourished, well-developed patient, in no apparent distress. SKIN: Dry scaly skin CARDIOVASCULAR: Regular rate and rhythm without murmurs, gallops, or rubs. RESPIRATORY: Clear to auscultation. Breath sounds equal bilaterally. No wheezes , rales, or rhonchi. GASTROINTESTINAL: Abdomen soft, non-tender, nondistended.No guarding. MUSCULOSKELETAL: Extremities without clubbing, cyanosis, or edema. No calf tenderness. NEUROLOGICAL: Awake and alert. Pleasantly confused. Motor and sensory grossly within normal limits. Normal speech. Procedures none A/P Problem List: (1) Dementia without behavioral disturbance ICD Code: F03.90 - Unspecified dementia without behavioral disturbance (2) Hypertension ICD Code: I10 - Essential (primary) hypertension Status: Chronic (3) Hyperlipidemia ICD Code: E78.5 - Hyperlipidemia, unspecified Status: Chronic (4) Diabetes ICD Code: E11.9 - Type 2 diabetes mellitus without complications Status: Chronic (5) Acute metabolic encephalopathy ICD Code: G93.41 - Metabolic encephalopathy (6) Slurred speech ICD Code: R47.81 - Slurred speech (7) Hyperglycemia ICD Code: R73.9 - Hyperglycemia, unspecified Status: Acute (8) Anemia ICD Code: D64.9 - Anemia, unspecified Status: Acute Assessment and Plan Status post fall. History of multiple frequent falls. Recent UTI. Discharged on June 19, 2017 Hypertension Diabetes Hard of hearing Plan: Physical therapy consult. At this point, there is no evidence of acute hypoglycemia. However patient does take quite a bit of oral hypoglycemic medications. Watch for hypoglycemia episodes. Doubt that this is his cause of unsteady gait. Most recent echo in September 2016 reviewed. Carotid US normal Vitamin B12 seen to low normal side, start B12 supplement Monitor fingersticks. We'll monitor for orthostatics. Monitor for hypoglycemic episodes. Rehabilitation evaluation. Consult psychiatry for evaluation, patient was seen by psychiatry he is not able to take decisions on his own. Add multivitamins patient with low appetite Add Tylenol as needed for headaches DVT prophylaxis with Lovenox. Discussed Condition With Patient, nurse PT recommends long term facility. Patient however with poor insight and judgment and not able to take decisions for himself. Case management consulted for discharge planning. Discharged to long term facility when arrangements are done Difficult discharge Milly Davey MD Jul 05, 2017 11:19
[2017-07-05] MEDS: ENOXAPARIN SODIUM 40 MG/0.4 ML SYRINGE SQ SCH (13:16)
[2017-07-05] MEDS: ATORVASTATIN 20 MG TAB PO SCH (20:45)
[2017-07-05] MEDS: traZODone HCL 100 MG TAB PO SCH (20:45)
[2017-07-05] MEDS: TAMSULOSIN HCL 0.4 MG CAP PO SCH (20:45)
[2017-07-06] VITALS: BP 115/84; PULSE 91; RESP 17; TEMP 97.4; O2SAT 96
[2017-07-06 04:00] VITALS: BP 140/79; PULSE 82; RESP 18; TEMP 97.1; O2SAT 94
[2017-07-06] MEDS: glipiZIDE 10 MG TAB PO SCH ×2 (04:42→17:53)
--- NOTE | 2017-07-06 07:52 | HHI.PR ---
Subjective Remarks The patient is in bed he appears to not acute distress at this time. He is asking if he can sit in the chair. No chest pain nausea vomiting did not have any falls. Wants to go home. Objective Vitals Vital Signs Date Time Temp Pulse Resp B/P (MAP) Pulse Ox O2 Delivery O2 Flow Rate FiO2 07/06/17 04:00 97.1 82 18 140/79 (99) 94 07/06/17 00:00 97.4 91 17 115/84 (94) 96 07/05/17 20:00 97.4 96 18 124/85 (98) 95 07/05/17 16:00 97.9 78 18 141/81 (101) 95 07/05/17 15:37 81 07/05/17 12:00 98.0 89 18 97/79 (85) 92 07/05/17 08:00 97.4 88 18 122/85 (97) 94 I/O 07/05/17 07/05/17 07/05/17 07/06/17 07/06/17 07/06/17 07:00 15:00 23:00 07:00 15:00 23:00 Intake Total 0 ml Output Total 100 ml Balance -100 ml 0 ml Intake Oral 0 ml Output Urine Total 100 ml # Voids 1 2 # Bowel Movements 1 1 Objective Remarks GENERAL: This is a well-nourished, well-developed patient, in no apparent distress. SKIN: Dry scaly skin CARDIOVASCULAR: Regular rate and rhythm without murmurs, gallops, or rubs. RESPIRATORY: Clear to auscultation. Breath sounds equal bilaterally. No wheezes , rales, or rhonchi. GASTROINTESTINAL: Abdomen soft, non-tender, nondistended.No guarding. MUSCULOSKELETAL: Extremities without clubbing, cyanosis, or edema. No calf tenderness. NEUROLOGICAL: Awake and alert. Pleasantly confused. Motor and sensory grossly within normal limits. Normal speech. Procedures none A/P Problem List: (1) Dementia without behavioral disturbance ICD Code: F03.90 - Unspecified dementia without behavioral disturbance (2) Hypertension ICD Code: I10 - Essential (primary) hypertension Status: Chronic (3) Hyperlipidemia ICD Code: E78.5 - Hyperlipidemia, unspecified Status: Chronic (4) Diabetes ICD Code: E11.9 - Type 2 diabetes mellitus without complications Status: Chronic (5) Acute metabolic encephalopathy ICD Code: G93.41 - Metabolic encephalopathy (6) Slurred speech ICD Code: R47.81 - Slurred speech (7) Hyperglycemia ICD Code: R73.9 - Hyperglycemia, unspecified Status: Acute (8) Anemia ICD Code: D64.9 - Anemia, unspecified Status: Acute Assessment and Plan Status post fall. History of multiple frequent falls. Recent UTI. Discharged on June 19, 2017 Hypertension Diabetes Hard of hearing Plan: Physical therapy consult. At this point, there is no evidence of acute hypoglycemia. However patient does take quite a bit of oral hypoglycemic medications. Watch for hypoglycemia episodes. Doubt that this is his cause of unsteady gait. Most recent echo in September 2016 reviewed. Carotid US normal Vitamin B12 seen to low normal side, start B12 supplement Monitor fingersticks. We'll monitor for orthostatics. Monitor for hypoglycemic episodes. Rehabilitation evaluation. Consult psychiatry for evaluation, patient was seen by psychiatry he is not able to take decisions on his own. Add multivitamins patient with low appetite Add Tylenol as needed for headaches DVT prophylaxis with Lovenox. Discussed Condition With Patient, nurse PT recommends halfway facility. Patient however with poor insight and judgment and not able to take decisions for himself. Case management consulted for discharge planning. Discharged to halfway facility when arrangements are done Difficult discharge Milly Davey MD Jul 06, 2017 07:52
[2017-07-06 08:00] VITALS: BP 138/85; PULSE 91; RESP 18; TEMP 97.9; O2SAT 93
[2017-07-06] MEDS: INSULIN ASPART SUPPLEMENTAL SCALE SQ SCH ×4 (08:00→21:00)
[2017-07-06] MEDS: CYANOCOBALAMIN 100 MCG TAB PO SCH (09:00)
[2017-07-06] MEDS: metFORMIN HCL 850 MG TAB PO SCH ×2 (09:45→17:53)
[2017-07-06] MEDS: GABAPENTIN 300 MG CAP PO SCH ×3 (09:48→17:53)
[2017-07-06] MEDS: HYDROCHLOROTHIAZIDE 25 MG TAB PO SCH (09:48)
[2017-07-06] MEDS: FERROUS SULFATE 325 MG (65 MG ELEMENTAL IRON) TAB PO SCH (09:48)
[2017-07-06] MEDS: POLYETHYLENE GLYCOL 17 GM PKG PO SCH (09:49)
[2017-07-06] MEDS: PANTOPRAZOLE SOD 20 MG DELAYED RELEASE TAB PO SCH (09:49)
[2017-07-06] MEDS: CITALOPRAM HYDROBROMIDE 20 MG TAB PO SCH (09:49)
[2017-07-06] MEDS: DOCUSATE SODIUM 50 MG/SENNA 8.6 MG TAB PO SCH ×2 (09:49→23:29)
[2017-07-06] MEDS: SODIUM CHLORIDE 0.9% FLUSH 10 ML FLUSH IV FLUSH SCH ×2 (09:49→20:37)
[2017-07-06] MEDS: ASPIRIN 81 MG CHEW TAB PO SCH (09:49)
[2017-07-06 12:00] VITALS: BP 127/91; PULSE 83; RESP 18; TEMP 98.9; O2SAT 93
[2017-07-06] MEDS: ENOXAPARIN SODIUM 40 MG/0.4 ML SYRINGE SQ SCH (15:05)
[2017-07-06 16:00] VITALS: BP 133/80; PULSE 89; RESP 18; TEMP 98.4; O2SAT 93
[2017-07-06 20:00] VITALS: BP 121/76; PULSE 85; RESP 18; TEMP 96.4; O2SAT 94
[2017-07-06] MEDS: TAMSULOSIN HCL 0.4 MG CAP PO SCH (23:29)
[2017-07-06] MEDS: traZODone HCL 100 MG TAB PO SCH (23:29)
[2017-07-06] MEDS: ATORVASTATIN 20 MG TAB PO SCH (23:29)
[2017-07-07] VITALS: BP 145/77; PULSE 92; RESP 18; TEMP 96.7; O2SAT 95
[2017-07-07 04:00] VITALS: BP 138/82; PULSE 88; RESP 18; TEMP 96.4; O2SAT 93
[2017-07-07] MEDS: glipiZIDE 10 MG TAB PO SCH ×2 (06:18→16:00)
[2017-07-07] MEDS: INSULIN ASPART SUPPLEMENTAL SCALE SQ SCH ×4 (07:37→21:00)
[2017-07-07 08:00] VITALS: BP 124/80; PULSE 86; RESP 20; TEMP 97.4; O2SAT 93
[2017-07-07] MEDS: CITALOPRAM HYDROBROMIDE 20 MG TAB PO SCH (09:11)
[2017-07-07] MEDS: ASPIRIN 81 MG CHEW TAB PO SCH (09:11)
[2017-07-07] MEDS: SODIUM CHLORIDE 0.9% FLUSH 10 ML FLUSH IV FLUSH SCH ×2 (09:11→20:16)
[2017-07-07] MEDS: POLYETHYLENE GLYCOL 17 GM PKG PO SCH (09:12)
[2017-07-07] MEDS: FERROUS SULFATE 325 MG (65 MG ELEMENTAL IRON) TAB PO SCH (09:12)
[2017-07-07] MEDS: metFORMIN HCL 850 MG TAB PO SCH ×2 (09:12→18:18)
[2017-07-07] MEDS: HYDROCHLOROTHIAZIDE 25 MG TAB PO SCH (09:12)
[2017-07-07] MEDS: GABAPENTIN 300 MG CAP PO SCH ×3 (09:12→18:18)
--- NOTE | 2017-07-07 09:12 | HHI.PR ---
Subjective Remarks Is in bed appears to not acute distress. Is asking to CT of the chair. Since the start of being in bed all the time. He denies any fever or chills no nausea or vomiting no diarrhea or constipation. It is improving. Says he knows he has risk of falling is indeed felt 20 times until now. Objective Vitals Vital Signs Date Time Temp Pulse Resp B/P (MAP) Pulse Ox O2 Delivery O2 Flow Rate FiO2 07/07/17 04:00 96.4 88 18 138/82 (100) 93 07/07/17 00:00 96.7 92 18 145/77 (99) 95 07/06/17 20:00 96.4 85 18 121/76 (91) 94 07/06/17 16:00 98.4 89 18 133/80 (97) 93 07/06/17 12:00 98.9 83 18 127/91 (103) 93 I/O 07/06/17 07/06/17 07/06/17 07/07/17 07/07/17 07/07/17 07:00 15:00 23:00 07:00 15:00 23:00 Intake Total 0 ml 600 ml 120 ml Balance 0 ml 600 ml 120 ml Intake Oral 0 ml 600 ml 120 ml # Voids 2 2 2 # Bowel Movements 1 1 1 Imaging Last Impressions Carotid Artery Ultrasound 06/25/17 0000 Signed Impressions: Service Date/Time: Sunday, June 25, 2017 09:32 - CONCLUSION: Normal examination for a patient of this age. Sebastian Milian MD Head CT 06/24/17 1439 Signed Impressions: Service Date/Time: Saturday, June 24, 2017 15:44 - CONCLUSION: No acute disease. Fercho Drake MD Chest X-Ray 06/24/17 1439 Signed Impressions: Service Date/Time: Saturday, June 24, 2017 14:54 - CONCLUSION: 1. No acute abnormality or significant interval change. Joey Bush MD Shoulder X-Ray 06/24/17 0000 Signed Impressions: Service Date/Time: Saturday, June 24, 2017 15:32 - CONCLUSION: No acute disease. Fercho Drake MD Hip and Pelvis X-Ray 06/24/17 0000 Signed Impressions: Service Date/Time: Saturday, June 24, 2017 15:16 - CONCLUSION: No acute disease. Fercho Drake MD Objective Remarks GENERAL: This is a well-nourished, well-developed patient, in no apparent distress. SKIN: Dry scaly skin CARDIOVASCULAR: Regular rate and rhythm without murmurs, gallops, or rubs. RESPIRATORY: Clear to auscultation. Breath sounds equal bilaterally. No wheezes , rales, or rhonchi. GASTROINTESTINAL: Abdomen soft, non-tender, nondistended.No guarding. MUSCULOSKELETAL: Extremities without clubbing, cyanosis, or edema. No calf tenderness. NEUROLOGICAL: Awake and alert. Pleasantly confused. Motor and sensory grossly within normal limits. Normal speech. Procedures none A/P Problem List: (1) Dementia without behavioral disturbance ICD Code: F03.90 - Unspecified dementia without behavioral disturbance (2) Hypertension ICD Code: I10 - Essential (primary) hypertension Status: Chronic (3) Hyperlipidemia ICD Code: E78.5 - Hyperlipidemia, unspecified Status: Chronic (4) Diabetes ICD Code: E11.9 - Type 2 diabetes mellitus without complications Status: Chronic (5) Acute metabolic encephalopathy ICD Code: G93.41 - Metabolic encephalopathy (6) Slurred speech ICD Code: R47.81 - Slurred speech (7) Hyperglycemia ICD Code: R73.9 - Hyperglycemia, unspecified Status: Acute (8) Anemia ICD Code: D64.9 - Anemia, unspecified Status: Acute Assessment and Plan Status post fall. History of multiple frequent falls. Recent UTI. Discharged on June 19, 2017 Hypertension Diabetes Hard of hearing Plan: Physical therapy consult. At this point, there is no evidence of acute hypoglycemia. However patient does take quite a bit of oral hypoglycemic medications. Watch for hypoglycemia episodes. Doubt that this is his cause of unsteady gait. Most recent echo in September 2016 reviewed. Carotid US normal Vitamin B12 seen to low normal side, start B12 supplement Monitor fingersticks. We'll monitor for orthostatics. Monitor for hypoglycemic episodes. Rehabilitation evaluation. Consult psychiatry for evaluation, patient was seen by psychiatry he is not able to take decisions on his own. Add multivitamins patient with low appetite Add Tylenol as needed for headaches DVT prophylaxis with Lovenox. Discussed Condition With Patient, nurse PT recommends intermediate facility. Patient however with poor insight and judgment and not able to take decisions for himself. Case management consulted for discharge planning. Discharged to intermediate facility when arrangements are done Difficult discharge Milly Davey MD Jul 07, 2017 09:12
[2017-07-07] MEDS: CYANOCOBALAMIN 100 MCG TAB PO SCH (09:13)
[2017-07-07] MEDS: PANTOPRAZOLE SOD 20 MG DELAYED RELEASE TAB PO SCH (09:13)
[2017-07-07] MEDS: DOCUSATE SODIUM 50 MG/SENNA 8.6 MG TAB PO SCH ×2 (09:13→21:31)
[2017-07-07 12:00] VITALS: BP 110/72; PULSE 95; RESP 20; TEMP 99.2; O2SAT 93
[2017-07-07] MEDS: ENOXAPARIN SODIUM 40 MG/0.4 ML SYRINGE SQ SCH (15:22)
[2017-07-07 16:00] VITALS: BP 147/95; PULSE 90; RESP 20; TEMP 98; O2SAT 91
[2017-07-07 20:00] VITALS: BP 124/76; PULSE 85; RESP 18; TEMP 96.9; O2SAT 93
[2017-07-07] MEDS: ATORVASTATIN 20 MG TAB PO SCH (21:31)
[2017-07-07] MEDS: TAMSULOSIN HCL 0.4 MG CAP PO SCH (21:31)
[2017-07-07] MEDS: traZODone HCL 100 MG TAB PO SCH (21:31)
[2017-07-08 04:00] VITALS: BP 123/75; PULSE 89; RESP 18; TEMP 97.8; O2SAT 90
[2017-07-08] MEDS: INSULIN ASPART SUPPLEMENTAL SCALE SQ SCH ×4 (07:51→21:00)
[2017-07-08] MEDS: glipiZIDE 10 MG TAB PO SCH ×2 (07:53→16:29)
[2017-07-08 08:00] VITALS: BP 119/71; PULSE 88; RESP 16; TEMP 98.3; O2SAT 92
[2017-07-08] MEDS: POLYETHYLENE GLYCOL 17 GM PKG PO SCH (09:00)
[2017-07-08] MEDS: SODIUM CHLORIDE 0.9% FLUSH 10 ML FLUSH IV FLUSH SCH (09:06)
[2017-07-08] MEDS: CITALOPRAM HYDROBROMIDE 20 MG TAB PO SCH (09:07)
[2017-07-08] MEDS: FERROUS SULFATE 325 MG (65 MG ELEMENTAL IRON) TAB PO SCH (09:07)
[2017-07-08] MEDS: HYDROCHLOROTHIAZIDE 25 MG TAB PO SCH (09:07)
[2017-07-08] MEDS: metFORMIN HCL 850 MG TAB PO SCH ×2 (09:07→18:22)
[2017-07-08] MEDS: ASPIRIN 81 MG CHEW TAB PO SCH (09:07)
[2017-07-08] MEDS: CYANOCOBALAMIN 100 MCG TAB PO SCH (09:08)
[2017-07-08] MEDS: DOCUSATE SODIUM 50 MG/SENNA 8.6 MG TAB PO SCH ×2 (09:08→21:00)
[2017-07-08] MEDS: PANTOPRAZOLE SOD 20 MG DELAYED RELEASE TAB PO SCH (09:08)
[2017-07-08] MEDS: GABAPENTIN 300 MG CAP PO SCH ×3 (09:08→18:22)
[2017-07-08 12:00] VITALS: BP 134/78; PULSE 86; RESP 18; TEMP 97.2; O2SAT 92
--- NOTE | 2017-07-08 14:11 | HHI.PR ---
Subjective Remarks Patient seen and examined for follow-up on unsafe discharge due to cognition. Patient review presented with recurrent fall. Psychiatry evaluated patient indicated that he is incompetent make his own decisions. Case management consulted for discharge planning. Vital signs are stable, patient remains afebrile. Objective Vitals Vital Signs Date Time Temp Pulse Resp B/P (MAP) Pulse Ox O2 Delivery O2 Flow Rate FiO2 07/08/17 12:00 97.2 86 18 134/78 (96) 92 07/08/17 08:00 98.3 88 16 119/71 (87) 92 07/08/17 04:00 97.8 89 18 123/75 (91) 90 07/07/17 20:00 96.9 85 18 124/76 (92) 93 07/07/17 16:00 98.0 90 20 147/95 (112) 91 I/O 07/07/17 07/07/17 07/07/17 07/08/17 07/08/17 07/08/17 07:00 15:00 23:00 07:00 15:00 23:00 Intake Total 120 ml 720 ml Balance 120 ml 720 ml Intake Oral 120 ml 720 ml # Voids 2 2 # Bowel Movements 1 1 Objective Remarks GENERAL: Well-developed, well-nourished, in no acute distress. alert and orientated HEENT: Head is normocephalic without any lesions or masses noted. Facial features are symmetric. Eyes: Extraocular muscles are intact. Conjunctivae were clear. NECK: Supple without any masses. Trachea midline no deviation. No JVD, CARDIAC: Regular rhythm, regular rate. S1/S2 are heard. No murmurs gallops or rubs. LUNGS: Clear to auscultation bilaterally. No wheeze, rhonchi or rales. No use of accessory muscles on inspiration or expiration. ABDOMEN: Soft, nontender. Nondistended. Bowel sounds heard in all 4 quadrants. No organomegaly or masses. Negative rebound, negative guarding EXTREMITIES: No edema, pulses are equal bilaterally. No cyanosis or clubbing NEUROLOGY: Mood and affect appear appropriate. Cranial nerves II through XII grossly intact. Moving all extremities, speech is clear Procedures none Urinary Catheter: No Vascular Central Line Catheter: No A/P Assessment and Plan Dementia with cognition deficits Patient originally presented the hospital because of recurrent falls Psychiatry evaluated the patient indicates that the patient does not have capacity to make his own decisions Case management consulted for discharge planning and management Speech therapy did perform initial cognitive eval on 06/26 with a MOCA 03/14, will reconsult for further evaluation Reconsult psychiatry to reevaluate since patient has improved. Physical deconditioning with recurrent outpatient falls Case management consulted for placement to skilled nurse facility, however insurance is not authorizing Continue physical therapy 7 days a week Diabetes Patient on Metformin 850 mg twice daily, glipizide 10 mg twice daily Accu-Cheks with sliding scale insulin Diabetic diet Hypertension, benign prostatic hypertrophy Home medications have been continued DVT prevention Subcutaneous Lovenox Discharge Planning Case management consulted for discharge planning. Patient has been turned down for [facility] placement. Russell Azar Jul 08, 2017 14:11
[2017-07-08 16:22] VITALS: BP 133/72; PULSE 84; RESP 18; TEMP 98.1; O2SAT 92
[2017-07-08] MEDS: ENOXAPARIN SODIUM 40 MG/0.4 ML SYRINGE SQ SCH (16:29)
--- NOTE | 2017-07-08 17:55 | RADRPT ---
EXAM DATE/TIME: 07/07/2017 02:12 [place] COMPARISON: No previous studies available for comparison. INDICATIONS : Constipation. MEDICAL HISTORY : Myocardial infarction. Hypertension Arthritis. Renal disease, Diabetes SURGICAL HISTORY : Cholecystectomy. Inguinal hernia repair. ENCOUNTER: Initial ACUITY: 1 week PAIN SCORE: 3/10 LOCATION: Bilateral abdomen FINDINGS: 2 AP supine views the abdomen and pelvis were obtained and demonstrate gas and stool noted segmentall y within the colon with a moderate amount of stool noted in the distal colon consistent with the hist ory of constipation. There are multiple loops of nondilated air-containing small bowel in the central abdomen. There is no evidence of free air on this supine study. The patient is status post cholecyst ectomy. The bony structures are intact with osteopenia. CONCLUSION: Nonspecific, nonobstructed bowel gas pattern with moderate amount of stool in the distal colon consis tent with the history of constipation. Justin Mckenzie MD on July 07, 2017 at 2:23 Board Certified Radiologist. This report was verified electronically.
[2017-07-08 20:00] VITALS: BP 118/70; PULSE 88; RESP 20; TEMP 97.7; O2SAT 94
[2017-07-08] MEDS: TAMSULOSIN HCL 0.4 MG CAP PO SCH (22:38)
[2017-07-08] MEDS: ATORVASTATIN 20 MG TAB PO SCH (22:38)
[2017-07-08] MEDS: traZODone HCL 100 MG TAB PO SCH (22:38)
[2017-07-09 08:00] VITALS: BP 113/72; PULSE 86; RESP 16; TEMP 99; O2SAT 96
[2017-07-09] MEDS: INSULIN ASPART SUPPLEMENTAL SCALE SQ SCH ×4 (08:00→21:00)
[2017-07-09] MEDS: glipiZIDE 10 MG TAB PO SCH ×2 (08:14→17:08)
[2017-07-09] MEDS: DOCUSATE SODIUM 50 MG/SENNA 8.6 MG TAB PO SCH ×2 (09:00→20:59)
[2017-07-09] MEDS: POLYETHYLENE GLYCOL 17 GM PKG PO SCH (09:00)
[2017-07-09 09:17] LABS: AUTOMATED NEUTROPHIL # 5.4 TH/MM3 (1.8-7.7); BASOPHIL # 0.1 TH/MM3 (0-0.2); BASOPHIL % 0.9 % (0.0-2.0); EOSINOPHIL # 0.2 TH/MM3 (0-0.4); EOSINOPHIL % 3.1 % (0.0-4.0); HEMOGLOBIN 11.6 GM/DL (13.0-17.0); LYMPH % 21.4 % (9.0-44.0); LYMPHOCYTE # 1.7 TH/MM3 (1.0-4.8); MEAN CELL VOLUME 81.6 FL (80.0-100.0); MEAN CORPUSCULAR HEMOGLOBIN 26.2 PG (27.0-34.0); MEAN CORPUSCULAR HGB CONC 32.1 % (32.0-36.0); MEAN PLATELET VOLUME 8.7 FL (7.0-11.0); MONOCYTE # 0.5 TH/MM3 (0-0.9); NEUT % 68.6 % (16.0-70.0); PLATELET COUNT 308 TH/MM3 (150-450); RED BLOOD COUNT 4.42 MIL/MM3 (4.50-5.90); RED CELL DISTRIBUTION WIDTH 14.4 % (11.6-17.2); WHITE BLOOD COUNT 7.9 TH/MM3 (4.0-11.0)
--- NOTE | 2017-07-09 09:34 | HHI.PR ---
Subjective Remarks Patient seen and examined today for follow-up on weakness and dementia. Patient is doing much better. Patient is still weak. Patient denies any new complaints. Vital signs are stable, afebrile Objective Vitals Vital Signs Date Time Temp Pulse Resp B/P (MAP) Pulse Ox O2 Delivery O2 Flow Rate FiO2 07/08/17 20:00 97.7 88 20 118/70 (86) 94 07/08/17 16:22 98.1 84 18 133/72 (92) 92 07/08/17 12:00 97.2 86 18 134/78 (96) 92 I/O 07/08/17 07/08/17 07/08/17 07/09/17 07/09/17 07/09/17 07:00 15:00 23:00 07:00 15:00 23:00 Intake Total 720 ml 420 ml Balance 720 ml 420 ml Intake Oral 720 ml 420 ml # Voids 3 6 # Bowel Movements 2 6 Result Diagram: 07/09/17 0851 Objective Remarks GENERAL: Well-developed, well-nourished, in no acute distress. alert and orientated HEENT: Head is normocephalic without any lesions or masses noted. Facial features are symmetric. Eyes: Extraocular muscles are intact. Conjunctivae were clear. NECK: Supple without any masses. Trachea midline no deviation. No JVD, CARDIAC: Regular rhythm, regular rate. S1/S2 are heard. No murmurs gallops or rubs. LUNGS: Clear to auscultation bilaterally. No wheeze, rhonchi or rales. No use of accessory muscles on inspiration or expiration. ABDOMEN: Soft, nontender. Nondistended. Bowel sounds heard in all 4 quadrants. No organomegaly or masses. Negative rebound, negative guarding EXTREMITIES: No edema, pulses are equal bilaterally. No cyanosis or clubbing NEUROLOGY: Mood and affect appear appropriate. Cranial nerves II through XII grossly intact. Moving all extremities, speech is clear Procedures none Urinary Catheter: No Vascular Central Line Catheter: No A/P Assessment and Plan Dementia with cognition deficits Patient originally presented the hospital because of recurrent falls Psychiatry evaluated the patient indicates that the patient does not have capacity to make his own decisions Case management consulted for discharge planning and management Speech therapy did perform initial cognitive eval on 06/26 with a MOCA 03/14, will reconsult for further evaluation which now the patient is Reconsult psychiatry to reevaluate since patient has improved. Psychiatrist indicates now the patient is able to make his own decisions. Physical deconditioning with recurrent outpatient falls Case management consulted for placement to skilled nurse facility, however insurance is not authorizing Continue physical therapy 7 days a week Diabetes Patient on Metformin 850 mg twice daily, glipizide 10 mg twice daily Accu-Cheks with sliding scale insulin Diabetic diet Hypertension, benign prostatic hypertrophy Home medications have been continued DVT prevention Subcutaneous Lovenox Discharge Planning Case management consulted for discharge planning. Patient does have active discharge order to group home facility once arranged. Russell Azar Jul 09, 2017 09:34
[2017-07-09] MEDS: ASPIRIN 81 MG CHEW TAB PO SCH (09:39)
[2017-07-09] MEDS: HYDROCHLOROTHIAZIDE 25 MG TAB PO SCH (09:39)
[2017-07-09] MEDS: CYANOCOBALAMIN 100 MCG TAB PO SCH (09:39)
[2017-07-09] MEDS: FERROUS SULFATE 325 MG (65 MG ELEMENTAL IRON) TAB PO SCH (09:39)
[2017-07-09] MEDS: PANTOPRAZOLE SOD 20 MG DELAYED RELEASE TAB PO SCH (09:39)
[2017-07-09] MEDS: GABAPENTIN 300 MG CAP PO SCH ×3 (09:39→17:08)
[2017-07-09] MEDS: metFORMIN HCL 850 MG TAB PO SCH ×2 (09:40→18:14)
[2017-07-09] MEDS: CITALOPRAM HYDROBROMIDE 20 MG TAB PO SCH (09:40)
[2017-07-09 09:44] LABS: CALCIUM 8.9 MG/DL (8.5-10.1)
[2017-07-09 09:45] LABS: BICARBONATE 30.6 MEQ/L (21.0-32.0); MAGNESIUM 1.8 MG/DL (1.5-2.5)
--- NOTE | 2017-07-09 12:35 | HHI.PYPN ---
Subjective Remarks The patient is a 71 year-old man, domiciled alone in [place], without no previous psychiatric history, medical history diabetes, hypertension , physical deterioration, multiple falls, who was initially consulted to psychiatry due to cognitive deficits, delirium, and to assess decision-making capacity. Psychiatric reevaluation today patient has a much brighter affect, is fully engageable in a conversation, reports that he has okay mood, denies anhedonia, denies hopelessness, denies helplessness, denies worthlessness, denies suicidal and homicidal ideation. The patient was able to tell me that the reason he is being admitted is because he fell and I have been mentally weak. Patient reports that once he is medically better he prefers to go back home. However, he is not opposed to go to subacute rehabilitation, but he does not want to go to a alf. The patient is fully oriented 3, without any attention deficit, no fluctuation of consciousness, good immediate and recent recall, extraction, attention, executive function and language. He seems to be aware of his medical conditions consequences of not following recommendations. She is logical, coherent and relevant. Review of Systems Constitutional: DENIES: Diaphoretic episodes, Fatigue, Fever, Weight gain, Weight loss, Chills, Dizziness, Change in appetite, Night Sweats Endocrine: DENIES: Heat/cold intolerance, Polydipsia, Polyuria, Polyphagia Eyes: DENIES: Blurred vision, Diplopia, Eye inflammation, Eye pain, Vision loss , Photosensitivity, Double Vision Ears, nose, mouth, throat: DENIES: Tinnitus, Hearing loss, Vertigo, Nasal discharge, Oral lesions, Throat pain, Hoarseness, Ear Pain, Running Nose, Epistaxis, Sinus Pain, Toothache, Odynophagia Respiratory: DENIES: Apneas, Cough, Snoring, Wheezing, Hemoptysis, Sputum production, Shortness of breath Cardiovascular: DENIES: Chest pain, Palpitations, Syncope, Dyspnea on Exertion , PND, Lower Extremity Edema, Orthopnea, Claudication Gastrointestinal: DENIES: Abdominal pain, Black stools, Bloody stools, Constipation, Diarrhea, Nausea, Vomiting, Difficulty Swallowing, Anorexia Genitourinary: DENIES: Sexual dysfunction, Urinary frequency, Urinary incontinence, Urgency, Hematuria, Dysuria, Nocturia, Penile Discharge, Testicular Pain, Testicular Swelling Musculoskeletal: DENIES: Joint pain, Muscle aches, Stiffness, Joint Swelling, Back pain, Neck pain Integumentary: DENIES: Abnormal pigmentation, Nail changes, Pruritus, Rash Hematologic/lymphatic: DENIES: Bruising, Lymphadenopathy Immunologic/allergic: DENIES: Eczema, Urticaria Neurologic: DENIES: Abnormal gait, Headache, Localized weakness, Paresthesias, Seizures, Speech Problems, Tremor, Poor Balance Psychiatric: DENIES: Anxiety, Confusion, Mood changes, Depression, Hallucinations, Agitation, Suicidal Ideation, Homicidal Ideation, Delusions Mental Status Examination Appearance: Appropriate Consciousness: Alert Orientation: x4 Motor Activity: Normal gait Speech: Unremarkable Language: Adequate Fund of Knowledge: Adequate Attention and Concentration: Adequate, Easily Distracted Mood: Appropriate Affect: Appropriate Thought Process & Associations: Intact Thought Content: Appropriate Hallucination Type: None Delusion Type: None Suicidal Ideation: No Suicidal Plan: No Suicidal Intention: No Homicidal Ideation: No Homicidal Plan: No Homicidal Intention: No Insight: Adequate Judgment: Adequate Results Labs Test 07/09/17 08:51 White Blood Count 7.9 TH/MM3 Red Blood Count 4.42 MIL/MM3 Hemoglobin 11.6 GM/DL Hematocrit 36.0 % Mean Corpuscular Volume 81.6 FL Mean Corpuscular Hemoglobin 26.2 PG Mean Corpuscular Hemoglobin Concent 32.1 % Red Cell Distribution Width 14.4 % Platelet Count 308 TH/MM3 Mean Platelet Volume 8.7 FL Neutrophils (%) (Auto) 68.6 % Lymphocytes (%) (Auto) 21.4 % Monocytes (%) (Auto) 6.0 % Eosinophils (%) (Auto) 3.1 % Basophils (%) (Auto) 0.9 % Neutrophils # (Auto) 5.4 TH/MM3 Lymphocytes # (Auto) 1.7 TH/MM3 Monocytes # (Auto) 0.5 TH/MM3 Eosinophils # (Auto) 0.2 TH/MM3 Basophils # (Auto) 0.1 TH/MM3 CBC Comment DIFF FINAL Differential Comment Blood Urea Nitrogen 18 MG/DL Creatinine 1.00 MG/DL Random Glucose 155 MG/DL Calcium Level 8.9 MG/DL Magnesium Level 1.8 MG/DL Sodium Level 135 MEQ/L Potassium Level 3.9 MEQ/L Chloride Level 98 MEQ/L Carbon Dioxide Level 30.6 MEQ/L Anion Gap 6 MEQ/L Estimat Glomerular Filtration Rate 73 ML/MIN Date/Time Source Procedure Growth Status 06/24/17 15:00 Blood Peripheral Aerobic Blood Culture - Final NO GROWTH IN 5 DAYS Complete 06/24/17 15:00 Blood Peripheral Anaerobic Blood Culture - Final NO GROWTH IN 5 DAYS Complete Vitals/IOs Vital Signs Date Time Temp Pulse Resp B/P (MAP) Pulse Ox O2 Delivery O2 Flow Rate FiO2 07/09/17 08:00 99.0 86 16 113/72 (86) 96 Intake and Output 07/09/17 07/09/17 07/10/17 08:00 16:00 00:00 Intake Total 420 ml Balance 420 ml Assessment & Plan Problem List: (1) Psychological factors affecting medical condition ICD Codes: F54 - Psychological and behavioral factors associated with disorders or diseases classified elsewhere Assessment & Plan: Psychiatric evaluation today the patient presents calm, cooperative and pleasant. The patient was able to verbalize understanding and appreciation of current medical situation. His choice is to be discharged back home and not going to a alf, he will accept to go to a subacute rehab. Patient is able to elaborate about alternative treatments and also about consequences of his actions. He denies depressive symptoms, denies anxiety, denies stephanie and psychosis. The patient denies suicidal or homicidal ideation. Patient is fully oriented 3, no attention deficit, no fluctuation of consciousness, no gross cognitive impairment is present at this moment. Continue current psychotropic regimen. Patient does not meet criteria for involuntary psychiatric admission. Patient preserves his decision-making capacity to participate in treatment and discharge plan. (2) Acute metabolic encephalopathy ICD Codes: G93.41 - Metabolic encephalopathy Assessment & Plan Estimated LOS: days Justification for Cont. Inpt. No admission indicated at this moment. Harlan Quiles MD Jul 09, 2017 12:35
[2017-07-09] MEDS: ENOXAPARIN SODIUM 40 MG/0.4 ML SYRINGE SQ SCH (14:19)
[2017-07-09 20:00] VITALS: BP 126/71; PULSE 73; RESP 20; TEMP 97; O2SAT 94
[2017-07-09] MEDS: TAMSULOSIN HCL 0.4 MG CAP PO SCH (20:59)
[2017-07-09] MEDS: ATORVASTATIN 20 MG TAB PO SCH (20:59)
[2017-07-09] MEDS: traZODone HCL 100 MG TAB PO SCH (20:59)
[2017-07-10] VITALS: BP 121/68; PULSE 74; RESP 20; TEMP 97.2; O2SAT 92
[2017-07-10] MEDS: glipiZIDE 10 MG TAB PO SCH ×2 (06:29→17:13)
[2017-07-10 08:00] VITALS: BP 117/92; PULSE 75; RESP 18; TEMP 96.7; O2SAT 95
[2017-07-10] MEDS: INSULIN ASPART SUPPLEMENTAL SCALE SQ SCH (08:00)
[2017-07-10] MEDS: DOCUSATE SODIUM 50 MG/SENNA 8.6 MG TAB PO SCH ×2 (09:00→21:00)
[2017-07-10] MEDS: POLYETHYLENE GLYCOL 17 GM PKG PO SCH (09:00)
--- NOTE | 2017-07-10 09:54 | HHI.PR ---
Subjective Remarks Patient seen and examined today for follow-up on weakness, cognition. Patient is doing much better. He is alert and orientated. Patient has been cleared by psychiatry to make his own decisions. However patient's physical status is hindering discharge planning. Physical therapy indicating the patient is walking over 250 feet with walker, however he is having problems with standing and falling. Still recommending rehab facility. Discussed with the patient that he needs to eat out of bed more often. When she is strong enough to go home and cleared by physical therapy we can discharge him home Objective Vitals Vital Signs Date Time Temp Pulse Resp B/P (MAP) Pulse Ox O2 Delivery O2 Flow Rate FiO2 07/10/17 00:00 97.2 74 20 121/68 (85) 92 07/09/17 20:00 97.0 73 20 126/71 (89) 94 I/O 07/09/17 07/09/17 07/09/17 07/10/17 07/10/17 07/10/17 07:00 15:00 23:00 07:00 15:00 23:00 Intake Total 420 ml 600 ml 120 ml Balance 420 ml 600 ml 120 ml Intake Oral 420 ml 600 ml 120 ml # Voids 6 2 # Bowel Movements 6 1 Result Diagram: 07/09/17 0851 07/09/17 0851 Objective Remarks GENERAL: Well-developed, well-nourished, in no acute distress. alert and orientated HEENT: Head is normocephalic without any lesions or masses noted. Facial features are symmetric. Eyes: Extraocular muscles are intact. Conjunctivae were clear. NECK: Supple without any masses. Trachea midline no deviation. No JVD, CARDIAC: Regular rhythm, regular rate. S1/S2 are heard. No murmurs gallops or rubs. LUNGS: Clear to auscultation bilaterally. No wheeze, rhonchi or rales. No use of accessory muscles on inspiration or expiration. ABDOMEN: Soft, nontender. Nondistended. Bowel sounds heard in all 4 quadrants. No organomegaly or masses. Negative rebound, negative guarding EXTREMITIES: No edema, pulses are equal bilaterally. No cyanosis or clubbing NEUROLOGY: Mood and affect appear appropriate. Cranial nerves II through XII grossly intact. Moving all extremities, speech is clear Procedures none Urinary Catheter: No Vascular Central Line Catheter: No A/P Assessment and Plan Dementia with cognition deficits Patient originally presented the hospital because of recurrent falls Psychiatry evaluated the patient indicates that the patient does not have capacity to make his own decisions Case management consulted for discharge planning and management Speech therapy did perform initial cognitive eval on 06/26 with a MOCA 03/14, reconsulted for further evaluation which now the patient is Reconsult psychiatry to reevaluate since patient has improved. Psychiatrist indicates now the patient is able to make his own decisions. Physical deconditioning with recurrent outpatient falls Case management consulted for placement to skilled nurse facility, however insurance is not authorizing Continue physical therapy 7 days a week, twice daily Diabetes Patient on Metformin 850 mg twice daily, glipizide 10 mg twice daily Patient has not required any insulin in over 48 hours. Discontinue Accu- Cheks and sliding scale insulin Diabetic diet Hypertension, benign prostatic hypertrophy Home medications have been continued DVT prevention Subcutaneous Lovenox Discharge Planning Case management consulted for discharge planning. Patient does have active discharge order to alf facility once arranged. Russell Azar Jul 10, 2017 09:54
[2017-07-10] MEDS: FERROUS SULFATE 325 MG (65 MG ELEMENTAL IRON) TAB PO SCH (09:55)
[2017-07-10] MEDS: metFORMIN HCL 850 MG TAB PO SCH ×2 (09:55→18:45)
[2017-07-10] MEDS: CYANOCOBALAMIN 100 MCG TAB PO SCH (09:55)
[2017-07-10] MEDS: ASPIRIN 81 MG CHEW TAB PO SCH (09:55)
[2017-07-10] MEDS: CITALOPRAM HYDROBROMIDE 20 MG TAB PO SCH (09:55)
[2017-07-10] MEDS: PANTOPRAZOLE SOD 20 MG DELAYED RELEASE TAB PO SCH (09:55)
[2017-07-10] MEDS: GABAPENTIN 300 MG CAP PO SCH ×3 (09:55→18:45)
[2017-07-10] MEDS: HYDROCHLOROTHIAZIDE 25 MG TAB PO SCH (12:02)
[2017-07-10] MEDS: ENOXAPARIN SODIUM 40 MG/0.4 ML SYRINGE SQ SCH (14:58)
[2017-07-10 20:00] VITALS: BP 116/68; PULSE 77; RESP 20; TEMP 97.2; O2SAT 92
[2017-07-10] MEDS: traZODone HCL 100 MG TAB PO SCH (21:49)
[2017-07-10] MEDS: TAMSULOSIN HCL 0.4 MG CAP PO SCH (21:50)
[2017-07-10] MEDS: ATORVASTATIN 20 MG TAB PO SCH (21:50)
[2017-07-11] VITALS: BP 122/72; PULSE 75; RESP 20; TEMP 97.1; O2SAT 93
[2017-07-11] MEDS: glipiZIDE 10 MG TAB PO SCH ×2 (06:12→15:45)
[2017-07-11 07:52] VITALS: BP 116/74; PULSE 65; RESP 20; TEMP 98.6; O2SAT 95
--- NOTE | 2017-07-11 09:45 | HHI.PR ---
Subjective Remarks Patient seen and examined today for follow-up on unsafe discharge due to weakness. Patient sitting in chair. Denies any new complaints. Discussed with physical therapy and indicates patient is severely deconditioned unable to go home at this time. Vital signs are stable, afebrile Objective Vitals Vital Signs Date Time Temp Pulse Resp B/P (MAP) Pulse Ox O2 Delivery O2 Flow Rate FiO2 07/11/17 07:52 98.6 65 20 116/74 (88) 95 07/11/17 00:00 97.1 75 20 122/72 (89) 93 07/10/17 20:00 97.2 77 20 116/68 (84) 92 I/O 07/10/17 07/10/17 07/10/17 07/11/17 07/11/17 07/11/17 06:59 14:59 22:59 06:59 14:59 22:59 Intake Total 120 ml 100 ml Output Total 400 ml 600 ml Balance 120 ml -400 ml -500 ml Intake Oral 120 ml 100 ml Output Urine Total 400 ml 600 ml # Voids 2 1 3 # Bowel Movements 1 0 Result Diagram: 07/09/17 0851 07/09/17 0851 Objective Remarks GENERAL: Well-developed, well-nourished, in no acute distress. alert and orientated HEENT: Head is normocephalic without any lesions or masses noted. Facial features are symmetric. Eyes: Extraocular muscles are intact. Conjunctivae were clear. NECK: Supple without any masses. Trachea midline no deviation. No JVD, CARDIAC: Regular rhythm, regular rate. S1/S2 are heard. No murmurs gallops or rubs. LUNGS: Clear to auscultation bilaterally. No wheeze, rhonchi or rales. No use of accessory muscles on inspiration or expiration. ABDOMEN: Soft, nontender. Nondistended. Bowel sounds heard in all 4 quadrants. No organomegaly or masses. Negative rebound, negative guarding EXTREMITIES: No edema, pulses are equal bilaterally. No cyanosis or clubbing NEUROLOGY: Mood and affect appear appropriate. Cranial nerves II through XII grossly intact. Moving all extremities, speech is clear Procedures none Urinary Catheter: No Vascular Central Line Catheter: No A/P Assessment and Plan Dementia with cognition deficits Patient originally presented the hospital because of recurrent falls Psychiatry evaluated the patient indicates that the patient does not have capacity to make his own decisions Case management consulted for discharge planning and management Speech therapy did perform initial cognitive eval on 06/26 with a MOCA 03/14, reconsulted for further evaluation which now the patient is Reconsult psychiatry to reevaluate since patient has improved. Psychiatrist indicates now the patient is able to make his own decisions. Physical deconditioning with recurrent outpatient falls Case management consulted for placement to skilled nurse facility, however insurance is not authorizing Continue physical therapy 7 days a week, twice daily Diabetes Patient on Metformin 850 mg twice daily, glipizide 10 mg twice daily Discontinued Accu-Cheks and sliding scale insulin Diabetic diet Hypertension, benign prostatic hypertrophy Home medications have been continued DVT prevention Subcutaneous Lovenox Discharge Planning Case management consulted for discharge planning. Patient does have [facility] order [facility] once arranged. However it has been difficult in trying to make arrangements for [facility] facility. Unfortunately patient may remain in hospital until cleared by physical therapy to go home with home health care. Russell Azar Jul 11, 2017 09:44
[2017-07-11] MEDS: GABAPENTIN 300 MG CAP PO SCH ×3 (09:55→18:17)
[2017-07-11] MEDS: ASPIRIN 81 MG CHEW TAB PO SCH (09:55)
[2017-07-11] MEDS: HYDROCHLOROTHIAZIDE 25 MG TAB PO SCH (09:55)
[2017-07-11] MEDS: CYANOCOBALAMIN 100 MCG TAB PO SCH (09:56)
[2017-07-11] MEDS: DOCUSATE SODIUM 50 MG/SENNA 8.6 MG TAB PO SCH ×2 (09:56→22:34)
[2017-07-11] MEDS: FERROUS SULFATE 325 MG (65 MG ELEMENTAL IRON) TAB PO SCH (09:56)
[2017-07-11] MEDS: PANTOPRAZOLE SOD 20 MG DELAYED RELEASE TAB PO SCH (09:56)
[2017-07-11] MEDS: metFORMIN HCL 850 MG TAB PO SCH ×2 (09:56→18:16)
[2017-07-11] MEDS: CITALOPRAM HYDROBROMIDE 20 MG TAB PO SCH (09:56)
[2017-07-11] MEDS: POLYETHYLENE GLYCOL 17 GM PKG PO SCH (10:02)
[2017-07-11] MEDS: ENOXAPARIN SODIUM 40 MG/0.4 ML SYRINGE SQ SCH (14:29)
[2017-07-11 16:00] VITALS: BP 108/80; PULSE 89; RESP 20; TEMP 96.7; O2SAT 96
[2017-07-11 20:00] VITALS: BP 130/77; PULSE 103; RESP 20; TEMP 97.1; O2SAT 93
[2017-07-11] MEDS: ATORVASTATIN 20 MG TAB PO SCH (22:33)
[2017-07-11] MEDS: TAMSULOSIN HCL 0.4 MG CAP PO SCH (22:33)
[2017-07-11] MEDS: traZODone HCL 100 MG TAB PO SCH (22:34)
[2017-07-12] VITALS: BP 119/72; PULSE 90; RESP 20; TEMP 97.7; O2SAT 90
[2017-07-12 08:00] VITALS: BP 124/75; PULSE 73; RESP 20; TEMP 98.6; O2SAT 91
--- NOTE | 2017-07-12 09:08 | HHI.PR ---
Subjective Remarks Patient seen and examined today for follow-up on unsafe discharge due to generalized weakness. Patient doing much better. He is ablating more with physical therapy. Still awaiting insurance authorization to discharge to [facility] facility. Patient denies any new complaints. Vital signs are stable. Patient remains afebrile. Objective Vitals Vital Signs Date Time Temp Pulse Resp B/P (MAP) Pulse Ox O2 Delivery O2 Flow Rate FiO2 07/12/17 00:00 97.7 90 20 119/72 (88) 90 07/11/17 20:00 97.1 103 20 130/77 (94) 93 07/11/17 16:00 96.7 89 20 108/80 (89) 96 I/O 07/11/17 07/11/17 07/11/17 07/12/17 07/12/17 07/12/17 07:00 15:00 23:00 07:00 15:00 23:00 Intake Total 100 ml 1200 ml 480 ml Output Total 600 ml Balance -500 ml 1200 ml 480 ml Intake Oral 100 ml 1200 ml 480 ml Output Urine Total 600 ml # Voids 3 2 2 2 # Bowel Movements 0 0 Result Diagram: 07/09/17 0851 07/09/17 0851 Objective Remarks GENERAL: Well-developed, well-nourished, in no acute distress. alert and orientated HEENT: Head is normocephalic without any lesions or masses noted. Facial features are symmetric. Eyes: Extraocular muscles are intact. Conjunctivae were clear. NECK: Supple without any masses. Trachea midline no deviation. No JVD, CARDIAC: Regular rhythm, regular rate. S1/S2 are heard. No murmurs gallops or rubs. LUNGS: Clear to auscultation bilaterally. No wheeze, rhonchi or rales. No use of accessory muscles on inspiration or expiration. ABDOMEN: Soft, nontender. Nondistended. Bowel sounds heard in all 4 quadrants. No organomegaly or masses. Negative rebound, negative guarding EXTREMITIES: No edema, pulses are equal bilaterally. No cyanosis or clubbing NEUROLOGY: Mood and affect appear appropriate. Cranial nerves II through XII grossly intact. Moving all extremities, speech is clear Procedures none Urinary Catheter: No Vascular Central Line Catheter: No A/P Assessment and Plan Dementia with cognition deficits, significantly improved Patient originally presented the hospital because of recurrent falls Psychiatry evaluated the patient indicates that the patient does not have capacity to make his own decisions Case management consulted for discharge planning and management Speech therapy did perform initial cognitive eval on 06/26 with a MOCA 03/14, reconsulted for further evaluation which now the patient is Reconsult psychiatry to reevaluate since patient has improved. Psychiatrist indicates now the patient is able to make his own decisions. Physical deconditioning with recurrent outpatient falls, improving Case management consulted for placement to skilled nurse facility, however insurance is not authorizing Continue physical therapy 7 days a week, twice daily Diabetes, stable Patient on Metformin 850 mg twice daily, glipizide 10 mg twice daily Discontinued Accu-Cheks and sliding scale insulin Diabetic diet Hypertension, benign prostatic hypertrophy, stable Home medications have been continued DVT prevention Subcutaneous Lovenox Medical records reviewed, no change in current treatment plan, awaiting case management for discharge planning Discharge Planning Case management consulted for discharge planning. Patient does have active discharge order to [facility] once arranged. However it has been difficult in trying to make arrangements for [facility] facility. Unfortunately patient may remain in hospital until cleared by physical therapy to go home with home health care. Russell Azar Jul 12, 2017 09:08
[2017-07-12] MEDS: FERROUS SULFATE 325 MG (65 MG ELEMENTAL IRON) TAB PO SCH (09:19)
[2017-07-12] MEDS: PANTOPRAZOLE SOD 20 MG DELAYED RELEASE TAB PO SCH (09:19)
[2017-07-12] MEDS: GABAPENTIN 300 MG CAP PO SCH ×3 (09:19→17:24)
[2017-07-12] MEDS: glipiZIDE 10 MG TAB PO SCH ×2 (09:20→16:17)
[2017-07-12] MEDS: POLYETHYLENE GLYCOL 17 GM PKG PO SCH (09:20)
[2017-07-12] MEDS: ASPIRIN 81 MG CHEW TAB PO SCH (09:20)
[2017-07-12] MEDS: CYANOCOBALAMIN 100 MCG TAB PO SCH (09:21)
[2017-07-12] MEDS: DOCUSATE SODIUM 50 MG/SENNA 8.6 MG TAB PO SCH ×2 (09:21→22:24)
[2017-07-12] MEDS: HYDROCHLOROTHIAZIDE 25 MG TAB PO SCH (09:21)
[2017-07-12] MEDS: metFORMIN HCL 850 MG TAB PO SCH ×2 (09:21→17:24)
[2017-07-12] MEDS: CITALOPRAM HYDROBROMIDE 20 MG TAB PO SCH (09:21)
[2017-07-12 12:00] VITALS: BP 123/83; PULSE 88; RESP 20; TEMP 98.2; O2SAT 95
[2017-07-12 15:58] VITALS: BP 112/72; PULSE 86; RESP 20; TEMP 99.6; O2SAT 95
[2017-07-12] MEDS: ENOXAPARIN SODIUM 40 MG/0.4 ML SYRINGE SQ SCH (16:17)
[2017-07-12 21:27] VITALS: BP 109/68; PULSE 68; RESP 16; TEMP 97.9; O2SAT 96
[2017-07-12] MEDS: TAMSULOSIN HCL 0.4 MG CAP PO SCH (22:23)
[2017-07-12] MEDS: traZODone HCL 100 MG TAB PO SCH (22:24)
[2017-07-12] MEDS: ATORVASTATIN 20 MG TAB PO SCH (22:24)
[2017-07-13 00:24] VITALS: BP 116/64; PULSE 73; RESP 18; TEMP 98.2; O2SAT 97
[2017-07-13] MEDS: glipiZIDE 10 MG TAB PO SCH ×2 (06:48→16:10)
[2017-07-13] MEDS: ASPIRIN 81 MG CHEW TAB PO SCH (08:39)
[2017-07-13] MEDS: DOCUSATE SODIUM 50 MG/SENNA 8.6 MG TAB PO SCH ×2 (08:39→21:42)
[2017-07-13] MEDS: GABAPENTIN 300 MG CAP PO SCH ×3 (08:40→17:19)
[2017-07-13] MEDS: POLYETHYLENE GLYCOL 17 GM PKG PO SCH (08:40)
[2017-07-13] MEDS: PANTOPRAZOLE SOD 20 MG DELAYED RELEASE TAB PO SCH (08:40)
[2017-07-13] MEDS: CYANOCOBALAMIN 100 MCG TAB PO SCH (08:40)
[2017-07-13] MEDS: CITALOPRAM HYDROBROMIDE 20 MG TAB PO SCH (08:40)
[2017-07-13] MEDS: metFORMIN HCL 850 MG TAB PO SCH ×2 (08:41→17:19)
[2017-07-13] MEDS: HYDROCHLOROTHIAZIDE 25 MG TAB PO SCH (08:41)
[2017-07-13] MEDS: FERROUS SULFATE 325 MG (65 MG ELEMENTAL IRON) TAB PO SCH (08:41)
[2017-07-13 09:01] VITALS: BP 129/85; PULSE 74; RESP 16; TEMP 97.3; O2SAT 93
--- NOTE | 2017-07-13 09:05 | HHI.PR ---
Subjective Remarks Patient seen and examined today for follow-up on unsafe discharge due to physical deconditioning. Patient is improving. He is getting out of bed on his own going to the bathroom. He is walking 450 feet with physical therapy. Awaiting clearance from physical therapy to be able to go home with home health care. Vital signs are stable. Patient remains afebrile. Objective Vitals Vital Signs Date Time Temp Pulse Resp B/P (MAP) Pulse Ox O2 Delivery O2 Flow Rate FiO2 07/13/17 05:06 07/13/17 00:24 98.2 73 18 116/64 (81) 97 07/12/17 21:27 97.9 68 16 109/68 (82) 96 07/12/17 15:58 99.6 86 20 112/72 (85) 95 07/12/17 12:00 98.2 88 20 123/83 (96) 95 I/O 07/12/17 07/12/17 07/12/17 07/13/17 07/13/17 07/13/17 06:59 14:59 22:59 06:59 14:59 22:59 Intake Total 1020 ml Balance 1020 ml Intake Oral 1020 ml # Voids 2 3 3 # Bowel Movements 0 1 Result Diagram: 07/09/17 0851 07/09/17 0851 Objective Remarks GENERAL: Well-developed, well-nourished, in no acute distress. alert and orientated HEENT: Head is normocephalic without any lesions or masses noted. Facial features are symmetric. Eyes: Extraocular muscles are intact. Conjunctivae were clear. NECK: Supple without any masses. Trachea midline no deviation. No JVD, CARDIAC: Regular rhythm, regular rate. S1/S2 are heard. No murmurs gallops or rubs. LUNGS: Clear to auscultation bilaterally. No wheeze, rhonchi or rales. No use of accessory muscles on inspiration or expiration. ABDOMEN: Soft, nontender. Nondistended. Bowel sounds heard in all 4 quadrants. No organomegaly or masses. Negative rebound, negative guarding EXTREMITIES: No edema, pulses are equal bilaterally. No cyanosis or clubbing NEUROLOGY: Mood and affect appear appropriate. Cranial nerves II through XII grossly intact. Moving all extremities, speech is clear Procedures none Urinary Catheter: No Vascular Central Line Catheter: No A/P Assessment and Plan Dementia with cognition deficits, significantly improved Patient originally presented the hospital because of recurrent falls Psychiatry evaluated the patient indicates that the patient does not have capacity to make his own decisions Case management consulted for discharge planning and management Speech therapy did perform initial cognitive eval on 06/26 with a MOCA 03/14, reconsulted for further evaluation which now the patient is Reconsult psychiatry to reevaluate since patient has improved. Psychiatrist indicates now the patient is able to make his own decisions. Physical deconditioning with recurrent outpatient falls, improving Case management consulted for placement to skilled nurse facility, however insurance is not authorizing Continue physical therapy 7 days a week, twice daily Diabetes, stable Patient on Metformin 850 mg twice daily, glipizide 10 mg twice daily Discontinued Accu-Cheks and sliding scale insulin Diabetic diet Hypertension, benign prostatic hypertrophy, stable Home medications have been continued DVT prevention Subcutaneous Lovenox Medical records reviewed, no change in current treatment plan, awaiting case management for discharge planning Discharge Planning Case management consulted for discharge planning. Patient does have active discharge order to [facility] facility once arranged. However it has been difficult in trying to make arrangements for [facility] facility. Unfortunately patient may remain in hospital until cleared by physical therapy to go home with home health care. Russell Azar Jul 13, 2017 09:05
[2017-07-13 12:00] VITALS: BP 142/81; PULSE 76; RESP 16; TEMP 97.1; O2SAT 96
[2017-07-13] MEDS: ENOXAPARIN SODIUM 40 MG/0.4 ML SYRINGE SQ SCH (14:13)
[2017-07-13 16:00] VITALS: BP 123/77; PULSE 74; RESP 16; TEMP 96.6; O2SAT 95
[2017-07-13] MEDS ORDERED: ALUMINUM/MAGNESIUM/SIMETH 30 ML CUP PO PRN (16:15)
[2017-07-13 16:55] VITALS: BP 123/74; PULSE 78; RESP 16; TEMP 97.6; O2SAT 94
[2017-07-13 20:55] VITALS: BP 133/73; PULSE 72; RESP 17; TEMP 98.2; O2SAT 92
[2017-07-13] MEDS: traZODone HCL 100 MG TAB PO SCH (21:41)
[2017-07-13] MEDS: ATORVASTATIN 20 MG TAB PO SCH (21:42)
[2017-07-13] MEDS: TAMSULOSIN HCL 0.4 MG CAP PO SCH (21:42)
[2017-07-14 00:37] VITALS: BP 128/78; PULSE 69; RESP 18; TEMP 98; O2SAT 94
[2017-07-14 04:00] VITALS: BP 132/68; PULSE 68; RESP 16; TEMP 97.6; O2SAT 95
[2017-07-14] MEDS: glipiZIDE 10 MG TAB PO SCH ×2 (06:45→17:02)
--- NOTE | 2017-07-14 07:35 | HHI.PR ---
Subjective Remarks Patient seen and examined today. Patient with recurrent falls, climbing out of bed. Sitter was ordered to watch the patient closely, so he does not injure himself. Patient is not too happy with a sitter in the room. He wants to get up and walk. Vital signs are stable, patient remains afebrile Objective Vitals Vital Signs Date Time Temp Pulse Resp B/P (MAP) Pulse Ox O2 Delivery O2 Flow Rate FiO2 07/14/17 04:00 97.6 68 16 132/68 (89) 95 07/14/17 00:37 98.0 69 18 128/78 (95) 94 07/13/17 20:55 98.2 72 17 133/73 (93) 92 07/13/17 16:55 97.6 78 16 123/74 (90) 94 07/13/17 16:00 96.6 74 16 123/77 (92) 95 07/13/17 12:00 97.1 76 16 142/81 (101) 96 07/13/17 09:01 97.3 74 16 129/85 (100) 93 I/O 07/13/17 07/13/17 07/13/17 07/14/17 07/14/17 07/14/17 07:00 15:00 23:00 07:00 15:00 23:00 Intake Total 360 ml Output Total 400 ml Balance 360 ml -400 ml Intake Oral 360 ml Output Urine Total 400 ml # Voids 3 3 3 # Bowel Movements 1 2 1 Objective Remarks GENERAL: Well-developed, well-nourished, in no acute distress. alert and orientated HEENT: Head is normocephalic without any lesions or masses noted. Facial features are symmetric. Eyes: Extraocular muscles are intact. Conjunctivae were clear. NECK: Supple without any masses. Trachea midline no deviation. No JVD, CARDIAC: Regular rhythm, regular rate. S1/S2 are heard. No murmurs gallops or rubs. LUNGS: Clear to auscultation bilaterally. No wheeze, rhonchi or rales. No use of accessory muscles on inspiration or expiration. ABDOMEN: Soft, nontender. Nondistended. Bowel sounds heard in all 4 quadrants. No organomegaly or masses. Negative rebound, negative guarding EXTREMITIES: No edema, pulses are equal bilaterally. No cyanosis or clubbing NEUROLOGY: Mood and affect appear appropriate. Cranial nerves II through XII grossly intact. Moving all extremities, speech is clear Procedures none Urinary Catheter: No Vascular Central Line Catheter: No A/P Assessment and Plan Dementia with cognition deficits, significantly improved Patient originally presented the hospital because of recurrent falls Psychiatry evaluated the patient indicates that the patient does not have capacity to make his own decisions Case management consulted for discharge planning and management Speech therapy did perform initial cognitive eval on 06/26 with a MOCA 03/14, reconsulted for further evaluation which now the patient is Reconsult psychiatry to reevaluate since patient has improved. Psychiatrist indicates now the patient is able to make his own decisions. Physical deconditioning with recurrent outpatient falls, Case management consulted for placement to skilled nurse facility, however insurance is not authorizing Continue physical therapy 7 days a week, twice daily Continue sitter due to patient climbing out of bed and falling Diabetes, stable Patient on Metformin 850 mg twice daily, glipizide 10 mg twice daily Discontinued Accu-Cheks and sliding scale insulin Diabetic diet Hypertension, benign prostatic hypertrophy, stable Home medications have been continued DVT prevention Subcutaneous Lovenox Medical records reviewed, awaiting case management for discharge planning, no change in current treatment plan, Discharge Planning Case management consulted for discharge planning. Patient does have active discharge order to custodial facility once arranged. However it has been difficult in trying to make arrangements for custodial facility. Unfortunately patient may remain in hospital until cleared by physical therapy to go home with home health care. Russell Azar Jul 14, 2017 07:35
[2017-07-14 08:00] VITALS: BP 121/70; PULSE 71; RESP 16; TEMP 96.5; O2SAT 92
[2017-07-14] MEDS: metFORMIN HCL 850 MG TAB PO SCH ×2 (08:06→17:02)
[2017-07-14] MEDS: PANTOPRAZOLE SOD 20 MG DELAYED RELEASE TAB PO SCH (08:06)
[2017-07-14] MEDS: GABAPENTIN 300 MG CAP PO SCH ×3 (08:06→17:02)
[2017-07-14] MEDS: ASPIRIN 81 MG CHEW TAB PO SCH (08:06)
[2017-07-14] MEDS: FERROUS SULFATE 325 MG (65 MG ELEMENTAL IRON) TAB PO SCH (08:07)
[2017-07-14] MEDS: CYANOCOBALAMIN 100 MCG TAB PO SCH (08:07)
[2017-07-14] MEDS: DOCUSATE SODIUM 50 MG/SENNA 8.6 MG TAB PO SCH ×2 (08:07→19:53)
[2017-07-14] MEDS: CITALOPRAM HYDROBROMIDE 20 MG TAB PO SCH (08:07)
[2017-07-14] MEDS: HYDROCHLOROTHIAZIDE 25 MG TAB PO SCH (08:13)
[2017-07-14] MEDS: POLYETHYLENE GLYCOL 17 GM PKG PO SCH (08:14)
[2017-07-14 12:00] VITALS: BP 118/66; PULSE 74; RESP 14; TEMP 97.5; O2SAT 95
[2017-07-14 16:00] VITALS: BP 107/66; PULSE 81; RESP 16; TEMP 97.6; O2SAT 94
[2017-07-14] MEDS: ENOXAPARIN SODIUM 40 MG/0.4 ML SYRINGE SQ SCH (17:02)
[2017-07-14] MEDS: traZODone HCL 100 MG TAB PO SCH (19:53)
[2017-07-14] MEDS: TAMSULOSIN HCL 0.4 MG CAP PO SCH (19:53)
[2017-07-14] MEDS: ATORVASTATIN 20 MG TAB PO SCH (19:54)
[2017-07-14 20:00] VITALS: BP 128/75; PULSE 91; RESP 18; TEMP 98.1; O2SAT 95
[2017-07-14] MEDS ORDERED: ONDANSETRON HCL 4 MG/2 ML VIAL IV PUSH PRN (21:00)
[2017-07-14] MEDS ORDERED: BISMUTH SUBSALICYLATE 240 ML BTL PO ONE (21:00)
[2017-07-15] VITALS (7 sets, daily range): BP systolic 107–120; BP diastolic 70–84; PULSE 66–89; RESP 15–22; TEMP 96.4–99.2; O2SAT 92–98
[2017-07-15] MEDS: glipiZIDE 10 MG TAB PO SCH ×2 (06:37→15:53)
--- NOTE | 2017-07-15 07:04 | HHI.PR ---
Subjective Remarks Patient seen and examined today for follow-up on unsafe discharge due to instability. Patient requiring 24-hour supervision so he will not fall. Patient try to get out of bed all the time. Awaiting case management discharge planning. No new complaints. Vital signs are stable. Patient afebrile Objective Vitals Vital Signs Date Time Temp Pulse Resp B/P (MAP) Pulse Ox O2 Delivery O2 Flow Rate FiO2 07/15/17 00:00 97.9 89 18 118/70 (86) 98 07/14/17 20:00 98.1 91 18 128/75 (92) 95 07/14/17 16:00 97.6 81 16 107/66 (80) 94 07/14/17 12:00 97.5 74 14 118/66 (83) 95 07/14/17 08:00 96.5 71 16 121/70 (87) 92 I/O 07/14/17 07/14/17 07/14/17 07/15/17 07/15/17 07/15/17 07:00 15:00 23:00 07:00 15:00 23:00 Intake Total 380 ml 240 ml Balance 380 ml 240 ml Intake Oral 380 ml 240 ml # Voids 3 3 4 # Bowel Movements 1 2 1 Objective Remarks GENERAL: Well-developed, well-nourished, in no acute distress. alert and orientated HEENT: Head is normocephalic without any lesions or masses noted. Facial features are symmetric. Eyes: Extraocular muscles are intact. Conjunctivae were clear. NECK: Supple without any masses. Trachea midline no deviation. No JVD, CARDIAC: Regular rhythm, regular rate. S1/S2 are heard. No murmurs gallops or rubs. LUNGS: Clear to auscultation bilaterally. No wheeze, rhonchi or rales. No use of accessory muscles on inspiration or expiration. ABDOMEN: Soft, nontender. Nondistended. Bowel sounds heard in all 4 quadrants. No organomegaly or masses. Negative rebound, negative guarding EXTREMITIES: No edema, pulses are equal bilaterally. No cyanosis or clubbing NEUROLOGY: Mood and affect appear appropriate. Cranial nerves II through XII grossly intact. Moving all extremities, speech is clear Procedures none Urinary Catheter: No Vascular Central Line Catheter: No A/P Assessment and Plan Dementia with cognition deficits, significantly improved Patient originally presented the hospital because of recurrent falls Psychiatry evaluated the patient indicates that the patient does not have capacity to make his own decisions Case management consulted for discharge planning and management Speech therapy did perform initial cognitive eval on 06/26 with a MOCA 03/14, reconsulted for further evaluation which now the patient is Reconsult psychiatry to reevaluate since patient has improved. Psychiatrist indicates now the patient is able to make his own decisions. Physical deconditioning with recurrent outpatient falls, Case management consulted for placement to skilled nurse facility, however insurance is not authorizing Continue physical therapy 7 days a week, twice daily Continue sitter due to patient climbing out of bed and falling Diabetes, stable Patient on Metformin 850 mg twice daily, glipizide 10 mg twice daily Diabetic diet Hypertension, benign prostatic hypertrophy, stable Home medications have been continued DVT prevention Subcutaneous Lovenox Medical records reviewed, no change in current treatment plan, awaiting case management for discharge planning, Discharge Planning Case management consulted for discharge planning. Patient does have active discharge order to [facility] facility once arranged. However it has been difficult in trying to make arrangements for [facility] facility. Unfortunately patient may remain in hospital until cleared by physical therapy to go home with home health care. Russell Azar Jul 15, 2017 07:04
[2017-07-15] MEDS: CITALOPRAM HYDROBROMIDE 20 MG TAB PO SCH (08:56)
[2017-07-15] MEDS: metFORMIN HCL 850 MG TAB PO SCH ×2 (08:57→17:53)
[2017-07-15] MEDS: DOCUSATE SODIUM 50 MG/SENNA 8.6 MG TAB PO SCH ×3 (08:57→20:49)
[2017-07-15] MEDS: HYDROCHLOROTHIAZIDE 25 MG TAB PO SCH (08:57)
[2017-07-15] MEDS: ASPIRIN 81 MG CHEW TAB PO SCH (08:57)
[2017-07-15] MEDS: FERROUS SULFATE 325 MG (65 MG ELEMENTAL IRON) TAB PO SCH (08:57)
[2017-07-15] MEDS: GABAPENTIN 300 MG CAP PO SCH ×3 (08:57→17:53)
[2017-07-15] MEDS: CYANOCOBALAMIN 100 MCG TAB PO SCH (08:57)
[2017-07-15] MEDS: PANTOPRAZOLE SOD 20 MG DELAYED RELEASE TAB PO SCH (08:57)
[2017-07-15] MEDS: POLYETHYLENE GLYCOL 17 GM PKG PO SCH ×2 (08:58→08:59)
[2017-07-15] MEDS: ENOXAPARIN SODIUM 40 MG/0.4 ML SYRINGE SQ SCH (15:53)
[2017-07-15] MEDS: traZODone HCL 100 MG TAB PO SCH (20:49)
[2017-07-15] MEDS: ATORVASTATIN 20 MG TAB PO SCH (20:49)
[2017-07-15] MEDS: TAMSULOSIN HCL 0.4 MG CAP PO SCH (20:49)
[2017-07-16 04:00] VITALS: BP 108/84; PULSE 77; RESP 20; TEMP 96.6; O2SAT 95
[2017-07-16] MEDS: glipiZIDE 10 MG TAB PO SCH ×2 (07:14→15:50)
[2017-07-16 07:15] VITALS: BP 97/57; PULSE 66; RESP 17; TEMP 96.1; O2SAT 98
--- NOTE | 2017-07-16 08:41 | HHI.PR ---
Subjective Remarks Patient seen and examined today for follow-up on unsafe discharge due to instability. Patient requires 24-hour supervision and room close to nurses station. There are reports that patient fell last night on his sacrum, patient states that he just felt like his legs gave out. PT is working with patient. Awaiting case management for discharge planning. Vital signs are stable. Afebrile. Objective Vitals Vital Signs Date Time Temp Pulse Resp B/P (MAP) Pulse Ox O2 Delivery O2 Flow Rate FiO2 07/16/17 04:00 96.6 77 20 108/84 (92) 95 07/15/17 23:30 99.2 76 20 111/83 (92) 94 07/15/17 22:30 97.7 82 22 120/79 (93) 94 07/15/17 21:30 98.0 78 20 118/79 (92) 92 07/15/17 20:30 98.2 77 20 117/79 (92) 95 07/15/17 20:00 97.2 81 20 107/84 (92) 93 I/O 07/15/17 07/15/17 07/15/17 07/16/17 07/16/17 07/16/17 07:00 15:00 23:00 07:00 15:00 23:00 Intake Total 1500 ml 360 ml Balance 1500 ml 360 ml Intake Oral 1500 ml 360 ml # Voids 4 5 4 # Bowel Movements 1 0 Imaging Last Impressions Abdomen X-Ray 07/07/17 0000 Signed Impressions: Service Date/Time: Friday, July 07, 2017 02:12 - CONCLUSION: Nonspecific, nonobstructed bowel gas pattern with moderate amount of stool in the distal colon consistent with the history of constipation. Justin Mckenzie MD Carotid Artery Ultrasound 06/25/17 0000 Signed Impressions: Service Date/Time: Sunday, June 25, 2017 09:32 - CONCLUSION: Normal examination for a patient of this age. Sebastian Milian MD Head CT 06/24/17 1439 Signed Impressions: Service Date/Time: Saturday, June 24, 2017 15:44 - CONCLUSION: No acute disease. Fercho Drake MD Chest X-Ray 06/24/17 1438 Signed Impressions: Service Date/Time: Saturday, June 24, 2017 14:54 - CONCLUSION: 1. No acute abnormality or significant interval change. Joey Bush MD Shoulder X-Ray 06/24/17 0000 Signed Impressions: Service Date/Time: Saturday, June 24, 2017 15:32 - CONCLUSION: No acute disease. Fercho Drake MD Hip and Pelvis X-Ray 06/24/17 0000 Signed Impressions: Service Date/Time: Saturday, June 24, 2017 15:16 - CONCLUSION: No acute disease. Fercho Drake MD Objective Remarks GENERAL: Well-developed, well-nourished patient in NAD. SKIN: Warm and dry. No rash. HEAD: Normocephalic. Atraumatic. EYES: Pupils equal and round. No scleral icterus. No injection or drainage. ENT: No nasal bleeding or discharge. Mucous membranes pink and moist. NECK: Supple. Trachea midline. CARDIOVASCULAR: Regular rate and rhythm. S1, S2 noted. No murmur appreciated. RESPIRATORY: No accessory muscle use. Clear to auscultation. Breath sounds equal bilaterally. GASTROINTESTINAL: Abdomen soft, non-tender, nondistended. Normoactive bowel sounds x4. MUSCULOSKELETAL: No obvious deformities. Extremities without clubbing, cyanosis , or edema. NEUROLOGICAL: Awake and alert. No obvious cranial nerve deficits. Motor grossly within normal limits. 5/5 muscle strength in bilateral upper and lower extremities. Normal speech. Procedures none A/P Problem List: (1) Dementia without behavioral disturbance ICD Code: F03.90 - Unspecified dementia without behavioral disturbance (2) Hypertension ICD Code: I10 - Essential (primary) hypertension Status: Chronic (3) Hyperlipidemia ICD Code: E78.5 - Hyperlipidemia, unspecified Status: Chronic (4) Diabetes ICD Code: E11.9 - Type 2 diabetes mellitus without complications Status: Chronic (5) Acute metabolic encephalopathy ICD Code: G93.41 - Metabolic encephalopathy (6) Slurred speech ICD Code: R47.81 - Slurred speech (7) Hyperglycemia ICD Code: R73.9 - Hyperglycemia, unspecified Status: Acute (8) Anemia ICD Code: D64.9 - Anemia, unspecified Status: Acute Assessment and Plan Dementia with cognition deficits, significantly improved Patient originally presented the hospital because of recurrent falls Psychiatry evaluated the patient indicates that the patient does not have capacity to make his own decisions Case management consulted for discharge planning and management Speech therapy did perform initial cognitive eval on 06/26 with a MOCA 03/14, reconsulted for further evaluation which now the patient is Reconsult psychiatry to reevaluate since patient has improved. Psychiatrist indicates now the patient is able to make his own decisions. Physical deconditioning with recurrent outpatient falls Case management consulted for placement to skilled nurse facility, however insurance is not authorizing Continue physical therapy 7 days a week, twice daily Continue sitter due to patient climbing out of bed and falling Report of fall last evening. Diabetes, stable Patient on Metformin 850 mg twice daily, glipizide 10 mg twice daily Diabetic diet Hypertension, benign prostatic hypertrophy, stable Home medications have been continued DVT prevention Subcutaneous Lovenox Medical records reviewed, no change in current treatment plan, awaiting case management for discharge planning, Georgette Mcbride Jul 16, 2017 08:41
[2017-07-16] MEDS: POLYETHYLENE GLYCOL 17 GM PKG PO SCH (09:00)
[2017-07-16] MEDS: HYDROCHLOROTHIAZIDE 25 MG TAB PO SCH (09:00)
[2017-07-16] MEDS: DOCUSATE SODIUM 50 MG/SENNA 8.6 MG TAB PO SCH ×2 (09:36→22:00)
[2017-07-16] MEDS: PANTOPRAZOLE SOD 20 MG DELAYED RELEASE TAB PO SCH (09:37)
[2017-07-16] MEDS: CYANOCOBALAMIN 100 MCG TAB PO SCH (09:37)
[2017-07-16] MEDS: ASPIRIN 81 MG CHEW TAB PO SCH (09:37)
[2017-07-16] MEDS: metFORMIN HCL 850 MG TAB PO SCH ×2 (09:37→17:37)
[2017-07-16] MEDS: GABAPENTIN 300 MG CAP PO SCH ×3 (09:37→17:37)
[2017-07-16] MEDS: FERROUS SULFATE 325 MG (65 MG ELEMENTAL IRON) TAB PO SCH (09:38)
[2017-07-16] MEDS: CITALOPRAM HYDROBROMIDE 20 MG TAB PO SCH (09:39)
[2017-07-16] MEDS: ENOXAPARIN SODIUM 40 MG/0.4 ML SYRINGE SQ SCH (15:51)
[2017-07-16 20:00] VITALS: BP 112/66; PULSE 70; RESP 20; TEMP 96.1; O2SAT 94
[2017-07-16] MEDS: traZODone HCL 100 MG TAB PO SCH (22:00)
[2017-07-16] MEDS: TAMSULOSIN HCL 0.4 MG CAP PO SCH (22:00)
[2017-07-16] MEDS: ATORVASTATIN 20 MG TAB PO SCH (22:01)
[2017-07-17] VITALS: BP_SYST 118; BP_DIAS 71; BP_DIAS 76; PULSE 72; RESP 20; TEMP 97.1; O2SAT 96
[2017-07-17 07:50] VITALS: BP 128/83; PULSE 74; RESP 20; TEMP 96.6; O2SAT 93
[2017-07-17] MEDS: GABAPENTIN 300 MG CAP PO SCH ×3 (08:35→17:20)
[2017-07-17] MEDS: PANTOPRAZOLE SOD 20 MG DELAYED RELEASE TAB PO SCH (08:35)
[2017-07-17] MEDS: ASPIRIN 81 MG CHEW TAB PO SCH (08:35)
[2017-07-17] MEDS: FERROUS SULFATE 325 MG (65 MG ELEMENTAL IRON) TAB PO SCH (08:36)
[2017-07-17] MEDS: DOCUSATE SODIUM 50 MG/SENNA 8.6 MG TAB PO SCH ×3 (08:36→21:42)
[2017-07-17] MEDS: glipiZIDE 10 MG TAB PO SCH ×2 (08:36→16:00)
[2017-07-17] MEDS: HYDROCHLOROTHIAZIDE 25 MG TAB PO SCH (08:36)
[2017-07-17] MEDS: CITALOPRAM HYDROBROMIDE 20 MG TAB PO SCH (08:36)
[2017-07-17] MEDS: CYANOCOBALAMIN 100 MCG TAB PO SCH (08:36)
[2017-07-17] MEDS: metFORMIN HCL 850 MG TAB PO SCH ×2 (08:37→17:19)
[2017-07-17] MEDS: POLYETHYLENE GLYCOL 17 GM PKG PO SCH (08:40)
--- NOTE | 2017-07-17 08:51 | HHI.PR ---
Subjective Remarks Patient seen and examined today for follow-up on unsafe discharge due to instability. Patient seen and examined, sitting up in bed eating breakfast. Denies any acute events overnight. No falls overnight. Continue to work with PT. Awaiting case management for discharge planning. Vital signs are stable. Denies any pain. Objective Vitals Vital Signs Date Time Temp Pulse Resp B/P (MAP) Pulse Ox O2 Delivery O2 Flow Rate FiO2 07/17/17 00:00 97.1 72 20 118/71 (87) 96 07/16/17 20:00 96.1 70 20 112/66 (81) 94 I/O 07/16/17 07/16/17 07/16/17 07/17/17 07/17/17 07/17/17 06:59 14:59 22:59 06:59 14:59 22:59 Intake Total 360 ml 600 ml 480 ml Balance 360 ml 600 ml 480 ml Intake Oral 360 ml 600 ml 480 ml # Voids 4 3 5 # Bowel Movements 0 2 0 Imaging Last Impressions Abdomen X-Ray 07/07/17 0000 Signed Impressions: Service Date/Time: Friday, July 07, 2017 02:12 - CONCLUSION: Nonspecific, nonobstructed bowel gas pattern with moderate amount of stool in the distal colon consistent with the history of constipation. Justin Mckenzie MD Carotid Artery Ultrasound 06/25/17 0000 Signed Impressions: Service Date/Time: Sunday, June 25, 2017 09:32 - CONCLUSION: Normal examination for a patient of this age. Sebastian Milian MD Head CT 06/24/17 1439 Signed Impressions: Service Date/Time: Saturday, June 24, 2017 15:44 - CONCLUSION: No acute disease. Fercho Drake MD Chest X-Ray 06/24/17 1439 Signed Impressions: Service Date/Time: Saturday, June 24, 2017 14:54 - CONCLUSION: 1. No acute abnormality or significant interval change. Joey Bush MD Shoulder X-Ray 06/24/17 0000 Signed Impressions: Service Date/Time: Saturday, June 24, 2017 15:32 - CONCLUSION: No acute disease. Fercho Drake MD Hip and Pelvis X-Ray 06/24/17 0000 Signed Impressions: Service Date/Time: Saturday, June 24, 2017 15:16 - CONCLUSION: No acute disease. Fercho Drake MD Objective Remarks GENERAL: Well-developed, well-nourished patient in NAD. SKIN: Warm and dry. No rash. HEAD: Normocephalic. Atraumatic. EYES: Pupils equal and round. No scleral icterus. No injection or drainage. ENT: No nasal bleeding or discharge. Mucous membranes pink and moist. NECK: Supple. Trachea midline. CARDIOVASCULAR: Regular rate and rhythm. S1, S2 noted. No murmur appreciated. RESPIRATORY: No accessory muscle use. Clear to auscultation. Breath sounds equal bilaterally. GASTROINTESTINAL: Abdomen soft, non-tender, nondistended. Normoactive bowel sounds x4. MUSCULOSKELETAL: No obvious deformities. Extremities without clubbing, cyanosis , or edema. NEUROLOGICAL: Awake and alert. No obvious cranial nerve deficits. Motor grossly within normal limits. 5/5 muscle strength in bilateral upper and lower extremities. Normal speech. Procedures none A/P Problem List: (1) Dementia without behavioral disturbance ICD Code: F03.90 - Unspecified dementia without behavioral disturbance (2) Hypertension ICD Code: I10 - Essential (primary) hypertension Status: Chronic (3) Hyperlipidemia ICD Code: E78.5 - Hyperlipidemia, unspecified Status: Chronic (4) Diabetes ICD Code: E11.9 - Type 2 diabetes mellitus without complications Status: Chronic (5) Acute metabolic encephalopathy ICD Code: G93.41 - Metabolic encephalopathy (6) Slurred speech ICD Code: R47.81 - Slurred speech (7) Hyperglycemia ICD Code: R73.9 - Hyperglycemia, unspecified Status: Acute (8) Anemia ICD Code: D64.9 - Anemia, unspecified Status: Acute Assessment and Plan Dementia with cognition deficits, significantly improved Patient originally presented the hospital because of recurrent falls Psychiatry evaluated the patient indicates that the patient does not have capacity to make his own decisions Case management consulted for discharge planning and management Speech therapy did perform initial cognitive eval on 06/26 with a MOCA 03/14, reconsulted for further evaluation which now the patient is Reconsult psychiatry to reevaluate since patient has improved. Psychiatrist indicates now the patient is able to make his own decisions. Physical deconditioning with recurrent outpatient falls Case management consulted for placement to skilled nurse facility, however insurance is not authorizing Continue physical therapy 7 days a week, twice daily Continue sitter due to patient climbing out of bed and falling Report of fall last evening. Diabetes, stable Patient on Metformin 850 mg twice daily, glipizide 10 mg twice daily Diabetic diet Hypertension, benign prostatic hypertrophy, stable Home medications have been continued DVT prevention Subcutaneous Lovenox Medical records reviewed, no change in current treatment plan, awaiting case management for discharge planning Georgette Mcbride Jul 17, 2017 08:51
[2017-07-17 11:00] VITALS: BP 112/72; PULSE 77; RESP 20; TEMP 96.2; O2SAT 92
[2017-07-17 11:50] VITALS: BP 112/72; PULSE 77; RESP 20; TEMP 96.2; O2SAT 92
[2017-07-17] MEDS: ENOXAPARIN SODIUM 40 MG/0.4 ML SYRINGE SQ SCH (13:53)
[2017-07-17 15:50] VITALS: BP 133/76; PULSE 85; RESP 20; TEMP 97; O2SAT 94
[2017-07-17 20:08] VITALS: BP 124/73; PULSE 80; RESP 20; TEMP 98.1; O2SAT 93
[2017-07-17] MEDS: traZODone HCL 100 MG TAB PO SCH (21:42)
[2017-07-17] MEDS: TAMSULOSIN HCL 0.4 MG CAP PO SCH (21:42)
[2017-07-17] MEDS: ATORVASTATIN 20 MG TAB PO SCH (21:43)
[2017-07-18] MEDS: glipiZIDE 10 MG TAB PO SCH ×2 (06:14→16:35)
[2017-07-18 07:50] VITALS: BP 110/80; PULSE 64; RESP 20; TEMP 97.4; O2SAT 93
[2017-07-18] MEDS: PANTOPRAZOLE SOD 20 MG DELAYED RELEASE TAB PO SCH (08:48)
[2017-07-18] MEDS: metFORMIN HCL 850 MG TAB PO SCH ×2 (08:48→17:39)
[2017-07-18] MEDS: GABAPENTIN 300 MG CAP PO SCH ×3 (08:48→17:39)
[2017-07-18] MEDS: FERROUS SULFATE 325 MG (65 MG ELEMENTAL IRON) TAB PO SCH (08:48)
[2017-07-18] MEDS: ASPIRIN 81 MG CHEW TAB PO SCH (08:48)
--- NOTE | 2017-07-18 08:48 | HHI.PR ---
Subjective Remarks Patient seen and examined today for follow-up on unsafe discharge due to instability. Patient seen and examined, lying in bed comfortably. In no apparent distress. Eating well, denies any abdominal pain, nausea or vomiting. Afebrile. Vital signs stable. sales consultant residential manager assisting in placement. Objective Vitals Vital Signs Date Time Temp Pulse Resp B/P (MAP) Pulse Ox O2 Delivery O2 Flow Rate FiO2 07/18/17 07:50 97.4 64 20 110/80 (90) 93 07/17/17 20:08 98.1 80 20 124/73 (90) 93 07/17/17 15:50 97.0 85 20 133/76 (95) 94 07/17/17 11:50 96.2 77 20 112/72 (85) 92 07/17/17 11:00 96.2 77 20 112/72 (85) 92 I/O 07/17/17 07/17/17 07/17/17 07/18/17 07/18/17 07/18/17 07:00 15:00 23:00 07:00 15:00 23:00 Intake Total 480 ml 600 ml 1185 ml 340 ml Output Total 400 ml Balance 480 ml 600 ml 1185 ml -60 ml Intake Oral 480 ml 600 ml 1185 ml 340 ml Output Urine Total 400 ml # Voids 5 6 2 # Bowel Movements 0 2 Imaging Last Impressions Abdomen X-Ray 07/07/17 0000 Signed Impressions: Service Date/Time: Friday, July 07, 2017 02:12 - CONCLUSION: Nonspecific, nonobstructed bowel gas pattern with moderate amount of stool in the distal colon consistent with the history of constipation. Justin Mckenzie MD Carotid Artery Ultrasound 06/25/17 0000 Signed Impressions: Service Date/Time: Sunday, June 25, 2017 09:32 - CONCLUSION: Normal examination for a patient of this age. Sebastian Milian MD Head CT 06/24/17 1439 Signed Impressions: Service Date/Time: Saturday, June 24, 2017 15:44 - CONCLUSION: No acute disease. Fercho Drake MD Chest X-Ray 06/24/17 1439 Signed Impressions: Service Date/Time: Saturday, June 24, 2017 14:54 - CONCLUSION: 1. No acute abnormality or significant interval change. Joey Bush MD Shoulder X-Ray 3/12/18 0000 Signed Impressions: Service Date/Time: Saturday, June 24, 2017 15:32 - CONCLUSION: No acute disease. Fercho Drake MD Hip and Pelvis X-Ray 06/24/17 0000 Signed Impressions: Service Date/Time: Saturday, June 24, 2017 15:16 - CONCLUSION: No acute disease. Fercho Drake MD Objective Remarks GENERAL: Well-developed, well-nourished patient in NAD. SKIN: Warm and dry. No rash. HEAD: Normocephalic. Atraumatic. EYES: Pupils equal and round. No scleral icterus. No injection or drainage. ENT: No nasal bleeding or discharge. Mucous membranes pink and moist. NECK: Supple. Trachea midline. CARDIOVASCULAR: Regular rate and rhythm. S1, S2 noted. No murmur appreciated. RESPIRATORY: No accessory muscle use. Clear to auscultation. Breath sounds equal bilaterally. GASTROINTESTINAL: Abdomen soft, non-tender, nondistended. Normoactive bowel sounds x4. MUSCULOSKELETAL: No obvious deformities. Extremities without clubbing, cyanosis , or edema. NEUROLOGICAL: Awake and alert. No obvious cranial nerve deficits. Motor grossly within normal limits. 5/5 muscle strength in bilateral upper and lower extremities. Normal speech. Procedures none A/P Problem List: (1) Dementia without behavioral disturbance ICD Code: F03.90 - Unspecified dementia without behavioral disturbance (2) Hypertension ICD Code: I10 - Essential (primary) hypertension Status: Chronic (3) Hyperlipidemia ICD Code: E78.5 - Hyperlipidemia, unspecified Status: Chronic (4) Diabetes ICD Code: E11.9 - Type 2 diabetes mellitus without complications Status: Chronic (5) Acute metabolic encephalopathy ICD Code: G93.41 - Metabolic encephalopathy (6) Slurred speech ICD Code: R47.81 - Slurred speech (7) Hyperglycemia ICD Code: R73.9 - Hyperglycemia, unspecified Status: Acute (8) Anemia ICD Code: D64.9 - Anemia, unspecified Status: Acute Assessment and Plan Dementia with cognition deficits, significantly improved Patient originally presented the hospital because of recurrent falls Psychiatry evaluated the patient indicates that the patient does not have capacity to make his own decisions Case management consulted for discharge planning and management Speech therapy did perform initial cognitive eval on 06/26 with a MOCA 03/14, reconsulted for further evaluation which now the patient is Reconsult psychiatry to reevaluate since patient has improved. Psychiatrist indicates now the patient is able to make his own decisions. Physical deconditioning with recurrent outpatient falls Case management consulted for placement to skilled nurse facility, however insurance is not authorizing Continue physical therapy 7 days a week, twice daily Continue sitter due to patient climbing out of bed and falling OT has seen patient, recommendations for rehab. Diabetes, stable Patient on Metformin 850 mg twice daily, glipizide 10 mg twice daily Diabetic diet Hypertension, benign prostatic hypertrophy, stable Home medications have been continued DVT prevention Subcutaneous Lovenox Medical records reviewed, no change in current treatment plan, awaiting case management for discharge planning Discharge Planning Case management assisting with placement to Rehab tomorrow am. Georgetet Mcbride Jul 18, 2017 08:48
[2017-07-18] MEDS: POLYETHYLENE GLYCOL 17 GM PKG PO SCH (08:49)
[2017-07-18] MEDS: CITALOPRAM HYDROBROMIDE 20 MG TAB PO SCH (08:49)
[2017-07-18] MEDS: CYANOCOBALAMIN 100 MCG TAB PO SCH (08:49)
[2017-07-18] MEDS: DOCUSATE SODIUM 50 MG/SENNA 8.6 MG TAB PO SCH ×2 (08:49→20:46)
[2017-07-18] MEDS: HYDROCHLOROTHIAZIDE 25 MG TAB PO SCH (08:49)
[2017-07-18 11:50] VITALS: BP 134/86; PULSE 69; RESP 20; TEMP 97.9; O2SAT 94
[2017-07-18] MEDS: ENOXAPARIN SODIUM 40 MG/0.4 ML SYRINGE SQ SCH (14:00)
[2017-07-18] MEDS ORDERED: CYAN100 PO (16:11)
[2017-07-18] MEDS ORDERED: PERI PO (16:11)
[2017-07-18 20:00] VITALS: BP 117/70; PULSE 76; RESP 20; TEMP 97.8; O2SAT 95
[2017-07-18] MEDS: traZODone HCL 100 MG TAB PO SCH (20:46)
[2017-07-18] MEDS: ATORVASTATIN 20 MG TAB PO SCH (20:46)
[2017-07-18] MEDS: TAMSULOSIN HCL 0.4 MG CAP PO SCH (20:46)
[2017-07-19] MEDS: glipiZIDE 10 MG TAB PO SCH ×2 (03:49→07:59)
[2017-07-19] MEDS: GABAPENTIN 300 MG CAP PO SCH (07:59)
[2017-07-19] MEDS: HYDROCHLOROTHIAZIDE 25 MG TAB PO SCH (07:59)
[2017-07-19] MEDS: metFORMIN HCL 850 MG TAB PO SCH (07:59)
[2017-07-19 08:00] VITALS: BP 120/76; PULSE 73; RESP 14; TEMP 96.2; O2SAT 97
[2017-07-19] MEDS: FERROUS SULFATE 325 MG (65 MG ELEMENTAL IRON) TAB PO SCH (08:00)
[2017-07-19] MEDS: DOCUSATE SODIUM 50 MG/SENNA 8.6 MG TAB PO SCH (08:00)
[2017-07-19] MEDS: CITALOPRAM HYDROBROMIDE 20 MG TAB PO SCH (08:00)
[2017-07-19] MEDS: POLYETHYLENE GLYCOL 17 GM PKG PO SCH (08:01)
[2017-07-19] MEDS: ASPIRIN 81 MG CHEW TAB PO SCH (08:01)
[2017-07-19] MEDS: CYANOCOBALAMIN 100 MCG TAB PO SCH (08:01)
[2017-07-19] MEDS: PANTOPRAZOLE SOD 20 MG DELAYED RELEASE TAB PO SCH (08:01)
--- NOTE | 2017-07-19 09:02 | HHI.PR ---
Objective Vitals Vital Signs Date Time Temp Pulse Resp B/P (MAP) Pulse Ox O2 Delivery O2 Flow Rate FiO2 07/18/17 20:00 97.8 76 20 117/70 (86) 95 07/18/17 11:50 97.9 69 20 134/86 (102) 94 I/O 07/18/17 07/18/17 07/18/17 07/19/17 07/19/17 07/19/17 07:00 15:00 23:00 07:00 15:00 23:00 Intake Total 340 ml 360 ml 60 ml Output Total 400 ml Balance -60 ml 360 ml 60 ml Intake Oral 340 ml 360 ml 60 ml Output Urine Total 400 ml # Voids 2 6 4 # Bowel Movements 1 0 Objective Remarks GENERAL: Well-developed, well-nourished patient in NAD. SKIN: Warm and dry. No rash. HEAD: Normocephalic. Atraumatic. EYES: Pupils equal and round. No scleral icterus. No injection or drainage. ENT: No nasal bleeding or discharge. Mucous membranes pink and moist. NECK: Supple. Trachea midline. CARDIOVASCULAR: Regular rate and rhythm. S1, S2 noted. No murmur appreciated. RESPIRATORY: No accessory muscle use. Clear to auscultation. Breath sounds equal bilaterally. GASTROINTESTINAL: Abdomen soft, non-tender, nondistended. Normoactive bowel sounds x4. MUSCULOSKELETAL: No obvious deformities. Extremities without clubbing, cyanosis , or edema. NEUROLOGICAL: Awake and alert. No obvious cranial nerve deficits. Motor grossly within normal limits. 5/5 muscle strength in bilateral upper and lower extremities. Normal speech. Procedures none A/P Problem List: (1) Dementia without behavioral disturbance ICD Code: F03.90 - Unspecified dementia without behavioral disturbance (2) Hypertension ICD Code: I10 - Essential (primary) hypertension Status: Chronic (3) Hyperlipidemia ICD Code: E78.5 - Hyperlipidemia, unspecified Status: Chronic (4) Diabetes ICD Code: E11.9 - Type 2 diabetes mellitus without complications Status: Chronic (5) Acute metabolic encephalopathy ICD Code: G93.41 - Metabolic encephalopathy (6) Slurred speech ICD Code: R47.81 - Slurred speech (7) Hyperglycemia ICD Code: R73.9 - Hyperglycemia, unspecified Status: Acute (8) Anemia ICD Code: D64.9 - Anemia, unspecified Status: Acute Assessment and Plan Dementia with cognition deficits, significantly improved Patient originally presented the hospital because of recurrent falls Psychiatry evaluated the patient indicates that the patient does not have capacity to make his own decisions Case management consulted for discharge planning and management Speech therapy did perform initial cognitive eval on 06/26 with a MOCA 03/14, reconsulted for further evaluation which now the patient is Reconsult psychiatry to reevaluate since patient has improved. Psychiatrist indicates now the patient is able to make his own decisions. Physical deconditioning with recurrent outpatient falls Case management consulted for placement to skilled nurse facility, however insurance is not authorizing Continue physical therapy 7 days a week, twice daily Continue sitter due to patient climbing out of bed and falling OT has seen patient, recommendations for rehab. Diabetes, stable Patient on Metformin 850 mg twice daily, glipizide 10 mg twice daily Diabetic diet Hypertension, benign prostatic hypertrophy, stable Home medications have been continued DVT prevention Subcutaneous Lovenox Medical records reviewed, no change in current treatment plan, awaiting case management for discharge planning Discharge Planning Case management assisting with placement to Rehab tomorrow am. Georgette Mcbride Jul 19, 2017 09:02
--- NOTE | 2017-07-19 09:08 | HHI.DS ---
Discharge Summary Admission Date Jun 24, 2017 at 18:23 Discharge Date: Jul 19, 2017 Admitting Diagnosis AMS, generalized weakness (1) Dementia without behavioral disturbance ICD Code: F03.90 - Unspecified dementia without behavioral disturbance (2) Hypertension ICD Code: I10 - Essential (primary) hypertension Status: Chronic (3) Hyperlipidemia ICD Code: E78.5 - Hyperlipidemia, unspecified Status: Chronic (4) Diabetes ICD Code: E11.9 - Type 2 diabetes mellitus without complications Status: Chronic (5) Acute metabolic encephalopathy ICD Code: G93.41 - Metabolic encephalopathy (6) Slurred speech ICD Code: R47.81 - Slurred speech (7) Hyperglycemia ICD Code: R73.9 - Hyperglycemia, unspecified Status: Acute (8) Anemia ICD Code: D64.9 - Anemia, unspecified Status: Acute Procedures See below. Brief History - From Admission History from patient, ER communication, interview of medical records. Patient is extremely hard of hearing. He states that he lives by himself. He was discharged from our hospital on June 19, 2017. Medical records reviewed. Per ER notes, patient was initially discharged to [facility] and he actually left the nursing facility within 1 day because he wanted to live by himself. Today though, patient states he is not sure why the EMS was called. However he reports that he has been falling down a lot. He reports that just the other night, he was in the shower for 12 hours because he just was not able to get up. When asked why he was falling, he states he is not sure. He just does not have strength. Apart from these falls, patient denies any other symptoms. He states he is too proud to use a walker. He reports that he is not getting he uses a walker even if we prescribe him one. Reports he usually goes out for meals by himself once a day. For the rest of the meals, he would need cold food or snacks at home. He is independent of daily activities according to him. Per ER notes, patient's neighbors/staff at independent living facility at [facility] called EMS after a well check. They noted patient has missed phone calls over the past few days and assumed that he may have been down for at least 2 days. Patient was also covered with feces and smell of urine upon arrival to ER. Neighbors are also noted the patient is not as sharp as his baseline is and has been falling a lot. Imaging Last Impressions Abdomen X-Ray 07/07/17 0000 Signed Impressions: Service Date/Time: Friday, July 07, 2017 02:12 - CONCLUSION: Nonspecific, nonobstructed bowel gas pattern with moderate amount of stool in the distal colon consistent with the history of constipation. Justin Mckenzie MD Carotid Artery Ultrasound 06/25/17 0000 Signed Impressions: Service Date/Time: Sunday, June 25, 2017 09:32 - CONCLUSION: Normal examination for a patient of this age. Sebastian Milian MD Head CT 06/24/17 1439 Signed Impressions: Service Date/Time: Saturday, June 24, 2017 15:44 - CONCLUSION: No acute disease. Fercho Drake MD Chest X-Ray 06/24/17 1439 Signed Impressions: Service Date/Time: Saturday, June 24, 2017 14:54 - CONCLUSION: 1. No acute abnormality or significant interval change. Joey Bush MD Shoulder X-Ray 06/24/17 0000 Signed Impressions: Service Date/Time: Saturday, June 24, 2017 15:32 - CONCLUSION: No acute disease. Fercho Drake MD Hip and Pelvis X-Ray 06/24/17 0000 Signed Impressions: Service Date/Time: Saturday, June 24, 2017 15:16 - CONCLUSION: No acute disease. Fercho Drake MD PE at Discharge GENERAL: Well-developed, well-nourished patient in [facility]. SKIN: Warm and dry. No rash. HEAD: Normocephalic. Atraumatic. EYES: Pupils equal and round. No scleral icterus. No injection or drainage. ENT: No nasal bleeding or discharge. Mucous membranes pink and moist. NECK: Supple. Trachea midline. CARDIOVASCULAR: Regular rate and rhythm. S1, S2 noted. No murmur appreciated. RESPIRATORY: No accessory muscle use. Clear to auscultation. Breath sounds equal bilaterally. GASTROINTESTINAL: Abdomen soft, non-tender, nondistended. Normoactive bowel sounds x4. MUSCULOSKELETAL: No obvious deformities. Extremities without clubbing, cyanosis , or edema. NEUROLOGICAL: Awake and alert. No obvious cranial nerve deficits. Motor grossly within normal limits. 5/5 muscle strength in bilateral upper and lower extremities. Normal speech. Pt update on day of discharge Follow up dementia and unsafe discharge. Patient seen and examined, lying in bed comfortably in NAD. No reports of any acute events overnight. No reports of any falls. Denies any pain. Eating well, denies any abdominal pain, nausea or vomiting. Afebrile, VSS. Patient is having some loose stools, was given bowel regimen medications despite loose stools, will give Imodium. Hospital Course Patient dementia with cognition deficits. Patient originally presented the hospital because of recurrent falls. Psychiatry evaluated the patient indicated initially that the patient did not have capacity to make his own decisions. Case management consulted for discharge planning and management. Speech therapy did perform initial cognitive eval on 06/26 with a MOCA 03/14, reconsulted for further evaluation which now the patient is . Reconsulted psychiatry to reevaluate since patient has improved. Psychiatrist indicates now the patient is able to make his own decisions. Patient does have physical deconditioning with recurrent outpatient falls. PT 7 days per week while hospitalized. OT was also ordered and recommend rehab upon discharge. Patient has a history of diabetes, was stable during hospitalization. Continued Metformin and Glipizide. PCP to follow. Hypertension also stable. Pt Condition on Discharge: Stable Discharge Disposition: Discharge to SNF Discharge Time: > 30 minutes Discharge Instructions DIET: Follow Instructions for: Heart Healthy Diet, Diabetic Diet Activities you can perform: Regular-No Restrictions Follow up Referrals: PCP Follow-up - 1 Week New Medications: Cyanocobalamin (Vitamin B12) 100 Mcg Tab 100 MCG PO DAILY for supplementation for 30 Days, #30 TAB Sennosides-Docusate Sodium (Gnp Senna Plus 8.6-50 mg) 8.6 Mg-50 Mg Tab 2 TAB PO BID PRN for CONSTIPATION for 30 Days, #60 TAB Continued Medications: Amlodipine (Amlodipine) 10 Mg Tab 10 MG PO DAILY for Blood Pressure Management, #30 TAB 0 Refills Aspirin (Aspirin) 81 Mg Chew 81 MG PO DAILY, TAB 0 Refills Atorvastatin (Atorvastatin) 20 Mg Tab 20 MG PO HS for Cholesterol Management, #30 TAB 0 Refills Citalopram (Citalopram) 20 Mg Tab 20 MG PO DAILY for Control Depression, #30 TAB 0 Refills Ferrous Sulfate (Ferosul) 325 Mg Tablet 325 MG PO DAILY for iron deficiency , #30 BOTTLE take with orange juice if possible Gabapentin (Gabapentin) 600 Mg Tab 600 MG PO TID, #90 TAB 0 Refills Glipizide (Glipizide) 10 Mg Tab 10 MG PO BIDAC for Blood Sugar Management, #60 TAB 0 Refills Take 30 minutes before a meal Hydrochlorothiazide (Hydrochlorothiazide) 25 Mg Tab 25 MG PO DAILY, #30 TAB 0 Refills Meclizine (Meclizine) 25 Mg Tab 25 MG PO TID PRN for VERTIGO, TAB 0 Refills Metformin (Metformin) 850 Mg Tab 850 MG PO BIDPC for Blood Sugar Management, TAB 0 Refills Pantoprazole (Pantoprazole) 20 Mg Tab 20 MG PO DAILY for Reflux, #30 TAB 0 Refills Sitagliptin (Januvia) 100 Mg Tab 100 MG PO DAILY for Blood Sugar Management, #30 TAB 0 Refills Tamsulosin (Flomax) 0.4 Mg Cap 0.4 MG PO HS for Manage Prostate Problems, #30 CAP 0 Refills Trazodone (Trazodone) 100 Mg Tablet 100 MG PO HS for Control Depression, #30 TAB 0 Refills Discontinued Medications: Ciprofloxacin (Cipro) 250 Mg Tab 250 MG PO BID for Infection for 7 Days, #14 TAB 0 Refills Georgette Mcbride Jul 19, 2017 09:08
[2017-07-19] MEDS ORDERED: LOPERAMIDE HCL 2 MG CAP PO ONE ×2 (10:15)
== END 2017-07-19 10:19 ==
LOC: NEPC 13:46 → NEDA 18:23 → NEDH 22:23 → NEPFCDU 06-25 13:49 → PH3B 07-03 10:11
PROVIDERS: ADMIT Hospitalist; ATTEND Hospitalist
DX: F03.90 Unspecified dementia, unspecified severity, without behavioral disturbance, psychotic disturbance, mood disturbance, and anxiety (principal); S40.012A Contusion of left shoulder, initial encounter; S70.02XA Contusion of left hip, initial encounter; I10 Essential (primary) hypertension; E78.5 Hyperlipidemia, unspecified; E11.65 Type 2 diabetes mellitus with hyperglycemia; I25.2 Old myocardial infarction; R61 Generalized hyperhidrosis; R94.31 Abnormal electrocardiogram [ECG] [EKG]; K59.00 Constipation, unspecified; G93.41 Metabolic encephalopathy; R47.81 Slurred speech; K21.9 Gastro-esophageal reflux disease without esophagitis; D64.9 Anemia, unspecified; H91.90 Unspecified hearing loss, unspecified ear; R29.6 Repeated falls; R09.89 Other specified symptoms and signs involving the circulatory and respiratory systems; M19.90 Unspecified osteoarthritis, unspecified site; Z79.899 Other long term (current) drug therapy; Z79.82 Long term (current) use of aspirin; W18.2XXA Fall in (into) shower or empty bathtub, initial encounter; Z23 Encounter for immunization
CPT/HCPCS: 70450; 71045; 73030; 73502; 74018; 80048; 80053; 80307; 81001; 82140; 82550; 82607; 82948; 83605; 83735; 84443; 84484; 85025; 85027; 85610; 85730; 87040; 90471; 90472; 90686; 90732; 93005; 93880; 96125; 96361; 96372; 96374; 97110; 97116; 97127; 97162; 97167; 97530; 99285; G0378; G8987; G8988; G9168; G9169; G9170; J0360; J1650; J1815; J7040; P9612; G0008; G0009; G0515-GN; Q2038